=== PATIENT | female | born 1985 | race Caucasian/White ===

== ENCOUNTER 2017-04-01 02:54 | Emergency (ER) | payer MEDICARE, OTHER, MEDICAID ==
[~2017-04-01] VITALS: Ht 160 cm; Wt 53.3 kg
[2017-04-01 02:55] VITALS: TEMP 97.8; Ht 160 cm; Wt 53.3 kg
--- OUTSIDE RECORDS SUMMARY | 2017-04-01 02:58 | XMS REPORT ---
Author Author Sahra Bowden Organization Unknown Address [address], [place] [id number] Phone Care Team Providers Care Loom Changeover Operator Name Role Phone Alfred Obregon PP Unavailable Unavailable Reason for Referral No Reason for Referral was given. History of Present Illness No HPI available. 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; (Active) * Amenorrhea (626.0); (Active) * Pain During Urination (Dysuria) (788.1); (Active) * Visit For: Therapeutic Drug Monitoring (V58.83); (Active) * Chronic Sinusitis (473.9); (Active) * Vomiting (Symptom) (787.03); (Active) * Urinary Tract Infection (599.0); (Active) * Visit For: Preoperative Exam (V72.84); (Active) * Fatigue (780.79); (Active) * Cystic Fibrosis (277.00); (Active) Medication * NexIUM 40 MG Oral Capsule Delayed Release; TAKE ONE CAPSULE BY MOUTH DAILY; Start Date: 06/21/2008; End Date: (Active) * Pulmozyme 1 MG/ML Inhalation Solution; USE 1 UNIT VIA NEBULIZER TWO TIMES DAILY; Start Date: 07/09/2009; End Date: (Active) * Vitamin D3 TABS (Active) * ProAir HFA 108 (90 Base) MCG/ACT Inhalation Aerosol Solution; INHALE 2 PUFFS Every 4 hours PRN; Start Date: 04/14/2010; End Date: (Active) * Vitamin E 100 UNIT Oral Capsule (Active) * PARoxetine HCl 40 MG Oral Tablet; Take one tablet by mouth daily; Start Date: 11/30/2011; End Date: (Active) * /Folic Acid Oral Tablet; TAKE 1 TABLET DAILY.; Start Date: 12/15/2011 ; End Date: (Active) * Flovent HFA 220 MCG/ACT Inhalation Aerosol; INHALE ONE PUFF BY MOUTH TWO TIMES A DAY.; Start Date: 06/28/2011; End Date: (Active) * Nasonex 50 MCG/ACT Nasal Suspension; USE 2 SPRAYS IN EACH NOSTRIL ONCE DAILY; Start Date: 06/28/2011; End Date: (Active) * Saline 10%; Use 2ml via nebulizer twice daily; Start Date: 07/13/2011; End Date: (Active) * AquADEKs Oral Capsule; TAKE 1 CAPSULE DAILY.; Start Date: 02/02/2011; End Date : (Active) * Brovana 15 MCG/2ML Inhalation Nebulization Solution; INHALE THE CONTENTS OF 1 VIAL TWO TIMES DAILY IN THE MORNING AND EVENING VIA STANDARD JET NEBULIZER DIRECTED.; Start Date: 12/22/2011; End Date: (Active) * Creon 63443 UNIT Oral Capsule Delayed Release Particles; TAKE 6 CAP BY MOUTH WITH MEALS, AND 4 CAPS WITH SNACKS; Start Date: 12/22/2011; End Date: 1899 (Active) * Albuterol Sulfate (2.5 MG/3ML) 0.083% Inhalation Nebulization Solution; USE 1 UNIT DOSE IN NEBULIZER EVERY 4 TO 6 HOURS NEEDED.; Start Date: 05/16/2012; End Date: (Active) * ALPRAZolam 0.25 MG Oral Tablet; Take one tablet up to three times daily as needed; Start Date: 11/24/2011 (Active) * CefTRIAXone Sodium 2 GM Injection Solution Reconstituted; Start Date: 2011 (Active) * Epiduo 0.1-2.5 % External Gel; apply to acne areas daily; Start Date: 2011 (Active) * Vitamin A 42004 UNIT Oral Capsule; Start Date: 01/17/2013 (Active) * Levothyroxine Sodium 125 MCG Oral Tablet; TAKE 1 TABLET DAILY.; Start Date: ; End Date: (Active) * Yoni 300 MG/5ML Inhalation Nebulization Solution; USE ONE VIAL VIA NEBULIZER BY MOUTH TWICE A DAY/ one month on and one month off; Start Date: 05/28/2013; End Date: (Active) * Nada Carbonate 300 MG Oral Tablet; TAKE 3 TABLETS THREE TIMES DAILY.; Start Date: 09/19/2012 (Active) Allergies and Adverse Reactions * Latex Exam Gloves MISC (Active) * Cipro TABS (Active) * Augmentin TABS (Active) * Sudafed TABS (Active) * Penicillins (Active) * Aspirin Buffered TABS (Active) * Zithromax PACK (Active) * Clindamycin; Nausea; Vomiting (Active) * Levaquin TABS; Hives (Active) * Peanut-derived (Active) Past Medical History * History of 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/ Tunneling & Subcutan Port (Resolved) * History of Cystic Fibrosis (277.00); (Resolved) * History of Asthma (493.90); (Resolved) * 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); ( Resolved) * History of Chronic Sinusitis (473.9); (Resolved) Procedures Procedure Procedure Date Date Completed Status Ethmoidectomy - - Active Nasal Endoscopy With Maxillary Antrostomy - - Active Sphenoidectomy - - Active Turbinectomy - - Active Septoplasty - - Active Rhinoplasty - - Active Nasal Endoscopy With Total Ethmoidectomy 07/23/2009 - Active Nasal Endoscopy With Maxillary Antrostomy 07/23/2009 - Active Sphenoid Sinus Endoscopy With Removal Of Mucous Membrane 07/23/2009 - Active Nasal Endoscopy With Frontal Sinus Exploration 06/25/2010 - Active Nasal Endoscopy With Total Ethmoidectomy 06/25/2010 - Active Nasal Endoscopy With Maxillary Antrostomy 06/25/2010 - Active Sphenoid Sinus Endoscopy With Removal Of Mucous Membrane 06/25/2010 - Active 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/ Tunneling & Subcutan Port 08/02/2011 - Active Tunneled Central IV Removal With Port 03/15/2011 - Active Lysis Of Intranasal Synechia 07/19/2011 - Active Maxillary Sinus Endoscopy With Removal Of Mucous Membrane 07/19/2011 - Active Nasal Endoscopy Polypectomy 07/19/2011 - Active 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/ Tunneling & Subcutan Port 09/22/2012 - Active Tunneled Central IV Removal With Port 09/22/2012 - Active Immunization * Pneumo (Pneumovax) - Administered on: 07/19/2005 Family History * Family history of Diabetes Mellitus (V18.0); (Active) * Family history of Coronary Artery Disease (Active) * Family history of Epilepsy And Recurrent Seizures (V17.2); (Active) * Family history of Osteoporosis (V17.81); (Active) * Family history of Glaucoma (Active) * Family history of Hyperlipidemia (Active) * Family history of Thyroid Disorder (V18.19); (Active) * Family history of Lung Cancer (V16.1); (Active) * Family history of Breast Cancer (V16.3); (Active) Social History * Racial Background (___ %) (Active) * Never A Smoker (Active) * Being A Social Drinker (Active) * No History of Drug Use (Active) * Exercising Regularly (Active) * No History of Home Environment Domestic Violence (Active) * Marital History - Never (Active) * Seeing A Dentist Regularly (Active) * Uses Safety Equipment - Seatbelts (Active) Treatment Plan * AEROBIC CULTURE 5000 01/31/2008 Routine * GRAM STAIN - BILL 5056 01/31/2008 Routine * PAP SMEAR 9600 07/18/2008 Routine * X DIGITIZATION OF X-RAY FILM 08/13/2008 Routine * XC CT RECON FOR NON CTA EXAMS 08/19/2008 Routine * Urine Culture PRN 8000 03/26/2009 Routine * Urinalysis, Reflex to Microscopic or Culture PRN 8005 03/26/2009 Routine * Urine Culture PRN 8000 06/08/2010 Routine * PAP SMEAR 9600 09/29/2010 Routine * CRP, High Sensitivity 1270 01/04/2011 Routine * XRay CHEST-PA & LAT 01/18/2013 Routine * FREE T4 3604 05/28/2013 Routine * CBC w/ Auto Diff 7150 05/28/2013 Routine * THYROID STIM. HORMONE 3602 05/28/2013 Routine * GLUCOSE 1100 07/03/2013 Routine Advance Directives * No Advance Directives available. Encounters * Appointment 07/30/2013
--- OUTSIDE RECORDS SUMMARY | 2017-04-01 02:58 | XMS REPORT | Referral Summary ---
Author Author [facility] Organization [facility] Address Unknown Phone Unavailable Care Team Providers Care Map Drafter Name Role Phone Alem Simon Primary Care Physician [phone] Encounter [facility] [id number] Date(s): 02/26/16 - 02/26/16 [facility] [address] [place], [place] [address] Discharge Diagnosis: Chronic pansinusitis Discharge Diagnosis: Hypertrophy of nasal turbinates Discharge Diagnosis: Epistaxis Discharge Disposition: 01-Home or Self Care Attending Physician: Nate Grady MD Admitting Physician: Nate Grady MD Vital Signs Most recent to 1 oldest [Reference Range]: Temperature Temporal 36.7 degC Artery [36.3-37.8 (02/26/16 9:20 AM) degC] Peripheral Pulse 62 bpm Rate [60-100 bpm] (02/26/16 9:20 AM) Respiratory Rate 16 br/min [14-20 br/min] (02/26/16 9:20 AM) Blood Pressure 104/67 mmHg [90-140/60-90 mmHg] (02/26/16 9:20 AM) SpO2 100 % (02/26/16 9:20 AM) Problem List Condition Effective Dates Status Health Status Informant Acute Active pain(Confirmed) Anemia(Confirmed) Active patient At risk for Active infection(Confirmed) 1 Chronic Active depression(Confirmed ) Chronic Active diarrhea(Confirmed) Chronic sinusitis Active (disorder)(Confirmed ) Cystic fibrosis Active without meconium ileus (disorder)(Confirmed ) GERD Active patient (gastroesophageal reflux disease)(Confirmed) Generalized Active abdominal pain (finding)(Confirmed) Hypothyroidism Active (disorder)(Confirmed ) Ineffective airway Active clearance(Confirmed) 2 Asthma without Active status asthmaticus (disorder)(Confirmed ) Pancreatic Active insufficiency(Confir med) Varicella Active (disorder)(Confirmed ) Vitamin deficiency Active (disorder)(Confirmed ) 1Problem added automatically by system based on initiation of At Risk for Infection in Nutrition Plan of Care 2Problem added automatically by system based on initiation of Ineffective Airway Clearance Plan of Care Allergies, Adverse Reactions, Alerts Substance Reaction Severity Status amoxicillin Hives Active amoxicillin-clavulanate Hives Active aspirin Wheezing Active Anaphylaxis azithromycin hives Active ciprofloxacin Urticaria (hives) Active clindamycin Hives/Skin Rash Severe Active cyproheptadine Hives Active divalproex sodium Active erythromycin Active Latex Urticaria (hives) Active levofloxacin hives Active Peanuts Unknown Active penicillin Urticaria (hives) Active pseudoephedrine Anaphylaxis Active Medications Abilify 5 mg, BID, 0 Refill(s) Start Date: 01/28/16 Status: Ordered Ancef IV, q8hr, 0 Refill(s) Start Date: 02/20/16 Status: Ordered BuSpar 20 mg, Oral, TID, 0 Refill(s) Start Date: 01/28/16 Status: Ordered Cranberry Daily Start Date: 04/02/15 Status: Ordered Creon 24,000 units oral delayed release capsule See Instructions, Take 6 caps oral with meals and 4 caps oral with snacks., # 780 caps, 3 Refill(s), Pharmacy: [facility] Start Date: 11/05/15 Status: Ordered Effexor XR 150 mg oral capsule, extended release mg caps, Oral, Daily, 0 Refill(s) Start Date: 02/20/16 Status: Ordered famotidine 20 mg Start Date: 05/05/15 Status: Ordered Femara 2.5 mg oral tablet mg tabs, Oral, Daily, 0 Refill(s) Start Date: 11/26/15 Status: Ordered Flovent HFA 220 mcg/inh inhalation aerosol 2 puffs, Inhalation, BID, 0 Refill(s) Start Date: 02/24/15 Status: Ordered naltrexone 20 mg, Daily Start Date: 04/02/15 Status: Ordered Nasonex 50 mcg/inh nasal spray sprays, Nasal, Daily, 0 Refill(s) Start Date: 02/20/16 Status: Ordered NexIUM 20 mg oral delayed release capsule 1 caps, Oral, BID, # 60 caps, 0 Refill(s), Pharmacy: [facility] , 1 caps Oral BID Start Date: 06/07/14 Status: Ordered [place] 10 mg-325 mg oral tablet tabs, Oral, q6hr, 0 Refill(s) Start Date: 02/20/16 Status: Ordered Orkambi 200 mg-125 mg oral tablet 2 tabs, Oral, q12hr, # 336 tabs, 11 Refill(s), Pharmacy: [facility] Start Date: 02/18/16 Status: Ordered Ovidrel 250 mcg/0.5 mL subcutaneous solution 250 mcg, SubCutaneous, Once, # 1 Each, 0 Refill(s) Start Date: 11/26/15 Status: Ordered Percocet 5/325 oral tablet See Instructions, as needed for pain, 1-2 tabs Oral q6hr, # 50 tabs, 0 Refill(s) Start Date: 02/26/16 Status: Ordered ProAir HFA 90 mcg/inh inhalation aerosol 2 puffs, Inhalation, q4hr, as needed for wheezing, # 8.5 g, 0 Refill(s) Start Date: 05/08/14 Status: Ordered Pulmozyme 2.5 mg/2.5 mL inhalation solution See Instructions, INHALE ONE AMPULE BY INHALATION ROUTE EVERY DAY VIA NEBULIZER , # 75 mL, 11 Refill(s), eRx: [facility], INHALE ONE AMPULE BY INHALATION ROUTE EVERY DAY VIA NEBULIZER Start Date: 08/21/15 Status: Ordered SEROquel 300 mg oral tablet mg tabs, Oral, BID, 0 Refill(s) Start Date: 01/28/16 Status: Ordered Sleep med (Ciprohetadine) Sleep med (Ciprohetadine), 4 mg Start Date: 04/02/15 Status: Ordered Yoni NEB, Odd moths only Start Date: 05/05/15 Status: Ordered traZODone 100 mg, Oral, 0 Refill(s) Start Date: 01/28/16 Status: Ordered Tums 500 mg oral tablet, chewable 500 mg 1 tabs, Oral, PRN, 0 Refill(s) Start Date: 02/24/15 Status: Ordered vitamin A 0 Refill(s) Start Date: 02/20/16 Status: Ordered Vitamin D with Minerals oral tablet tabs, Oral, Daily, 0 Refill(s) Start Date: 02/20/16 Status: Ordered Vitamin D3 0 Refill(s) Start Date: 02/20/16 Status: Ordered vitamin E Oral, Daily, 0 Refill(s) Start Date: 02/20/16 Status: Ordered Vitamin K1 SubCutaneous, Once, 0 Refill(s) Start Date: 02/20/16 Status: Ordered Results Chemistry Most recent to 1 oldest [Reference Range]: U Beta hCG Ql Neg (02/26/16 9:30 AM) Microbiology Reports TEST: Wound Culture and Smear STATUS: Order in Progress BODY SITE: Sinus Ethmoid SOURCE: Sinus COLLECTED DATE/TIME: 02/26/16 12:07 PM Gram Smear Rare (0-1/OIF) white blood cells No microorganisms observed OIF=Oil Immersion Field LPF=Low Power Field TEST: Wound Culture and Smear STATUS: Order in Progress BODY SITE: Sinus Maxillary SOURCE: Sinus COLLECTED DATE/TIME: 02/26/16 11:48 AM Gram Smear Rare (0-1/OIF) white blood cells Few (1-5/OIF) gram positive cocci OIF=Oil Immersion Field LPF=Low Power Field Immunizations Vaccine Date Refusal Reason tetanus/diphth/pertuss (Tdap) adult/adol 11/26/15 tetanus/diphth/pertuss (Tdap) adult/adol 10/02/14 pneumococcal 23-polyvalent vaccine 11/26/15 Procedures Procedure Date Related Diagnosis Body Site Insertion Implantable Venous Access Port1 02/24/15 sinus surgery 2014 Port-A-Cath Removed 2013 Bronchoscopy2 01/05/08 Cholecystectomy Tonsillectomy 1auto-populated from documented surgical case 2For retained secretions and L UL atelectasis Social History Social History Type Response Smoking Status Never smoker Assessment and Plan Extracted from: Title: Ambulatory Patient Education Author: Gin Amin RN Date: 02/26/16 [facility] [employer] [phone] Nate Grady MD FACS; 1948 [place], [place] [address] Endoscopic Sinus Surgery Post-OP Instructions What to Expect After Endoscopic Sinus Surgery: Bleeding: It is normal to have some bloody discharge for the first 3-5 days after sinus surgery, especially after you irrigate your sinuses. If steady bleeding occurs after surgery, tilt your head back slightly and breathe through your nose gently. You may dab your nose with tissue but avoid any nose blowing. If this does not stop the bleeding you may use Afrin spray. Several sprays will usually stop any bleeding. If Afrin fails to stop steady nasal bleeding then you should call our office or the publicity consultant doctor (see contact below). Pain: You should expect some nasal and sinus pressure and pain for the first several days after surgery. This may feel like a sinus infection or a dull ache in your sinuses. Extra-strength Tylenol is often all that is needed for mild post-operative discomfort. You should avoid aspirin and NSAIDs such as Motrin, Advil, and Aleve (see below). If Tylenol is not sufficient to control the pain, you should use the post-operative pain medication prescribed by your doctor. Fatigue: You can expect to feel very tired for the first week after surgery. This is normal and most patients plan on taking at least 1 week off of work to recover. Every patient is different and some return to work sooner. Nasal congestion and discharge: You will have nasal congestion and discharge for the first few weeks after surgery. Your nasal passage and breathing should return to normal 2-3 weeks after surgery. Postoperative visits: You will have a certain number of postoperative visits depending on what surgery you have. During these visits we will clean your nose and sinuses of fluid and blood left behind after surgery. These visits are very important to aid the healing process so it is essential that you attend all those scheduled for you. There is some discomfort involved with the cleaning so it is best to take a pain medication (described above) 45 minutes before your visit. What to Avoid After Endoscopic Sinus Surgery: Nose Blowing and Straining: You should avoid straining, heavy lifting (> 20 lbs ) and nose blowing for at least 10 days after surgery. Straining or nose blowing soon after surgery may cause bleeding. You can resume 50% of your regular exercise regimen at 1 week after surgery and your normal routine 2 weeks after surgery. Aspirin or Non-steroidal Anti-inflammatory (NSAIDs) medications: Aspirin and NSAIDs such as Motrin, Advil, and Aleve should be stopped 2 weeks prior to surgery. Aspirin and NSAIDs such may cause bleeding and should be avoided for 2 weeks after surgery. Steroid Nasal Sprays: If you were taking nasal steroid sprays prior to surgery you should avoid using these for at least 2 weeks after sinus surgery to allow the lining of the nose and sinuses to heal. Your doctor will tell you when it is safe to restart this medicine. Postoperative Care Instructions: Nasal Saline [place]: Nasal saline mist spray can be used every 2-3 hours after surgery and can make your nose more comfortable after surgery. These sprays ( Hope, [place], Simple Saline) are [id number] medications and can be purchased in any pharmacy. Sinus Irrigations: You will start the sinus irrigations with the sinus rinse kits ([employer] Sinus Rinse Kit) the day after surgery. This must be performed at least twice daily. Your doctor or nurse will show you how to perform the irrigations. At first they will feel strange if you havent done them before. Soon, however, they will become quite soothing as they clean out the debris left behind in your sinuses after surgery. You can expect some bloody discharge with the irrigations for the first few days after surgery. These irrigations are critical for success after sinus surgery! When to Call After Surgery: Fever after the day of surgery higher than 102.5F Constant clear watery discharge after the first week of surgery Sudden visual changes or eye swelling Severe headache or neck stiffness Severe diarrhea Steady, brisk nose bleeding that doesnt get better after using Afrin Who to Call After Surgery: Dr. Grady's office at [phone]. If you have an emergency after hours call the physician exchange at [phone] or if unable to reach your physician , proceed to the nearest emergency room. Family Medicine Nosebleed Nosebleeds are common. A nosebleed can be caused by many things, including: Getting hit hard in the nose. Infections. Dryness in your nose. A dry climate. Medicines. Picking your nose. Your home heating and cooling systems. HOME CARE Try controlling your nosebleed by pinching your nostrils gently. Do this for at least 10 minutes. Avoid blowing or sniffing your nose for a number of hours after having a nosebleed. Do not put gauze inside of your nose yourself. If your nose was packed by your doctor, try to keep the pack inside of your nose until your doctor removes it. If a gauze pack was used and it starts to fall out, gently replace it or cut off the end of it. If a balloon catheter was used to pack your nose, do not cut or remove it unless told by your doctor. Avoid lying down while you are having a nosebleed. Sit up and lean forward. Use a nasal spray decongestant to help with a nosebleed as told by your doctor. Do not use petroleum jelly or mineral oil in your nose. These can drip into your lungs. Keep your house humid by using: Less air conditioning. A humidifier. Aspirin and blood thinners make bleeding more likely. If you are prescribed these medicines and you have nosebleeds, ask your doctor if you should stop taking the medicines or adjust the dose. Do not stop medicines unless told by your doctor. Resume your normal activities as you are able. Avoid straining, lifting, or bending at your waist for several days. If your nosebleed was caused by dryness in your nose, use over-the- counter saline nasal spray or gel. If you must use a lubricant: Choose one that is water-soluble. Use it only as needed. Do not use it within several hours of lying down. Keep all follow-up visits as told by your doctor. This is important. GET HELP IF: You have a fever. You get frequent nosebleeds. You are getting nosebleeds more often. GET HELP RIGHT AWAY IF: Your nosebleed lasts longer than 20 minutes. Your nosebleed occurs after an injury to your face, and your nose looks crooked or broken. You have unusual bleeding from other parts of your body. You have unusual bruising on other parts of your body. You feel light-headed or dizzy. You become sweaty. You throw up (vomit) blood. You have a nosebleed after a head injury. This information is not intended to replace advice given to you by your health care provider. Make sure you discuss any questions you have with your health care provider. Document Released: 08/16/2009 Document Revised: 08/26/2015 Document Reviewed: Exit[employer] Patient Information 2015 [facility], [facility]. No follow up information was provided.
--- OUTSIDE RECORDS SUMMARY | 2017-04-01 02:58 | XMS REPORT | Summary of Care ---
Author Author Sabas Simon M.D. Organization Unknown Address [address], [place] [id number] Phone Unavailable Care Team Providers Care Manager Sustainability Name Role Phone Alfred Tran, Alem Unavailable Unavailable Tyree Tran, CARTER,, Dae Unavailable Unavailable Alejandra Tran, Jose Unavailable Unavailable Zaid Tran, Alem Unavailable Unavailable Sabas Simon PP Unavailable Unavailable Unavailable Functional Status Functional Status Health Issues* Name Dates Details Functional status health issues are not documented Status: Cognitive Status Health Issues* Name Dates Details Cognitive status health issues are not documented Status: Problems Name Dates Details 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/ Tunneling & Subcutan Port Status: Active Anxiety (300.00, F41.9) Status: Active Acne (706.1, L70.9) Status: Active Female infertility (628.9, N97.9) Status: Active Fatigue (780.79, R53.83) Status: Active Vaginal Discharge (623.5, N89.8) Status: Active Acute gastritis (535.00, K29.00) Status: Active Duodenitis (535.60, K29.80) Status: Active Esophageal stenosis (530.3, K22.2) Status: Active Irritable bowel syndrome (564.1, K58.9) Status: Active Localized hives (708.9, L50.9) Status: Active Chronic sinusitis (473.9, J32.9) Status: Active Chest pain (786.50, R07.9) Status: Active Pleuritic chest pain (786.52, R07.81) Status: Active Chronic bronchitis (491.9, J42) Status: Active Chest pain (786.50, R07.9) Status: Active Pneumonia, bacterial (482.9, J15.9) Status: Active Back pain, acute (724.5, M54.9) Status: Active Cholecystitis, acute (575.0, K81.0) Status: Active Non-healing surgical wound (998.83, T81.89XA) Status: Active Shoulder pain (719.41, M25.519) Status: Active Shoulder injury (959.2, S49.90XA) Status: Active Rotator cuff tear (840.4, M75.100) Status: Active Staph skin infection (686.9, L08.9) Status: Active Post-operative infection (998.59, T81.4XXA) Status: Active 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, 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) Status: Active Staphylococcus aureus infection (041.11, A49.01) Status: Active Shortness of breath (786.05, R06.02) Status: Active Encounter for routine gynecological examination with Papanicolaou smear of cervix (V72.31, Z01.419) Status: Active Exposure to pertussis (V01.89, Z20.89) Status: Active Cystic fibrosis (277.00, E84.9) Status: Active Cystic fibrosis (277.00, E84.9) Status: Active High risk medication use (V58.69, Z79.899) Status: Active Acute sinusitis (461.9, J01.90) Status: Active Positive blood test (V72.42, Z32.01) Status: Active Cystic fibrosis (277.00, E84.9) Status: Active Amenorrhea (626.0, N91.2) Status: Active Chronic obstructive pulmonary disease (496, J44.9) Status: Active Medications Name Dates Details Pulmozyme 1 MG/ML Inhalation Solution USE 1 UNIT VIA NEBULIZER TWO TIMES DAILY Quantity: 2 Sabas Simon M.D.* Started 09-Jul-2009 Active2.5 ML Plas Cont (30 Plas Conts) NexIUM 40 MG Oral Capsule Delayed Release TAKE ONE CAPSULE BY MOUTH DAILY * Quantity: 30 Refills: 13 Sabas Simon M.D.* Started 21-Jun-2008 ActiveProAir HFA 108 (90 Base) MCG/ACT Inhalation Aerosol Solution INHALE 2 PUFFS Every 4 hours PRN * Quantity: 1 Refills: 12 Sabas Simon M.D.* Started 14-Apr-2010 Active8.5 GM Inhaler Vitamin D3 TABS * Refills: 0 ActiveVitamin E 100 UNIT Oral Capsule * Refills: 0 ActiveFlovent HFA 220 MCG/ACT Inhalation Aerosol INHALE ONE PUFF BY MOUTH TWO TIMES A DAY. * Quantity: 1 Refills: 11 Sabas Simon M.D.* Started 28-Jun-2011 [id number] GM Inhaler Creon 08940 UNIT Oral Capsule Delayed Release Particles TAKE 6 CAP BY MOUTH WITH MEALS, AND 4 CAPS WITH SNACKS * Quantity: 300 Refills: 99 Sabas Simon M.D.* Started 22-Dec-2011 ActiveAlbuterol Sulfate (2.5 MG/3ML) 0.083% Inhalation Nebulization Solution USE 1 UNIT DOSE IN NEBULIZER EVERY 4 TO 6 HOURS NEEDED. (Dx: 277.00) * Quantity: 360 Refills: 11 Sabas Simon M.D.* Started ActiveEpiduo 0.1-2.5 % External Gel apply to acne areas daily * Quantity: 45 Refills: 3 Joslyn Mar M.D.* Started 17-Jul-2012 ActiveVitamin A 20721 UNIT Oral Capsule * Refills: 0 * Started 17-Jan-2013 ActivePARoxetine HCl - 40 MG Oral Tablet TAKE 1 TABLET DAILY. * Quantity: 30 Refills: 5 * Started 10-Apr-2014 ActiveTrileptal 300 MG Oral Tablet take 1 tab daily * Refills: 0 * Started 10-Apr-2014 ActiveTobramycin 300 MG/5ML Inhalation Nebulization Solution USE ONE VIAL VIA NEBULIZER BY MOUTH TWICE A DAY/ one month on and one month off * Quantity: 280 Refills: 11 Sabas Simon M.D.* Started ActiveSEROquel 400 MG Oral Tablet TAKE 1 TABLET AT BEDTIME. * Refills: 0 * Started ActiveFamotidine 20 MG Oral Tablet TAKE 1 TABLET TWICE DAILY. * Refills: 0 * Started 15-Aug-2014 ActiveCranberry-Vitamin C 84-20 MG Oral Capsule * Refills: 0 Dae Clements M.D., FACS, * Started 15-Aug-2014 ActiveNaltrexone HCl - 50 MG Oral Tablet TAKE 300 MG Twice daily * Refills: 0 Sabas Simon M.D.* Started 06-Mar-2015 ActiveHydrocodone-Acetaminophen 10-325 MG Oral Tablet TAKE 1 TABLET EVERY 4 TO 6 HOURS NEEDED FOR PAIN. * Quantity: 60 Refills: 0 Sabas Simon M.D.* Started 24-Oct-2012 ActiveProgesterone Micronized 200 MG Oral Capsule Take two tablets at bedtime for 5 nitesif no period to induce period every 35- 40 days * Quantity: 10 Refills: 8 Cory Roberts M.D.* Started 01-Jul-2015 ActiveCrinone 8 % Vaginal Gel Insert one applicator vaginally every other day for 6 doses. * Quantity: 6 Refills: 0 Cory Roberts M.D.* Started 07-Jul-2015 ActiveFluticasone Propionate 50 MCG/ACT Nasal Suspension USE 2 SPRAYS IN EACH NOSTRIL ONCE DAILY * Quantity: 1 Refills: 11 Sabas Simon M.D.* Started 21-Aug-2015 [id number] GM Bottle Ovidrel 250 MCG/0.5ML Subcutaneous Injectable INJECT SUBCUTANEOUSLY DIRECTED. * Refills: 0 Sabas Simon M.D.* Started 02-Oct-2015 ActiveSulfamethoxazole-Trimethoprim 800-160 MG Oral Tablet Take one tablet by mouth twice a day * Quantity: 28 Refills: 0 Sabas Simon M.D.* Started 05-Nov-2015 Active Allergies and Adverse Reactions Name Dates Details Aspirin Buffered TABS Status: Active Augmentin TABS Status: Active Cipro TABS Status: Active Clindamycin Reaction: Nausea, Vomiting Status: Active Depakote ER TB24 Status: Active erythromycin Status: Active Latex Exam Gloves MISC Status: Active Levaquin TABS Reaction: Hives (Severe) Status: Active Peanut-derived Status: Active Penicillins Status: Active Sudafed TABS Status: Active Zithromax PACK Status: Active Past Medical History Name Dates Details History of Asthma (493.90, J45.909) Status: Resolved History of Chronic sinusitis (473.9, J32.9) Status: Resolved 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 Procedures Procedure Dates Details History of Ethmoidectomy History of Nasal Endoscopy With Maxillary Antrostomy History of Sphenoidectomy History of Turbinectomy History of Septoplasty History of Rhinoplasty History of 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/ Tunneling & Subcutan Port History of Nasal Endoscopy With Total Ethmoidectomy Completed:23-Jul-2009 History of Nasal Endoscopy With Maxillary Antrostomy Completed:23-Jul-2009 History of Sphenoid Sinus Endoscopy With Removal Of Mucous Membrane Completed:23-Jul-2009 History of Nasal Endoscopy With Frontal Sinus Exploration Completed:2009 History of Nasal Endoscopy With Total Ethmoidectomy Completed:25-Jun-2010 History of Nasal Endoscopy With Maxillary Antrostomy Completed:25-Jun-2010 History of Sphenoid Sinus Endoscopy With Removal Of Mucous Membrane Completed:25-Jun-2010 History of 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/ Tunneling & Subcutan Port Completed:02-Aug-2011 History of Tunneled Central IV Removal With Port Completed:15-Mar-2011 History of Lysis Of Intranasal Synechia Completed:19-Jul-2011 History of Maxillary Sinus Endoscopy With Removal Of Mucous Membrane Completed:19-Jul-2011 History of Nasal Endoscopy Polypectomy Completed:19-Jul-2011 History of 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/ Tunneling & Subcutan Port Completed:22-Sep-2012 History of Tunneled Central IV Removal With Port Completed:22-Sep-2012 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/ Tunneling & Subcutan Port Completed:Jul-2011 History of Tunneled Central IV Removal With Port Completed:21-Sep-2013 History of Duodenoscopy With Biopsy History of Colonoscopy (Fiberoptic) History of Percutaneous Portal Vein Catheter Placement History of Tonsillectomy History of Cholecystectomy Laparoscopic Procedures not documented Immunization Name Dates Details Pneumo (Pneumovax) Administered on:19-Jul-2005 Fluvirin Intramuscular Injectable Administered on:07-Sep-2015 Family History Unknown Family Member* Name Dates Details Family history of Diabetes Mellitus (V18.0) Comments: Family History Status: Active Family history of Coronary Artery Disease Comments: Family History Status: Active Family history of Epilepsy And Recurrent Seizures (V17.2) Comments: Family History Status: Active Family history of Osteoporosis (V17.81) Comments: Family History Status: Active Family history of Glaucoma Comments: Family History Status: Active Family history of Hyperlipidemia Comments: Family History Status: Active Family history of Thyroid Disorder (V18.19) Comments: Family History Status: Active Family history of Lung Cancer (V16.1) Comments: Family History Status: Active Family history of Breast Cancer (V16.3) Comments: Family History Status: Active Grandfather* Name Dates Details Family history of leukemia (V16.6, Z80.6) Status: Active Social History Name Dates Details Smoking Status* Never smoker Vital Signs Date Test Result Details 12-Nov-2015 15:14 BP Systolic 98 mm[Hg] Status: BP Diastolic 64 mm[Hg] Status: Heart Rate 87 /min Status: Height 63 in Status: Weight 131 lb Status: O2 SAT 97 % Status: Body Mass Index Calculated 23.21 kg/m2 Status: Body Surface Area Calculated 1.62 m2 Status: Results Date Description Value Details 21-Oct-2015 14:32 ULTRASOUND FOLLICULAR STUDY SONO Comments: Exam Date: 10/21/2015 13:11Dictation Date: 10/21/2015 14:32 XS FOLLICULAR STUDY SONO (Better) 05-Nov-2015 17:12 CBC w/ Auto Diff 7150 WBC 11.1 K/uL (Above high threshold) Range: 4.5-11.0 RBC 4.87 mil/uL (Better) Range: 3.60-5.00 HGB 14.2 g/dL (Better) Range: 12.0-16.0 HCT 42.1 % (Better) Range: 36.0-48.0 MCV 86.5 fL (Better) Range: 80.0-99.0 MCH 29.2 pg (Better) Range: 27.3-32.5 MCHC 33.8 % (Better) Range: 32.0-36.0 RDW 13.2 % (Better) Range: 11.6-14.8 PLATELETS 334 K/uL (Better) Range: 150-400 MPV 7.6 fL (Better) Range: 6.0-11.0 %NEUTRO 65.4 % (Better) Range: 37.0-80.0 %LYMPHS 23.7 % (Better) Range: 13.0-50.0 %MONO 4.3 % (Better) Range: 0.0-12.0 %EOS 4.0 % (Better) Range: 0.0-7.0 %BASO 0.5 % (Better) Range: 0.0-2.5 %DAREN 2.0 % (Better) Range: 0.0-5.0 NEUTRO 7.3 K/uL (Above high threshold) Range: 2.0-6.9 LYMPHS 2.6 K/uL (Better) Range: 0.6-3.4 MONOS 0.5 K/uL (Better) Range: 0.0-0.9 EOS 0.4 K/uL (Better) Range: 0.0-0.7 BASO 0.1 K/uL (Better) Range: 0.0-0.2 17:38 IgGAM 1116 IgA 246 mg/dL (Better) Range: 87-474 IgG 1284 mg/dL (Better) Range: 681-1648 IgM 177 mg/dL (Better) Range: 48-312 17:47 Total Immunoglobulin E IgE 3106 IMMUNOGLOBULIN E (IgE) 196 IU/mL (Above high threshold) Range: 0-158 17:47 BETA HCG 3500 BETA HCG <2 mIU/mL (Better) Range: 0-5 Comments: Gestational age: 0.02-1 Weeks=5-50 mIU/mL1-2 Weeks=50-500 mIU/mL2-3 Ihcix=131-8025 mIU/mL3-4 Qocjh=999-89,000 mIU/mL4-5 Weeks=1,000-50,000 mIU/mL5- 6 Weeks=10,000-100,000 mIU/mL6-8 Weeks=15,000-200,000 mIU/mL2-3 months=10,000- 100,000 mIU/mL----- 12-Nov-2015 15:04 CBC w/ Auto Diff 7150 WBC 7.5 K/uL (Better) Range: 4.5-11.0 RBC 4.56 mil/uL (Better) Range: 3.60-5.00 HGB 13.5 g/dL (Better) Range: 12.0-16.0 HCT 40.1 % (Better) Range: 36.0-48.0 MCV 87.8 fL (Better) Range: 80.0-99.0 MCH 29.5 pg (Better) Range: 27.3-32.5 MCHC 33.6 % (Better) Range: 32.0-36.0 RDW 13.2 % (Better) Range: 11.6-14.8 PLATELETS 298 K/uL (Better) Range: 150-400 MPV 7.9 fL (Better) Range: 6.0-11.0 %NEUTRO 57.1 % (Better) Range: 37.0-80.0 %LYMPHS 28.6 % (Better) Range: 13.0-50.0 %MONO 4.9 % (Better) Range: 0.0-12.0 %EOS 5.5 % (Better) Range: 0.0-7.0 %BASO 0.8 % (Better) Range: 0.0-2.5 %DAREN 3.1 % (Better) Range: 0.0-5.0 NEUTRO 4.3 K/uL (Better) Range: 2.0-6.9 LYMPHS 2.1 K/uL (Better) Range: 0.6-3.4 MONOS 0.4 K/uL (Better) Range: 0.0-0.9 EOS 0.4 K/uL (Better) Range: 0.0-0.7 BASO 0.1 K/uL (Better) Range: 0.0-0.2 15:14 XRay CHEST-PA & LAT Comments: Exam Date: 11/12/2015 15: 02Dictation Date: 11/12/2015 15:14 X CHEST PA & LAT (Better) Plan of Care Planned Observations* Name Dates Details Planned Goals not documented Goal Planned Encounters* Appointment; Provider: Cory Roberts On 01-Jul-2016 08:15 * Appointment; Provider: Sabas Simon On 08-Jan-2016 11:45 * Appointment; Provider: Schedule Radiology On 19-Nov-2015 13:00 * Appointment; Provider: Winsome Pollack On 01-Sep-2015 16:00 * Appointment; Provider: Pranav Sahu On 10-Dec-2014 11:00 * Appointment; Provider: Pranav Sahu On 20-Aug-2014 11:00 * Appointment; Provider: Lebron More On 21-Sep-2013 10:30 * Appointment; Provider: Dae Clements On 10:00 * Appointment; Provider: Chuck Amezcua On 16-Dec-2011 09:15 * Appointment; Provider: Chuck Amezcua On 06-Aug-2011 11:00 * Appointment; Provider: Chuck Amezcua On 19-Jul-2011 12:30 * Appointment; Provider: Dae Clements On 15-Mar-2011 13:00 * Appointment; Provider: Sabas Simon On 05-Nov-2010 14:30 * Appointment; Provider: Dae Clements On 26-Aug-2009 13:30 * Appointment; Provider: Dae Clements On 12-Aug-2009 07:00 * Appointment; Provider: Chuck Amezcua On 09-Jul-2009 09:15 * Appointment; Provider: Chuck Amezcua On 26-Aug-2008 14:15 Instructions * Instructions not documented Encounters Appointment; Sabas Simon Encounter Diagnosis: Problem not documented On 12-Nov-2015 15:45 Appointment; Sabas Simon Encounter Diagnosis: Problem not documented On 02-Oct-2015 13:45 Appointment; Cory Roberts Encounter Diagnosis: Problem not documented On 01-Jul-2015 08:15 Appointment; Courtney Giles Encounter Diagnosis: Problem not documented On 16:20 Appointment; Sabas Simon Encounter Diagnosis: Problem not documented On 06-Mar-2015 13:45 Appointment; Pranav Sahu Encounter Diagnosis: Problem not documented On 09-Dec-2014 10:00 Appointment; Flor Fischer Encounter Diagnosis: Problem not documented On 06-Dec-2014 11:05 Appointment; Sabas Simon Encounter Diagnosis: Problem not documented On 04-Nov-2014 16:00 Appointment; Liu Dennis Encounter Diagnosis: Problem not documented On 28-Oct-2014 10:00 Appointment; Sabas Simon Encounter Diagnosis: Problem not documented On 23-Sep-2014 13:00 Appointment; Pranav Sahu Encounter Diagnosis: Problem not documented On 23-Sep-2014 10:30 Appointment; Pranav Sahu Encounter Diagnosis: Problem not documented On 16-Sep-2014 10:15 Appointment; Pranav Sahu Encounter Diagnosis: Problem not documented On 04-Sep-2014 09:00 Appointment; Sabas Simon Encounter Diagnosis: Problem not documented On 19-Aug-2014 11:00 Appointment; Pranav Sahu Encounter Diagnosis: Problem not documented On 15-Aug-2014 14:15 Appointment; Liu Dennis Encounter Diagnosis: Problem not documented On 13-Aug-2014 09:45 Appointment; Winsome Pollack Encounter Diagnosis: Problem not documented On 07-Aug-2014 15:00 Appointment; Sabsa Simon Encounter Diagnosis: Problem not documented On 05-Aug-2014 16:00 Appointment; Deya Zaragoza Encounter Diagnosis: Problem not documented On 17-Jul-2014 15:00 Appointment; Joslyn Mar Encounter Diagnosis: Problem not documented On 21-Jun-2014 10:45 Appointment; Sabas Simon Encounter Diagnosis: Problem not documented On 12:30 Appointment; Joslyn Mar Encounter Diagnosis: Problem not documented On 12-Apr-2014 09:00 Appointment; Sabas Simon Encounter Diagnosis: Problem not documented On 10-Apr-2014 10:45 Appointment; Dell Alva Encounter Diagnosis: Problem not documented On 01-Feb-2014 11:00 Appointment; Yoko Solomon Encounter Diagnosis: Problem not documented On 01-Feb-2014 08:00 Appointment; Dell April Encounter Diagnosis: Problem not documented On 30-Jan-2014 10:30 Appointment; Yoko Solomon Encounter Diagnosis: Problem not documented On 30-Jan-2014 08:00 Appointment; Brian Cortez Encounter Diagnosis: Problem not documented On 07-Jan-2014 13:00
--- OUTSIDE RECORDS SUMMARY | 2017-04-01 02:58 | XMS REPORT | Continuity of care Document ---
Author Author GENERATED, SYSTEM Organization Unknown Address Unknown Phone Unavailable Purpose Hospital Course Allergies, Adverse Reactions, Alerts * Erythromycin Base causes Hives. * peanut derived (as Food allergen) causes stomach cramps. * Zithromax causes Hives. * Penicillins causes Hives. * Cipro causes Hives. * Augmentin causes Hives. * Sudafed causes stopped breathing. * Aspirin causes stop breathing. * Tegaderm causes redness. * Latex (as Environmental allergen) causes Hives. * Latex causes Hives. * Levaquin causes Hives. * clindamycin causes vomiting. * Latex Allergy has not been assessed. * IV Contrast Allergy has not been assessed. Problems * Cystic Fibrosis Status:Active. * Drug Overdose - Suicide Status:Active. Procedures No relevant procedures performed. Medication Medication reconciliation has not been performed. Results Urinalysis from 05/12/2014 9:45 PMURINE COLOR YELLOW (STRAW/YELL/DK YELL ) URINE APPEARANCE SL CLOUDY A (CLEAR ) URINE PH 6.0 (5.0-8.0 ) URINE SPECIFIC GRAVITY 1.025 (<=1.005->=1.030 ) URINE GLUCOSE NEGATIVE MG/DL (NEGATIVE MG/DL) URINE BILIRUBIN NEGATIVE (NEGATIVE ) URINE KETONES NEGATIVE MG/DL (NEGATIVE MG/DL) URINE BLOOD MODERATE A (NEGATIVE ) URINE PROTEIN 100 MG/DL A (NEGATIVE MG/DL) URINE UROBILINOGEN 0.2 EU/DL (0.2-1.0 EU/DL) URINE NITRITES POSITIVE A (NEGATIVE ) *URINE LEUKOCYTES MODERATE A (NEGATIVE ) UR NEGATIVE (NEGATIVE ) MICROSCOPIC EXAM PERFORMED PERFORMED WBC PACKED FIELD /HPF A (0-5 /HPF) RBC 1-5 /HPF A (0-1 /HPF) SQUAMOUS EP. CELLS FEW /LPF (NEG-FEW /LPF) BACTERIA MANY /HPF A (NEGATIVE /HPF) Microbiology from 05/12/2014 9:45 PM* CULTURE URINE Specimen Number: [id number] Specimen Source: Sample Collection Date/Time: 05/12/2014 9:45 PM CULTURE URINE: ISOLATE1: Escherichia coli >100,000 cfu/ml SENSITIVITY, ZEE: Escherichia coli Report Status: FINAL 1 Comment Result Value Escherichia coli Result Status Final Result Ampicillin <=2 Ampicillin/sulbactam <=2 Aztreonam <=1 Cefazolin <=4 Cefepime <=1 Ceftazidime <=1 Ceftriaxone <=1 Ertapenem <=0.5 ESBL Neg Gentamicin <=1 Levofloxacin 0.5 Meropenem <=0.25 Nitrofurantoin <=16 Piperacillin/tazobactam <=4 Tobramycin <=1 Trimethoprim/Sulfa >=320
--- OUTSIDE RECORDS SUMMARY | 2017-04-01 02:59 | XMS REPORT | Summary of Care ---
Author Author Nik SANDOVAL Deya Organization Unknown Address [address] [place], [place] [id number] Phone Unavailable Care Team Providers Care Step Down Nurse Name Role Phone Alfred Tran, Alem Unavailable Unavailable Tyree Tran, CARTER,Dae Unavailable Unavailable Flor Fischer D.O. Unavailable Unavailable Alem Mar M.D. Unavailable Unavailable Sabas Simon PP Unavailable Unavailable [...] Active Female infertility (628.9, N97.9) Status: Active Amenorrhea (626.0, N91.2) Status: Active Fatigue (780.79, R53.83) Status: Active Vaginal Discharge (623.5, N89.8) Status: Active Esophageal stenosis (530.3, K22.2) Status: Active Localized hives (708.9, L50.9) Status: Active Chronic sinusitis (473.9, J32.9) Status: Active Chest pain (786.50, R07.9) Status: Active Pleuritic chest pain (786.52, R07.81) Status: Active Chronic bronchitis (491.9, J42) Status: Active Pneumonia, bacterial (482.9, J15.9) Status: Active Back pain, acute (724.5, M54.9) Status: Active Cholecystitis, acute (575.0, K81.0) Status: Active Non-healing surgical wound (998.83, T81.89XA) Status: Active Chronic obstructive pulmonary disease (496, J44.9) Status: Active Cystic fibrosis (277.00, E84.9) Status: Active Shoulder injury (959.2, S49.90XA) Status: Active Shoulder pain (719.41, M25.519) Status: Active Rotator cuff tear (840.4, M75.100) Status: Active Staph skin infection (686.9, L08.9) Status: Active Post-operative infection (998.59, T81.4XXA) Status: Active 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 * Quantity: 12 Refills: 99 Sabas Simon M.D.* Started 28-Jun-2011 ActiveNasonex 50 MCG/ACT Nasal Suspension USE 2 SPRAYS IN EACH NOSTRIL ONCE DAILY * Quantity: 1 Refills: 12 Sabas Simon M.D.* Started 28-Jun-2011 Eosysj04 GM Inhaler Creon 24361 UNIT Oral Capsule Delayed Release Particles TAKE 6 CAP BY MOUTH WITH MEALS, AND 4 CAPS WITH SNACKS * Quantity: 300 Refills: 99 Sabas Simon M.D.* Started 22-Dec-2011 ActiveAlbuterol Sulfate (2.5 MG/3ML) 0.083% Inhalation Nebulization Solution USE 1 UNIT DOSE IN NEBULIZER EVERY 4 TO 6 HOURS NEEDED. (Dx: 277.00) * Quantity: 2 Refills: 5 Sabas Simon M.D.* Started Active3 ML Plas Cont (60 Plas Conts) Hydrocodone-Acetaminophen 7.5-325 MG Oral Tablet TAKE ONE TABLET BY MOUTH EVERY 4-6 HOURS NEEDED FOR PAIN * Quantity: 40 Refills: 0 Sabas Simon M.D.* Started 24-Oct-2012 ActivePARoxetine HCl - 40 MG Oral Tablet TAKE 1 TABLET DAILY. * Quantity: 30 Refills: 5 * Started 10-Apr-2014 ActiveEpiduo 0.1-2.5 % External Gel apply to acne areas daily * Quantity: 45 Refills: 3 Joslyn Mar M.D.* Started 17-Jul-2012 ActiveVitamin A 55347 UNIT Oral Capsule * Refills: 0 * Started 17-Jan-2013 ActiveNexIUM 40 MG Oral Capsule Delayed Release TAKE ONE CAPSULE BY MOUTH DAILY * Quantity: 30 Refills: 13 Sabas Simon M.D.* Started 21-Jun-2008 ActiveProAir HFA 108 (90 Base) MCG/ACT Inhalation Aerosol Solution INHALE 2 PUFFS Every 4 hours PRN * Quantity: 1 Refills: 12 Sabas Simon M.D.* Started 14-Apr-2010 Active8.5 GM Inhaler Pulmozyme 1 MG/ML Inhalation Solution USE 1 UNIT VIA NEBULIZER TWO TIMES DAILY * Quantity: 2 Refills: 12 Sabas Simon M.D.* Started 09-Jul-2009 Active2.5 ML Plas Cont (30 Plas Conts) Trileptal 300 MG Oral Tablet take 1 tab [...] Dae Clements M.D., FACS, * Started 15-Aug-2014 ActiveMinocycline HCl - 100 MG Oral Capsule TAKE 1 CAPSULE TWICE DAILY. 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 Procedures Procedure Dates Details History of 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/ Tunneling & Subcutan Port History of Tunneled Central IV Removal With [...] History of Tonsillectomy History of Cholecystectomy Laparoscopic History of Sphenoid Sinus Endoscopy With Removal Of Mucous Membrane Completed:25-Jun-2010 History of Nasal Endoscopy With Maxillary Antrostomy Completed:25-Jun-2010 History of Nasal Endoscopy With Total Ethmoidectomy Completed:25-Jun-2010 History of Nasal Endoscopy With Frontal Sinus Exploration Completed:2009 History of Sphenoid Sinus Endoscopy With Removal Of Mucous Membrane Completed:23-Jul-2009 History of Nasal Endoscopy With Maxillary Antrostomy Completed:23-Jul-2009 History of Nasal Endoscopy With Total Ethmoidectomy Completed:23-Jul-2009 History of Rhinoplasty History of Septoplasty History of Turbinectomy History of Sphenoidectomy History of Nasal Endoscopy With Maxillary Antrostomy History of Ethmoidectomy History of 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/ Tunneling & Subcutan Port Completed:02-Aug-2011 Procedures not documented Immunization Name Dates Details Pneumo (Pneumovax) Administered on:19-Jul-2005 Family History Unknown Family Member* Name Dates Details Family history of Glaucoma Comments: Family History Status: Active Family history of Hyperlipidemia Comments: Family History Status: Active Family history of Thyroid Disorder (V18.19) Comments: Family History Status: Active Family history of Lung Cancer (V16.1) Comments: Family History Status: Active Family history of Breast Cancer (V16.3) Comments: Family History Status: Active Family history of Osteoporosis (V17.81) Comments: Family History Status: Active Family history of Epilepsy And Recurrent Seizures (V17.2) Comments: Family History Status: Active Family history of Coronary Artery Disease Comments: Family History Status: Active Family history of Diabetes Mellitus (V18.0) Comments: Family History Status: Active Grandfather* Name Dates Details Family history of leukemia (V16.6, Z80.6) Status: Active Social History Name Dates Details Smoking Status* Never smoker Vital Signs Date Test Result Details 06-Dec-2014 11:11 Temperature 97.9 f Status: Weight 122 lb Status: Body Mass Index Calculated 21.61 kg/m2 Status: Body Surface Area Calculated 1.57 m2 Status: Results Date Description Value Details 09-Dec-2014 10:48 Urinalysis, Reflex to Microscopic or Culture PRN [id number] Comments: DOS 12-10-14/PASS pH 5.5 (Better) Range: 5.0-7.5 SP GRAVITY 1.010 (Better) Range: 1.010-1.030 APPEARANCE CLEAR (Better) Range: Clear COLOR YELLOW (Better) Range: Straw-Yellow PROTEIN NEGATIVE mg/dL (Better) Range: Negative-Trace GLUCOSE NEGATIVE mg/dL (Better) Range: Negative KETONE NEGATIVE mg/dL (Better) Range: Negative BILIRUB NEGATIVE (Better) Range: Negative BLOOD NEGATIVE (Better) Range: Negative UROBIL 0.2 EU/dL (Better) Range: 0.2-1.0 NITRITE NEGATIVE (Better) Range: Negative LEUK NEGATIVE (Better) Range: Negative 10:49 CBC w/ Auto Diff 7150 Comments: DOS 12-10-14/PASS WBC 8.7 K/uL (Better) Range: 4.5-11.0 RBC 4.99 mil/uL (Better) Range: 3.60-5.00 HGB 14.4 g/dL (Better) Range: 12.0-16.0 HCT 42.6 % (Better) Range: 36.0-48.0 MCV 85.4 fL (Better) Range: 80.0-99.0 MCH 28.8 pg (Better) Range: 27.3-32.5 MCHC 33.7 % (Better) Range: 32.0-36.0 RDW 13.3 % (Better) Range: 11.6-14.8 PLATELETS 310 K/uL (Better) Range: 150-400 MPV 7.1 fL (Better) Range: 6.0-11.0 %NEUTRO 55.6 % (Better) Range: 37.0-80.0 %LYMPHS 31.9 % (Better) Range: 13.0-50.0 %MONO 4.4 % (Better) Range: 0.0-12.0 %EOS 5.2 % (Better) Range: 0.0-7.0 %BASO 0.6 % (Better) Range: 0.0-2.5 %DAREN 2.4 % (Better) Range: 0.0-5.0 NEUTRO 4.8 K/uL (Better) Range: 2.0-6.9 LYMPHS 2.8 K/uL (Better) Range: 0.6-3.4 MONOS 0.4 K/uL (Better) Range: 0.0-0.9 EOS 0.5 K/uL (Better) Range: 0.0-0.7 BASO 0.1 K/uL (Better) Range: 0.0-0.2 11:08 SERUM TEST 8020 Comments: DOS 12-10-14/PASS SERUM TEST Negative (Better) Range: Negative Comments: Internal Control: Acceptable----- 11:44 Comprehensive Metabolic Panel 1212 Comments: DOS 12-10-14/PASS SODIUM 139 mmol/L (Better) Range: 133-144 POTASSIUM 4.0 mmol/L (Better) Range: 3.5-5.1 CHLORIDE 103 mmol/L (Better) Range: 98-110 CARBON DIOXIDE 25.6 mmol/L (Better) Range: 23.0-33.0 ANION GAP 10 mmol/L (Better) Range: 6-16 BUN 12 mg/dL (Better) Range: 7-18 CREATININE, SERUM 0.74 mg/dL (Better) Range: 0.43-1.13 BUN:CREATININE RATIO 16 (Better) EST GFR, >60 ml/min (Better) Range: >60 EST GFR, NON-AFR SAUDI ARABIAN >60 ml/min (Better) Range: >60 Comments: EST GFR is reported in ml/min per 1.73 m2 of body surface area. For -Iranian, please multiple result by 1.2.----- GLUCOSE 85 mg/dL (Better) Range: 70-100 ALK PHOSPHATASE 119 U/L (Above high threshold) Range: 46-116 Comments: Please Note: New Reference Range effective 2014.----- TOTAL BILIRUBIN 1.30 mg/dL (Above high threshold) Range: 0.20-1.00 AST 22 U/L (Better) Range: 8-35 ALT 35 U/L (Better) Range: 12-78 ALBUMIN 3.9 g/dL (Better) Range: 3.4-5.0 TOTAL PROTEIN 7.9 g/dL (Better) Range: 6.4-8.2 A/G RATIO 1.0 units (Better) Range: 1.0-1.8 CALCIUM 8.8 mg/dL (Better) Range: 8.5-10.1 11:50 ECG/ EKG Preop Electro CardioGram (Better) 12:11 XRay CHEST-PA & LAT Comments: Exam Date: 10:45Dictation Date: 12:11 X CHEST PA & LAT (Better) Plan of Care Planned Observations* Name Dates Details Planned Goals not documented Goal Planned Encounters* Appointment; Provider: Pranav Sahu On 10-Dec-2014 11:00 [...] Instructions * Instructions not documented Encounters Appointment; Pranav Sahu Encounter Diagnosis: Problem not documented On 09-Dec-2014 10:00 Appointment; Flor Fsicher Encounter Diagnosis: Problem not documented On 06-Dec-2014 [...] Problem not documented On 07-Aug-2014 15:00 Appointment; Sabas Simon Encounter Diagnosis: Problem not [...] Problem not documented On 10-Apr-2014 10:45 Appointment; Alva Sharpe Encounter Diagnosis: Problem not documented On 01-Feb-2014 11:00 Appointment; Yoko Solomon Encounter Diagnosis: Problem not documented On 01-Feb-2014 08:00 Appointment; Dell Alva Encounter Diagnosis: Problem not documented On 30-Jan-2014 10:30 Appointment; Neha Endoscopy Encounter Diagnosis: Problem not documented On 30-Jan-2014 08:00 Appointment; Brian Cortez Encounter Diagnosis: Problem not documented On 07-Jan-2014 13:00 Appointment; Sabas Simon Encounter Diagnosis: Problem not documented On 10-Oct-2013 11:15 Appointment; Lebron More Encounter Diagnosis: Problem not documented On 20-Sep-2013 10:30 Appointment; Sahra Bowden Encounter Diagnosis: Problem not documented On 30-Jul-2013 09:00 Appointment; Chuck Amezcua Encounter Diagnosis: Problem not documented On 16-Jul-2013 08:45 Appointment; Sabas Simon Encounter Diagnosis: Problem not documented On 16:00 Appointment; Chuck Amezcua Encounter Diagnosis: Problem not documented On 06-Feb-2013 09:30 Appointment; Chuck Amezcua Encounter Diagnosis: Problem not documented On 24-Jan-2013 09:00 Appointment; Sabas Simon Encounter Diagnosis: Problem not documented On 18-Jan-2013 13:30 Appointment; Chuck Amezcua Encounter Diagnosis: Problem not documented On 17-Jan-2013 10:30
--- OUTSIDE RECORDS SUMMARY | 2017-04-01 02:59 | XMS REPORT ---
Author Author GENERATED, SYSTEM Organization Unknown Address Unknown Phone Unavailable Care Team Providers Care Tanning Wheel Operator Name Role Phone MD INGA, MANI [phone] Reason For Visit Reason for Visit from 08/20/2014 11:34 PM:* Pt Stated Reason for Adm : Abd pain. Chief Complaint ABD PAIN Social History Social History from 08/22/2014 10:29 AM:* Tobacco Use? : Never Smoker Social History from 08/20/2014 11:34 PM:* Tobacco Use? : Never Smoker Functional Status Functional Status from 08/22/2014 7:55 AM:* LOC : Alert * Oriented To : Person,Place,Time,Event * Weight Bearing Status : Full * Assist Level : Independent * # Assists : Independent Functional Status from 08/21/2014 10:10 PM:* LOC : Alert * Oriented To : Person,Place,Time * Weight Bearing Status : Full * Assist Level : Independent * # Assists : Independent Functional Status from 08/21/2014 7:53 PM:* LOC : Lethargic * Oriented To : Person,Place * Weight Bearing Status : Full * Assist Level : Dependent * # Assists : 2 Functional Status from 08/20/2014 11:34 PM:* LOC : Alert * Oriented To : Person,Place,Time,Event * Weight Bearing Status : Full * Assist Level : Partial * # Assists : 1 Vital Signs Hospital Vital Signs from 08/22/2014 7:25 AM:* Height : 5/3 ft,in * Temperature : 98.2 F * Pulse : 59 * Respirations : 16 * BP : 81/52 Hospital Vital Signs from 08/21/2014 10:10 PM:* Height : 5/3 ft,in * Temperature : 98.2 F * Pulse : 63 * Respirations : 16 * BP : 93/58 Hospital Vital Signs from 08/21/2014 8:22 PM:* Height : 5/3 ft,in * Temperature : 98.0 F * Pulse : 80 * Respirations : 16 * BP : 88/54 Hospital Vital Signs from 08/21/2014 4:41 PM:* Height : 5/3 ft,in * Temperature : 97.3 F * Pulse : 56 * Respirations : 16 * BP : 88/51 Hospital Vital Signs from 08/21/2014 1:45 PM:* Height : 5/3 ft,in * Temperature : 97.8 F * Pulse : 67 * Respirations : 16 * BP : 95/60 Hospital Vital Signs from 08/21/2014 11:44 AM:* Height : 5/3 ft,in * Temperature : 97.8 F * Pulse : 62 * Respirations : 16 * BP : 90/59 Hospital Vital Signs from 08/21/2014 9:48 AM:* Height : 5/3 ft,in Hospital Vital Signs from 08/21/2014 9:43 AM:* Height : 5/3 ft,in * Temperature : 97.0 F * Pulse : 60 * Respirations : 16 * BP : 96/59 Hospital Vital Signs from 08/21/2014 5:43 AM:* Height : 5/3 ft,in * Temperature : 97.7 F * Pulse : 68 * Respirations : 16 * BP : 87/54 Hospital Vital Signs from 08/21/2014 3:45 AM:* Height : 5/3 ft,in * Temperature : 97.8 F * Pulse : 57 * Respirations : 16 * BP : 96/60 Hospital Vital Signs from 08/21/2014 1:49 AM:* Height : 5/3 ft,in * Temperature : 97.9 F * Pulse : 66 * Respirations : 16 * BP : 93/60 Hospital Vital Signs from 08/21/2014 1:28 AM:* Height : 5/3 ft,in * Pulse : 64 * Respirations : 16 * BP : 95/62 Hospital Vital Signs from 08/21/2014 1:15 AM:* Height : 5/3 ft,in * Pulse : 62 * Respirations : 16 * BP : 99/68 Hospital Vital Signs from 08/21/2014 12:55 AM:* Height : 5/3 ft,in * Temperature : 98.2 F * Pulse : 64 * Respirations : 16 * BP : 99/59 Hospital Vital Signs from 08/20/2014 11:34 PM:* Weight : 56.4/ kg * Height : 5/3 ft,in Hospital Vital Signs from 08/20/2014 11:25 PM:* Weight : 56.4/ kg * Height : 5/3 ft,in * Temperature : 97.3 F * Pulse : 74 * Respirations : 16 * BP : 111/68 Results Chemistry from 08/22/2014 4:49 AMSODIUM 138 MMOL/L (136-145 MMOL/L) POTASSIUM 3.8 MMOL/L (3.5-5.1 MMOL/L) CHLORIDE 102 MMOL/L (98-107 MMOL/L) TCO2 30.6 MMOL/L (21.0-32.0 MMOL/L) ANION GAP 5.4 MMOL/L L (8.0-16.0 MMOL/L) BUN 6 MG/DL L (7-18 MG/DL) CREATININE 0.68 MG/DL (0.43-0.83 MG/DL) BUN/CREATININE RATIO 8.8 L (9.1-17.0 ) GLUCOSE 96 MG/DL (65-99 MG/DL) GFR EST NON AFR MACEDONIAN >90 ML/MIN GFRA EST AFR AMER >90 ML/MIN CALCIUM 8.4 MG/DL L (8.5-10.1 MG/DL) BILIRUBIN TOTAL 0.79 MG/DL (0.20-1.00 MG/DL) TOTAL PROTEIN 6.3 GM/DL L (6.4-8.2 GM/DL) ALBUMIN 3.1 GM/DL L (3.4-5.0 GM/DL) GLOBULIN 3.2 GM/DL (2.3-3.5 GM/DL) A/G RATIO 1.0 MG/DL L (1.5-2.2 MG/DL) ALK PHOS 142 U/L H (46-116 U/L) ALT (SGPT) 69 U/L (12-78 U/L) AST (SGOT) 63 U/L H (15-37 U/L) MAGNESIUM 1.8 MG/DL (1.8-2.4 MG/DL) PHOSPHORUS 2.8 MG/DL (2.5-4.9 MG/DL) Hematology from 08/22/2014 4:50 AMWBC 8.9 X10e3/UL (3.6-11.2 X10e3/UL) RBC 3.73 X10e6/UL (3.63-4.92 X10e6/UL) HEMOGLOBIN 11.1 G/DL (11.0-14.3 G/DL) HEMATOCRIT 32.0 % (31.2-41.9 %) MCV 85.6 FL (79.0-98.0 FL) MCH 29.7 PG (27.0-33.0 PG) MCHC 34.7 G/DL (32.0-36.0 G/DL) RDW 14.5 % (12.3-17.0 %) RDWSD 43.3 (37.1-47.8 ) PLATELET 216 X10e3/UL (159-386 X10e3/UL) MPV 8.7 FL (7.4-10.4 FL) AUTOMATED DIFF PERFORMED SEGS 65.3 % LYMPHOCYTES 21.4 % MONOCYTES 8.2 % EOSINOPHILS 4.4 % BASOPHILS 0.7 % ABSOLUTE NEUTROPHILS 5.8 X10e3/UL (1.8-7.8 X10e3/UL) ABSOLUTE LYMPHOCYTES 1.9 X10e3/UL (1.0-3.0 X10e3/UL) ABSOLUTE MONOCYTES 0.7 X10e3/UL (0.3-1.0 X10e3/UL) ABSOLUTE EOSINOPHILS 0.4 X10e3/UL (0.0-0.5 X10e3/UL) ABSOLUTE BASOPHILS 0.1 X10e3/UL (0.0-0.2 X10e3/UL) Problems Encounter Diagnosis * Abdominal Pain Comment:Problem resolved by [facility] Workflow upon Discharge, Status:Resolved. * Laparoscopic Cholecystectomy Comment:Problem resolved by [facility] Work[facility] upon Discharge, Status:Resolved. Additional Problems * Cystic Fibrosis Status:Active. * Drug Overdose - Suicide Status:Active. Encounters Encounter Diagnosis * Abdominal Pain Comment:Problem resolved by [facility] Workflow upon Discharge, Status:Resolved. * Laparoscopic Cholecystectomy Comment:Problem resolved by [facility] Workflow upon Discharge, Status:Resolved. Plan of Care Follow-up Appointments from 08/22/2014 10:29 AM:* #1 Office appointment: : Dr. Oconnor * #1 Date/Time : 09/04/2014 9:00 AM * Address # 1 : [facility]: [facility] [place]- [phone] or Treatment Plan from 08/21/2014 8:51 AM:* Care Management Note : Patient is admitted as outpatient d/t post op pain. S/p lap alisha. POC is to consult PCP, start PHARMACY ANALYST for pain control, increase ambulation, and encourage intake, on a regular diet. Will continue to follow. Procedures * Completed Laparoscopic Cholecystectomy, by MD BREANNE OCONNOR, on 08/20/2014 10:45 AM * Completed , on 10/09/2012 12:00 AM * Completed , on 06/29/2012 12:00 AM * Completed , on 07/25/2011 12:00 AM * Completed , on 07/25/2011 12:00 AM * Completed , on 03/15/2011 12:00 AM * Completed , on 03/15/2011 12:00 AM * Completed , on 03/02/2010 12:00 AM Immunizations No immunizations administered or ordered. Hospital Course Hospital Discharge Instructions How to care for yourself at home from 08/22/2014 10:29 AM:* Discharge Activity : Activity as tolerated,May Shower * Discharge Diet : As before hospitalization,Diet as tolerated * Discharge Wound Care : Notify your physician if the following develops: redness, swelling, drainage or color of drainage changes, odor or increased pain. * Call your doctor if: : Fever over 101 F or severe chills,Chest pain or other unexplained symptoms,Tingling or numbness develops,A sudden increase or decrease in weight,You have persistent or worsening symptoms,If you have Heart Failure and you gain 3 pounds within 1 week or your symptoms worsen. (Weigh at home tomorrow morning) * Specific Discharge Teaching Instructions provided: : No * Discharge on Warfarin : No Allergies, Adverse Reactions, Alerts * Suprax causes stomach cramps. * Depakote causes throat swelling. * Erythromycin Base causes Hives. * peanut [...] causes Hives. * clindamycin causes vomiting. * No IV Contrast Allergy. Medication It is the responsibility of the patient or patient customer development representative to confirm the list of medications with either the patient's personal care provider or the patient's follow-up care provider to ensure the patient has an appropriate list of medications to take at home. Discharge medications Continued medications* adapalene-benzoyl peroxide (Epiduo) 0.1 %-2.5 % Gel, Ordered By: LEIGH SANFORD APRN Directions: 1 application topical daily Additional Instructions: acne areas * albuterol sulfate 2.5 mg/3 mL (0.083 %) Solution for Nebulization, Ordered By : LEIGH SANFORD APRN Directions: 1 mL by inhalation every four hours PRN shortness of breath * albuterol sulfate (ProAir HFA) 90 mcg HFA Aerosol Inhaler, Ordered By: LEIGH SANFORD APRN Directions: 2 puff by inhalation every four hours PRN shortness of breath * cranberry conc-ascorbic acid 84-20 mg Capsule, Ordered By: LEIGH SANFORD APRN Directions: 1 capsule oral daily * dornase dilip (Pulmozyme) 1 mg/mL Solution, Ordered By: LEIGH SANFORD APRN Directions: 1 mL by inhalation twice a day * esomeprazole magnesium (NexIUM) 40 mg capsule,delayed release(DR/EC), Ordered By: LEIGH SANFORD APRN Directions: 1 capsule oral twice a day * famotidine 20 mg Tablet, Ordered By: LEIGH SANFORD APRN Directions: 1 tablet oral twice a day * fluticasone (Flovent HFA) 220 mcg Aerosol, Ordered By: LEIGH SANFORD APRN Directions: 1 puff by inhalation twice a day * yxspiz-lvjsurrz-mvpxihj (Creon) 24,000 unit-76,000 unit-120,000 unit capsule, delayed release(DR/EC), Ordered By: LEIGH SANFORD APRN Directions: 6 capsules oral three times a day during meal * kxwoli-narlteuz-hvhwwww (Creon) 24,000 unit-76,000 unit-120,000 unit capsule, delayed release(DR/EC), Ordered By: LEIGH SANFORD APRN Directions: 4 capsules oral with snacks * mometasone (Nasonex) 50 mcg spray,non-aerosol, Ordered By: LEIGH SANFORD APRN Directions: 2 spray nasal daily * nitrofurantoin macrocrystal 100 mg Capsule, Ordered By: LEIGH SANFORD APRN Directions: 1 capsule oral twice a day * OXcarbazepine (Trileptal) 300 mg Tablet, Ordered By: LEIGH SANFORD APRN Directions: 1 tablet oral daily * PARoxetine HCl 40 mg Tablet, Ordered By: LEIGH SANFORD APRN Directions: 0.5 tablet oral twice a day * tobramycin 300 mg/4 mL Solution for Nebulization, Ordered By: LEIGH SANFORD APRN Directions: 5 mL by inhalation twice a day Additional Instructions: one month on, one month off * vitamin A 10,000 unit Capsule, Ordered By: LEIGH SANFORD APRN Directions: 1 capsule oral daily * Vitamin D3 tablet 1 tablet daily, last dsoe yesterday * Vitamin E 100 units oral capsule 1 tablet daily, last dose yesterday Stopped medications* QUEtiapine (SEROquel) 400 mg Tablet Directions: 1 tablet oral daily at bedtime
--- OUTSIDE RECORDS SUMMARY | 2017-04-01 02:59 | XMS REPORT ---
Author Author GENERATED, SYSTEM Organization Unknown Address Unknown Phone Unavailable Care Team Providers Care Needle Setter Name Role Phone MD INGA, MANI PP [phone] Reason For Visit Chief Complaint ABD PAIN, NAUSEA AND VOMITING Social History Functional Status Vital Signs Results Chemistry from 05/13/2016 5:10 AMSODIUM 134 MMOL/L L (136-145 MMOL/L) POTASSIUM 4.2 MMOL/L (3.5-5.1 MMOL/L) CHLORIDE 97 MMOL/L L (98-107 MMOL/L) TCO2 27.6 MMOL/L (21.0-32.0 MMOL/L) *ANION GAP 9.4 MMOL/L (8.0-16.0 MMOL/L) BUN 16 MG/DL (7-18 MG/DL) CREATININE 0.99 MG/DL (0.55-1.02 MG/DL) *BUN/CREATININE RATIO 16.2 (9.1-17.0 ) GLUCOSE 128 MG/DL H (65-99 MG/DL) *GFR EST NON AFR SLOVENIAN 75 ML/MIN *GFRA EST AFR AMER 87 ML/MIN CALCIUM 9.3 MG/DL (8.5-10.1 MG/DL) BILIRUBIN TOTAL 1.90 MG/DL H (0.20-1.00 MG/DL) TOTAL PROTEIN 7.7 GM/DL (6.4-8.2 GM/DL) ALBUMIN 3.8 GM/DL (3.4-5.0 GM/DL) *GLOBULIN 3.9 GM/DL H (2.3-3.5 GM/DL) *A/G RATIO 1.0 MG/DL L (1.5-2.2 MG/DL) ALK PHOS 173 U/L H (46-116 U/L) ALT (SGPT) 66 U/L H (16-63 U/L) AST (SGOT) 29 U/L (15-37 U/L) LIPASE 37 U/L L (73-393 U/L) LACTIC ACID 1.6 mmol/L (0.9-1.7 mmol/L) Hematology from 05/13/2016 5:10 AMWBC 17.8 X10e3/UL H (3.6-11.2 X10e3/UL) RBC 5.43 X10e6/UL H (3.63-4.92 X10e6/UL) HEMOGLOBIN 15.0 G/DL H (11.0-14.3 G/DL) HEMATOCRIT 45.2 % H (31.2-41.9 %) *MCV 83.3 FL (79.0-98.0 FL) *MCH 27.6 PG (27.0-33.0 PG) *MCHC 33.1 G/DL (32.0-36.0 G/DL) *RDW 14.2 % (12.3-17.0 %) *RDWSD 41.6 (37.1-47.8 ) PLATELET 279 X10e3/UL (159-386 X10e3/UL) *MPV 8.0 FL (7.4-10.4 FL) AUTOMATED DIFF PERFORMED SEGS 81.3 % *LYMPHOCYTES 12.2 % *MONOCYTES 4.9 % *EOSINOPHILS 1.2 % *BASOPHILS 0.4 % *ABSOLUTE NEUTROPHILS 14.50 X10e3/UL H (1.80-7.80 X10e3/UL) *ABSOLUTE LYMPHOCYTES 2.20 X10e3/UL (1.00-3.00 X10e3/UL) *ABSOLUTE MONOCYTES 0.90 X10e3/UL (0.30-1.00 X10e3/UL) *ABSOLUTE EOSINOPHILS 0.20 X10e3/UL (0.00-0.50 X10e3/UL) *ABSOLUTE BASOPHILS 0.10 X10e3/UL (0.00-0.20 X10e3/UL) Urinalysis from 05/13/2016 6:35 AM*URINE COLOR YELLOW (STRAW/YELL/DK YELL ) *URINE APPEARANCE SL CLOUDY A (CLEAR ) URINE PH 6.5 (5.0-8.0 ) URINE SPECIFIC GRAVITY 1.020 (<=1.005->=1.030 ) *URINE GLUCOSE NEGATIVE MG/DL (NEGATIVE MG/DL) *URINE BILIRUBIN NEGATIVE (NEGATIVE ) *URINE KETONES NEGATIVE MG/DL (NEGATIVE MG/DL) *URINE BLOOD LARGE A (NEGATIVE ) *URINE PROTEIN NEGATIVE MG/DL (NEGATIVE MG/DL) *URINE UROBILINOGEN 0.2 EU/DL (0.2-1.0 EU/DL) *URINE NITRITES NEGATIVE (NEGATIVE ) *URINE LEUKOCYTES TRACE A (NEGATIVE ) UR NEGATIVE (NEGATIVE ) *MICROSCOPIC EXAM PERFORMED PERFORMED *WBC URINE 1-5 /HPF (0-5 /HPF) *RBC URINE PACKED FIELD /HPF A (0-1 /HPF) *SQUAMOUS EP. CELLS MANY /LPF A (NEG-FEW /LPF) *TRANSITIONAL EP. CELLS FEW /LPF (NEG-FEW /LPF) *MUCOUS THREADS MODERATE /LPF A (NEGATIVE /LPF) *BACTERIA FEW /HPF A (NEGATIVE /HPF) *URIC ACID SARAH FEW /HPF A (NEGATIVE /HPF) CT Scan from 05/13/2016 6:57 AMCT ABD/PELVIS W/CONTRAST History: PUJA pain . Diffuse abdominal pain worsening over the last 2 days. Technique: Post contrast images were performed after the administration of 95 milliliters of Isovue intravenous contrast. Priors: 06/22/15 Findings: Abdomen Lung bases: Clear Liver: There is mild fatty infiltration liver. No definable mass. Spleen: Normal. Pancreas: The pancreas is centrally fatty replaced. Gallbladder and biliary tract: Surgically absent Adrenal glands: Normal. Kidneys: Normal enhancement. No masses. There is stable mild left hydronephrosis. There is mild hydroureter to the level of the distal ureter. This is similar to the prior study and likely related to stricture. Other etiologies are not excluded. Urinary Bladder: Normal. Aorta: Normal in caliber. No periaortic lymphadenopathy. Bowel and Mesentery: There is small hiatal hernia. There is circumferential wall thickening of the colon, most consistent with colitis. The distal small bowel is dilated and there is fecalization, suggesting stasis. . The very distal small bowel is more normal in caliber. However, there is circumferential wall thickening. No findings of appendicitis. Ascites: Small amount the pelvis. Pelvis Lymphadenopathy: None. Reproductive: Unremarkable. Osseous Structures: No suspicious findings. Impression: Fatty infiltration liver and the pancreas is predominately fatty replaced. Stable mild left hydronephrosis and mild hydroureter to the level of the distal ureter. This is similar to the prior study and likely related to stricture although other etiologies are not excluded. Small hiatal hernia. Findings suggesting mild generalized colitis. The very distal small bowel is normal in caliber remote demonstrates circumferential wall thickening. Just proximal to this, small bowel is dilated and there is fecalization, suggesting stasis. Partial obstruction secondary to an inflammatory process involving the very distal small bowel should be considered. Follow-up abdominal series would be helpful. Electronically signed by: Abdiel Pearl MD Dictated: 05/13/2016 07:49 Problems Encounter Diagnosis No relevant problems exist. Additional Problems * Abdominal Pain Comment:Problem resolved by [facility] Workflow upon Discharge, Status:Resolved. * Cystic Fibrosis Comment:Problem resolved by [facility] Work[facility] upon Discharge, Status:Resolved. * Drug Overdose - Suicide Comment:Problem resolved by [facility] Work[facility] upon Discharge, Status:Resolved. * Laparoscopic Cholecystectomy Comment:Problem resolved by [facility] Work[facility] upon Discharge, Status:Resolved. Encounters Encounter Diagnosis No relevant problems exist. Plan of Care Procedures * Completed wound exploration of the umbilical area, by MD BREANNE OCONNOR, on 2014 10:40 AM * Completed Procedure Code: 99708 Procedure Name: not valued, on 12/10/2014 12: 00 AM * Completed Procedure Code: 03072 Procedure Name: not valued, on 12/10/2014 12: 00 AM * Completed Laparoscopic Cholecystectomy, by MD BREANNE OCONNOR, on 08/20/2014 10:45 AM * Completed Procedure Code: 14615 Procedure Name: not valued, on 08/20/2014 12: 00 AM * Completed , on 10/09/2012 12:00 AM * Completed , on 06/29/2012 12:00 AM * Completed , on 07/25/2011 12:00 AM * Completed , on 07/25/2011 12:00 AM * Completed , on 03/15/2011 12:00 AM * Completed , on 03/15/2011 12:00 AM * Completed , on 03/02/2010 12:00 AM Immunizations No immunizations administered or ordered. Hospital Course Hospital Discharge Instructions Allergies, Adverse Reactions, Alerts * Suprax causes [...] IV Contrast Allergy has not been assessed. Medication Medication reconciliation has not been performed.
--- OUTSIDE RECORDS SUMMARY | 2017-04-01 02:59 | XMS REPORT | Summary of Care ---
Author Author Sabas Simon M.D. Organization Unknown Address [address], [place] [id number] Phone Unavailable Care Team Providers Care Family Day Care Provider Name Role Phone Alfred Tran, Alem Unavailable Unavailable Tyree Tran, CARTER,Dae Unavailable Unavailable Alem Mar M.D. 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: Active Staphylococcus aureus infection (041.11, A49.01) Status: Active High risk medication use (V58.69, Z79.899) Status: Active Chronic obstructive pulmonary disease (496, J44.9) Status: Active Cystic fibrosis (277.00, E84.9) Status: Active Shortness of breath (786.05, R06.02) Status: Active Cystic fibrosis (277.00, E84.9) Status: Active Medications Name Dates Details Pulmozyme [...] Refills: 12 Sabas Simon M.D.* Started 28-Jun-2011 Cipxez97 GM Inhaler Epiduo 0.1-2.5 % External Gel apply to acne areas daily * Quantity: 45 Refills: 3 Joslyn Mar M.D.* Started 17-Jul-2012 ActiveVitamin A 96032 UNIT Oral Capsule * Refills: 0 * Started 17-Jan-2013 ActiveCreon 30301 UNIT Oral Capsule Delayed Release Particles TAKE 6 CAP BY MOUTH WITH MEALS, AND 4 CAPS WITH SNACKS * Quantity: 300 Refills: 99 Sabas Simon M.D.* Started 22-Dec-2011 ActivePARoxetine HCl - 40 MG Oral Tablet [...] 280 Refills: 11 Sabas Simon M.D.* Started ActiveAlbuterol Sulfate (2.5 MG/3ML) 0.083% Inhalation Nebulization Solution USE 1 UNIT DOSE IN NEBULIZER EVERY 4 TO 6 HOURS NEEDED. (Dx: 277.00) * Quantity: 2 Refills: 5 Sabas Simon M.D.* Started Active3 ML Plas Cont (60 Plas Conts) SEROquel 400 MG Oral Tablet TAKE 1 TABLET AT BEDTIME. * Refills: 0 * Started ActiveFamotidine 20 MG Oral Tablet TAKE 1 TABLET TWICE DAILY. * Refills: 0 * Started 15-Aug-2014 ActiveCranberry-Vitamin C 84-20 MG Oral Capsule * Refills: 0 Dae Clements M.D., FACS, * Started 15-Aug-2014 ActiveBusPIRone HCl - 15 MG Oral Tablet Take one tablet three times daily * Refills: 0 Sabas Simon M.D.* Started 06-Mar-2015 ActiveNaltrexone HCl - 50 MG Oral Tablet TAKE 300 MG Twice daily * Refills: 0 Sabas Simon M.D.* Started 06-Mar-2015 ActiveHydrocodone-Acetaminophen 10-325 MG Oral Tablet TAKE 1 TABLET EVERY 4 TO 6 HOURS NEEDED FOR PAIN. * Quantity: 60 Refills: 0 Sabas Simon M.D.* Started 24-Oct-2012 Active Allergies and Adverse Reactions Name Dates [...] smoker Vital Signs Date Test Result Details 16:22 BP Systolic 99 mm[Hg] Status: BP Diastolic 58 mm[Hg] Status: Temperature 98.6 f Status: Heart Rate 72 /min Status: Weight 131.8 lb Status: O2 SAT 97 % Status: Body Mass Index Calculated 23.35 kg/m2 Status: Body Surface Area Calculated 1.62 m2 Status: Results Date Description Value Details Results not documented Plan of Care Planned Observations* Name Dates Details Planned Goals not documented Goal Planned Encounters* Appointment; Provider: Cory Roberts On 01-Jul-2015 08:15 * Appointment; Provider: Pranav Sahu On 10-Dec-2014 [...] Instructions * Instructions not documented Encounters Appointment; Courtney Giles Encounter Diagnosis: Problem not [...] not documented On 10-Apr-2014 10:45 Appointment; Dell April Encounter Diagnosis: Problem not documented On 01-Feb-2014 [...]
--- OUTSIDE RECORDS SUMMARY | 2017-04-01 02:59 | XMS REPORT | Continuity of Care Document ---
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 Unspecified sinusitis (chronic) - *Chronic Unspecified sinusitis (chronic) - *Chronic Unspecified osteomyelitis, site unspecified - *Chronic 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 Asthma - Acute Exacerbation Abdominal pain, generalized - *Chronic Other specified diseases of pancreas - *Chronic Unspecified vitamin deficiency - *Chronic Hypothyroidism - *Chronic Other postsurgical status - *Chronic Varicella without mention of complication - *Chronic Depression - *Chronic Other postsurgical status - Chronic Varicella without mention of complication - Chronic 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 Unspecified sinusitis (chronic) - *Chronic 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 - Chronic Unspecified sinusitis (chronic) - Chronic Unspecified osteomyelitis, site unspecified - *Chronic Unspecified sinusitis (chronic) - *Chronic 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 Other postsurgical status - Chronic 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 - Chronic Unspecified sinusitis (chronic) - Chronic Depression - Chronic Asthma - Chronic Varicella without mention of complication - Chronic Unspecified sinusitis (chronic) - *Poor control Osteitis - *Chronic Headache - *Chronic CF (cystic fibrosis) - *Chronic CHRONIC SINUSITIS NOS - ALLERGIC RHINITIS NOS - ASTHMA NOS - 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 Headache - Acute Exacerbation Unspecified sinusitis (chronic) - Healing Family History Family Member Diagnosis Age At Onset Status Unknown Social History Social History Element Description Quantity Unknown Allergies, Adverse Reactions, Alerts Substance Reaction Severity Status POTASSIUM CLAVULANATE Unknown ERYTHROMYCIN BASE Unknown SALMETEROL XINAFOATE Unknown AMOXICILLIN TRIHYDRATE Unknown ASPIRIN Unknown FLUTICASONE PROPIONATE Unknown CIPROFLOXACIN Unknown PENICILLINS Unknown AZITHROMYCIN Unknown PSEUDOEPHEDRINE HCL Unknown LEVOFLOXACIN Unknown CYPROHEPTADINE Hives Unknown DIVALPROEX SODIUM Unknown CLINDAMYCIN Hives/Skin Rash moderate to severe Medications Medication Instructions Dosage Effective Dates (start - stop) Status albuterol sulfate 2.5 mg/3 mL (0.083 %) solution for nebulization inhale 1 vial by NEB four times daily - Active 1 capsule by mouth twice daily - Active Nasonex 50 mcg/actuation [place] spray 2 spray by intranasal route every day in each nostril 0 - Active Nexium 40 mg capsule,delayed release take 1 capsule (40MG) by oral route every day 40 MG - Active Yoni 300 mg/5 mL solution for nebulization inhale 5 milliliter (300MG) by inhalation route every 12 hours via nebulizer on odd months. - Active Tums 300 mg (750 mg) chewable tablet take 750 mg twice daily - Active Tylenol Extra Strength 500 mg tablet take 2 tablet (1000MG) by ORAL route every 6 hours as needed 1000 MG - Active take 4000 units daily - Active Creon 24,000-76,000-120,000 unit capsule,delayed release take 6 capsules with meals and 4 capsules with snacks - Active VIIBRYD (unknown strength) - Active FOLIC ACID (unknown strength) - Active OVIDREL (unknown strength) inject 0.5 milliliter by subcutaneous route every day for 1 day - Active FEMARA (unknown strength) take 1 tablet by oral route every day 2013 - Active TIROSINT (unknown strength) take 1 capsule by oral route every day - Active Flovent HFA 110 mcg/actuation aerosol inhaler inhale 2 puff (220MCG) by inhalation route 2 times every day 220 MCG - Active Pulmozyme 1 mg/mL solution for inhalation inhale (2.5MG) by inhalation route every day via nebulizer 2.5 MG - Active ProAir HFA 90 mcg/actuation aerosol inhaler inhale 1 - 2 puff by inhalation route every 4 hours as needed 0 - Active Maxidex 0.1 % eye drops,suspension apply 5 Drop by Nasal route 2 times every day apply to each nostril 0 - Active Kelso 5 mg-325 mg tablet take 1 - 2 Tablet by oral route every 6 hours as needed for pain 0 - Active Immunizations Vaccine Date Status Comments Unknown Results Test Name Date and Time Measure Units Reference Range Abnormal Flag Comments Unknown Vital Signs Date / Time: Height Weight Pulse Rate Blood Pressure Temperature /12:26:00 64.69 in 125.20 lbs 98.4 F Procedures Procedure Date Unknown Encounters Encounter Location Date Patient Visit [facility] Patient Visit [facility] Pulmonology Patient Visit [facility] Patient Visit [facility] Patient Visit [facility] Patient [facility] Patient [facility] Patient Visit [facility] Patient Visit [facility] Patient Visit [facility] Patient Visit [facility] Advance Directives Directive Effective Date Unknown
--- OUTSIDE RECORDS SUMMARY | 2017-04-01 03:00 | XMS REPORT | Summary of Care ---
Author Author Sabas Simon M.D. Organization Unknown Address [address], [place] [id number] Phone Unavailable Care Team Providers Care Spot Man Name Role Phone Alfred Tran, Alem Unavailable [...] Active Localized hives (708.9, L50.9) Status: Active Pleuritic chest pain (786.52, R07.81) [...] Exposure to pertussis (V01.89, Z20.89) Status: Active High risk medication use (V58.69, Z79.899) Status: Active Positive blood test (V72.42, Z32.01) Status: Active Amenorrhea (626.0, N91.2) Status: Active Dysuria (788.1, R30.0) Status: Active Chest pain (786.50, R07.9) Status: Active UTI symptoms (788.99, R39.9) Status: Active Port-a-cath in place (V45.89, Z95.828) Status: Active Cystic fibrosis (277.00, E84.9) Status: Active Chronic obstructive pulmonary disease (496, J44.9) Status: Active Chronic sinusitis (473.9, J32.9) Status: Active Cystic fibrosis (277.00, E84.9) Status: Active Acute sinusitis (461.9, J01.90) Status: Active Chronic sinusitis (473.9, J32.9) Status: Active Cystic fibrosis (277.00, E84.9) Status: [...] Refills: 11 Sabas Simon M.D.* Started 28-Jun-2011 [id number] GM Inhaler Epiduo 0.1-2.5 % External Gel apply to acne areas daily * Quantity: 45 Refills: 3 Joslyn Mar M.D.* Started 17-Jul-2012 ActiveVitamin A 51483 UNIT Oral Capsule * Refills: 0 * Started 17-Jan-2013 ActiveCreon 85272 UNIT Oral Capsule Delayed Release Particles TAKE 6 CAP BY MOUTH WITH MEALS, AND 4 CAPS WITH SNACKS * Quantity: 300 Refills: 99 Sabas Simon M.D.* Started 22-Dec-2011 ActiveTobramycin 300 MG/5ML Inhalation Nebulization Solution USE [...] Dae Clements M.D., FACS, * Started 15-Aug-2014 ActiveCrinone 8 % Vaginal Gel Insert one applicator vaginally every other day for 6 doses. * Quantity: 6 Refills: 0 Cory Roberts M.D.* Started 07-Jul-2015 ActiveOvidrel 250 MCG/0.5ML Subcutaneous Injectable INJECT SUBCUTANEOUSLY DIRECTED. * Refills: 0 Sabas Simon M.D.* Started 02-Oct-2015 ActiveAlbuterol Sulfate (2.5 MG/3ML) 0.083% Inhalation Nebulization Solution USE 1 UNIT DOSE IN NEBULIZER EVERY 4 TO 6 HOURS NEEDED. (Dx: 277.00) * Quantity: 360 Refills: 11 Sabas Simon M.D.* Started ActiveNasonex 50 MCG/ACT Nasal Suspension * Refills: 0 Sabas Simon M.D.* Started 08-Jan-2016 ActiveEffexor XR 150 MG Oral Capsule Extended Release 24 Hour * Refills: 0 Sabas Simon M.D.* Started 08-Jan-2016 ActiveBusPIRone HCl - 30 MG Oral Tablet TAKE 1 TABLET TWICE DAILY. * Refills: 0 Sabas Simon M.D.* Started 08-Jan-2016 ActiveCyproheptadine HCl - 4 MG Oral Tablet * Refills: 0 Sabas Simon M.D.* Started 08-Jan-2016 ActiveTraZODone HCl - 150 MG Oral Tablet TAKE ONE TABLET BY MOUTH AT BEDTIME * Quantity: 30 Refills: 3 Sabas Simon M.D.* Started 08-Jan-2016 ActiveProgesterone Micronized 200 MG Oral Capsule Take two tablets at bedtime for 5 nitesif no period to induce period every 35- 40 days * Quantity: 10 Refills: 8 Sabas Simon M.D.* Started 01-Jul-2015 ActiveHydrocodone-Acetaminophen 10-325 MG Oral Tablet TAKE 1 TABLET EVERY 4 TO 6 HOURS NEEDED FOR PAIN. * Quantity: 60 Refills: 0 Sabas Simon M.D.* Started 24-Oct-2012 ActiveVitamin K TABS * Refills: 0 ActiveVitamin D CAPS * Refills: 0 Active Allergies and Adverse Reactions Name Dates [...] Active Past Medical History Name Dates Details Cystic fibrosis (277.00, E84.9) Status: Active History of Asthma (493.90, J45.909) Status: Resolved History of Diabetes Mellitus Secondary [...] smoker Vital Signs Date Test Result Details 17-Feb-2016 16:32 BP Systolic 102 mm[Hg] Status: BP Diastolic 66 mm[Hg] Status: Heart Rate 70 /min Status: Weight 126 lb Status: O2 SAT 99 % Status: Body Mass Index Calculated 22.32 kg/m2 Status: Body Surface Area Calculated 1.59 m2 Status: Results Date Description Value Details 27-Jan-2016 08:35 BETA HCG 3500 BETA HCG <2 mIU/mL (Better) Range: 0-5 Comments: Gestational age: 0.02-1 Weeks=5-50 mIU/mL1-2 Weeks=50-500 mIU/mL2-3 Fgvif=742-2527 mIU/mL3-4 Ssgtj=372-28,000 mIU/mL4-5 Weeks=1,000-50,000 mIU/mL5- 6 Weeks=10,000-100,000 mIU/mL6-8 Weeks=15,000-200,000 mIU/mL2-3 months=10,000- 100,000 mIU/mL----- 05-Feb-2016 12:15 ULTRASOUND FOLLICULAR STUDY SONO Comments: Exam Date: 02/05/2016 09:55Dictation Date: 02/05/2016 12:15 XS FOLLICULAR STUDY SONO (Better) 16-Feb-2016 15:00 SERUM TEST 8020 SERUM TEST Negative (Better) Range: Negative Comments: Internal Control: Acceptable----- 17-Feb-2016 16:06 CT SINUSES Comments: Exam Date: 02/17/2016 15: 50Dictation Date: 02/17/2016 16:06 XC SINUSES (Better) Plan of Care Planned Observations* Name Dates Details Planned Goals not documented Goal Planned Encounters* Appointment; Provider: Cory Roberts On 01-Jul-2016 08:15 * Appointment; Provider: Schedule Radiology On 17-Feb-2016 16:00 * Appointment; Provider: Schedule Radiology On 05-Feb-2016 10:00 * Appointment; Provider: Rima Radiology On 19-Nov-2015 13:00 * Appointment; Provider: [...] Simon Encounter Diagnosis: Problem not documented On 17-Feb-2016 17:15 Appointment; Sabas Simon Encounter Diagnosis: Problem not documented On 08-Jan-2016 11:45 Appointment; Sabas Simon Encounter Diagnosis: Problem not documented On 11-Dec-2015 13:45 Appointment; Sabas Simon Encounter Diagnosis: Problem not documented On 02-Dec-2015 13:45 Appointment; Sabas Simon Encounter Diagnosis: Problem not [...]
--- OUTSIDE RECORDS SUMMARY | 2017-04-01 03:00 | XMS REPORT ---
Author Author GENERATED, SYSTEM Organization Unknown Address Unknown Phone Unavailable Care Team Providers Care Manager Strategy Name Role Phone MD INGA, [facility] [phone] Reason For Visit Reason for Visit from 05/22/2014 1:48 PM:* Pt Stated Reason for Adm : Invanz infusion for UTI Chief Complaint UTI Social History Functional Status Functional Status from 05/26/2014 10:06 AM:* LOC : Alert * Oriented To : Person,Place,Time,Event Functional Status from 05/25/2014 1:25 PM:* LOC : Alert * Oriented To : Person,Place,Time,Event Functional Status from 05/24/2014 12:36 PM:* LOC : Alert * Oriented To : Person,Place,Time,Event Functional Status from 05/23/2014 3:08 PM:* LOC : Alert * Oriented To : Person,Place,Time Functional Status from 05/22/2014 1:48 PM:* LOC : Alert * Oriented To : Person,Place,Time,Event Vital Signs Hospital Vital Signs from 05/26/2014 9:30 AM:* Height : 5/3 ft,in * Temperature : 97.9 F * Pulse : 69 * Respirations : 16 * BP : 108/61 Hospital Vital Signs from 05/25/2014 1:20 PM:* Height : 5/3 ft,in * Temperature : 98.2 F * Pulse : 59 * Respirations : 16 * BP : 103/58 Hospital Vital Signs from 05/24/2014 12:37 PM:* Height : 5/3 ft,in * Temperature : 97.5 F * Pulse : 63 * Respirations : 16 * BP : 103/65 Hospital Vital Signs from 05/22/2014 2:13 PM:* Height : 5/3 ft,in * Temperature : 98.6 F * Pulse : 63 * Respirations : 16 * BP : 95/70 Results Problems Encounter Diagnosis No relevant problems exist. Additional Problems * Cystic Fibrosis Status:Active. * Drug Overdose - Suicide Status:Active. Encounters Encounter Diagnosis No relevant problems exist. Plan of Care Procedures No relevant procedures performed. Immunizations No immunizations administered or ordered. Hospital Course Hospital Discharge Instructions Allergies, Adverse Reactions, Alerts * Erythromycin Base [...] vomiting. * No IV Contrast Allergy. Medication Medication reconciliation has not been performed.
--- OUTSIDE RECORDS SUMMARY | 2017-04-01 03:00 | XMS REPORT | Summary of Care ---
Author Author Sabas Simon M.D. 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) Status: Active Staphylococcus aureus infection (041.11, A49.01) Status: Active Cystic fibrosis (277.00, E84.9) Status: Active High risk medication use (V58.69, Z79.899) Status: Active Medications Name Dates Details Pulmozyme 1 MG/ML Inhalation Solution USE 1 UNIT VIA NEBULIZER TWO TIMES DAILY Quantity: 2 Sabas Simno M.D.* Started 09-Jul-2009 Active2.5 ML Plas Cont [...] Refills: 12 Sabas Simon M.D.* Started 28-Jun-2011 Xangys24 GM Inhaler Epiduo 0.1-2.5 % External Gel apply to acne areas daily * Quantity: 45 Refills: 3 Joslyn Mar M.D.* Started 17-Jul-2012 ActiveVitamin A 70755 UNIT Oral Capsule * Refills: 0 * Started 17-Jan-2013 ActiveCreon 19741 UNIT Oral Capsule Delayed Release Particles TAKE [...] Refills: 1 Flor Fischer D.O.* Started 06-Dec-2014 ActiveHydrocodone-Acetaminophen 10-325 MG Oral Tablet TAKE 1 [...] History of Tonsillectomy History of Cholecystectomy Laparoscopic VANCOMYCIN 3016 Ordered:03-Mar-2015 RENAL PROFILE 1240 Ordered:03-Mar-2015 Immunization Name Dates Details Pneumo (Pneumovax) Administered [...] smoker Vital Signs Date Test Result Details No Known Vitals to report Results Date Description Value Details Results not documented Plan of Care Planned Observations* Name Dates Details Planned Goals not documented Goal Planned Encounters* Appointment; Provider: Sabas Simon On 06-Mar-2015 13:45 * Appointment; Provider: Pranav Sahu On 10-Dec-2014 11:00 * Appointment; Provider: Pranva Sahu On 20-Aug-2014 11:00 * Appointment; Provider: [...] not documented On 10-Apr-2014 10:45 Appointment; Dell Alav Encounter Diagnosis: Problem not documented On 01-Feb-2014 [...]
--- OUTSIDE RECORDS SUMMARY | 2017-04-01 03:00 | XMS REPORT | Referral Summary ---
Author Author [facility] Organization [facility] Address Unknown Phone Unavailable Care Team Providers Care Sandwich Wrapper Name Role Phone Alem Simon Primary Care Physician [phone] Encounter KRISTINE [id number] Date(s): 08/01/15 - 08/01/[address] [facility] [address] [place] [phone] [place] Discharge Diagnosis: Nausea and vomiting Discharge Diagnosis: Body aches Discharge Diagnosis: Malaise Final: OTHER MALAISE AND FATIGUE Final: NAUSEA WITH VOMITING Final: Generalized pain Discharge Disposition: 01-Home or Self Care Attending Physician: Nick Vasquez MD Admitting Physician: Nick Vasquez MD Vital Signs Most recent to 1 oldest [Reference Range]: Temperature Oral 36.5 degC [35.8-37.3 degC] (08/01/15 6:14 PM) Peripheral Pulse 72 bpm Rate [60-100 bpm] (08/01/15 6:14 PM) Heart Rate Monitored 61 bpm [60-100 bpm] (08/01/15 9:20 PM) Respiratory Rate 16 br/min [14-20 br/min] (08/01/15 9:20 PM) Blood Pressure 114/86 mmHg [90-140/60-90 mmHg] (08/01/15 9:20 PM) SpO2 100 % (08/01/15 9:20 PM) Problem List Condition Effective Dates Status Health Status Informant Acute Active pain(Confirmed) At risk for Active infection(Confirmed) 1 Chronic Active depression(Confirmed ) Chronic Active diarrhea(Confirmed) Chronic sinusitis Active (disorder)(Confirmed ) Cystic fibrosis Active without meconium ileus (disorder)(Confirmed ) Generalized Active abdominal pain (finding)(Confirmed) Hypothyroidism Active [...] Latex Urticaria (hives) Active levofloxacin hives Active penicillin Urticaria (hives) Active pseudoephedrine Anaphylaxis Active Medications Abilify Daily, 0 Refill(s) Start Date: 01/28/16 Status: Ordered BuSpar 20 mg, Oral, TID, 0 Refill(s) Start Date: 01/28/16 Status: Ordered Cranberry Daily Start Date: 04/02/15 Status: Ordered Creon 24,000 units oral delayed release capsule See Instructions, Take 6 caps oral with meals and 4 caps oral with snacks., # 780 caps, 3 Refill(s), Pharmacy: [facility] Start Date: 11/05/15 Status: Ordered famotidine 20 mg Start Date: 05/05/15 Status: Ordered Femara 2.5 mg oral tablet mg tabs, Oral, Daily, 0 Refill(s) Start Date: 11/26/15 Status: Ordered Flovent HFA 220 mcg/inh inhalation aerosol 2 puffs, Inhalation, BID, 0 Refill(s) Start Date: 02/24/15 Status: Ordered Lortab 10/325 oral tablet tabs, Oral, q6hr, 0 Refill(s) Start Date: 08/01/15 Status: Ordered naltrexone 20 mg, Daily Start Date: 04/02/15 Status: Ordered NexIUM 20 mg oral delayed release capsule 1 caps, Oral, BID, # 60 caps, 0 Refill(s), Pharmacy: [facility] , 1 caps Oral BID Start Date: 06/07/14 Status: Ordered Ovidrel 250 mcg/0.5 mL subcutaneous solution 250 mcg, SubCutaneous, Once, # 1 Each, 0 Refill(s) Start Date: 11/26/15 Status: Ordered ProAir HFA 90 mcg/inh inhalation aerosol 2 puffs, Inhalation, q4hr, as needed for wheezing, # 8.5 g, 0 Refill(s) Start Date: 05/08/14 Status: Ordered Pulmozyme 2.5 mg/2.5 mL inhalation solution See Instructions, INHALE ONE AMPULE BY INHALATION ROUTE EVERY DAY VIA NEBULIZER , # 75 mL, 11 Refill(s), eRx: [facility], INHALE ONE AMPULE BY INHALATION ROUTE EVERY DAY VIA NEBULIZER Start Date: 08/21/15 Status: Ordered SEROquel 300 mg oral tablet mg tabs, Oral, BID, 0 Refill(s) Start Date: 01/28/16 Status: Ordered Sleep med (Ciprohetadine) Sleep med (Ciprohetadine) Start Date: 04/02/15 Status: Ordered Yoni NEB, Odd moths only Start Date: 05/05/15 Status: Ordered traZODone 150 mg, Oral, 0 Refill(s) Start Date: 01/28/16 Status: Ordered Tums 500 mg oral tablet, chewable 500 mg 1 tabs, Oral, PRN, 0 Refill(s) Start Date: 02/24/15 Status: Ordered Results Hematology Most recent to 1 oldest [Reference Range]: WBC [4.8-10.8 8.3 10*3/uL 10*3/uL] (08/01/15 7:51 PM) RBC [4.00-5.20] 4.69 (08/01/15 7:51 PM) Hgb [12.0-16.0 13.5 gm/dL gm/dL] (08/01/15 7:51 PM) Hct [37.0-47.0 %] 40.2 % (08/01/15 7:51 PM) MCV [82.0-99.0 fL] 85.7 fL (08/01/15 7:51 PM) MCH [27.0-32.0 pg] 28.8 pg (08/01/15 7:51 PM) MCHC [32.0-36.0 33.6 gm/dL gm/dL] (08/01/15 7:51 PM) RDW [11.5-14.5 %] 13.6 % (08/01/15 7:51 PM) Platelet [150-400 345 10*3/uL 10*3/uL] (08/01/15 7:51 PM) MPV [9.4-12.4 fL] 10.2 fL (08/01/15 7:51 PM) Immature 0.1 % Granulocytes (08/01/15 7:51 PM) [0.0-1.0 %] Neutrophils [51-75 53 % %] (08/01/15 7:51 PM) Lymphocytes [20-46 34 % %] (08/01/15 7:51 PM) Monocytes [4-11 %] 8 % (08/01/15 7:51 PM) Eosinophils [0-4 %] 5 % *HI* (08/01/15 7:51 PM) Basophils [0-2 %] 1 % (08/01/15 7:51 PM) Neutro Absolute 4.35 10*3 [1.90-7.00 10*3] (08/01/15 7:51 PM) Lymph Absolute 2.80 10*3 [0.80-3.30 10*3] (08/01/15 7:51 PM) Ida Absolute 0.63 10*3 [0.30-1.00 10*3] (08/01/15 7:51 PM) Eos Absolute 0.45 10*3 [0.00-0.50 10*3] (08/01/15 7:51 PM) Baso Absolute 0.04 10*3 [0.00-0.20 10*3] (08/01/15 7:51 PM) Nucleated RBC 0.0 /100 WBC Automated [0 /100 (08/01/15 7:51 PM) WBC] Chemistry Most recent to 1 oldest [Reference Range]: Sodium Lvl [136-144 139 mEq/L mEq/L] (08/01/15 7:51 PM) Potassium Lvl 4.0 mEq/L [3.6-5.1 mEq/L] (08/01/15 7:51 PM) Chloride [99-109 101 mEq/L mEq/L] (08/01/15 7:51 PM) CO2 [22-32 mEq/L] 31 mEq/L (08/01/15 7:51 PM) AGAP [3-20] 7 (08/01/15 7:51 PM) BUN [4-20 mg/dL] 7 mg/dL (08/01/15 7:51 PM) Glucose Lvl [70-100 83 mg/dL mg/dL] (08/01/15 7:51 PM) Creatinine Lvl 0.90 mg/dL [0.44-1.03 mg/dL] (08/01/15 7:51 PM) eGFR [>60] >60 1 (08/01/15 7:51 PM) Calcium Lvl 9.1 mg/dL [8.6-10.0 mg/dL] (08/01/15 7:51 PM) Albumin Lvl [3.5-4.8 4.1 gm/dL gm/dL] (08/01/15 7:51 PM) Total Protein 7.0 gm/dL [6.1-7.9 gm/dL] (08/01/15 7:51 PM) Globulin [1.9-4.3 2.9 gm/dL gm/dL] (08/01/15 7:51 PM) ALT [14-54 U/L] 41 U/L (08/01/15 7:51 PM) AST [15-41 U/L] 57 U/L *HI* (08/01/15 7:51 PM) Alk Phos [26-104 111 U/L U/L] *HI* (08/01/15 7:51 PM) Bili Total [0.2-1.2 1.0 mg/dL 2 mg/dL] (08/01/15 7:51 PM) Lipase Lvl [8-48 <10 U/L U/L] (08/01/15 7:51 PM) Screen, Negative Urine NPT (08/01/15 7:22 PM) 1Result Comment: Multiply eGFR results by 1.21 for race. 2Result Comment: Naproxen, specifically the metabolite O-desmethylnaproxen, may cause spurious elevation in Total Bilirubin levels. Urinalysis Most recent to 1 oldest [Reference Range]: UA Color Lt Yellow (08/01/15 6:56 PM) UA Appear Clear (08/01/15 6:56 PM) UA pH [5.0-8.0] 7.0 (08/01/15 6:56 PM) UA Leuk Est Negative [Negative] (08/01/15 6:56 PM) UA Nitrite Negative [Negative] (08/01/15 6:56 PM) UA Protein Negative [Negative] (08/01/15 6:56 PM) UA Glucose Negative [Negative] (08/01/15 6:56 PM) UA Ketones Negative [Negative] (08/01/15 6:56 PM) UA Urobilinogen Negative [<1.0] (08/01/15 6:56 PM) UA Bili [Negative] Negative (08/01/15 6:56 PM) UA Blood [Negative] Pos 2+ *ABN* (08/01/15 6:56 PM) UA Spec Grav 1.010 [1.003-1.030] (08/01/15 6:56 PM) Type Venous (08/01/15 7:45 PM) UA WBC [0-4] 0-2 (08/01/15 6:56 PM) UA RBC [0-2] 0-2 (08/01/15 6:56 PM) Epithelial Cells 10-20 (08/01/15 6:56 PM) UA Bacteria Occasional *ABN* (08/01/15 6:56 PM) UA Mucous Present (08/01/15 6:56 PM) Immunizations Vaccine Date Refusal Reason tetanus/diphth/pertuss (Tdap) adult/adol 11/26/15 tetanus/diphth/pertuss (Tdap) adult/adol 10/02/14 pneumococcal 23-polyvalent vaccine 11/26/15 Procedures Procedure Date Related Diagnosis Body Site Insertion Implantable Venous Access Port1 02/24/15 sinus surgery 2013 Port-A-Cath Removed 2012 Bronchoscopy2 01/05/08 Cholecystectomy Tonsillectomy 1auto-populated from documented surgical case 2For retained secretions and L UL atelectasis Social History Social History Type Response Smoking Status Never smoker Assessment and Plan No data available for this section
--- OUTSIDE RECORDS SUMMARY | 2017-04-01 03:00 | XMS REPORT ---
Author Author GENERATED, SYSTEM Organization Unknown Address Unknown Phone Unavailable Care Team Providers Care Senior Oracle Database Administrator Name Role Phone MD INGA, MANI [phone] Reason For Visit Reason for Visit from 02/19/2016 3:55 PM:* Pt Stated Reason for Adm : Antibiotics Chief Complaint CF Social History Functional Status Functional Status from 02/19/2016 3:55 PM:* LOC : Alert * Oriented To : Person,Place,Time,Event Vital Signs Hospital Vital Signs from 02/19/2016 3:58 PM:* Height : 5/3 ft,in * Temperature : 97.7 F * Pulse : 63 * Respirations : 18 * BP : 103/63 Hospital Vital Signs from 02/19/2016 3:55 PM:* Weight : 125/ lbs,oz * Height : 5/3 ft,in Results Chemistry from 02/19/2016 4:05 PMSODIUM 137 MMOL/L (136-145 MMOL/L) POTASSIUM 3.5 MMOL/L (3.5-5.1 MMOL/L) CHLORIDE 103 MMOL/L (98-107 MMOL/L) TCO2 25.5 MMOL/L (21.0-32.0 MMOL/L) *ANION GAP 8.5 MMOL/L (8.0-16.0 MMOL/L) BUN 12 MG/DL (7-18 MG/DL) CREATININE 0.90 MG/DL (0.55-1.02 MG/DL) *BUN/CREATININE RATIO 13.3 (9.1-17.0 ) GLUCOSE 158 MG/DL H (65-99 MG/DL) *GFR EST NON AFR SOMALI 84 ML/MIN *GFRA EST AFR AMER >90 ML/MIN CALCIUM 8.6 MG/DL (8.5-10.1 MG/DL) BILIRUBIN TOTAL 1.10 MG/DL H (0.20-1.00 MG/DL) TOTAL PROTEIN 7.3 GM/DL (6.4-8.2 GM/DL) ALBUMIN 3.6 GM/DL (3.4-5.0 GM/DL) *GLOBULIN 3.7 GM/DL H (2.3-3.5 GM/DL) *A/G RATIO 1.0 MG/DL L (1.5-2.2 MG/DL) ALK PHOS 122 U/L H (46-116 U/L) ALT (SGPT) 44 U/L (16-63 U/L) AST (SGOT) 29 U/L (15-37 U/L) C-REACTIVE PROTEIN <0.05 MG/DL (0.00-0.30 MG/DL) Hematology from 02/19/2016 4:05 PMWBC 11.2 X10e3/UL (3.6-11.2 X10e3/UL) RBC 4.39 X10e6/UL (3.63-4.92 X10e6/UL) HEMOGLOBIN 12.4 G/DL (11.0-14.3 G/DL) HEMATOCRIT 37.4 % (31.2-41.9 %) *MCV 85.1 FL (79.0-98.0 FL) *MCH 28.3 PG (27.0-33.0 PG) *MCHC 33.3 G/DL (32.0-36.0 G/DL) *RDW 13.5 % (12.3-17.0 %) *RDWSD 40.3 (37.1-47.8 ) PLATELET 224 X10e3/UL (159-386 X10e3/UL) *MPV 8.7 FL (7.4-10.4 FL) *MANUAL DIFF PERFORMED SEGS 69.0 % *BANDS 0.0 % *LYMPHOCYTES 27.0 % *MONOCYTES 2.0 % *EOSINOPHILS 2.0 % *BASOPHILS 0.0 % *ABSOLUTE NEUTROPHILS 7.73 X10e3/UL (1.80-7.80 X10e3/UL) *ABSOLUTE LYMPHOCYTES 3.02 X10e3/UL H (1.00-3.00 X10e3/UL) *ABSOLUTE MONOCYTES 0.22 X10e3/UL L (0.30-1.00 X10e3/UL) *ABSOLUTE EOSINOPHILS 0.22 X10e3/UL (0.00-0.50 X10e3/UL) *ABSOLUTE BASOPHILS 0.00 X10e3/UL (0.00-0.20 X10e3/UL) SED RATE 14 MM/HR (0-20 MM/HR) Problems Encounter Diagnosis No relevant problems exist. [...] 2014 10:40 AM * Completed Procedure Code: 85074 Procedure Name: not valued, on 12/10/2014 12: 00 AM * Completed Procedure Code: 13411 Procedure Name: not valued, on 12/10/2014 12: 00 AM * Completed Laparoscopic Cholecystectomy, by MD BREANNE OCONNOR, on 08/20/2014 10:45 AM * Completed Procedure Code: 47654 Procedure Name: not valued, on 08/20/2014 12: [...]
--- OUTSIDE RECORDS SUMMARY | 2017-04-01 03:00 | XMS REPORT | Summary of Care ---
Author Author Sabas Simon M.D. Organization Unknown Address [address], [place] [id number] Phone Unavailable Care Team Providers Care Chiropractor Assistant Name Role Phone Alfred Tran, Alem Unavailable [...] Active Cystic fibrosis (277.00, E84.9) Status: Active Encounter for routine gynecological examination with Papanicolaou smear of cervix (V72.31, Z01.419) Status: Active Exposure to pertussis (V01.89, Z20.89) Status: Active Cystic fibrosis (277.00, E84.9) Status: Active Chronic obstructive pulmonary disease (496, J44.9) Status: Active Cystic fibrosis (277.00, E84.9) Status: Active Amenorrhea (626.0, N91.2) Status: Active High risk medication use (V58.69, [...] Refills: 99 Sabas Simon M.D.* Started 28-Jun-2011 ActiveCreon 46208 UNIT Oral Capsule Delayed Release Particles TAKE 6 CAP BY MOUTH WITH MEALS, AND 4 CAPS WITH SNACKS * Quantity: 300 Refills: 99 Sabas Simon M.D.* Started 22-Dec-2011 ActiveAlbuterol Sulfate (2.5 MG/3ML) 0.083% Inhalation Nebulization Solution USE 1 UNIT DOSE IN NEBULIZER EVERY 4 TO 6 HOURS NEEDED. (Dx: 277.00) * Quantity: 360 Refills: 0 Sabas Simon M.D.* Started ActiveEpiduo 0.1-2.5 % External Gel apply to acne areas daily * Quantity: 45 Refills: 3 Joslyn Mar M.D.* Started 17-Jul-2012 ActiveHydrocodone-Acetaminophen 10-325 MG Oral Tablet TAKE 1 TABLET EVERY 4 TO 6 HOURS NEEDED FOR PAIN. * Quantity: 60 Refills: 0 Sabas Simon M.D.* Started 24-Oct-2012 ActiveVitamin A 73483 UNIT Oral Capsule * Refills: 0 * Started 17-Jan-2013 ActiveTobramycin 300 MG/5ML Inhalation Nebulization Solution USE ONE VIAL VIA NEBULIZER BY MOUTH TWICE A DAY/ one month on and one month off * Quantity: 280 Refills: 11 Sabas Simon M.D.* Started ActivePARoxetine HCl - 40 MG Oral Tablet TAKE 1 TABLET DAILY. * Quantity: 30 Refills: 5 * Started 10-Apr-2014 ActiveTrileptal 300 MG Oral Tablet take 1 tab daily * Refills: 0 * Started 10-Apr-2014 ActiveSEROquel 400 MG Oral Tablet TAKE 1 [...] Refills: 0 Sabas Simon M.D.* Started 06-Mar-2015 ActiveProgesterone Micronized 200 MG Oral Capsule Take [...] Refills: 11 Sabas Simon M.D.* Started 21-Aug-2015 Hqzxts39 GM Bottle Ovidrel 250 MCG/0.5ML Subcutaneous Injectable INJECT SUBCUTANEOUSLY DIRECTED. * Refills: 0 Sabas Simon M.D.* Started 02-Oct-2015 ActiveSMZ-TMP DS 800-160 MG Oral Tablet TAKE 1 TABLET TWICE DAILY. * Quantity: 30 Refills: 1 Sabas Simon M.D.* Started 02-Oct-2015 Active Allergies and Adverse Reactions Name Dates [...] History of Tonsillectomy History of Cholecystectomy Laparoscopic BETA HCG 3500 Ordered:03-Oct-2015 Immunization Name Dates Details Pneumo (Pneumovax) Administered [...] smoker Vital Signs Date Test Result Details 02-Oct-2015 13:28 BP Systolic 100 mm[Hg] Status: BP Diastolic 72 mm[Hg] Status: Heart Rate 79 /min Status: Height 63 in Status: Weight 131 lb Status: O2 SAT 98 % Status: Body Mass Index Calculated 23.21 kg/m2 Status: Body Surface Area Calculated 1.62 m2 Status: Results Date Description Value Details 15-Sep-2015 14:15 BETA HCG 3500 Comments: ORDER FILED UNDER AUGUST ORDERS IN THE BOOK BETA HCG <2 mIU/mL (Better) Range: 0-5 Comments: Gestational age: 0.02-1 Weeks=5-50 mIU/mL1-2 Weeks=50-500 mIU/mL2-3 Jarsx=362-3014 mIU/mL3-4 Hxier=788-41,000 mIU/mL4-5 Weeks=1,000-50,000 mIU/mL5- 6 Weeks=10,000-100,000 mIU/mL6-8 Weeks=15,000-200,000 mIU/mL2-3 months=10,000- 100,000 mIU/mL----- 23-Sep-2015 12:29 ULTRASOUND FOLLICULAR STUDY SONO Comments: Exam Date: 09/23/2015 11:03Dictation Date: 09/23/2015 12:29 XS FOLLICULAR STUDY SONO (Better) Plan of Care Planned Observations* Name Dates Details Planned Goals not documented Goal Planned Encounters* Appointment; Provider: Cory Roberts On 01-Jul-2016 08:15 * Appointment; Provider: Sabas Simon On 12-Nov-2015 15:45 * Appointment; Provider: Winsome Pollack On 01-Sep-2015 [...] not documented On 01-Jul-2015 08:15 Appointment; Courtney iGles Encounter Diagnosis: Problem not documented On 16:20 [...]
--- OUTSIDE RECORDS SUMMARY | 2017-04-01 03:01 | XMS REPORT ---
Author Author GENERATED, SYSTEM Organization Unknown Address Unknown Phone Unavailable Care Team Providers Care Automatic Punch Press Operator Name Role Phone MD INGA, MANI PP [phone] Reason For Visit Chief Complaint COUGH,LUNG PAIN RT SIDE HX MRSA PNEUMONIA,LEFT AFTER TRIAGE,COUGH Social History Functional Status Vital Signs Results Problems Encounter Diagnosis No relevant problems [...] 2014 10:40 AM * Completed Procedure Code: 34813 Procedure Name: not valued, on 12/10/2014 12: 00 AM * Completed Procedure Code: 54311 Procedure Name: not valued, on 12/10/2014 12: 00 AM * Completed Laparoscopic Cholecystectomy, by MD BREANNE OCONNOR, on 08/20/2014 10:45 AM * Completed Procedure Code: 70448 Procedure Name: not valued, on 08/20/2014 12: [...]
--- OUTSIDE RECORDS SUMMARY | 2017-04-01 03:01 | XMS REPORT ---
Author Author GENERATED, SYSTEM Organization Unknown Address Unknown Phone Unavailable Care Team Providers Care Surgical Manager Name Role Phone MD INGA, MANI [phone] Reason For Visit Reason for Visit from 02/20/2016 7:49 AM:* Pt Stated Reason for Adm : Antibiotics Chief Complaint CF Social History Functional Status Functional Status from 03/17/2016 7:50 AM:* LOC : Alert * Oriented To : Person,Place,Time Functional Status from 03/16/2016 10:40 AM:* LOC : Alert * Oriented To : Person,Place,Time Functional Status from 03/15/2016 8:20 AM:* LOC : Alert * Oriented To : Person,Place,Time Functional Status from 03/14/2016 8:31 AM:* LOC : Alert * Oriented To : Person,Place,Time,Event Functional Status from 03/13/2016 8:35 AM:* LOC : Alert * Oriented To : Person,Place,Time,Event Functional Status from 03/12/2016 7:30 AM:* LOC : Alert * Oriented To : Person,Place,Time Functional Status from 03/11/2016 8:16 AM:* LOC : Alert * Oriented To : Person,Place,Time Functional Status from 03/10/2016 11:14 AM:* LOC : Alert * Oriented To : Person,Place,Time,Event Functional Status from 03/09/2016 11:25 AM:* LOC : Alert * Oriented To : Person,Place,Time,Event Functional Status from 03/08/2016 10:41 AM:* LOC : Alert * Oriented To : Person,Place,Time,Event Functional Status from 03/07/2016 9:03 AM:* LOC : Alert * Oriented To : Person,Place,Time Functional Status from 03/06/2016 10:45 AM:* LOC : Alert * Oriented To : Person,Place,Time Functional Status from 03/05/2016 10:05 AM:* LOC : Alert * Oriented To : Person,Place,Time Functional Status from 03/04/2016 9:09 AM:* LOC : Alert * Oriented To : Person,Place,Time,Event Functional Status from 03/03/2016 10:47 AM:* LOC : Alert * Oriented To : Person,Place,Time Functional Status from 03/02/2016 10:10 AM:* LOC : Alert * Oriented To : Person,Place,Time Functional Status from 03/01/2016 8:00 AM:* LOC : Alert * Oriented To : Person,Place,Time Functional Status from 02/29/2016 7:53 AM:* LOC : Alert * Oriented To : Person,Place,Time Functional Status from 02/28/2016 9:29 AM:* LOC : Alert * Oriented To : Person,Place,Time Functional Status from 02/27/2016 8:30 AM:* LOC : Alert * Oriented To : Person,Place,Time Functional Status from 02/26/2016 7:04 AM:* LOC : Alert * Oriented To : Person,Place,Time,Event Functional Status from 02/25/2016 9:30 AM:* LOC : Alert * Oriented To : Person,Place,Time Functional Status from 02/24/2016 10:19 AM:* LOC : Alert * Oriented To : Person,Place,Time Functional Status from 02/23/2016 10:00 AM:* LOC : Alert * Oriented To : Person Functional Status from 02/22/2016 8:13 AM:* LOC : Alert * Oriented To : Person,Place,Time,Event Functional Status from 02/21/2016 10:22 AM:* LOC : Alert * Oriented To : Person,Place,Time,Event Functional Status from 02/20/2016 7:49 AM:* LOC : Alert * Oriented To : Person,Place,Time,Event Vital Signs Hospital Vital Signs from 03/16/2016 10:43 AM:* Height : 5/3 ft,in * Temperature : 97.9 F * Pulse : 66 * Respirations : 18 * BP : 99/54 Hospital Vital Signs from 03/15/2016 8:20 AM:* Height : 5/3 ft,in * Temperature : 98.5 F * Pulse : 77 * Respirations : 18 * BP : 106/68 Hospital Vital Signs from 03/14/2016 8:00 AM:* Height : 5/3 ft,in * Temperature : 97.9 F * Pulse : 66 * Respirations : 18 * BP : 108/59 Hospital Vital Signs from 03/13/2016 8:35 AM:* Height : 5/3 ft,in * Temperature : 97.6 F * Pulse : 65 * Respirations : 18 * BP : 102/67 Hospital Vital Signs from 03/12/2016 7:30 AM:* Height : 5/3 ft,in * Temperature : 97.8 F * Pulse : 70 * Respirations : 18 * BP : 107/75 Hospital Vital Signs from 03/11/2016 8:16 AM:* Height : 5/3 ft,in * Temperature : 98.2 F * Pulse : 95 * Respirations : 18 * BP : 103/76 Hospital Vital Signs from 03/10/2016 11:17 AM:* Height : 5/3 ft,in * Temperature : 98.4 F * Pulse : 65 * Respirations : 16 * BP : 96/65 Hospital Vital Signs from 03/09/2016 11:28 AM:* Height : 5/3 ft,in * Temperature : 97.6 F * Pulse : 83 * Respirations : 16 * BP : 95/67 Hospital Vital Signs from 03/08/2016 10:45 AM:* Height : 5/3 ft,in * Temperature : 97.6 F * Pulse : 65 * Respirations : 18 * BP : 90/55 Hospital Vital Signs from 03/07/2016 9:03 AM:* Height : 5/3 ft,in * Temperature : 98.3 F * Pulse : 70 * Respirations : 18 * BP : 126/66 Hospital Vital Signs from 03/06/2016 10:45 AM:* Height : 5/3 ft,in * Temperature : 97.4 F * Pulse : 79 * Respirations : 18 * BP : 113/66 Hospital Vital Signs from 03/05/2016 10:10 AM:* Height : 5/3 ft,in * Temperature : 98.3 F * Pulse : 66 * Respirations : 18 * BP : 96/59 Hospital Vital Signs from 03/04/2016 9:12 AM:* Height : 5/3 ft,in * Temperature : 97.6 F * Pulse : 74 * Respirations : 18 * BP : 100/59 Hospital Vital Signs from 03/03/2016 10:50 AM:* Height : 5/3 ft,in * Temperature : 98.2 F * Pulse : 75 * Respirations : 18 * BP : 93/65 Hospital Vital Signs from 03/02/2016 10:12 AM:* Height : 5/3 ft,in * Temperature : 96.7 F * Pulse : 65 * Respirations : 18 * BP : 103/71 Hospital Vital Signs from 03/01/2016 8:00 AM:* Height : 5/3 ft,in * Temperature : 97.6 F * Pulse : 69 * Respirations : 18 * BP : 90/59 Hospital Vital Signs from 02/29/2016 7:53 AM:* Height : 5/3 ft,in * Temperature : 97.5 F * Pulse : 61 * Respirations : 18 * BP : 100/61 Hospital Vital Signs from 02/28/2016 9:29 AM:* Height : 5/3 ft,in * Temperature : 97.2 F * Pulse : 60 * Respirations : 18 * BP : 99/62 Hospital Vital Signs from 02/27/2016 8:30 AM:* Height : 5/3 ft,in * Temperature : 98.0 F * Pulse : 68 * Respirations : 18 * BP : 91/56 Hospital Vital Signs from 02/26/2016 7:08 AM:* Height : 5/3 ft,in * Temperature : 97.7 F * Pulse : 63 * Respirations : 18 * BP : 104/61 Hospital Vital Signs from 02/25/2016 9:40 AM:* Height : 5/3 ft,in * Temperature : 97.9 F * Pulse : 62 * Respirations : 18 * BP : 102/62 Hospital Vital Signs from 02/24/2016 10:19 AM:* Height : 5/3 ft,in * Temperature : 98.3 F * Pulse : 63 * Respirations : 18 * BP : 103/62 Hospital Vital Signs from 02/23/2016 10:00 AM:* Height : 5/3 ft,in * Temperature : 97.9 F * Pulse : 67 * Respirations : 18 * BP : 112/63 Hospital Vital Signs from 02/22/2016 8:15 AM:* Height : 5/3 ft,in * Temperature : 97.5 F * Pulse : 52 * Respirations : 16 * BP : 98/61 Hospital Vital Signs from 02/21/2016 10:25 AM:* Height : 5/3 ft,in * Temperature : 97.7 F * Pulse : 62 * Respirations : 16 * BP : 84/55 Hospital Vital Signs from 02/20/2016 7:57 AM:* Height : 5/3 ft,in * Temperature : 98.2 F * Pulse : 63 * Respirations : 18 * BP : 98/62 Hospital Vital Signs from 02/20/2016 7:49 AM:* Weight : 56.6/ kg * Height : 5/3 ft,in Results Chemistry from 03/15/2016 8:33 AMSODIUM 139 MMOL/L (136-145 MMOL/L) POTASSIUM 3.7 MMOL/L (3.5-5.1 MMOL/L) CHLORIDE 104 MMOL/L (98-107 MMOL/L) TCO2 27.8 MMOL/L (21.0-32.0 MMOL/L) *ANION GAP 7.2 MMOL/L L (8.0-16.0 MMOL/L) BUN 8 MG/DL (7-18 MG/DL) CREATININE 0.87 MG/DL (0.55-1.02 MG/DL) *BUN/CREATININE RATIO 9.2 (9.1-17.0 ) GLUCOSE 66 MG/DL (65-99 MG/DL) *GFR EST NON AFR [place] 88 ML/MIN *GFRA EST AFR AMER >90 ML/MIN CALCIUM 8.7 MG/DL (8.5-10.1 MG/DL) BILIRUBIN TOTAL 0.70 MG/DL (0.20-1.00 MG/DL) TOTAL PROTEIN 7.1 GM/DL (6.4-8.2 GM/DL) ALBUMIN 3.8 GM/DL (3.4-5.0 GM/DL) *GLOBULIN 3.3 GM/DL (2.3-3.5 GM/DL) *A/G RATIO 1.2 MG/DL L (1.5-2.2 MG/DL) ALK PHOS 114 U/L (46-116 U/L) ALT (SGPT) 16 U/L (16-63 U/L) AST (SGOT) 23 U/L (15-37 U/L) C-REACTIVE PROTEIN 0.06 MG/DL (0.00-0.30 MG/DL) Chemistry from 03/08/2016 10:50 AMSODIUM 139 MMOL/L (136-145 MMOL/L) POTASSIUM 4.0 MMOL/L (3.5-5.1 MMOL/L) CHLORIDE 105 MMOL/L (98-107 MMOL/L) TCO2 28.7 MMOL/L (21.0-32.0 MMOL/L) *ANION GAP 5.3 MMOL/L L (8.0-16.0 MMOL/L) BUN 7 MG/DL (7-18 MG/DL) CREATININE 1.00 MG/DL (0.55-1.02 MG/DL) *BUN/CREATININE RATIO 7.0 L (9.1-17.0 ) GLUCOSE 111 MG/DL H (65-99 MG/DL) *GFR EST NON AFR [place] 74 ML/MIN *GFRA EST AFR AMER 86 ML/MIN CALCIUM 8.4 MG/DL L (8.5-10.1 MG/DL) BILIRUBIN TOTAL 0.60 MG/DL (0.20-1.00 MG/DL) TOTAL PROTEIN 6.7 GM/DL (6.4-8.2 GM/DL) ALBUMIN 3.4 GM/DL (3.4-5.0 GM/DL) *GLOBULIN 3.3 GM/DL (2.3-3.5 GM/DL) *A/G RATIO 1.0 MG/DL L (1.5-2.2 MG/DL) ALK PHOS 108 U/L (46-116 U/L) ALT (SGPT) 14 U/L L (16-63 U/L) AST (SGOT) 17 U/L (15-37 U/L) C-REACTIVE PROTEIN <0.05 MG/DL (0.00-0.30 MG/DL) Chemistry from 03/01/2016 11:26 AMHCG QUANT <1 MIU/ML (0-6 MIU/ML) Chemistry from 03/01/2016 8:08 AMSODIUM 140 MMOL/L (136-145 MMOL/L) POTASSIUM 4.2 MMOL/L (3.5-5.1 MMOL/L) CHLORIDE 105 MMOL/L (98-107 MMOL/L) TCO2 28.0 MMOL/L (21.0-32.0 MMOL/L) *ANION GAP 7.0 MMOL/L L (8.0-16.0 MMOL/L) BUN 10 MG/DL (7-18 MG/DL) CREATININE 0.91 MG/DL (0.55-1.02 MG/DL) *BUN/CREATININE RATIO 11.0 (9.1-17.0 ) GLUCOSE 120 MG/DL H (65-99 MG/DL) *GFR EST NON AFR [place] 83 ML/MIN *GFRA EST AFR AMER >90 ML/MIN CALCIUM 8.5 MG/DL (8.5-10.1 MG/DL) BILIRUBIN TOTAL 0.70 MG/DL (0.20-1.00 MG/DL) TOTAL PROTEIN 7.0 GM/DL (6.4-8.2 GM/DL) ALBUMIN 3.4 GM/DL (3.4-5.0 GM/DL) *GLOBULIN 3.6 GM/DL H (2.3-3.5 GM/DL) *A/G RATIO 0.9 MG/DL L (1.5-2.2 MG/DL) ALK PHOS 114 U/L (46-116 U/L) ALT (SGPT) 18 U/L (16-63 U/L) AST (SGOT) 28 U/L (15-37 U/L) C-REACTIVE PROTEIN 0.06 MG/DL (0.00-0.30 MG/DL) Chemistry from 02/23/2016 10:21 AMSODIUM 141 MMOL/L (136-145 MMOL/L) POTASSIUM 3.7 MMOL/L (3.5-5.1 MMOL/L) CHLORIDE 107 MMOL/L (98-107 MMOL/L) TCO2 24.4 MMOL/L (21.0-32.0 MMOL/L) *ANION GAP 9.6 MMOL/L (8.0-16.0 MMOL/L) BUN 9 MG/DL (7-18 MG/DL) CREATININE 0.81 MG/DL (0.55-1.02 MG/DL) *BUN/CREATININE RATIO 11.1 (9.1-17.0 ) GLUCOSE 97 MG/DL (65-99 MG/DL) *GFR EST NON AFR [place] >90 ML/MIN *GFRA EST AFR AMER >90 ML/MIN CALCIUM 8.4 MG/DL L (8.5-10.1 MG/DL) BILIRUBIN TOTAL 0.70 MG/DL (0.20-1.00 MG/DL) TOTAL PROTEIN 7.2 GM/DL (6.4-8.2 GM/DL) ALBUMIN 3.6 GM/DL (3.4-5.0 GM/DL) *GLOBULIN 3.6 GM/DL H (2.3-3.5 GM/DL) *A/G RATIO 1.0 MG/DL L (1.5-2.2 MG/DL) ALK PHOS 118 U/L H (46-116 U/L) ALT (SGPT) 28 U/L (16-63 U/L) AST (SGOT) 32 U/L (15-37 U/L) C-REACTIVE PROTEIN <0.05 MG/DL (0.00-0.30 MG/DL) Hematology from 03/15/2016 8:33 AMWBC 9.1 X10e3/UL (3.6-11.2 X10e3/UL) RBC 4.35 X10e6/UL (3.63-4.92 X10e6/UL) HEMOGLOBIN 12.2 G/DL (11.0-14.3 G/DL) HEMATOCRIT 36.9 % (31.2-41.9 %) *MCV 84.9 FL (79.0-98.0 FL) *MCH 28.0 PG (27.0-33.0 PG) *MCHC 33.0 G/DL (32.0-36.0 G/DL) *RDW 13.4 % (12.3-17.0 %) *RDWSD 39.8 (37.1-47.8 ) PLATELET 231 X10e3/UL (159-386 X10e3/UL) *MPV 8.6 FL (7.4-10.4 FL) *MANUAL DIFF PERFORMED SEGS 49.0 % *BANDS 0.0 % *LYMPHOCYTES 32.0 % *MONOCYTES 11.0 % *EOSINOPHILS 4.0 % *BASOPHILS 0.0 % *REACTIVE LYMPHOCYTES 4.0 % *ABSOLUTE NEUTROPHILS 4.46 X10e3/UL (1.80-7.80 X10e3/UL) *ABSOLUTE LYMPHOCYTES 3.28 X10e3/UL H (1.00-3.00 X10e3/UL) *ABSOLUTE MONOCYTES 1.00 X10e3/UL (0.30-1.00 X10e3/UL) *ABSOLUTE EOSINOPHILS 0.36 X10e3/UL (0.00-0.50 X10e3/UL) *ABSOLUTE BASOPHILS 0.00 X10e3/UL (0.00-0.20 X10e3/UL) SED RATE 8 MM/HR (0-20 MM/HR) Hematology from 03/08/2016 10:50 AMWBC 6.5 X10e3/UL (3.6-11.2 X10e3/UL) RBC 4.21 X10e6/UL (3.63-4.92 X10e6/UL) HEMOGLOBIN 11.8 G/DL (11.0-14.3 G/DL) HEMATOCRIT 35.7 % (31.2-41.9 %) *MCV 84.9 FL (79.0-98.0 FL) *MCH 28.1 PG (27.0-33.0 PG) *MCHC 33.0 G/DL (32.0-36.0 G/DL) *RDW 13.7 % (12.3-17.0 %) *RDWSD 41.1 (37.1-47.8 ) PLATELET 258 X10e3/UL (159-386 X10e3/UL) *MPV 8.5 FL (7.4-10.4 FL) *MANUAL DIFF PERFORMED SEGS 50.0 % *BANDS 0.0 % *LYMPHOCYTES 34.0 % *MONOCYTES 7.0 % *EOSINOPHILS 9.0 % *BASOPHILS 0.0 % *ABSOLUTE NEUTROPHILS 3.25 X10e3/UL (1.80-7.80 X10e3/UL) *ABSOLUTE LYMPHOCYTES 2.21 X10e3/UL (1.00-3.00 X10e3/UL) *ABSOLUTE MONOCYTES 0.46 X10e3/UL (0.30-1.00 X10e3/UL) *ABSOLUTE EOSINOPHILS 0.59 X10e3/UL H (0.00-0.50 X10e3/UL) *ABSOLUTE BASOPHILS 0.00 X10e3/UL (0.00-0.20 X10e3/UL) SED RATE 13 MM/HR (0-20 MM/HR) Hematology from 03/01/2016 8:08 AMWBC 6.7 X10e3/UL (3.6-11.2 X10e3/UL) RBC 4.32 X10e6/UL (3.63-4.92 X10e6/UL) HEMOGLOBIN 12.1 G/DL (11.0-14.3 G/DL) HEMATOCRIT 36.6 % (31.2-41.9 %) *MCV 84.7 FL (79.0-98.0 FL) *MCH 28.1 PG (27.0-33.0 PG) *MCHC 33.2 G/DL (32.0-36.0 G/DL) *RDW 13.5 % (12.3-17.0 %) *RDWSD 40.3 (37.1-47.8 ) PLATELET 226 X10e3/UL (159-386 X10e3/UL) *MPV 8.7 FL (7.4-10.4 FL) *MANUAL DIFF PERFORMED SEGS 54.0 % *BANDS 0.0 % *LYMPHOCYTES 41.0 % *MONOCYTES 1.0 % *EOSINOPHILS 4.0 % *BASOPHILS 0.0 % *ABSOLUTE NEUTROPHILS 3.62 X10e3/UL (1.80-7.80 X10e3/UL) *ABSOLUTE LYMPHOCYTES 2.75 X10e3/UL (1.00-3.00 X10e3/UL) *ABSOLUTE MONOCYTES 0.07 X10e3/UL L (0.30-1.00 X10e3/UL) *ABSOLUTE EOSINOPHILS 0.27 X10e3/UL (0.00-0.50 X10e3/UL) *ABSOLUTE BASOPHILS 0.00 X10e3/UL (0.00-0.20 X10e3/UL) SED RATE 18 MM/HR (0-20 MM/HR) Hematology from 02/23/2016 10:21 AMWBC 9.0 X10e3/UL (3.6-11.2 X10e3/UL) RBC 4.29 X10e6/UL (3.63-4.92 X10e6/UL) HEMOGLOBIN 12.2 G/DL (11.0-14.3 G/DL) HEMATOCRIT 36.4 % (31.2-41.9 %) *MCV 84.9 FL (79.0-98.0 FL) *MCH 28.4 PG (27.0-33.0 PG) *MCHC 33.4 G/DL (32.0-36.0 G/DL) *RDW 13.7 % (12.3-17.0 %) *RDWSD 40.3 (37.1-47.8 ) PLATELET 242 X10e3/UL (159-386 X10e3/UL) *MPV 8.7 FL (7.4-10.4 FL) *MANUAL DIFF PERFORMED SEGS 66.0 % *BANDS 3.0 % *LYMPHOCYTES 26.0 % *MONOCYTES 3.0 % *EOSINOPHILS 2.0 % *BASOPHILS 0.0 % *ABSOLUTE NEUTROPHILS 6.21 X10e3/UL (1.80-7.80 X10e3/UL) *ABSOLUTE LYMPHOCYTES 2.34 X10e3/UL (1.00-3.00 X10e3/UL) *ABSOLUTE MONOCYTES 0.27 X10e3/UL L (0.30-1.00 X10e3/UL) *ABSOLUTE EOSINOPHILS 0.18 X10e3/UL (0.00-0.50 X10e3/UL) *ABSOLUTE BASOPHILS 0.00 X10e3/UL (0.00-0.20 X10e3/UL) SED RATE 15 MM/HR (0-20 MM/HR) Problems Encounter Diagnosis No [...] 2014 10:40 AM * Completed Procedure Code: 88097 Procedure Name: not valued, on 12/10/2014 12: 00 AM * Completed Procedure Code: 83968 Procedure Name: not valued, on 12/10/2014 12: 00 AM * Completed Laparoscopic Cholecystectomy, by MD BREANNE OCONNOR, on 08/20/2014 10:45 AM * Completed Procedure Code: 99513 Procedure Name: not valued, on 08/20/2014 12: [...]
--- OUTSIDE RECORDS SUMMARY | 2017-04-01 03:01 | XMS REPORT | Referral Summary ---
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 Discharge Diagnosis: Vitamin deficiency (disorder) Discharge Disposition: Home or Self Care Attending Physician: Matilde Thurston MD Admitting Physician: Matilde Thurston MD Vital Signs Most recent to 1 oldest [Reference Range]: Temperature Oral 36.3 degC [35.8-37.3 degC] (03/05/15 3:14 PM) Peripheral Pulse 80 bpm Rate [60-100 bpm] (03/05/15 3:14 PM) Respiratory Rate 18 br/min [14-20 br/min] (03/05/15 3:14 PM) Blood Pressure 112/56 mmHg [90-140/60-90 mmHg] (03/05/15 3:14 PM) Most recent to 1 oldest [Reference Range]: SpO2 100 % (03/05/15 3:14 PM) Problem List Condition Effective Dates Status Health Status Informant Acute Active pain(Confirmed) Asthma without Active status asthmaticus (disorder)(Confirmed ) At risk for Active infection(Confirmed) 1 Chronic Active depression(Confirmed ) Chronic Active diarrhea(Confirmed) Chronic sinusitis Active (disorder)(Confirmed ) Cystic fibrosis Active without meconium ileus (disorder)(Confirmed ) Generalized Active abdominal pain (finding)(Confirmed) Hypothyroidism Active (disorder)(Confirmed ) Ineffective airway Active clearance(Confirmed) 2 Pancreatic Active insufficiency(Confir med) Varicella Active (disorder)(Confirmed [...] Urticaria (hives) Active pseudoephedrine Anaphylaxis Active Medications acetaminophen 325 mg oral tablet 2 tabs, Oral, q4hr, Other (See Comment), 0 Refill(s) Start Date: 02/24/15 Status: Ordered BuSpar 15 mg, Oral, TID, 0 Refill(s) Start Date: 02/24/15 Status: Ordered Creon 24,000 units oral delayed release capsule 6 caps, Oral, TID, with meals, # 90 caps, 0 Refill(s) Special Instructions: with meals Start Date: 02/21/15 Status: Ordered Creon 24,000 units oral delayed release capsule 4 caps, Oral, QID, with snacks, 0 Refill(s) Special Instructions: with snacks Start Date: 05/08/14 Status: Ordered Flovent HFA 220 mcg/inh inhalation aerosol 2 puffs, Inhalation, BID, 0 Refill(s) Start Date: 02/24/15 Status: Ordered Nasonex 50 mcg/inh nasal spray 2 sprays, Nasal, Daily, # 17 g, 0 Refill(s) Start Date: 05/08/14 Status: Ordered NexIUM 20 mg oral delayed release capsule 1 caps, Oral, BID, # 60 caps, 0 Refill(s), Pharmacy: [facility] , 1 caps Oral BID Start Date: 06/07/14 Status: Ordered OXcarbazepine 300 mg oral tablet 1 tabs, Oral, Daily, 0 Refill(s) Start Date: 02/24/15 Status: Ordered Paxil 20 mg oral tablet 1 tabs, Oral, BID, 0 Refill(s) Start Date: 02/24/15 Status: Ordered ProAir HFA 90 mcg/inh inhalation aerosol 2 puffs, Inhalation, q4hr, as needed for wheezing, # 8.5 g, 0 Refill(s) Start Date: 05/08/14 Status: Ordered Pulmozyme 2.5 mg/2.5 mL inhalation solution 2.5 mL, NEB, Daily, 0 Refill(s) Start Date: 02/24/15 Status: Ordered SEROquel 200 mg oral tablet 3 tabs, Oral, Bedtime (once a day), 0 Refill(s) Start Date: 02/24/15 Status: Ordered Tums 500 mg oral tablet, chewable 1 tabs, Oral, q4hr, GERD/Heartburn, 0 Refill(s) Start Date: 02/24/15 Status: Ordered vancomycin 750 mg intravenous injection 750 mg, IV, q8hr, # 1 vials, 0 Refill(s), other reason (Rx) Start Date: 02/24/15 Stop Date: 03/09/15 Status: Ordered ZyPREXA 2.5 mg oral tablet 1 tabs, Oral, Daily, Anxiety, 0 Refill(s) Start Date: 02/24/15 Status: Ordered Results No data available for this section Immunizations Vaccine Date Refusal Reason tetanus/diphth/pertuss (Tdap) adult/adol 10/02/14 Procedures Procedure Date Related Diagnosis Body Site Insertion Implantable Venous Access Port1 02/24/15 sinus surgery 2013 Port-A-Cath Removed 2012 Bronchoscopy2 01/05/08 Cholecystectomy Tonsillectomy 1auto-populated from documented surgical case 2For retained secretions and L UL atelectasis Social History Social History Type Response Smoking Status Never smoker Assessment and Plan No data available for this section
--- OUTSIDE RECORDS SUMMARY | 2017-04-01 03:01 | XMS REPORT ---
Author Author GENERATED, SYSTEM Organization Unknown Address Unknown Phone Unavailable Care Team Providers Care Net Developer Software Engineer C Name Role Phone MD INGA, MANI [phone] Reason For Visit Reason for Visit from 12/10/2014 10:21 AM:* Pt Stated Reason for Adm : wound exploration Chief Complaint CHRONIC INCISIONAL INFECTION,UMBILICAL WOUND EXPL Social History Social History from 12/10/2014 11:42 AM:* Tobacco Use? : Never Smoker Social History from 12/10/2014 10:21 AM:* Tobacco Use? : Never Smoker Functional Status Functional Status from 12/10/2014 12:16 PM:* LOC : Alert Functional Status from 12/10/2014 12:02 PM:* LOC : Alert Functional Status from 12/10/2014 11:16 AM:* LOC : Unresponsive Functional Status from 12/10/2014 10:21 AM:* LOC : Alert * Oriented To : Person,Place,Time,Event * Weight Bearing Status : Full * Assist Level : Independent * # Assists : Independent Vital Signs Hospital Vital Signs from 12/10/2014 1:15 PM:* Height : 5/3.5 ft,in * Pulse : 59 * Respirations : 16 * BP : 95/56 Hospital Vital Signs from 12/10/2014 1:00 PM:* Height : 5/3.5 ft,in * Temperature : 98.2 F * Pulse : 66 * Respirations : 16 * BP : 89/59 Hospital Vital Signs from 12/10/2014 12:45 PM:* Height : 5/3.5 ft,in * Pulse : 64 * Respirations : 16 * BP : 98/63 Hospital Vital Signs from 12/10/2014 12:30 PM:* Height : 5/3.5 ft,in * Pulse : 65 * Respirations : 16 * BP : 94/59 Hospital Vital Signs from 12/10/2014 12:16 PM:* Height : 5/3.5 ft,in * Temperature : 99.3 F * Pulse : 68 * Respirations : 16 * BP : 104/58 Hospital Vital Signs from 12/10/2014 12:00 PM:* Temp : 99.4 * Heart Rate : 86 * Resp Rate : 23 * Systolic BP (mmHg) : 115 * Diastolic BP (mmHg) : 77 * Mean BP (mmHg) : 88 * O2 Saturation (%) : 96 Hospital Vital Signs from 12/10/2014 11:55 AM:* Heart Rate : 86 * Resp Rate : 15 * Systolic BP (mmHg) : 112 * Diastolic BP (mmHg) : 77 * Mean BP (mmHg) : 89 * O2 Saturation (%) : 97 Hospital Vital Signs from 12/10/2014 11:50 AM:* Heart Rate : 84 * Resp Rate : 15 * Systolic BP (mmHg) : 112 * Diastolic BP (mmHg) : 70 * Mean BP (mmHg) : 83 * O2 Saturation (%) : 98 Hospital Vital Signs from 12/10/2014 11:45 AM:* Heart Rate : 86 * Resp Rate : 15 * Systolic BP (mmHg) : 107 * Diastolic BP (mmHg) : 69 * Mean BP (mmHg) : 81 * O2 Saturation (%) : 100 Hospital Vital Signs from 12/10/2014 11:40 AM:* Temp : 98.8 * Heart Rate : 96 * Resp Rate : 20 * Systolic BP (mmHg) : 110 * Diastolic BP (mmHg) : 72 * Mean BP (mmHg) : 85 * O2 Saturation (%) : 100 Hospital Vital Signs from 12/10/2014 11:35 AM:* Heart Rate : 100 * Resp Rate : 16 * Systolic BP (mmHg) : 109 * Diastolic BP (mmHg) : 81 * Mean BP (mmHg) : 88 * O2 Saturation (%) : 100 [facility] Vital Signs from 12/10/2014 11:30 AM:* Heart Rate : 82 * Resp Rate : 9 * Systolic BP (mmHg) : 110 * Diastolic BP (mmHg) : 69 * Mean BP (mmHg) : 83 * O2 Saturation (%) : 100 [facility] Vital Signs from 12/10/2014 11:25 AM:* Heart Rate : 71 * Resp Rate : 12 * Systolic BP (mmHg) : 94 * Diastolic BP (mmHg) : 61 * Mean BP (mmHg) : 72 * O2 Saturation (%) : 100 [facility] Vital Signs from 12/10/2014 11:20 AM:* Heart Rate : 74 * Resp Rate : 14 * Systolic BP (mmHg) : 99 * Diastolic BP (mmHg) : 63 * Mean BP (mmHg) : 74 * O2 Saturation (%) : 100 [facility] Vital Signs from 12/10/2014 11:15 AM:* Heart Rate : 75 * Resp Rate : 45 * Systolic BP (mmHg) : 99 * Diastolic BP (mmHg) : 57 * Mean BP (mmHg) : 67 * O2 Saturation (%) : 97 [facility] Vital Signs from 12/10/2014 11:10 AM:* Temp : 98 * Systolic BP (mmHg) : 102 * Diastolic BP (mmHg) : 68 * Mean BP (mmHg) : 77 [facility] Vital Signs from 12/10/2014 10:21 AM:* Weight : 54.1/ kg * Height : 5/3.5 ft,in Hospital Vital Signs from 12/10/2014 9:35 AM:* Weight : 54.1/ kg * Height : 5/3.5 ft,in * Temperature : 98.6 F * Pulse : 74 * Respirations : 16 * BP : 114/82 Results Problems Encounter Diagnosis No relevant problems [...] OCONNOR, on 2014 10:40 AM * Completed Laparoscopic Cholecystectomy, by MD BREANNE OCONNOR, on 08/20/2014 10:45 AM * Completed Procedure Code: [id number] Procedure Name: not valued, on 08/20/2014 12: 00 AM * Completed Procedure Code: 93782 Procedure Name: not valued, on 08/20/2014 12: [...] to care for yourself at home from 12/10/2014 11:42 AM:* Discharge Activity : Activity as tolerated,May Shower * Do not drive or operate machinery for: : 24 hours * Discharge Diet : As before hospitalization * Discharge Wound Care : Keep dressings dry,Change dressings as necessary, Notify your physician if the following develops: redness, swelling, drainage or color of drainage changes, odor or increased pain. * Call your doctor if: : Fever over 101 F or severe chills,You have persistent or worsening symptoms * Specific Discharge Teaching Instructions provided: : [...]
--- OUTSIDE RECORDS SUMMARY | 2017-04-01 03:01 | XMS REPORT | Summary of Care ---
Author Author Sabas Simon M.D. Organization Unknown Address [address] [place], [place] [id number] Phone Unavailable Care Team Providers Care Warehouse Clerk Name Role Phone Alfred Tran, Alem Unavailable [...] abdominal wound infection (958.3, T79.8XXA) Status: Active Medications Name Dates Details Pulmozyme 1 MG/ML Inhalation Solution USE 1 UNIT VIA NEBULIZER TWO TIMES DAILY Quantity: 2 Sabas Simon M.D.* Started 09-Jul-2009 Active2.5 ML Plas Cont (30 Plas Conts) NexIUM 40 MG Oral Capsule Delayed Release TAKE ONE CAPSULE BY MOUTH DAILY * Quantity: 30 Refills: 13 Sabas Simon M.D.* Started 21-Jun-2008 ActiveVitamin D3 TABS * Refills: 0 ActiveVitamin E 100 UNIT Oral Capsule * Refills: 0 ActiveProAir HFA 108 (90 Base) MCG/ACT Inhalation Aerosol Solution INHALE 2 PUFFS Every 4 hours PRN * Quantity: 1 Refills: 12 Sabas Simon M.D.* Started 14-Apr-2010 Active8.5 GM Inhaler Epiduo 0.1-2.5 % External Gel apply to acne areas daily * Quantity: 45 Refills: 3 Joslyn Mar M.D.* Started 17-Jul-2012 ActiveVitamin A 82098 UNIT Oral Capsule * Refills: 0 * Started 17-Jan-2013 ActiveCreon 09036 UNIT Oral Capsule Delayed Release Particles TAKE 6 CAP BY MOUTH WITH MEALS, AND 4 CAPS WITH SNACKS * Quantity: 300 Refills: 99 Sabas Simon M.D.* Started 22-Dec-2011 ActiveNasonex 50 MCG/ACT Nasal Suspension USE 2 SPRAYS IN EACH NOSTRIL ONCE DAILY * Quantity: 1 Refills: 12 Sabas Simon M.D.* Started 28-Jun-2011 Avmvkb02 GM Inhaler Flovent HFA 220 MCG/ACT Inhalation Aerosol INHALE ONE PUFF BY MOUTH TWO TIMES A DAY. * Quantity: 12 Refills: 99 Sabas Simon M.D.* Started 28-Jun-2011 ActivePARoxetine HCl - 40 MG Oral Tablet [...] AT BEDTIME. * Refills: 0 * Started ActiveHydrocodone-Acetaminophen 7.5-325 MG Oral Tablet TAKE ONE TABLET BY MOUTH EVERY 4-6 HOURS NEEDED FOR PAIN * Quantity: 40 Refills: 0 Sabas Simon M.D.* Started 24-Oct-2012 ActiveFamotidine 20 MG Oral Tablet TAKE 1 [...] History of Tonsillectomy History of Cholecystectomy Laparoscopic SPUTUM CULTURE 5026 Ordered:14-Jan-2015 Immunization Name Dates Details Pneumo (Pneumovax) Administered [...] Problem not documented On 01-Feb-2014 08:00 Appointment; Alva Sharpe Encounter Diagnosis: Problem not documented On 30-Jan-2014 [...]
--- OUTSIDE RECORDS SUMMARY | 2017-04-01 03:01 | XMS REPORT | Summary of Care ---
Author Author Sabas Simon M.D. Organization Unknown Address [address], [place] [id number] Phone Unavailable Care Team Providers Care Former Hand Name Role Phone Alfred Tran, Alem Unavailable [...] Positive blood test (V72.42, Z32.01) Status: Active Chronic obstructive pulmonary disease (496, J44.9) Status: Active Cystic fibrosis (277.00, E84.9) Status: Active Amenorrhea (626.0, N91.2) Status: Active Medications Name Dates Details Pulmozyme [...] 99 Sabas Simon M.D.* Started 28-Jun-2011 ActiveCreon 03796 UNIT Oral Capsule Delayed Release Particles TAKE [...] Joslyn Mar M.D.* Started 17-Jul-2012 ActiveVitamin A 44344 UNIT Oral Capsule * Refills: 0 * [...] Refills: 11 Sabas Simon M.D.* Started 21-Aug-2015 Ceuioz39 GM Bottle Ovidrel 250 MCG/0.5ML Subcutaneous Injectable INJECT SUBCUTANEOUSLY DIRECTED. * Refills: 0 Sabas Simon M.D.* Started 02-Oct-2015 ActiveSMZ-TMP DS 800-160 MG Oral Tablet TAKE 1 TABLET TWICE DAILY. * Quantity: 30 Refills: 1 Sabas Simon M.D.* Started 02-Oct-2015 ActiveSulfamethoxazole-Trimethoprim 800-160 [...] History of Tonsillectomy History of Cholecystectomy Laparoscopic CBC w/ Auto Diff 7150 Ordered:05-Nov-2015 IgGAM 1116 Ordered:05-Nov-2015 Total Immunoglobulin E IgE 3106 Ordered:05-Nov-2015 BETA HCG 3500 Ordered:05-Nov-2015 XRay CHEST-PA & LAT Ordered:05-Nov-2015 Immunization Name Dates Details Pneumo (Pneumovax) Administered [...] to report Results Date Description Value Details 13-Oct-2015 15:26 ULTRASOUND FOLLICULAR STUDY SONO Comments: Exam Date: 10/13/2015 14:37Dictation Date: 10/13/2015 15:26 XS FOLLICULAR STUDY SONO (Better) 21-Oct-2015 14:32 ULTRASOUND FOLLICULAR STUDY SONO Comments: Exam Date: 10/21/2015 13:11Dictation Date: 10/21/2015 14:32 XS FOLLICULAR STUDY SONO (Better) Plan of [...] Problem not documented On 01-Jul-2015 08:15 Appointment; KatelynAlejandrinaKevinCourtney rogers Encounter Diagnosis: Problem not documented On 16:20 [...]
--- OUTSIDE RECORDS SUMMARY | 2017-04-01 03:01 | XMS REPORT | Referral Summary ---
Author Author [facility] Organization [facility] Address Unknown Phone Unavailable Care Team Providers Care Hop Trainer Name Role Phone Alem Simon Primary Care Physician [phone] Encounter [facility] [id number] Date(s): 04/02/15 - 04/02/15 [facility] [address] [place], [place] [address] Discharge Diagnosis: Chronic sinusitis Discharge Diagnosis: Cystic fibrosis Discharge Diagnosis: Headache Discharge Disposition: 01-Home or Self Care Attending Physician: Nate Grady MD Admitting Physician: Nate Grady MD Vital Signs No data available for this section Problem List Condition Effective Dates Status Health [...] Urticaria (hives) Active pseudoephedrine Anaphylaxis Active Medications albuterol Start Date: 05/05/15 Status: Ordered Bactrim DS 800 mg-160 mg oral tablet 1 tabs, Oral, Daily, # 30 tabs, 6 Refill(s), Pharmacy: [facility] Start Date: 05/05/15 Status: Ordered BuSpar 15 mg, Oral, TID, 0 Refill(s) Start Date: 02/24/15 Status: Ordered Cranberry Daily Start Date: 04/02/15 Status: Ordered Creon 24,000 units oral delayed release capsule 6 caps, Oral, TID, with meals, # 90 caps, 0 Refill(s) Start Date: 02/21/15 Status: Ordered Creon 24,000 units oral delayed release capsule 4 caps, Oral, QID, with snacks, 0 Refill(s) Start Date: 05/08/14 Status: Ordered famotidine 20 mg Start Date: 05/05/15 Status: Ordered Flovent HFA 220 mcg/inh inhalation [...] BID, # 60 caps, 0 Refill(s), Pharmacy: [facility] , 1 caps Oral BID Start [...] , # 75 mL, 11 Refill(s), eRx: [facility], INHALE ONE AMPULE BY INHALATION ROUTE EVERY DAY VIA NEBULIZER Start Date: 08/21/15 Status: Ordered SEROquel 200 mg oral tablet 3 tabs, Oral, Bedtime (once a day), 0 Refill(s) Start Date: 02/24/15 Status: Ordered Sleep med (Ciprohetadine) Sleep med (Ciprohetadine) Start Date: 04/02/15 Status: Ordered Yoni NEB, Odd moths only Start Date: 05/05/15 Status: Ordered Tums 500 mg oral tablet, chewable 500 mg 1 tabs, Oral, PRN, 0 Refill(s) Start Date: 02/24/15 Status: Ordered Zofran ODT 4 mg oral tablet, disintegrating 4 mg 1 tabs, Oral, TID, # 10 tabs, 0 Refill(s) Start Date: 08/01/15 Status: Ordered Results No data available for this section Immunizations Vaccine Date Refusal Reason tetanus/diphth/pertuss (Tdap) adult/adol 10/02/14 Procedures Procedure Date Related Diagnosis Body Site Nasal/sinus endoscopy, surgical; with biopsy, 04/02/15 polypectomy or debridement (separate procedure) Nasal/sinus endoscopy, surgical; with biopsy, 04/02/15 polypectomy or debridement (separate procedure) Nasal/sinus endoscopy, surgical; with biopsy, 04/02/15 polypectomy or debridement (separate procedure) Insertion Implantable Venous Access Port1 02/24/15 sinus surgery 2013 Port-A-Cath Removed 2012 Bronchoscopy2 01/05/08 Cholecystectomy Tonsillectomy 1auto-populated from documented surgical case 2For retained secretions and L UL atelectasis Social History Social History Type Response Smoking Status Never smoker Assessment and Plan Extracted from: Title: Office Visit Note Author: Nate Grady MD Date: 04/02/15 Assessment/Plan 1.Headache 2.Cystic fibrosis Chronic sinusitis I place the patient on a course of Medrol and a 30 day course of Bactrim. A CT scan of her sinuses will be obtained she is to follow- up for repeat assessment in one month. I advised her she may require revision endoscopic surgery depending on the findings of her CT scan. Certainly at this point further IV antibiotics dont seem to be helping her. She is in agreement with this plan.
--- OUTSIDE RECORDS SUMMARY | 2017-04-01 03:02 | XMS REPORT ---
Author Author GENERATED, SYSTEM Organization Unknown Address Unknown Phone Unavailable Care Team Providers Care Pmp Project Manager Name Role Phone MD INGA, MANI PP [phone] Reason For Visit Chief Complaint SIDE PAIN,CHEST PAIN Social History Functional Status Vital Signs Results Chemistry from 08/14/2014 9:33 PMSODIUM 138 MMOL/L (136-145 MMOL/L) POTASSIUM 3.7 MMOL/L (3.5-5.1 MMOL/L) CHLORIDE 102 MMOL/L (98-107 MMOL/L) TCO2 29.1 MMOL/L (21.0-32.0 MMOL/L) ANION GAP 6.9 MMOL/L L (8.0-16.0 MMOL/L) BUN 12 MG/DL (7-18 MG/DL) CREATININE 0.83 MG/DL (0.43-0.83 MG/DL) BUN/CREATININE RATIO 14.5 (9.1-17.0 ) GLUCOSE 93 MG/DL (65-99 MG/DL) GFR EST NON AFR ANGUILLAN >90 ML/MIN GFRA EST AFR AMER >90 ML/MIN CALCIUM 9.2 MG/DL (8.5-10.1 MG/DL) BILIRUBIN TOTAL 1.11 MG/DL H (0.20-1.00 MG/DL) TOTAL PROTEIN 7.1 GM/DL (6.4-8.2 GM/DL) ALBUMIN 3.7 GM/DL (3.4-5.0 GM/DL) GLOBULIN 3.4 GM/DL (2.3-3.5 GM/DL) A/G RATIO 1.1 MG/DL L (1.5-2.2 MG/DL) ALK PHOS 131 U/L H (46-116 U/L) ALT (SGPT) 36 U/L (12-78 U/L) AST (SGOT) 29 U/L (15-37 U/L) LIPASE 30 U/L L (73-393 U/L) Hematology from 08/14/2014 9:33 PMWBC 10.6 X10e3/UL (3.6-11.2 X10e3/UL) RBC 4.49 X10e6/UL (3.63-4.92 X10e6/UL) HEMOGLOBIN 13.2 G/DL (11.0-14.3 G/DL) HEMATOCRIT 37.9 % (31.2-41.9 %) MCV 84.4 FL (79.0-98.0 FL) MCH 29.3 PG (27.0-33.0 PG) MCHC 34.8 G/DL (32.0-36.0 G/DL) RDW 14.3 % (12.3-17.0 %) RDWSD 41.6 (37.1-47.8 ) PLATELET 291 X10e3/UL (159-386 X10e3/UL) MPV 8.4 FL (7.4-10.4 FL) AUTOMATED DIFF PERFORMED SEGS 59.2 % LYMPHOCYTES 28.3 % MONOCYTES 6.9 % EOSINOPHILS 4.6 % BASOPHILS 1.0 % ABSOLUTE NEUTROPHILS 6.3 X10e3/UL (1.8-7.8 X10e3/UL) ABSOLUTE LYMPHOCYTES 3.0 X10e3/UL (1.0-3.0 X10e3/UL) ABSOLUTE MONOCYTES 0.7 X10e3/UL (0.3-1.0 X10e3/UL) ABSOLUTE EOSINOPHILS 0.5 X10e3/UL (0.0-0.5 X10e3/UL) ABSOLUTE BASOPHILS 0.1 X10e3/UL (0.0-0.2 X10e3/UL) Urinalysis from 08/14/2014 8:50 PMURINE COLOR YELLOW (STRAW/YELL/DK YELL ) URINE APPEARANCE CLEAR (CLEAR ) URINE PH 6.0 (5.0-8.0 ) URINE SPECIFIC GRAVITY >1.030 (<=1.005->=1.030 ) URINE GLUCOSE NEGATIVE MG/DL (NEGATIVE MG/DL) URINE BILIRUBIN NEGATIVE (NEGATIVE ) URINE KETONES NEGATIVE MG/DL (NEGATIVE MG/DL) URINE BLOOD NEGATIVE (NEGATIVE ) URINE PROTEIN NEGATIVE MG/DL (NEGATIVE MG/DL) URINE UROBILINOGEN 0.2 EU/DL (0.2-1.0 EU/DL) URINE NITRITES NEGATIVE (NEGATIVE ) *URINE LEUKOCYTES SMALL A (NEGATIVE ) UR NEGATIVE (NEGATIVE ) MICROSCOPIC EXAM PERFORMED PERFORMED WBC 25-50 /HPF A (0-5 /HPF) RBC 1-5 /HPF A (0-1 /HPF) SQUAMOUS EP. CELLS MANY /LPF A (NEG-FEW /LPF) BACTERIA FEW /HPF A (NEGATIVE /HPF) Coagulation from 08/14/2014 9:33 PMPROTHROMBIN TIME 11.4 SECONDS (9.4-11.5 SECONDS) INR 1.1 PARTIAL THROMBOPLASTIN TIME 25.8 SECONDS (22.0-28.0 SECONDS) Microbiology from 08/14/2014 8:50 PM* CULTURE URINE (Preliminary Result) Specimen Number: [id number] Sample Collection Date/Time: 08/14/2014 8:50 PM Specimen Source: Urine Random Void Problems Encounter Diagnosis No relevant problems exist. Additional Problems * Cystic Fibrosis Status:Active. * Drug Overdose - Suicide Status:Active. Encounters Encounter Diagnosis No relevant problems exist. Plan of Care Procedures * Completed , on 10/09/2012 12:00 AM [...]
--- OUTSIDE RECORDS SUMMARY | 2017-04-01 03:02 | XMS REPORT ---
Author Author GENERATED, SYSTEM Organization Unknown Address Unknown Phone Unavailable Care Team Providers Care Partnership Development Manager Name Role Phone MD INGA, MANI [phone] Reason For Visit Reason for Visit from 07/27/2016 3:52 PM:* Pt Stated Reason for Adm : UTI Chief Complaint UTI PYELONEPH Social History Social History from 07/29/2016 12:37 PM:* Tobacco Use? : Never Smoker Social History from 07/27/2016 3:52 PM:* Tobacco Use? : Never Smoker Functional Status Functional Status from 07/29/2016 9:20 AM:* LOC : Alert * Oriented To : Person,Place,Time,Event * Weight Bearing Status : Full * Assist Level : Partial * # Assists : 1 Functional Status from 07/28/2016 7:56 PM:* LOC : Alert * Oriented To : Person,Place,Time,Event * Weight Bearing Status : Full * Assist Level : Independent * # Assists : Independent Functional Status from 07/28/2016 9:05 AM:* LOC : Drowsy * Oriented To : Person,Place,Time,Event * Weight Bearing Status : Full * Assist Level : Independent * # Assists : Independent Functional Status from 07/27/2016 8:00 PM:* LOC : Alert * Oriented To : Person,Place,Time,Event * Weight Bearing Status : Full * Assist Level : Partial * # Assists : 1 Functional Status from 07/27/2016 3:52 PM:* LOC : Alert * Oriented To : Person,Place,Time,Event * Weight Bearing Status : Full * Assist Level : Partial * # Assists : 1 Vital Signs Hospital Vital Signs from 07/29/2016 7:44 AM:* Height : 5/3 ft,in * Temperature : 96.8 F * Pulse : 70 * Respirations : 18 * BP : 96/59 Hospital Vital Signs from 07/29/2016 2:35 AM:* Height : 5/3 ft,in * BP : 106/59 Hospital Vital Signs from 07/29/2016 2:25 AM:* Height : 5/3 ft,in * Temperature : 98.1 F * Pulse : 71 * Respirations : 16 * BP : 76/43 Hospital Vital Signs from 07/28/2016 10:09 PM:* Height : 5/3 ft,in * Temperature : 98.8 F * Pulse : 79 * Respirations : 16 * BP : 93/52 Hospital Vital Signs from 07/28/2016 2:57 PM:* Height : 5/3 ft,in * Temperature : 97.6 F * Pulse : 73 * Respirations : 20 * BP : 115/63 Hospital Vital Signs from 07/28/2016 2:04 PM:* Height : 5/3 ft,in Hospital Vital Signs from 07/28/2016 11:02 AM:* Height : 5/3 ft,in * Temperature : 98.1 F * BP : 107/60 Hospital Vital Signs from 07/28/2016 7:57 AM:* Height : 5/3 ft,in * Temperature : 98.5 F * Pulse : 65 * Respirations : 16 * BP : 104/58 Hospital Vital Signs from 07/28/2016 5:18 AM:* Height : 5/3 ft,in * Temperature : 97.8 F Hospital Vital Signs from 07/28/2016 3:06 AM:* Height : 5/3 ft,in * Temperature : 99.8 F * Pulse : 82 * Respirations : 20 * BP : 90/53 Hospital Vital Signs from 07/28/2016 12:08 AM:* Height : 5/3 ft,in * Temperature : 99.1 F Hospital Vital Signs from 07/27/2016 9:25 PM:* Height : 5/3 ft,in * Temperature : 101.0 F * Pulse : 96 * Respirations : 18 * BP : 88/54 Hospital Vital Signs from 07/27/2016 8:40 PM:* Height : 5/3 ft,in * Temperature : 102.6 F Hospital Vital Signs from 07/27/2016 8:05 PM:* Height : 5/3 ft,in * Temperature : 103.3 F * Pulse : 107 * Respirations : 16 * BP : 93/53 Hospital Vital Signs from 07/27/2016 3:52 PM:* Weight : 49.6/ kg * Height : 5/3 ft,in Results Chemistry from 07/29/2016 5:55 AMSODIUM 141 MMOL/L (136-145 MMOL/L) POTASSIUM 3.7 MMOL/L (3.5-5.1 MMOL/L) CHLORIDE 109 MMOL/L H (98-107 MMOL/L) TCO2 27.9 MMOL/L (21.0-32.0 MMOL/L) *ANION GAP 4.1 MMOL/L L (8.0-16.0 MMOL/L) BUN 10 MG/DL (7-18 MG/DL) CREATININE 0.97 MG/DL (0.55-1.02 MG/DL) *BUN/CREATININE RATIO 10.3 (9.1-17.0 ) GLUCOSE 99 MG/DL (65-99 MG/DL) *GFR EST NON AFR AZERBAIJANI 77 ML/MIN *GFR EST AFR AMER 89 ML/MIN CALCIUM 8.0 MG/DL L (8.5-10.1 MG/DL) BILIRUBIN TOTAL 0.50 MG/DL (0.20-1.00 MG/DL) TOTAL PROTEIN 5.5 GM/DL L (6.4-8.2 GM/DL) ALBUMIN 2.3 GM/DL L (3.4-5.0 GM/DL) *GLOBULIN 3.2 GM/DL (2.3-3.5 GM/DL) *A/G RATIO 0.7 MG/DL L (1.5-2.2 MG/DL) ALK PHOS 87 U/L (46-116 U/L) ALT (SGPT) 18 U/L (16-63 U/L) AST (SGOT) 13 U/L L (15-37 U/L) Hematology from 07/29/2016 5:55 AMWBC 8.7 X10e3/UL (3.6-11.2 X10e3/UL) RBC 3.55 X10e6/UL L (3.63-4.92 X10e6/UL) HEMOGLOBIN 10.0 G/DL L (11.0-14.3 G/DL) HEMATOCRIT 30.3 % L (31.2-41.9 %) *MCV 85.3 FL (79.0-98.0 FL) *MCH 28.2 PG (27.0-33.0 PG) *MCHC 33.1 G/DL (32.0-36.0 G/DL) *RDW 16.3 % (12.3-17.0 %) *RDWSD 48.6 H (37.1-47.8 ) PLATELET 187 X10e3/UL (159-386 X10e3/UL) *MPV 8.4 FL (7.4-10.4 FL) AUTOMATED DIFF PERFORMED SEGS 66.4 % *LYMPHOCYTES 23.2 % *MONOCYTES 8.1 % *EOSINOPHILS 1.9 % *BASOPHILS 0.4 % *ABSOLUTE NEUTROPHILS 5.80 X10e3/UL (1.80-7.80 X10e3/UL) *ABSOLUTE LYMPHOCYTES 2.00 X10e3/UL (1.00-3.00 X10e3/UL) *ABSOLUTE MONOCYTES 0.70 X10e3/UL (0.30-1.00 X10e3/UL) *ABSOLUTE EOSINOPHILS 0.20 X10e3/UL (0.00-0.50 X10e3/UL) *ABSOLUTE BASOPHILS 0.00 X10e3/UL (0.00-0.20 X10e3/UL) DX Radiology from 07/29/2016 4:45 AMCHEST 1 VIEW History: Cystic fibrosis Priors: Chest x-ray dated 07/28/2016 Findings: The heart size and pulmonary vasculature are within normal limits. There is mild perihilar and upper lobe interstitial prominence, likely reflecting patient's known cystic fibrosis. There has been development subtle right upper lobe and left lower lobe opacities. No significant pleural effusion or pneumothorax is seen. A right-sided central venous catheter remains in place. Impression: Chronic upper lobe scarring with development of subtle right upper lobe and left lower lobe opacities, suspicious for pneumonia. Continued follow-up is suggested. Electronically signed by: Stephanie Reid MD Dictated: 07/29/2016 07:59 Problems Encounter Diagnosis * Acute Pain Status:Active. * Acute Pyelonephritis Status:Active. * Acute Urinary Tract infection Status:Active. * Chronic Ethmoidal Sinusitis Status:Active. * Cystic Fibrosis of the Lung Status:Active. * Infection Risk Status:Active. * Nutritional Deficiency Status:Active. Additional Problems * Abdominal Pain Comment:Problem resolved by [facility] Workflow upon Discharge, Status:Resolved. * Cystic Fibrosis Comment:Problem resolved by [facility] Workflow upon Discharge, Status:Resolved. * Drug Overdose - Suicide Comment:Problem resolved by [facility] Workflow upon Discharge, Status:Resolved. * Laparoscopic Cholecystectomy Comment:Problem resolved by [facility] Workflow upon Discharge, Status:Resolved. Encounters Encounter Diagnosis * Acute Pain Status:Active. * Acute Pyelonephritis Status:Active. * Acute Urinary Tract infection Status:Active. * Chronic Ethmoidal Sinusitis Status:Active. * Cystic Fibrosis of the Lung Status:Active. * Infection Risk Status:Active. * Nutritional Deficiency Status:Active. Plan of Care Follow-up Appointments from 07/29/2016 12:37 PM:* #1 Office appointment: : Deya Zaragoza APRN * #1 Date/Time : 08/10/2016 2:30 PM * Address # 1 : [facility]: [address], [place]- [phone] or Treatment Plan from 07/28/2016 11:20 AM:* Care Management Note : SW spoke with patient regarding possible needs at discharge. Patient at this time plans to return home where she lives with her 11 year old daughter. Patient stated that when at home and feeling well she is independent and does not need assistance. Contact information left in patient's room, SW will continue to assist as needed. Treatment Plan from 07/28/2016 7:46 AM:* Care Management Note : Patient is outpatient observation. Changed to inpatient at this time. She is being treated for UTI and pyelonephritis verified per renal ultrasound. She has had a max temp of 103.3 with tachycardia and hypotension treated with fluid bolus. UA positive for infection. She is receiving IV antibiotics with blood cultures pending. She has a history of cystic fibrosis. We will check CXR and labs daily and resume her pulmonary regimen. Appropriate for inpatient. Procedures * Completed wound exploration of the umbilical area, by MD BREANNE OCONNOR, on 2014 10:40 AM * Completed Procedure Code: 82859 Procedure Name: not valued, on 12/10/2014 12: 00 AM * Completed Procedure Code: 97284 Procedure Name: not valued, on 12/10/2014 12: 00 AM * Completed Laparoscopic Cholecystectomy, by MD BREANNE OCONNOR, on 08/20/2014 10:45 AM * Completed Procedure Code: 54717 Procedure Name: not valued, on 08/20/2014 12: [...] to care for yourself at home from 07/29/2016 12:37 PM:* Discharge Activity : Activity as tolerated * Discharge Diet : As before hospitalization * Call your doctor if: : Fever [...] the responsibility of the patient or patient personnel representative to confirm the list of medications with either the patient's personal care provider or the patient's follow-up care provider to ensure the patient has an appropriate list of medications to take at home. Discharge medications New medications* sulfamethoxazole-trimethoprim 800 mg-160 mg Tablet, Ordered By : GUILLERMO HURTADO APRN Directions: 1 tablet oral twice a day Continued medications* adapalene-benzoyl peroxide (Epiduo) 0.1 %-2.5 % Gel, Ordered By: GUILLERMO HURTADO APRN Directions: 1 application topical daily * albuterol sulfate (ProAir HFA) 90 mcg HFA Aerosol Inhaler, Ordered By: GUILLERMO HURTADO APRN Directions: 2 puff by inhalation every four hours PRN shortness of breath * albuterol sulfate 2.5 mg/3 mL (0.083 %) Solution for Nebulization, Ordered By : GUILLERMO HURTADO APRN Directions: 1 mL by inhalation every four hours PRN shortness of breath * ALPRAZolam 0.5 mg Tablet, Ordered By: GUILLERMO HURTADO APRN Directions: 1 tablet oral every six hours PRN anxiety * busPIRone 30 mg Tablet, Ordered By: GUILLERMO HURTADO APRN Directions: 1 tablet oral twice a day * cranberry conc-ascorbic acid 84-20 mg Capsule, Ordered By: GUILLERMO HURTADO APRN Directions: 1 capsule oral daily * dornase dilip (Pulmozyme) 1 mg/mL Solution, Ordered By: GUILLERMO HURTADO APRN Directions: 1 unit by inhalation twice a day * doxycycline hyclate 100 mg Capsule, Ordered By: GUILLERMO HURTADO APRN Directions: 1 capsule oral twice a day * esomeprazole magnesium (NexIUM) 20 mg capsule,delayed release(DR/EC), Ordered By: GUILLERMO HURTADO APRN Directions: 1 capsule oral daily before breakfast * famotidine 20 mg Tablet, Ordered By: GUILLERMO HURTADO APRN Directions: 1 tablet oral twice a day * fluticasone (Flovent HFA) 220 mcg HFA Aerosol Inhaler, Ordered By: GUILLERMO HURTADO APRN Directions: 1 puff by inhalation twice a day * HYDROcodone-acetaminophen 10 mg-325 mg Tablet, Ordered By: GUILLERMO HURTADO APRN Directions: 1 tablet oral every four hours PRN pain * lejagn-wtzngbfi-uobowpq (Creon) 24,000 unit-76,000 unit-120,000 unit capsule, delayed release(DR/EC), Ordered By: GUILLERMO HURTADO APRN Directions: 6 cap oral with meals Additional Instructions: 4 capsules with snacks * mometasone (Nasonex) 50 mcg spray,non-aerosol, Ordered By: GUILLERMO HURTADO APRN Directions: 2 spray nasal daily * orkambi 200/125mg tablet * tobramycin in 0.225 % NaCl 300 mg/5 mL Solution for Nebulization, Ordered By: GUILLERMO HURTADO APRN Directions: 5 mL by inhalation twice a day Additional Instructions: One month on and one month off * traZODone 150 mg Tablet, Ordered By: GUILLERMO HURTADO APRN Directions: 1 tablet oral daily at bedtime * venlafaxine (Effexor XR) 150 mg capsule,extended release 24hr, Ordered By: GUILLERMO HURTADO APRN Directions: 1 capsule oral daily * vitamin A 10,000 unit Capsule, Ordered By: GUILLERMO HURTADO APRN Directions: 1 capsule oral daily Changed medications* cyproheptadine 4 mg Tablet, Ordered By: GUILLERMO HURTADO APRN Directions: as directed as directed as directed * choriogonadotropin dilip,humrec (Ovidrel) 250 mcg/0.5 mL Syringe, Ordered By: GUILLERMO HURTADO APRN Directions: as directed as directed as directed * QUEtiapine (SEROquel) 400 mg Tablet, Ordered By: GUILLERMO HURTADO APRN Directions: 1 tablet oral HS Stopped medications* progesterone micronized 200 mg Capsule Directions: 2 capsule oral x 5 nights at bedtime Additional Instructions: if no period to induce period every 35-40 days
--- OUTSIDE RECORDS SUMMARY | 2017-04-01 03:02 | XMS REPORT ---
Author Author GENERATED, SYSTEM Organization Unknown Address Unknown Phone Unavailable Care Team Providers Care Director Of Assessing Name Role Phone MD INGA, MANI [phone] Reason For Visit Reason for Visit from 11/14/2016 9:52 AM:* Pt Stated Reason for Adm : fever, have been sick at home Chief Complaint ACUTE SEPSIS, LLL PNEUMONIA, INFLUENZA Social History Social History from 11/16/2016 10:37 AM:* Tobacco Use? : Never Smoker Social History from 11/14/2016 9:52 AM:* Tobacco Use? : Never Smoker Functional Status Functional Status from 11/16/2016 7:05 AM:* LOC : Alert * Oriented To : Person,Place,Time,Event * Weight Bearing Status : Full * Assist Level : Independent * # Assists : Independent Functional Status from 11/15/2016 7:57 PM:* LOC : Alert * Oriented To : Person,Place,Time,Event * Weight Bearing Status : Full * Assist Level : Independent * # Assists : Independent Functional Status from 11/15/2016 8:17 AM:* LOC : Alert * Oriented To : Person,Place,Time * Weight Bearing Status : Full * Assist Level : Independent * # Assists : Independent Functional Status from 11/14/2016 10:03 PM:* LOC : Alert * Oriented To : Person,Place,Time,Event * Weight Bearing Status : Full * Assist Level : Independent * # Assists : Independent Functional Status from 11/14/2016 9:52 AM:* LOC : Alert * Oriented To : Person,Place,Time,Event * Weight Bearing Status : Full * Assist Level : Partial * # Assists : 1 Vital Signs Hospital Vital Signs from 11/16/2016 10:52 AM:* Height : 5/3 ft,in * Temperature : 97.9 F * Pulse : 62 * Respirations : 18 * BP : 98/61 Hospital Vital Signs from 11/16/2016 7:54 AM:* Height : 5/3 ft,in * Height : 5/3 ft,in * Temperature : 97.8 F * Pulse : 67 * Respirations : 16 * BP : 100/59 Hospital Vital Signs from 11/16/2016 1:42 AM:* Height : 5/3 ft,in * Temperature : 97.6 F * Pulse : 59 * Respirations : 16 * BP : 82/53 Hospital Vital Signs from 11/15/2016 10:02 PM:* Height : 5/3 ft,in * Temperature : 97.6 F * Pulse : 62 * Respirations : 16 * BP : 97/60 Hospital Vital Signs from 11/15/2016 7:09 PM:* Height : 5/3 ft,in * Temperature : 97.7 F * Pulse : 74 * Respirations : 16 * BP : 98/58 Hospital Vital Signs from 11/15/2016 3:55 PM:* Height : 5/3 ft,in * Temperature : 96.4 F * Pulse : 88 * Respirations : 16 * BP : 90/55 Hospital Vital Signs from 11/15/2016 10:13 AM:* Height : 5/3 ft,in * Temperature : 96.5 F * Pulse : 87 * Respirations : 16 * BP : 97/58 Hospital Vital Signs from 11/15/2016 8:04 AM:* Height : 5/3 ft,in * Temperature : 96.9 F * Pulse : 67 * Respirations : 16 * BP : 84/53 Hospital Vital Signs from 11/15/2016 3:21 AM:* Height : 5/3 ft,in * Temperature : 98.5 F * Pulse : 96 * Respirations : 18 * BP : 99/57 Hospital Vital Signs from 11/14/2016 11:00 PM:* Height : 5/3 ft,in * Temperature : 97.9 F * Pulse : 92 * Respirations : 18 * BP : 90/51 Hospital Vital Signs from 11/14/2016 6:27 PM:* Height : 5/3 ft,in * Temperature : 97.5 F * Pulse : 62 * Respirations : 19 * BP : 93/56 Hospital Vital Signs from 11/14/2016 12:35 PM:* Height : 5/3 ft,in * Temperature : 98.6 F * Pulse : 83 * Respirations : 18 * BP : 80/49 Hospital Vital Signs from 11/14/2016 9:52 AM:* Weight : 55.5/ kg * Height : 5/3 ft,in Hospital Vital Signs from 11/14/2016 9:50 AM:* Weight : 55.5/ kg * Height : 5/3 ft,in * Temperature : 99.2 F * Pulse : 98 * Respirations : 20 * BP : 94/59 Results Chemistry from 11/16/2016 5:50 AMSODIUM 139 MMOL/L (136-145 MMOL/L) POTASSIUM 3.4 MMOL/L L (3.5-5.1 MMOL/L) CHLORIDE 105 MMOL/L (98-107 MMOL/L) TCO2 27.1 MMOL/L (21.0-32.0 MMOL/L) *ANION GAP 6.9 MMOL/L L (8.0-16.0 MMOL/L) BUN 8 MG/DL (7-18 MG/DL) CREATININE 0.95 MG/DL (0.55-1.02 MG/DL) *BUN/CREATININE RATIO 8.4 L (9.1-17.0 ) GLUCOSE 138 MG/DL H (65-99 MG/DL) *GFR EST NON AFR PAKISTANI 78 ML/MIN *GFR EST AFR AMER >90 ML/MIN CALCIUM 8.2 MG/DL L (8.5-10.1 MG/DL) BILIRUBIN TOTAL 0.20 MG/DL (0.20-1.00 MG/DL) TOTAL PROTEIN 6.4 GM/DL (6.4-8.2 GM/DL) ALBUMIN 2.8 GM/DL L (3.4-5.0 GM/DL) *GLOBULIN 3.6 GM/DL H (2.3-3.5 GM/DL) *A/G RATIO 0.8 MG/DL L (1.5-2.2 MG/DL) ALK PHOS 132 U/L H (46-116 U/L) ALT (SGPT) 30 U/L (16-63 U/L) AST (SGOT) 23 U/L (15-37 U/L) Chemistry from 11/15/2016 6:49 AMSODIUM 141 MMOL/L (136-145 MMOL/L) POTASSIUM 3.6 MMOL/L (3.5-5.1 MMOL/L) CHLORIDE 108 MMOL/L H (98-107 MMOL/L) TCO2 25.3 MMOL/L (21.0-32.0 MMOL/L) *ANION GAP 7.7 MMOL/L L (8.0-16.0 MMOL/L) BUN 8 MG/DL (7-18 MG/DL) CREATININE 0.91 MG/DL (0.55-1.02 MG/DL) *BUN/CREATININE RATIO 8.8 L (9.1-17.0 ) GLUCOSE 106 MG/DL H (65-99 MG/DL) *GFR EST NON AFR PAKISTANI 83 ML/MIN *GFR EST AFR AMER >90 ML/MIN CALCIUM 7.7 MG/DL L (8.5-10.1 MG/DL) BILIRUBIN TOTAL 0.20 MG/DL (0.20-1.00 MG/DL) TOTAL PROTEIN 6.1 GM/DL L (6.4-8.2 GM/DL) ALBUMIN 2.7 GM/DL L (3.4-5.0 GM/DL) *GLOBULIN 3.4 GM/DL (2.3-3.5 GM/DL) *A/G RATIO 0.8 MG/DL L (1.5-2.2 MG/DL) ALK PHOS 122 U/L H (46-116 U/L) ALT (SGPT) 27 U/L (16-63 U/L) AST (SGOT) 25 U/L (15-37 U/L) Chemistry from 11/14/2016 12:15 PMB-TYPE NATRIURETIC PROTEIN 14 PG/ML (1-100 PG/ ML) C-REACTIVE PROTEIN 0.34 MG/DL H (0.00-0.30 MG/DL) PROCALCITONIN 0.07 NG/ML (0.05-0.50 NG/ML) Hematology from 11/16/2016 5:50 AMWBC 4.9 X10e3/UL (3.6-11.2 X10e3/UL) RBC 3.82 X10e6/UL (3.63-4.92 X10e6/UL) HEMOGLOBIN 10.7 G/DL L (11.0-14.3 G/DL) HEMATOCRIT 32.0 % (31.2-41.9 %) *MCV 83.7 FL (79.0-98.0 FL) *MCH 28.1 PG (27.0-33.0 PG) *MCHC 33.6 G/DL (32.0-36.0 G/DL) *RDW 13.7 % (12.3-17.0 %) *RDWSD 40.3 (37.1-47.8 ) PLATELET 180 X10e3/UL (159-386 X10e3/UL) *MPV 8.5 FL (7.4-10.4 FL) AUTOMATED DIFF PERFORMED SEGS 47.9 % *LYMPHOCYTES 38.4 % *MONOCYTES 8.4 % *EOSINOPHILS 4.7 % *BASOPHILS 0.6 % *ABSOLUTE NEUTROPHILS 2.40 X10e3/UL (1.80-7.80 X10e3/UL) *ABSOLUTE LYMPHOCYTES 1.90 X10e3/UL (1.00-3.00 X10e3/UL) *ABSOLUTE MONOCYTES 0.40 X10e3/UL (0.30-1.00 X10e3/UL) *ABSOLUTE EOSINOPHILS 0.20 X10e3/UL (0.00-0.50 X10e3/UL) *ABSOLUTE BASOPHILS 0.00 X10e3/UL (0.00-0.20 X10e3/UL) Hematology from 11/15/2016 6:49 AMWBC 3.8 X10e3/UL (3.6-11.2 X10e3/UL) RBC 3.91 X10e6/UL (3.63-4.92 X10e6/UL) HEMOGLOBIN 11.0 G/DL (11.0-14.3 G/DL) HEMATOCRIT 33.4 % (31.2-41.9 %) *MCV 85.3 FL (79.0-98.0 FL) *MCH 28.1 PG (27.0-33.0 PG) *MCHC 32.9 G/DL (32.0-36.0 G/DL) *RDW 13.8 % (12.3-17.0 %) *RDWSD 41.6 (37.1-47.8 ) PLATELET 169 X10e3/UL (159-386 X10e3/UL) *MPV 9.0 FL (7.4-10.4 FL) *MANUAL DIFF PERFORMED SEGS 32.0 % *BANDS 17.0 % *LYMPHOCYTES 40.0 % *MONOCYTES 6.0 % *EOSINOPHILS 4.0 % *BASOPHILS 1.0 % *ABSOLUTE NEUTROPHILS 1.86 X10e3/UL (1.80-7.80 X10e3/UL) *ABSOLUTE LYMPHOCYTES 1.52 X10e3/UL (1.00-3.00 X10e3/UL) *ABSOLUTE MONOCYTES 0.23 X10e3/UL L (0.30-1.00 X10e3/UL) *ABSOLUTE EOSINOPHILS 0.15 X10e3/UL (0.00-0.50 X10e3/UL) *ABSOLUTE BASOPHILS 0.04 X10e3/UL (0.00-0.20 X10e3/UL) Serology from 11/15/2016 8:00 AM*ADENOVIRUS NOT DETECTED (Not Detected ) *CORONAVIRUS 229E NOT DETECTED (Not Detected ) *CORONAVIRUS HKU1 NOT DETECTED (Not Detected ) *CORONAVIRUS NL63 NOT DETECTED (Not Detected ) *CORONAVIRUS OC43 NOT DETECTED (Not Detected ) *HUMAN METAPNEUMOVIRUS NOT DETECTED (Not Detected ) *RHINOVIRU/ENTEROVIRUS NOT DETECTED (Not Detected ) *INFLUENZA A H1-2009 DETECTED A (Not Detected ) *INFLUENZA B NOT DETECTED (Not Detected ) *PARAINFLUENZA 1 (PIV1) NOT DETECTED (Not Detected ) *PARAINFLUENZA 2 (PIV2) NOT DETECTED (Not Detected ) *PARAINFLUENZA 3 (PIV3) NOT DETECTED (Not Detected ) *PARAINFLUENZA 4 (PIV4) NOT DETECTED (Not Detected ) *RESPIRATORY SYNCYTIAL VIRUS NOT DETECTED (Not Detected ) *BORDETELLA PERTUSSIS NOT DETECTED (Not Detected ) *CHLAMYDOPHILA PNEUMONIAE NOT DETECTED (Not Detected ) *MYCOPLASMA PNEUMONIAE NOT DETECTED (Not Detected ) [facility]: Pneumonia Priors: 11/15/16 Findings: A right-sided Port-A-Cath is in place. The cardiac silhouette and pulmonary vasculature within normal limits. Findings most suggestive scarring again noted in the upper lung zones. The previously suggested subtle infiltrate the right lower lobe is nearly resolved. Impression: Near resolution right lower lobe pneumonia. Probable scarring in both upper lung zones. Electronically signed by: Abdiel Pearl MD Dictated: 11/16/2016 08:08 DX Radiology from 11/15/2016 4:26 [facility] History: Pneumonia Priors: 11/14/16 Findings: A right-sided Port-A-Cath is in place. The cardiac silhouette and pulmonary vasculature within normal limits. Subtle increased markings in both upper lung zones is similar to multiple prior studies and likely represents scarring. There has been development of a very subtle opacity right lower lobe which is suspicious for pneumonia. Impression: Probable scarring in both upper lung zones. Development of subtle right lower lobe opacity, suspicious for pneumonia. Electronically signed by: Abdiel Pearl MD Dictated: 11/15/2016 08:20 Problems Encounter Diagnosis * Activity Intolerance Status:Active. * Acute Pain Status:Active. * Cystic Fibrosis Status:Active. * Fall Risk Status:Active. * Mobility Impairment Status:Active. Additional Problems * Abdominal Pain Comment:Problem resolved by [facility] upon Discharge, Status:Resolved. * Acute Pyelonephritis Comment:Problem resolved by [facility] upon Discharge, Status:Resolved. * Acute Urinary Tract infection Comment:Problem resolved by [facility] upon Discharge, Status:Resolved. * Chronic Ethmoidal Sinusitis Comment:Problem resolved by [facility] upon Discharge, Status:Resolved. * Cystic Fibrosis of the Lung Comment:Problem resolved by [facility] upon Discharge, Status:Resolved. * Drug Overdose - Suicide Comment:Problem resolved by [facility] upon Discharge, Status:Resolved. * Infection Risk Comment:Problem resolved by [facility] upon Discharge, Status:Resolved. * Laparoscopic Cholecystectomy Comment:Problem resolved by [facility] upon Discharge, Status:Resolved. * Nutritional Deficiency Comment:Problem resolved by [facility] upon Discharge, Status:Resolved. Encounters Encounter Diagnosis * Activity Intolerance Status:Active. * Acute Pain Status:Active. * Cystic Fibrosis Status:Active. * Fall Risk Status:Active. * Mobility Impairment Status:Active. Plan of Care Follow-up Appointments from 11/16/2016 10:37 AM:* #1 Office appointment: : Deya Zaragoza APRN * #1 Date/Time : 11/29/2016 3:45 PM * Address # 1 : [facility]: [address], [place]- or Treatment Plan from 11/15/2016 9:36 AM:* Care Management Note : Patient is inpatient status. This patient presented to the ED on the with complaints of having high fevers the last several days. She was found to have pneumonia on her chest x- ray. She also has a history of cystic fibrosis. She was also positive for the flu. She was started on IV antibiotics, RT treatments, and they are following her chest x-ray. She will have treatments with the theravest as well. She did have a low grade temp on arrival. She has an anticipated length of stay greater than 2 midnights and she is inpatient appropriate. Procedures * Completed wound exploration of the umbilical area, by MD BREANNE OCONNOR, on 2014 10:40 AM * Completed Procedure Code: 94551 Procedure Name: not valued, on 12/10/2014 12: 00 AM * Completed Procedure Code: 78787 Procedure Name: not valued, on 12/10/2014 12: 00 AM * Completed Laparoscopic Cholecystectomy, by MD BREANNE OCONNOR, on 08/20/2014 10:45 AM * Completed Procedure Code: 10633 Procedure Name: not valued, on 08/20/2014 12: [...] to care for yourself at home from 11/16/2016 10:37 AM:* Discharge Activity : Activity as tolerated * Discharge Diet : As before hospitalization,Diet as tolerated * Call your doctor if: : Fever [...] the responsibility of the patient or patient transportation services representative to confirm the list of medications with either the patient's personal care provider or the patient's follow-up care provider to ensure the patient has an appropriate list of medications to take at home. Discharge medications New medications* oseltamivir (Tamiflu) 75 mg Capsule, Ordered By: GUILLERMO HURTADO APRN Directions: 1 capsule oral twice a day Continued medications* adapalene-benzoyl [...] oral every six hours PRN anxiety * choriogonadotropin dilip,humrec (Ovidrel) 250 mcg/0.5 mL Syringe, Ordered By: GUILLERMO HURTADO APRN Directions: as directed as directed as directed * cranberry conc-ascorbic acid 84-20 mg Capsule, Ordered By: GUILLERMO UHRTADO APRN Directions: 1 capsule oral daily * cyproheptadine 4 mg Tablet, Ordered By: GUILLERMO HURTADO APRN Directions: as directed as directed as directed * dornase dilip (Pulmozyme) 1 mg/mL Solution, Ordered By: GUILLERMO HURTADO APRN Directions: 1 unit by inhalation twice a day * esomeprazole magnesium (NexIUM) 20 mg capsule,delayed release(DR/EC), Ordered By: GUILLERMO HURTADO APRN Directions: 1 capsule oral daily before breakfast * famotidine 20 mg Tablet, Ordered By: GUILLERMO HURTADO APRN Directions: 1 tablet oral twice a day * HYDROcodone-acetaminophen 10 mg-325 mg Tablet, Ordered By: GUILLERMO HURTADO APRN Directions: 1 tablet oral every four hours PRN pain * lsalxe-hdkwwnzv-eezqfud (Creon) 24,000 unit-76,000 unit-120,000 unit capsule, delayed release(/EC), Ordered By: GUILLERMO HURTADO APRN Directions: 4 cap oral with meals Additional Instructions: 1 capsule with snacks * vitamin A 10,000 unit Capsule, Ordered By: GUILLERMO HURTADO APRN Directions: 1 capsule oral daily * ziprasidone HCl 40 mg Capsule, Ordered By: GUILLERMO HURTADO APRN Directions: 1 capsule oral daily every morning * mometasone (Nasonex) 50 mcg spray,non-aerosol, Ordered By: GUILLERMO HURTADO APRN Directions: 2 spray nasal daily * fluticasone (Flovent HFA) 220 mcg HFA Aerosol Inhaler, Ordered By: GUILLERMO HURTADO APRN Directions: 1 puff by inhalation twice a day Changed medications* prochlorperazine maleate 10 mg Tablet, Ordered By: GUILLERMO HURTADO APRN Directions: 1 tablet oral as directed PRN nausea or vomiting * prochlorperazine maleate 10 mg Tablet, Ordered By: GUILLERMO HURTADO APRN Directions: 1 tablet oral as directed PRN nausea or vomiting Stopped medications* None
--- OUTSIDE RECORDS SUMMARY | 2017-04-01 03:02 | XMS REPORT | Summary of Care ---
Author Author Avery Hernandez M.D. Unknown Address Unknown Phone Unavailable Care Team Providers Care Trimming Machine Set Up Operator Name Role Phone Alfred Tran, Alem Unavailable Unavailable Alem Hernandez M.D. Unavailable Unavailable Tyree Tran, CARTER, ,, Dae Unavailable Unavailable Sabas Simon Unavailable Unavailable Unavailable Unavailable Functional Status Name Dates Details Functional status health issues are not documented Status: Name Dates Details Cognitive status health issues are not documented Status: Problems Name Dates Details 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/ Tunneling & Subcutan Port Status: Active Acne (706.1, L70.9) Status: Active Fatigue (780.79, R53.83) Status: Active Vaginal discharge (623.5, N89.8) Status: Active Acute gastritis (535.00, K29.00) Status: Active Duodenitis (535.60, K29.80) Status: Active Localized hives (708.9, L50.9) Status: Active Pleuritic chest pain (786.52, R07.81) Status: Active Chest pain (786.50, R07.9) Status: Active Back pain, acute (724.5, M54.9) Status: Active Non-healing surgical wound (998.83, T81.89XA) Status: Active Shoulder injury (959.2, S49.90XA) Status: Active Shoulder pain (719.41, M25.519) Status: Active Post-operative infection (998.59, T81.4XXA) Status: Active Shortness of breath (786.05, R06.02) Status: Active Encounter for routine gynecological examination with Papanicolaou smear of cervix (V72.31, Z01.419) Status: Active Exposure to pertussis (V01.89, Z20.818) Status: Active High risk medication use (V58.69, Z79.899) Status: Active Positive blood test (V72.42, Z32.01) Status: Active Amenorrhea (626.0, N91.2) Status: Active Dysuria (788.1, R30.0) Status: Active Chest pain (786.50, R07.9) Status: Active UTI symptoms (788.99, R39.9) Status: Active Cystic fibrosis (277.00, E84.9) Status: Active Chronic sinusitis (473.9, J32.9) Status: Active Cystic fibrosis (277.00, E84.9) Status: Active Acute sinusitis (461.9, J01.90) Status: Active Burning with urination (788.1, R30.0) Status: Active Dizziness (780.4, R42) Status: Active Chronic sinusitis (473.9, J32.9) Status: Active Cystic fibrosis (277.00, E84.9) Status: Active Anxiety (300.00, F41.9) Status: Active Female infertility (628.9, N97.9) Status: Active Esophageal stenosis (530.3, K22.2) Status: Active Irritable bowel syndrome (564.1, K58.9) Status: Active Chronic bronchitis (491.9, J42) Status: Active Pneumonia, bacterial (482.9, J15.9) Status: Active Cholecystitis, acute (575.0, K81.0) Status: Active Chronic obstructive pulmonary disease (496, J44.9) Status: Active Rotator cuff tear (840.4, M75.100) Status: Active Staph skin infection (686.9, L08.9) Status: Active 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 Start 09-Jul-2009 Active 2.5 ML Plas Cont (30 Plas Conts) NexIUM 40 MG Oral Capsule Delayed Release TAKE ONE CAPSULE BY MOUTH DAILY * Quantity: 30 Refills: 13 Sabas Simon M.D. * Start 21-Jun-2008 Active ProAir HFA 108 (90 Base) MCG/ACT Inhalation Aerosol Solution INHALE 1 - 2 PUFF BY INHALATION ROUTE EVERY 4 HOURS NEEDED * Quantity: 3 Refills: 3 Sabas Simon M.D. * Start 14-Apr-2010 Active 8.5 GM Inhaler Vitamin D3 TABS * Refills: 0 Active Vitamin E 100 UNIT Oral Capsule * Refills: 0 Active Flovent HFA 220 MCG/ACT Inhalation Aerosol INHALE ONE PUFF BY MOUTH TWO TIMES A DAY. * Quantity: 3 Refills: 3 Sabas Simon M.D. * Start 28-Jun-2011 Active 12 GM Inhaler Creon 21010 UNIT Oral Capsule Delayed Release Particles TAKE 6 CAP BY MOUTH WITH MEALS, AND 4 CAPS WITH SNACKS * Quantity: 300 Refills: 99 Sabas Simon M.D. * Start 22-Dec-2011 Active Albuterol Sulfate (2.5 MG/3ML) 0.083% Inhalation Nebulization Solution USE 1 UNIT DOSE IN NEBULIZER EVERY 4 TO 6 HOURS NEEDED. (Dx: J44.9, E84.9) * Quantity: 1080 Refills: 3 Sabas Simon M.D. * Start Active Epiduo 0.1-2.5 % External Gel apply to acne areas daily * Quantity: 45 Refills: 0 Sabas Simon M.D. * Start 17-Jul-2012 Active Vitamin A 41178 UNIT Oral Capsule * Refills: 0 * Start 17-Jan-2013 Active SEROquel 400 MG Oral Tablet TAKE 1 TABLET AT BEDTIME. * Refills: 0 * Start Active Famotidine 20 MG Oral Tablet TAKE 1 TABLET TWICE DAILY. * Refills: 0 * Start 15-Aug-2014 Active Cranberry-Vitamin C 84-20 MG Oral Capsule * Refills: 0 Tyree Tran, CARTER, , , Dae * Start 15-Aug-2014 Active Ovidrel 250 MCG/0.5ML Subcutaneous Injectable INJECT SUBCUTANEOUSLY DIRECTED. * Refills: 0 Sabas Simon M.D. * Start 02-Oct-2015 Active Effexor XR 150 MG Oral Capsule Extended Release 24 Hour * Refills: 0 Sabas Simon M.D. * Start 08-Jan-2016 Active BusPIRone HCl - 30 MG Oral Tablet TAKE 1 TABLET TWICE DAILY. * Refills: 0 Sabas Simon M.D. Start 08-Jan-2016 Active Cyproheptadine HCl - 4 MG Oral Tablet * Refills: 0 Sbaas Simon M.D. Start 08-Jan-2016 Active TraZODone HCl - 150 MG Oral Tablet TAKE ONE TABLET BY MOUTH AT BEDTIME * Quantity: 30 Refills: 3 Sabas Simon M.D. Start 08-Jan-2016 Active Progesterone Micronized 200 MG Oral Capsule Take two tablets at bedtime for 5 nitesif no period to induce period every 35- 40 days * Quantity: 10 Refills: 8 Sabas Simon M.D. Start 01-Jul-2015 Active Vitamin K TABS * Refills: 0 Active Vitamin D CAPS * Refills: 0 Active Mometasone Furoate 50 MCG/ACT Nasal Suspension USE 2 SPARYS IN EACH NOSTRIL DAILY AT BEDTIME * Quantity: 17 Refills: 11 Sabas Simon M.D. Start 10-Mar-2016 Active Orkambi 200-125 MG Oral Tablet * Refills: 0 Active Tobramycin 300 MG/5ML Inhalation Nebulization Solution USE ONE VIAL VIA NEBULIZER BY MOUTH TWICE A DAY/ ONE MONTH ON AND ONEMONTH OFF * Quantity: 280 Refills: 6 Sabas Simon M.D. Start Active Hydrocodone-Acetaminophen 10-325 MG Oral Tablet TAKE 1 TABLET EVERY 4 TO 6 HOURS NEEDED FOR PAIN. * Quantity: 60 Refills: 0 Sabas Simon M.D. Start 24-Oct-2012 Active ALPRAZolam 0.5 MG Oral Tablet TAKE ONE TABLET BY MOUTH EVERY 4 TO 6 HOURS NEEDED * Quantity: 40 Refills: 0 Sabas Simon M.D. Start Active Doxycycline Hyclate 100 MG Oral Tablet TAKE 1 TABLET EVERY 12 HOURS DAILY. * Quantity: 20 Refills: 0 Sabas Simon M.D. Start 21-Jul-2016 End 31-Jul-2016 Active Allergies and Adverse Reactions Name Dates Details Aspirin Buffered TABS (Allergy) Status: Active Augmentin TABS (Allergy) Status: Active Cipro TABS (Allergy) Status: Active Clindamycin (Allergy) Reaction: Nausea, Vomiting Status: Active Depakote ER TB24 (Allergy) Status: Active erythromycin (Allergy) Status: Active Latex Exam Gloves MISC (Allergy) Status: Active Levaquin TABS (Allergy) Reaction: Hives (Severe) Status: Active Peanut-derived (Allergy) Status: Active Penicillins (Allergy) Status: Active Sudafed TABS (Allergy) Status: Active Zithromax PACK (Allergy) Status: Active Past Medical History Name Dates Details Anxiety (300.00, F41.9) Status: Active Cholecystitis, acute (575.0, K81.0) Status: Active 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, 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) Status: Active Chronic bronchitis (491.9, J42) Status: Active Chronic obstructive pulmonary disease (496, J44.9) Status: Active Chronic sinusitis (473.9, J32.9) Status: Active Cystic fibrosis (277.00, E84.9) Status: Active Cystic fibrosis (277.00, E84.9) Status: Active Esophageal stenosis (530.3, K22.2) Status: Active Female infertility (628.9, N97.9) Status: Active Irritable bowel syndrome (564.1, K58.9) Status: Active Pneumonia, bacterial (482.9, J15.9) Status: Active Port-a-cath in place (V45.89, Z95.828) Status: Active PTSD (post-traumatic stress disorder) (309.81, F43.10) Status: Active Rotator cuff tear (840.4, M75.100) Status: Active Staph skin infection (686.9, L08.9) Status: Active Staphylococcus aureus infection (041.11, A49.01) Status: Active History of Asthma (493.90, J45.909) [...] History of Nasal Endoscopy With Total Ethmoidectomy Completed: 23-Jul-2009 History of Nasal Endoscopy With Maxillary Antrostomy Completed: 23-Jul-2009 History of Sphenoid Sinus Endoscopy With Removal Of Mucous Membrane Completed: 23-Jul-2009 History of Nasal Endoscopy With Frontal Sinus Exploration Completed: 2009 History of Nasal Endoscopy With Total Ethmoidectomy Completed: 25-Jun-2010 History of Nasal Endoscopy With Maxillary Antrostomy Completed: 25-Jun-2010 History of Sphenoid Sinus Endoscopy With Removal Of Mucous Membrane Completed: 25-Jun-2010 History of 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/ Tunneling & Subcutan Port Completed: 02-Aug-2011 History of Tunneled Central IV Removal With Port Completed: 15-Mar-2011 History of Lysis Of Intranasal Synechia Completed: 19-Jul-2011 History of Maxillary Sinus Endoscopy With Removal Of Mucous Membrane Completed: 19-Jul-2011 History of Nasal Endoscopy Polypectomy Completed: 19-Jul-2011 History of 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/ Tunneling & Subcutan Port Completed: 22-Sep-2012 History of Tunneled Central IV Removal With Port Completed: 22-Sep-2012 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/ Tunneling & Subcutan Port Completed: Jul-2011 History of Tunneled Central IV Removal With Port Completed: 21-Sep-2013 History of Duodenoscopy With Biopsy History of Colonoscopy (Fiberoptic) History of Percutaneous Portal Vein Catheter Placement History of Tonsillectomy History of Cholecystectomy Laparoscopic AMYLASE 1250 Ordered: 27-Jul-2016 Lipase 1275 Ordered: 27-Jul-2016 Comprehensive Metabolic Panel 1212 Ordered: 27-Jul-2016 Immunization Name Dates Details Pneumo (Pneumovax) on: 19-Jul-2005 Fluvirin INJ on: 07-Sep-2015 Family History Name Dates Details Family history of Diabetes [...] Cancer (V16.3) Comments: Family History Status: Active Name Dates Details Family history of leukemia (V16.6, Z80.6) Status: Active Social History Name Dates Details - Status: Name Dates Details Never smoker Vital Signs Date Test Result Details 27-Jul-2016 08:19 BP Systolic 90 mm[Hg] Status: Comments: Location: ; Position: BP Diastolic 60 mm[Hg] Status: Comments: Location: ; Position: Temperature 101.3 f Status: Comments: Method: Heart Rate 124 /min Status: Comments: Location: ; Physical Findings 97 Status: Comments: O2 Saturation Results Date Description Value Details 02-Jul-2016 12:07 ULTRASOUND FOLLICULAR STUDY SONO Comments: Exam Date: 10/2016 11:23Dictation Date: 07/02/2016 12:07 XS FOLLICULAR STUDY SONO 05-Jul-2016 15:07 ULTRASOUND FOLLICULAR STUDY SONO Comments: Exam Date: 13:29Dictation Date: 07/05/2016 15:07 XS FOLLICULAR STUDY SONO 06-Jul-2016 07:50 Estradiol [id number] Comments: ORDER FILED UNDER JUNE IN THE BOOKTesting performed at: [DA] [facility], [address] [place] [address], [place], [address], , Plant Taxonomist: FAM Gray MD Estradiol 417.2 pg/mL Comments: Adult Female: Follicular phase 12.5 - 166.0 Ovulation phase 85.8 - 498.0 Luteal phase 43.8 - 211.0 Postmenopausal <6.0 - 54.7 1st trimester 215.0 - > 4300.0 Girls (1-10 years) 6.0 - 27.0Roche ECLIA methodology----- 21-Jul-2016 15:15 BETA HCG 3500 BETA HCG <2 mIU/mL Range: 0-5 Comments: Gestational age: 0.02-1 Weeks=5-50 mIU/mL1-2 Weeks=50-500 mIU/mL2-3 Yvmxn=325-3579 mIU/mL3-4 Cdnwd=850-42,000 mIU/mL4-5 Weeks=1,000-50,000 mIU/mL5- 6 Weeks=10,000-100,000 mIU/mL6-8 Weeks=15,000-200,000 mIU/mL2-3 months=10,000- 100,000 mIU/mL----- 27-Jul-2016 08:51 Urinalysis, Reflex to Microscopic or Culture PRN 8005 pH 6.0 Range: 5.0-7.5 SP GRAVITY 1.015 Range: 1.010-1.030 APPEARANCE CLOUDY (Abnormal) Range: Clear COLOR YELLOW Range: Straw-Yellow PROTEIN TRACE mg/dL Range: Negative-Trace GLUCOSE NEGATIVE mg/dL Range: Negative KETONE 15 mg/dL (Abnormal) Range: Negative BILIRUB NEGATIVE Range: Negative BLOOD SMALL (Abnormal) Range: Negative UROBIL 1.0 EU/dL Range: 0.2-1.0 NITRITE POSITIVE (Abnormal) Range: Negative Comments: Specimen referred to Reference Lab for Culture----- LEUK LARGE (Abnormal) Range: Negative 08:51 Urine Microscopic UMIC WBC 21-50 /HPF (Abnormal) Range: 0-5 Comments: Specimen referred to Reference Lab for Culture----- RBC 0-2 /HPF Range: 0-2 MUCUS 1+ /LPF Range: Negative-2+ BACTERIA 4+ /HPF (Abnormal) Range: Negative-Trace Comments: Specimen referred to Reference Lab for Culture----- EPITH 6-10 /HPF Range: 0-10 09:30 XRay CHEST-PA & LAT Comments: Exam Date: 07/27/2016 08:37Dictation Date: 07/27/2016 09:30 X CHEST PA & LAT 09:13 CBC w/ Auto Diff 7150 Comments: Manual differential indicated. WBC 14.4 K/uL (Above high threshold) Range: 4.5-11.0 RBC 4.94 mil/uL Range: 3.60-5.00 HGB 14.3 g/dL Range: 12.0-16.0 HCT 43.9 % Range: 36.0-48.0 MCV 88.8 fL Range: 80.0-99.0 MCH 28.9 pg Range: 27.3-32.5 MCHC 32.6 % Range: 32.0-36.0 RDW 15.5 % (Above high threshold) Range: 11.6-14.8 PLATELETS 301 K/uL Range: 150-400 MPV 7.4 fL Range: 6.0-11.0 Plan of Care Name Dates Details Planned Observations Planned Goals not documented Interventions Provided Labs/Procedures/Imaging* AMYLASE 1250; To be Done: 27 Jul 2016 * Comprehensive Metabolic Panel 1212; To be Done: 27 Jul 2016 * Lipase 1275; To be Done: 27 Jul 2016 * CBC w/ Auto Diff 7150; Done: Jul 27 2016 9:03AM * Urinalysis, Reflex to Microscopic or Culture PRN 8005; Done: Jul 27 2016 8: 20AM * XRay CHEST-PA & LAT; Done: Jul 27 2016 9:30AM Instructions Name Dates Details Instructions not documented Encounters Appointment; Cory Roberts M.D. Encounter Diagnosis: Problem not documented On 01-Jul-2016 09:45 Appointment; Sabas Simon M.D. Encounter Diagnosis: Problem not documented On 17-Mar-2016 16:15 Appointment; Sabas Simon M.D. Encounter Diagnosis: Problem not documented On 17-Feb-2016 17:15 Appointment; Sabas Simon M.D. Encounter Diagnosis: Problem not documented On 08-Jan-2016 11:45 Appointment; Sabas Simon M.D. Encounter Diagnosis: Problem not documented On 11-Dec-2015 13:45 Appointment; Sabas Simon M.D. Encounter Diagnosis: Problem not documented On 02-Dec-2015 13:45 Appointment; Sabas Simon M.D. Encounter Diagnosis: Problem not documented On 12-Nov-2015 15:45 Appointment; Sabas Simon M.D. Encounter Diagnosis: Problem not documented On 02-Oct-2015 13:45 Appointment; Cory Roberts M.D. Encounter Diagnosis: Problem not documented On 01-Jul-2015 08:15 Appointment; Courtney Giles A.P.R.N. Encounter Diagnosis: Problem not documented On 16:20 Appointment; Sabas Simon M.D. Encounter Diagnosis: Problem not documented On 06-Mar-2015 13:45 Appointment; Pranav Sahu M.D.|Dwight|Chelsea,CARTER|Chelsea,CARTER, Encounter Diagnosis: Problem not documented On 09-Dec-2014 10:00 Appointment; Flor Fischer D.O. Encounter Diagnosis: Problem not documented On 06-Dec-2014 11:05 Appointment; Sabas Simon M.D. Encounter Diagnosis: Problem not documented On 04-Nov-2014 16:00 Appointment; Liu Dennis D.O. Encounter Diagnosis: Problem not documented On 28-Oct-2014 10:00 Appointment; Sabas Simon M.D. Encounter Diagnosis: Problem not documented On 23-Sep-2014 13:00 Appointment; Pranav Sahu M.D.|F.A.C.S.|M.D.,FACS|M.D.,FACS, Encounter Diagnosis: Problem not documented On 23-Sep-2014 10:30 Appointment; Pranav Sahu M.D.|F.A.C.S.|M.D.,FACS|MAlexDAlex,FACS, Encounter Diagnosis: Problem not documented On 16-Sep-2014 10:15 Appointment; Pranav Sahu M.D.|F.A.C.S.|M.D.,FACS|MAlexDAlex,FACS, Encounter Diagnosis: Problem not documented On 04-Sep-2014 09:00 Appointment; Sabas Simon M.D. Encounter Diagnosis: Problem not documented On 19-Aug-2014 11:00 Appointment; Pranav Sahu M.D.|F.A.C.S.|M.DAlex,FACS|M.D.,FACS, Encounter Diagnosis: Problem not documented On 15-Aug-2014 14:15 Appointment; Liu Dennis D.O. Encounter Diagnosis: Problem not documented On 13-Aug-2014 09:45 Appointment; Winsome Pollack A.P.R.N. Encounter Diagnosis: Problem not documented On 07-Aug-2014 15:00 Appointment; Sabas Simon M.D. Encounter Diagnosis: Problem not documented On 05-Aug-2014 16:00"
--- OUTSIDE RECORDS SUMMARY | 2017-04-01 03:02 | XMS REPORT ---
Author Author Sahra Bowden Organization Unknown Address [address], [place] [id number] Phone Care Team Providers Care Minister Of Religion Name Role Phone Alfred Obregon PP Unavailable [...] * Cystic Fibrosis (277.00); (Active) Medication * Pulmozyme 1 MG/ML Inhalation Solution; USE 1 UNIT VIA NEBULIZER TWO TIMES DAILY; Start Date: 07/09/2009; End Date: (Active) * NexIUM 40 MG Oral Capsule Delayed Release; TAKE ONE CAPSULE BY MOUTH DAILY; Start Date: 06/21/2008; End Date: (Active) * ProAir HFA 108 (90 Base) MCG/ACT Inhalation Aerosol Solution; INHALE 2 PUFFS Every 4 hours PRN; Start Date: 04/14/2010; End Date: (Active) * Vitamin D3 TABS (Active) * Vitamin E 100 UNIT Oral Capsule (Active) * AquADEKs Oral Capsule; TAKE 1 CAPSULE DAILY.; Start Date: 02/02/2011; End Date : (Active) * Flovent HFA 220 MCG/ACT Inhalation Aerosol; INHALE ONE PUFF BY MOUTH TWO TIMES A DAY.; Start Date: 06/28/2011; End Date: (Active) * Nasonex 50 MCG/ACT Nasal Suspension; USE 2 SPRAYS IN EACH NOSTRIL ONCE DAILY; Start Date: 06/28/2011; End Date: (Active) * Saline 10%; Use 2ml via nebulizer twice daily; Start Date: 07/13/2011; End Date: (Active) * PARoxetine HCl 40 MG Oral Tablet; Take one tablet by mouth daily; Start Date: 11/30/2011; End Date: (Active) * /Folic Acid Oral Tablet; TAKE 1 TABLET DAILY.; Start Date: 12/15/2011 ; End Date: (Active) * Brovana 15 MCG/2ML Inhalation Nebulization Solution; INHALE THE CONTENTS OF 1 VIAL TWO TIMES DAILY IN THE MORNING AND EVENING VIA STANDARD JET NEBULIZER DIRECTED.; Start Date: 12/22/2011; End Date: (Active) * Creon 75666 UNIT Oral Capsule Delayed Release Particles; TAKE [...] Start Date: 2011 (Active) * Vitamin A 46793 UNIT Oral Capsule; Start Date: 01/17/2013 (Active) * Levothyroxine Sodium 125 MCG Oral Tablet; TAKE 1 TABLET DAILY.; Start Date: ; End Date: (Active) * Yoni 300 MG/5ML Inhalation Nebulization Solution; USE ONE VIAL VIA NEBULIZER BY MOUTH TWICE A DAY/ one month on and one month off; Start Date: 05/28/2013; End Date: (Active) * [place] Carbonate 300 MG Oral Tablet; TAKE 3 [...]
--- OUTSIDE RECORDS SUMMARY | 2017-04-01 03:02 | XMS REPORT ---
Author Author GENERATED, SYSTEM Organization Unknown Address Unknown Phone Unavailable Care Team Providers Care Component Prep Operator Name Role Phone MD INGA, MANI [phone] Reason For Visit Chief Complaint CHEST PAIN Social History Functional Status Vital Signs Results Chemistry from 12/02/2015 10:39 PMSODIUM 135 MMOL/L L (136-145 MMOL/L) POTASSIUM 3.6 MMOL/L (3.5-5.1 MMOL/L) CHLORIDE 105 MMOL/L (98-107 MMOL/L) TCO2 24.3 MMOL/L (21.0-32.0 MMOL/L) *ANION GAP 5.7 MMOL/L L (8.0-16.0 MMOL/L) BUN 11 MG/DL (7-18 MG/DL) CREATININE 0.99 MG/DL (0.55-1.02 MG/DL) *BUN/CREATININE RATIO 11.1 (9.1-17.0 ) GLUCOSE 109 MG/DL H (65-99 MG/DL) *GFR EST NON AFR AUSTRALIAN 75 ML/MIN *GFRA EST AFR AMER 87 ML/MIN CALCIUM 9.0 MG/DL (8.5-10.1 MG/DL) BILIRUBIN TOTAL 0.70 MG/DL (0.20-1.00 MG/DL) TOTAL PROTEIN 7.5 GM/DL (6.4-8.2 GM/DL) ALBUMIN 3.8 GM/DL (3.4-5.0 GM/DL) *GLOBULIN 3.7 GM/DL H (2.3-3.5 GM/DL) *A/G RATIO 1.0 MG/DL L (1.5-2.2 MG/DL) ALK PHOS 127 U/L H (46-116 U/L) ALT (SGPT) 63 U/L (16-63 U/L) AST (SGOT) 39 U/L H (15-37 U/L) TROPONIN-I 0.06 NG/ML (SEE BELOW NG/ML) B-TYPE NATRIURETIC PROTEIN 21 PG/ML (1-100 PG/ML) LACTIC ACID 1.00 MMOL/L (0.40-2.00 MMOL/L) Hematology from 12/02/2015 10:39 PMWBC 11.7 X10e3/UL H (3.6-11.2 X10e3/UL) RBC 4.54 X10e6/UL (3.63-4.92 X10e6/UL) HEMOGLOBIN 13.0 G/DL (11.0-14.3 G/DL) HEMATOCRIT 38.8 % (31.2-41.9 %) *MCV 85.6 FL (79.0-98.0 FL) *MCH 28.7 PG (27.0-33.0 PG) *MCHC 33.5 G/DL (32.0-36.0 G/DL) *RDW 14.1 % (12.3-17.0 %) *RDWSD 42.0 (37.1-47.8 ) PLATELET 245 X10e3/UL (159-386 X10e3/UL) *MPV 8.4 FL (7.4-10.4 FL) AUTOMATED DIFF PERFORMED SEGS 60.9 % *LYMPHOCYTES 27.0 % *MONOCYTES 7.0 % *EOSINOPHILS 4.5 % *BASOPHILS 0.6 % *ABSOLUTE NEUTROPHILS 7.10 X10e3/UL (1.80-7.80 X10e3/UL) *ABSOLUTE LYMPHOCYTES 3.20 X10e3/UL H (1.00-3.00 X10e3/UL) *ABSOLUTE MONOCYTES 0.80 X10e3/UL (0.30-1.00 X10e3/UL) *ABSOLUTE EOSINOPHILS 0.50 X10e3/UL (0.00-0.50 X10e3/UL) *ABSOLUTE BASOPHILS 0.10 X10e3/UL (0.00-0.20 X10e3/UL) DX Radiology from 12/02/2015 9:56 PMCHEST 2 VIEWS History: chest pain/likely pneumonia. Technique: 2 VIEW CHEST Priors: 08/20/14 Findings: The cardiac silhouette and pulmonary vasculature are within normal limits. There are no acute infiltrates or effusions. A left-sided Port-A-Cath is in place. Impression: No acute cardiopulmonary disease. Electronically signed by: Abdiel Pearl MD Dictated: 12/03/2015 09:41 Problems Encounter Diagnosis No relevant problems exist. [...] 2014 10:40 AM * Completed Procedure Code: [id number] Procedure Name: not valued, on 12/10/2014 12: 00 AM * Completed Procedure Code: 20732 Procedure Name: not valued, on 12/10/2014 12: 00 AM * Completed Laparoscopic Cholecystectomy, by MD BREANNE OCONNOR, on 08/20/2014 10:45 AM * Completed Procedure Code: 80705 Procedure Name: not valued, on 08/20/2014 12: [...]
--- OUTSIDE RECORDS SUMMARY | 2017-04-01 03:03 | XMS REPORT | Summary of Care ---
Author Author Sabas Simon M.D. Organization Unknown Address [address], [place] [id number] Phone Unavailable Care Team Providers Care Garbage Person Name Role Phone Alfred Tran, Alem Unavailable [...] Active Chronic sinusitis (473.9, J32.9) Status: Active Pleuritic chest pain (786.52, R07.81) [...] obstructive pulmonary disease (496, J44.9) Status: Active Dysuria (788.1, R30.0) Status: Active Chest pain (786.50, R07.9) Status: Active Cystic fibrosis (277.00, E84.9) Status: Active UTI symptoms (788.99, R39.9) Status: Active Port-a-cath in place (V45.89, Z95.828) Status: Active Acute sinusitis (461.9, J01.90) Status: Active Cystic fibrosis (277.00, E84.9) Status: [...] Refills: 11 Sabas Simon M.D.* Started 28-Jun-2011 [id number] GM Inhaler Creon 22318 UNIT Oral Capsule Delayed Release Particles TAKE [...] Sabas Simon M.D.* Started 24-Oct-2012 ActiveVitamin A 99277 UNIT Oral Capsule * Refills: 0 * [...] Refills: 11 Sabas Simon M.D.* Started 21-Aug-2015 [id number] GM Bottle Ovidrel 250 MCG/0.5ML Subcutaneous Injectable INJECT SUBCUTANEOUSLY DIRECTED. * Refills: 0 Sabas Simon M.D.* Started 02-Oct-2015 ActiveSMZ-TMP DS 800-160 MG Oral Tablet TAKE 1 TABLET TWICE DAILY WITH FOOD. * Quantity: 20 Refills: 0 Sabas Simon M.D.* Started 11-Dec-2015 ActiveDoxycycline Hyclate 100 MG Oral Tablet TAKE 1 TABLET EVERY 12 HOURS DAILY. * Quantity: 20 Refills: 0 Sabas Simon M.D.* Started 11-Dec-2015 Ended 21-Dec-2015 Active Allergies and Adverse Reactions Name Dates [...] smoker Vital Signs Date Test Result Details 11-Dec-2015 11:44 BP Systolic 108 mm[Hg] Status: BP Diastolic 72 mm[Hg] Status: Temperature 98 f Status: Heart Rate 105 /min Status: Respiration Rate 20 /min Status: Height 63 in Status: Weight 130 lb Status: O2 SAT 99 % Status: Body Mass Index Calculated 23.03 kg/m2 Status: Body Surface Area Calculated 1.61 m2 Status: 02-Dec-2015 14:06 BP Systolic 94 mm[Hg] Status: BP Diastolic 68 mm[Hg] Status: Heart Rate 80 /min Status: Height 63 in Status: Weight 130 lb Status: O2 SAT 90 % Status: Body Mass Index Calculated 23.03 kg/m2 Status: Body Surface Area Calculated 1.61 m2 Status: 12-Nov-2015 15:14 BP Systolic 98 mm[Hg] Status: BP Diastolic 64 mm[Hg] Status: Heart Rate 87 /min Status: Height 63 in Status: Weight 131 lb Status: O2 SAT 97 % Status: Body Mass Index Calculated 23.21 kg/m2 Status: Body Surface Area Calculated 1.62 m2 Status: Results Date Description Value Details 12-Nov-2015 15:04 CBC w/ Auto Diff 7150 [...] 15:14 X CHEST PA & LAT (Better) 19-Nov-2015 13:35 ULTRASOUND FOLLICULAR STUDY SONO Comments: Exam Date: 11/19/2015 12:57Dictation Date: 11/19/2015 13:35 XS FOLLICULAR STUDY SONO (Better) 01-Dec-2015 12:59 Vitamin D, 25 - Hydroxy 3111 Comments: ORDER IN BOOK UNDER NOVEMBER VITAMIN D, 25-HYDROXY 13 ng/mL (Below low threshold) Range: 30-100 13:01 Urinalysis, Reflex to Microscopic or Culture PRN 8005 pH 6.5 (Better) Range: 5.0-7.5 SP GRAVITY 1.010 (Better) Range: 1.010-1.030 APPEARANCE CLOUDY (Abnormal) Range: Clear COLOR YELLOW (Better) Range: Straw-Yellow PROTEIN NEGATIVE mg/dL (Better) Range: Negative-Trace GLUCOSE NEGATIVE mg/dL (Better) Range: Negative KETONE NEGATIVE mg/dL (Better) Range: Negative BILIRUB NEGATIVE (Better) Range: Negative BLOOD NEGATIVE (Better) Range: Negative UROBIL 0.2 EU/dL (Better) Range: 0.2-1.0 NITRITE NEGATIVE (Better) Range: Negative LEUK MODERATE (Abnormal) Range: Negative 13:01 Urine Microscopic UMIC WBC 11-20 /HPF (Abnormal) Range: 0-5 Comments: Specimen referred to Microbiology for Culture----- RBC 0-2 /HPF (Better) Range: 0-2 BACTERIA 2+ /HPF (Abnormal) Range: Negative-Trace EPITH 21-50 /HPF (Abnormal) Range: 0-10 02-Dec-2015 11:10 URINE CULTURE [id number] Comments: [employer] performed at: [facility], [address] [place] [address], [id number], Handmade Tile Artist: Augustus Bergeron D.O., MPHQuest Collection Date/Time: [id number] Results Received Date/Time: [id number] Reported Date/Time: [id number] performed at: [facility], [address] [place] [address], [id number], Handmade Tile Artist: Augustus Bergeron D.O., MPHQuest Collection Date/Time: [id number] Results Received Date/Time: [id number] Reported Date/Time: [id number] CULTURE, URINE, ROUTINE SEE NOTE (Better) Comments: CULTURE, URINE, ROUTINE MICRO NUMBER: [id number] TEST STATUS: FINAL SPECIMEN SOURCE : URINE SPECIMEN QUALITY: ADEQUATE RESULT: Three or more organisms present, each greater than 10,000 cu/mL. May represent normal cal contamination from external genitalia. No further testing is required.[KS]----- 11:07 Glucose Tolerance 2 HR 1701 Comments: FILED IN BOOK UNDER NOVEMBER ORDERS FASTING GLUCOSE 102 mg/dl (Better) ONE HOUR GLUCOSE 145 mg/dl (Better) TWO HOUR GLUCOSE 84 mg/dl (Better) 03-Dec-2015 17:20 Vitamin A and E 134197 Comments: ORDER IN BOOK UNDER NOVEMBERTesting performed at: [] [facility], [address], , Handmade Tile Artist: Augustus Pelletier MD VITAMIN A, SERUM 26 ug/dL (Better) Range: 18-77 VITAMIN E(ALPHA TOCOPHEROL) 1.2 mg/L (Below low threshold) Range: 4.6- 17.8 09-Dec-2015 09:10 BETA HCG 3500 BETA HCG <2 mIU/mL (Better) Range: 0-5 Comments: Gestational age: 0.02-1 Weeks=5-50 mIU/mL1-2 Weeks=50-500 mIU/mL2-3 Wohpa=976-9869 mIU/mL3-4 Uevgx=288-09,000 mIU/mL4-5 Weeks=1,000-50,000 mIU/mL5- 6 Weeks=10,000-100,000 mIU/mL6-8 Weeks=15,000-200,000 mIU/mL2-3 months=10,000- 100,000 mIU/mL----- 10-Dec-2015 13:54 TAYLOR INJECTION Comments: Exam Date: 12/10/2015 13: 10Dictation Date: 12/10/2015 13:54 XF TAYLOR INJECTION (Better) 11-Dec-2015 11:22 CBC w/ Auto Diff 7150 Comments: Manual differential indicated. WBC 15.6 K/uL (Above high threshold) Range: 4.5-11.0 RBC 4.82 mil/uL (Better) Range: 3.60-5.00 HGB 13.9 g/dL (Better) Range: 12.0-16.0 HCT 43.0 % (Better) Range: 36.0-48.0 MCV 89.3 fL (Better) Range: 80.0-99.0 MCH 28.9 pg (Better) Range: 27.3-32.5 MCHC 32.4 % (Better) Range: 32.0-36.0 RDW 13.3 % (Better) Range: 11.6-14.8 PLATELETS 333 K/uL (Better) Range: 150-400 MPV 8.0 fL (Better) Range: 6.0-11.0 11:35 C REACTIVE PROTEIN, CRP 2030 C REACTIVE PROTEIN 0.2 mg/dL (Better) Range: 0.0-0.9 11:45 Manual Differential 7400 SEGS 81 % (Above high threshold) Range: 37-80 BANDS 1 % (Better) Range: 0-7 LYMPH 12 % (Below low threshold) Range: 13-50 MONO 2 % (Better) Range: 0-12 EOSIN 3 % (Better) Range: 0-7 BASO 1 % (Better) Range: 0-3 JADE LYMPH 0 % (Better) Range: 0-0 META 0 % (Better) Range: 0-0 MYELO 0 % (Better) Range: 0-0 PRO 0 % (Better) Range: 0-0 BLAST 0 % (Better) Range: 0-0 NUC RBC 0 /100 WBC (Better) Range: 0-0 SMUDGE 0 /100 WBC (Better) PLATELET Adequate (Better) Range: Adequate 11:50 ERYTHROCYTE SED RATE 7800 ERYTHROCYTE SED RATE 10 mm/60 min. (Better) Range: 0-20 12:03 XRay CHEST-PA & LAT Comments: Exam Date: 12/11/2015 11: 19Dictation Date: 12/11/2015 12:03 X CHEST PA & LAT (Better) Plan [...] Amezcua On 16-Dec-2011 09:15 * Appointment; Provider: Chcuk Amezcua On 06-Aug-2011 11:00 * Appointment; Provider: [...]
--- OUTSIDE RECORDS SUMMARY | 2017-04-01 03:03 | XMS REPORT | Summary of Care ---
Author Author Sabas Simon M.D. Organization Unknown Address Unknown Phone Unavailable Care Team Providers Care Dental Ceramist Helper Name Role Phone Alfred Tran, Alem Unavailable Unavailable Tyree Tran, CARTER, ,, Dae Unavailable Unavailable Sabas Simon Unavailable Unavailable Unavailable Functional Status Name Dates [...] Active Chronic sinusitis (473.9, J32.9) Status: Active Chronic obstructive pulmonary disease (496, J44.9) Status: Active Cystic fibrosis (277.00, E84.9) Status: Active PTSD (post-traumatic stress disorder) (309.81, F43.10) Status: Active Medications Name Dates Details Pulmozyme 1 MG/ML Inhalation Solution USE 1 UNIT VIA NEBULIZER TWO TIMES DAILY Quantity: 2 Sabas Simon M.D. Start 09-Jul-2009 Active 2.5 ML Plas Cont (30 Plas Conts) NexIUM 40 MG Oral Capsule Delayed Release TAKE ONE CAPSULE BY MOUTH DAILY * Quantity: 30 Refills: 13 Sabas Simon M.D. Start 21-Jun-2008 Active ProAir HFA 108 (90 Base) MCG/ACT Inhalation Aerosol Solution INHALE 1 - 2 PUFF BY INHALATION ROUTE EVERY 4 HOURS NEEDED * Quantity: 3 Refills: 3 Sabas Simon M.D. * Start 14-Apr-2010 Active 8.5 GM Inhaler Vitamin D3 TABS * Refills: 0 Active Vitamin E 100 UNIT Oral Capsule * Refills: 0 Active Vitamin A 81238 UNIT Oral Capsule * Refills: 0 * Start 17-Jan-2013 Active Creon 77657 UNIT Oral Capsule Delayed Release Particles TAKE 6 CAP BY MOUTH WITH MEALS, AND 4 CAPS WITH SNACKS * Quantity: 300 Refills: 99 Sabas Simon M.D. * Start 22-Dec-2011 Active SEROquel 400 MG Oral Tablet TAKE [...] Hour * Refills: 0 Sabas Simon M.D. Start 08-Jan-2016 Active BusPIRone HCl - 30 MG Oral Tablet TAKE 1 TABLET TWICE DAILY. * Refills: 0 Sabas Simon M.D. * Start 08-Jan-2016 Active Cyproheptadine HCl - 4 MG Oral Tablet * Refills: 0 Sabas Simon M.D. Start 08-Jan-2016 Active TraZODone HCl [...] Quantity: 17 Refills: 11 Sabas Simon M.D. * Start 10-Mar-2016 Active Orkambi 200-125 MG Oral Tablet * Refills: 0 Active Dexamethasone 4 MG Oral Tablet take 2 tabs for 5 days and 1 tab for 5 days then stop * Quantity: 15 Refills: 0 Sabas Simon M.D. * Start Active Flovent HFA 220 MCG/ACT Inhalation Aerosol INHALE ONE PUFF BY MOUTH TWO TIMES A DAY. * Quantity: 3 Refills: 3 Sabas Simon M.D. * Start 28-Jun-2011 Active 12 GM Inhaler Albuterol Sulfate (2.5 MG/3ML) 0.083% Inhalation Nebulization Solution USE 1 UNIT DOSE IN NEBULIZER EVERY 4 TO 6 HOURS NEEDED. (Dx: J44.9, E84.9) * Quantity: 1080 Refills: 3 Sabas Simon M.D. * Start Active Tobramycin 300 MG/5ML Inhalation Nebulization Solution USE ONE VIAL VIA NEBULIZER BY MOUTH TWICE A DAY/ ONE MONTH ON AND ONEMONTH OFF * Quantity: 280 Refills: 6 Sabas Simon M.D. Start Active Epiduo 0.1-2.5 % External Gel apply to acne areas daily * Quantity: 45 Refills: 0 Sabas Simon M.D. Start 17-Jul-2012 Active ALPRAZolam 0.5 MG Oral Tablet TAKE ONE TABLET BY MOUTH EVERY 4 TO 6 HOURS NEEDED * Quantity: 40 Refills: 0 Sabas Simon M.D. Start Active Hydrocodone-Acetaminophen 10-325 MG Oral Tablet TAKE 1 TABLET EVERY 4 TO 6 HOURS NEEDED FOR PAIN. * Quantity: 60 Refills: 0 Sabas Simon M.D. Start 24-Oct-2012 Active Allergies and Adverse Reactions Name [...] documented Immunization Name Dates Details Pneumo (Pneumovax) on: [...] Details Results not documented Plan of Care Name Dates Details Planned Observations Planned Goals not documented Planned Encounters Appointment; Provider: Cory Roberts M.D. On 01-Jul-2016 08:15 Interventions Provided Medication Changes* Hydrocodone-Acetaminophen 10-325 MG Oral Tablet - Renew Instructions Name Dates Details Instructions not documented Encounters Appointment; Sabas Simon M.D. Encounter Diagnosis: Problem [...] documented On 06-Mar-2015 13:45 Appointment; Pranav Sahu M.D.|F.A.C.S.|M.DAlex,CARTER|Chelsea,CARTER, Encounter Diagnosis: Problem not documented On 09-Dec-2014 10:00 Appointment; Flor Fischer D.O. Encounter Diagnosis: Problem not documented On 06-Dec-2014 11:05 Appointment; Sabas Simon M.D. Encounter Diagnosis: Problem not documented On 04-Nov-2014 16:00 Appointment; Liu Dennis D.O. Encounter Diagnosis: Problem not documented On 28-Oct-2014 10:00 Appointment; Sabas Simon M.D. Encounter Diagnosis: Problem not documented On 23-Sep-2014 13:00 Appointment; Pranav Sahu M.D.|F.A.C.S.|M.DAlex,CARTER|Chelsea,CARTER, Encounter Diagnosis: Problem not documented On 23-Sep-2014 10:30 Appointment; Pranav Sahu M.D.|F.A.C.S.|M.D.,CARTER|MPrieto,FACS, Encounter Diagnosis: Problem not documented On 16-Sep-2014 10:15 Appointment; Pranav Sahu M.D.|F.A.C.S.|M.D.,CARTER|MAlexDAlex,FACS, Encounter Diagnosis: Problem not documented On 04-Sep-2014 09:00 Appointment; Sabas Simon M.D. Encounter Diagnosis: Problem not documented On 19-Aug-2014 11:00 Appointment; Pranav Sahu M.D.|F.A.C.S.|M.DAlex,CARTER|MAlexDAlex,FACS, Encounter Diagnosis: Problem not documented On 15-Aug-2014 14:15 Appointment; Liu Dennis D.O. Encounter Diagnosis: Problem not documented On 13-Aug-2014 09:45 Appointment; Winsome Pollack A.P.RArmando Encounter Diagnosis: Problem not documented On 07-Aug-2014 15:00 Appointment; Sabas Simon M.D. Encounter Diagnosis: Problem not documented On 05-Aug-2014 16:00 Appointment; Deya Zaragoza A.P.R.N. Encounter Diagnosis: Problem not documented On 17-Jul-2014 15:00 Appointment; Joslyn Mar M.D. Encounter Diagnosis: Problem not documented On 21-Jun-2014 10:45"
--- OUTSIDE RECORDS SUMMARY | 2017-04-01 03:03 | XMS REPORT | Referral Summary ---
Author Author [facility], Cystic Fibrosis Adults Organization [facility], Cystic Fibrosis Adults Address Unknown Phone Unavailable Care Team Providers Care Clock Repairer Name Role Phone Alem Simon Primary Care Physician [phone] Encounter [facility] [id number] Date(s): 05/19/16 - 05/19/16 [facility], Cystic Fibrosis Adults [address], [place] [address] Discharge Diagnosis: Asthma without status asthmaticus (disorder) Discharge Diagnosis: Chronic pansinusitis Discharge Diagnosis: Pancreatic insufficiency Discharge Diagnosis: GERD (gastroesophageal reflux disease) Discharge Diagnosis: Vitamin deficiency (disorder) Discharge Disposition: 01-Home or Self Care Attending Physician: Jose Thacker MD Vital Signs Most recent to 1 oldest [Reference Range]: Temperature Oral 36.5 degC [35.8-37.3 degC] (05/19/16 1:39 PM) Peripheral Pulse 64 bpm Rate [60-100 bpm] (05/19/16 1:39 PM) Respiratory Rate 22 br/min [14-20 br/min] *HI* (05/19/16 1:39 PM) Blood Pressure 112/60 mmHg [90-140/60-90 mmHg] (05/19/16 1:39 PM) SpO2 100 % (05/19/16 1:39 PM) Problem List Condition Effective Dates Status Health Status Informant Acute Active pain(Confirmed) Anemia(Confirmed) Active patient At risk for Active infection(Confirmed) 1 Chronic Active depression(Confirmed ) Chronic Active diarrhea(Confirmed) Chronic sinusitis Active (disorder)(Confirmed ) Cystic fibrosis Active without meconium ileus (disorder)(Confirmed ) GERD Active (gastroesophageal reflux disease)(Confirmed) Generalized Active abdominal pain [...] (hives) Active clindamycin Hives/Skin Rash Severe Active divalproex sodium Active erythromycin Active Latex [...] units oral delayed release capsule See Instructions, 6 caps Oral TID with meals, and 2 caps oral with each snack x 3 snacks., # 14 bottles, 0 Refill(s) Start Date: 05/19/16 Status: Ordered Creon 24,000 units oral delayed release capsule See Instructions, Take 6 caps oral with meals and 4 caps oral with snacks., # 780 caps, 3 Refill(s), Pharmacy: [facility] Start Date: 11/05/15 Status: Ordered Creon 24,000 units oral delayed release capsule See Instructions, 6 caps Oral TID with each meal and 2 caps oral with each snack x 3 snacks., # 2,160 caps, 3 Refill(s), Pharmacy: [facility] Start Date: 05/19/16 Status: Ordered Effexor XR 150 mg oral capsule, extended release mg caps, Oral, Daily, 0 Refill(s) Start Date: 02/20/16 Status: Ordered famotidine 20 mg Start Date: 05/05/15 Status: Ordered Femara 2.5 mg oral tablet mg tabs, Oral, Daily, 0 Refill(s) Start Date: 11/26/15 Status: Ordered Flovent HFA 220 mcg/inh inhalation aerosol 2 puffs, Inhalation, BID, 0 Refill(s) Start Date: 02/24/15 Status: Ordered Geodon 20 mg oral capsule 20 mg 1 caps, Oral, Daily, # 60 caps, 0 Refill(s) Start Date: 05/19/16 Status: Ordered Miscellaneous DME DME Item Vita LC plus, See Instructions, # 1 Each, 11 Refill(s), Supply Start Date: 05/19/16 Status: Ordered naltrexone 20 mg, Daily Start Date: 04/02/15 Status: Ordered Nasonex 50 mcg/inh nasal spray sprays, Nasal, Daily, 0 Refill(s) Start Date: 02/20/16 Status: Ordered NexIUM 20 mg oral delayed release capsule 1 caps, Oral, BID, # 60 caps, 0 Refill(s), Pharmacy: [facility] , 1 caps Oral BID Start Date: 06/07/14 Status: Ordered NexIUM 20 mg oral delayed release capsule 20 mg 1 caps, Oral, BID, # 180 caps, 4 Refill(s), other reason (Rx) Start Date: 05/12/16 Status: Ordered [place] 10 mg-325 mg oral tablet tabs, Oral, q6hr, 0 Refill(s) Start Date: 02/20/16 Status: Ordered Paxil 20 mg oral tablet 20 mg 1 tabs, Oral, Daily, # 30 tabs, 0 Refill(s) Start Date: 05/19/16 Status: Ordered ProAir HFA 90 mcg/inh inhalation aerosol 2 puffs, Inhalation, q4hr, as needed for wheezing, # 8.5 g, 0 Refill(s) Start Date: 05/08/14 Status: Ordered Pulmozyme 2.5 mg/2.5 mL inhalation solution See Instructions, INHALE ONE AMPULE BY INHALATION ROUTE EVERY DAY VIA NEBULIZER , # 75 mL, 11 Refill(s), eRx: [facility], INHALE ONE AMPULE BY INHALATION ROUTE [...] Refill(s) Start Date: 02/20/16 Status: Ordered Results No data available for this section Immunizations Vaccine Date Refusal Reason tetanus/diphth/pertuss (Tdap) adult/adol 11/26/15 tetanus/diphth/pertuss (Tdap) adult/adol 10/02/14 pneumococcal 23-polyvalent vaccine 11/26/15 Procedures Procedure Date Related Diagnosis Body Site Nasal/sinus endoscopy, surgical with frontal 02/26/16 sinus exploration, with or without removal of tissue from frontal sinus Nasal/sinus endoscopy, surgical, with 02/26/16 maxillary antrostomy; with removal of tissue from maxillary sinus.. Nasal/sinus endoscopy, surgical; with control 02/26/16 of nasal hemorrhage Nasal/sinus endoscopy, surgical; with 02/26/16 ethmoidectomy, total (anterior and posterior) Submucous resection inferior turbinate, 02/26/16 partial or complete, any method.. Insertion Implantable Venous Access Port1 02/24/15 sinus surgery 2013 Port-A-Cath Removed 2012 Bronchoscopy2 01/05/08 Cholecystectomy Tonsillectomy 1auto-populated from documented surgical case 2For retained secretions and L UL atelectasis Social History Social History Type Response Smoking Status Never smoker Assessment and Plan Extracted from: Title: CF Clinic - Routine Author: Jose Thacker MD Date: 05/19/16 Assessment/Plan 1.Cystic fibrosis Continue current therapies. OK to try Orkambi again. Ordered: BD Bone Density DEXA Axial Skeleton Office Visit Level 4 Est 74194 2.Asthma without status asthmaticus (disorder) Ordered: Office Visit Level 4 Est 80834 3.Chronic pansinusitis Ordered: Office Visit Level 4 Est 84192 4.GERD (gastroesophageal reflux disease) Ordered: Office Visit Level 4 Est 28450 5.Pancreatic insufficiency Orkambi may help her digestion if she wants to give it another try. Samples of enzymes given today. She is also going to start Miralax once daily. Ordered: Office Visit Level 4 Est 57642 6.Vitamin deficiency (disorder) DEXA ordered. Orders: Durable Medical Equipment Rx, DME Item Vita LC plus, See Instructions , # 1 Each, 11 Refill(s), Supply pancrelipase, See Instructions, 6 caps Oral TID with meals, and 2 caps oral with each snack x 3 snacks., # 14 bottles, 0 Refill(s) pancrelipase, See Instructions, 6 caps Oral TID with each meal and 2 caps oral with each snack x 3 snacks., # 2,160 caps, 3 Refill(s), Pharmacy: [facility] Cystic Fibrosis Respiratory Culture Extracted from: Title: CF Nutrition Note Author: Constanza Pepper MS ,RD, LD Date: 05/19/16 A: Pt with recent admission for GI obstruction r/t running out of PERT. Pt previously taking Creon 24,000 (6 with meals, 4 with snacks). Pt taking 2 capsules of OTC MVI daily, 11/26/2015: Vit D Level 11, Ashley A 27.4, Vit E 1.7. wt 54.2kg 8% wt loss since 11/26/15 visit. D: Unintended wt loss r/t insufficient intake of PERT as evidenced by pt report of running out of Creon and 8% wt loss ~6mth I: Discussed with MD adjusting enzyme dose so as not to exceed max dose of 10, 000 units/kg/day. Recommended Creon 24 ( 6 with meals and 1-2 with snacks, max 22-23 capsules/day). CF Vitamin BID, provided [employer] MVI assistance program. Goals: BMI=22 M/E: Follow wt trends.
--- OUTSIDE RECORDS SUMMARY | 2017-04-01 03:03 | XMS REPORT | Summary of Care ---
Author Author Sabas Simon M.D. Organization Unknown Address [address], [place] [id number] Phone Unavailable Care Team Providers Care Youth Development Professional Name Role Phone Alfred Tran, Alem Unavailable [...] Refills: 99 Sabas Simon M.D.* Started 28-Jun-2011 ActiveEpiduo 0.1-2.5 % External Gel apply to acne areas daily * Quantity: 45 Refills: 3 Joslyn Mar M.D.* Started 17-Jul-2012 ActiveVitamin A 45222 UNIT Oral Capsule * Refills: 0 * Started 17-Jan-2013 ActiveCreon 17747 UNIT Oral Capsule Delayed Release Particles TAKE [...] Refills: 11 Sabas Simon M.D.* Started 21-Aug-2015 [id number] GM Bottle Ovidrel 250 MCG/0.5ML Subcutaneous Injectable INJECT SUBCUTANEOUSLY DIRECTED. * Refills: 0 Sabas Simon M.D.* Started 02-Oct-2015 ActiveSMZ-TMP DS 800-160 MG Oral Tablet TAKE 1 TABLET TWICE DAILY. * Quantity: 30 Refills: 1 Sabas Simon M.D.* Started 02-Oct-2015 ActiveAlbuterol Sulfate (2.5 MG/3ML) 0.083% Inhalation Nebulization Solution USE 1 UNIT DOSE IN NEBULIZER EVERY 4 TO 6 HOURS NEEDED. (Dx: 277.00) * Quantity: 360 Refills: 11 Sabas Simon M.D.* Started ActiveSulfamethoxazole-Trimethoprim 800-160 MG Oral Tablet Take one [...] Cholecystectomy Laparoscopic CBC w/ Auto Diff 7150 Ordered:12-Nov-2015 XRay CHEST-PA & LAT Ordered:05-Nov-2015 Immunization Name [...] Gestational age: 0.02-1 Weeks=5-50 mIU/mL1-2 Weeks=50-500 mIU/mL2-3 Zvrcd=929-0638 mIU/mL3-4 Segjc=004-86,000 mIU/mL4-5 Weeks=1,000-50,000 mIU/mL5- 6 Weeks=10,000-100,000 mIU/mL6-8 Weeks=15,000-200,000 mIU/mL2-3 months=10,000- 100,000 mIU/mL----- Plan of Care Planned Observations* Name Dates Details Planned Goals not documented Goal Planned Encounters* Appointment; Provider: Cory Roberts On 01-Jul-2016 08:15 * Appointment; Provider: Schedule Radiology On 19-Nov-2015 13:00 * Appointment; Provider: Sabas Simon On 12-Nov-2015 [...]
--- OUTSIDE RECORDS SUMMARY | 2017-04-01 03:04 | XMS REPORT | Summary of Care ---
Author Author Sabas Simon M.D. Unknown Address Unknown Phone Unavailable Care Team Providers Care Environmental Research Scientist Name Role Phone Alfred Tran, Alem Unavailable [...] (post-traumatic stress disorder) (309.81, F43.10) Status: Active UTI (urinary tract infection) (599.0, N39.0) Status: Active Chronic pain (338.29, G89.29) Status: Active Nausea (787.02, R11.0) Status: Active Medications Name Dates Details Pulmozyme 1 MG/ML Inhalation Solution USE 1 UNIT VIA NEBULIZER TWO TIMES DAILY Quantity: 2 Sabas Simon M.D. 09-Jul-2009 Active 2.5 ML Plas Cont (30 [...] Start 28-Jun-2011 Active 12 GM Inhaler Creon 37744 UNIT Oral Capsule Delayed Release Particles TAKE [...] 0 Sabas Simon M.D. Start 17-Jul-2012 Active Hydrocodone-Acetaminophen 10-325 MG Oral Tablet TAKE 1 TABLET EVERY 4 TO 6 HOURS NEEDED FOR PAIN. * Quantity: 60 Refills: 0 Sabas Simon M.D. Start 24-Oct-2012 Active Vitamin A 24270 UNIT Oral Capsule * Refills: 0 * Start 17-Jan-2013 Active Tobramycin 300 MG/5ML Inhalation Nebulization Solution USE ONE VIAL VIA NEBULIZER BY MOUTH TWICE A DAY/ ONE MONTH ON AND ONEMONTH OFF * Quantity: 280 Refills: 6 Sabas Simon M.D. Start Active Famotidine 20 MG Oral Tablet TAKE 1 TABLET TWICE DAILY. * Refills: 0 * Start 15-Aug-2014 Active Cranberry-Vitamin C 84-20 MG Oral Capsule * Refills: 0 Tyree Tran, CARTER, , , Dae * Start 15-Aug-2014 Active Ovidrel 250 MCG/0.5ML Subcutaneous Injectable INJECT SUBCUTANEOUSLY DIRECTED. * Refills: 0 Sabas Simon M.D. Start 02-Oct-2015 Active Effexor XR 150 MG [...] Vitamin D CAPS * Refills: 0 Active Orkambi 200-125 MG Oral Tablet * Refills: 0 Active QUEtiapine Fumarate 400 MG Oral Tablet TAKE 1 TABLET AT BEDTIME. * Quantity: 30 Refills: 11 Sabas Simon M.D. Start Active Gabapentin 300 MG Oral Capsule Take 1 twice daily * Quantity: 60 Refills: 0 Sabas Simon M.D. Start 17-Aug-2016 Active Ondansetron 4 MG Oral Tablet Dispersible DISSOLVE ONE TABLET(S) ON TONGUE EVERY 4 HOURS NEEDED * Quantity: 20 Refills: 0 Sabas Simon M.D. Start 13-Oct-2016 Active Metoclopramide HCl - 10 MG Oral Tablet Take one tablet QID * Quantity: 40 Refills: 0 Sabas Simon M.D. Start 13-Oct-2016 Active Prochlorperazine Maleate 10 MG Oral Tablet TAKE 1 TABLET Every 6 hours * Quantity: 30 Refills: 0 Alfred TranSabas Start 19-Oct-2016 Active ALPRAZolam 0.5 MG Oral Tablet TAKE ONE TABLET BY MOUTH EVERY 4 TO 6 HOURS NEEDED * Quantity: 40 Refills: 0 Alfred Tran, Sabas Ferrara * Start 24-Nov-2016 Active Sulfamethoxazole-Trimethoprim 800-160 MG Oral Tablet TAKE 1 TABLET BY MOUTH TWICE DAILY UNTIL FINISHED. * Quantity: 20 Refills: 0 Alfred Tran, Sabas Ferrara * Start 29-Dec-2016 Active Sulfamethoxazole-Trimethoprim 800-160 MG Oral Tablet TAKE 1 TABLET BY MOUTH TWICE DAILY UNTIL FINISHED. * Quantity: 20 Refills: 0 Alfred Tran, Sabas Ferrara * Start 07-Feb-2017 Active Allergies and Adverse Reactions Name Dates [...] Observations Planned Goals not documented Interventions Provided Medication Changes* Hydrocodone-Acetaminophen 10-325 MG Oral Tablet - Renew Instructions Name Dates Details Instructions not documented Encounters Appointment; Deya Zaragoza A.PAlexRArmando Encounter Diagnosis: Problem not documented On 07-Sep-2016 13:00 Appointment; Deya Zaragoza A.P.R.N. Encounter Diagnosis: Problem not documented On 12-Aug-2016 13:30 Appointment; Avery Hernandez M.D. Encounter Diagnosis: Problem not documented On 27-Jul-2016 07:54 Appointment; Cory Roberts M.D. Encounter Diagnosis: Problem [...]
--- OUTSIDE RECORDS SUMMARY | 2017-04-01 03:04 | XMS REPORT | Summary of Care ---
Author Author Sabas Simon M.D. Organization Unknown Address [address] [place], [place] [address] Phone Unavailable Care Team Providers Care Drop Wire Operator Name Role Phone Alfred Tran, Alem [...] Refills: 12 Sabas Simon M.D.* Started 28-Jun-2011 [id number] GM Inhaler Epiduo 0.1-2.5 % External Gel apply to acne areas daily * Quantity: 45 Refills: 3 Joslyn Mar M.D.* Started 17-Jul-2012 ActiveVitamin A 50809 UNIT Oral Capsule * Refills: 0 * Started 17-Jan-2013 ActiveCreon 96827 UNIT Oral Capsule Delayed Release Particles TAKE [...]
--- OUTSIDE RECORDS SUMMARY | 2017-04-01 03:04 | XMS REPORT | Continuity of Care Document ---
Author Author Karla Lieberman LPN Ambulatory Address Unknown Phone Unavailable Care Team Providers Care Supervisor Nut Processing Name Role Phone Sabas Simon PP Unavailable Sabas Simon RP Unavailable Payers Payer name Insurance type Covered republican ID Authorization(s) Unknown Problems Condition Effective Dates (start - stop) Clinical Status Unspecified sinusitis (chronic) - *Poor control Osteitis - *Chronic Headache - *Chronic CF (cystic fibrosis) - *Chronic Unspecified sinusitis (chronic) - *Chronic [...] Varicella without mention of complication - Chronic CHRONIC SINUSITIS NOS - ALLERGIC RHINITIS NOS - ASTHMA NOS - Family History Family Member Diagnosis Age At Onset Status Unknown Social History Social History Element Description Quantity Unknown Allergies, Adverse Reactions, Alerts Substance Reaction Severity Status DIVALPROEX SODIUM Unknown POTASSIUM CLAVULANATE Unknown ERYTHROMYCIN BASE Unknown SALMETEROL XINAFOATE Unknown AMOXICILLIN TRIHYDRATE Unknown ASPIRIN Unknown FLUTICASONE PROPIONATE Unknown CIPROFLOXACIN Unknown PENICILLINS Unknown AZITHROMYCIN Unknown PSEUDOEPHEDRINE HCL Unknown LEVOFLOXACIN Unknown CLINDAMYCIN Hives/Skin Rash moderate to severe CYPROHEPTADINE Hives Unknown Medications Medication Instructions Dosage Effective Dates (start - stop) Status albuterol sulfate 2.5 mg/3 mL (0.083 %) solution for nebulization inhale 1 vial by NEB four times daily - Active 1 capsule by mouth twice daily - Active Nasonex 50 mcg/actuation Foster spray 2 spray by intranasal route every [...] Active take 4000 units daily - Active gentamicin 40 mg/mL injection solution Mix 40mg in approx. 45ml nasal saline spray. Use 4 puffs each nostril bid. - Active Creon 24,000-76,000-120,000 unit capsule,delayed release [...] by oral route every day - Active doxycycline hyclate 100 mg capsule take 1 capsule (100MG) by oral route 2 times every day 100 MG - Active Medrol (Kirill) 4 mg tablets in a dose pack take by Oral route as directed in pack. 0 - Active Flovent HFA 110 mcg/actuation aerosol [...] 4 hours as needed 0 - Active Immunizations Vaccine Date Status Comments Unknown Results Test Name Date and Time Measure Units Reference Range Abnormal Flag Comments Panel Description: Wound Culture/Sensitivity-[facility] Aerobic Wound Culture 15:20:00 Source: Wound Collected: 11/30/13 00:01 Site: NOSE Received : 11/30/13 19:33 Order#: [id number] is the Site? : NOSEAerobic Wound Culture PRELIM 12/01/13 13:00 Staphylococcus aureus Large amountKEY FOR RESULTS: * - NEW RESULT - RESULT WAS MODIFIED AFTER FINAL STATUS SETPerform at [facility] [address] [facility] [address] Conventions Assistant Stephen Chris MD Panel Description: Wound Culture/Sensitivity-AMS Aerobic Wound Culture 15:20:00 Source: Wound Collected: 11/30/13 00:01 Site: NOSE Received : 11/30/13 19:33 Order#: [id number] is the Site? : NOSEAerobic Wound Culture PRELIM 12/02/13 10:04 Staphylococcus aureus Large amount S. aureus Antibiotic ZEE INT Clindamycin <=0.25 S Erythromycin <=0.25 S Oxacillin 0.5 S Tetracycline <=1 S Trimethoprim/Sulfa <=10 S Vancomycin 1 S S=SUSCEPTIBLE I=INTERMEDIATE R= RESISTANT S-DD=SUSCEPTIBLE, DOSE DEPENDENT KEY FOR RESULTS: * - NEW RESULT - RESULT WAS MODIFIED AFTER FINAL STATUS SETPerform at [facility] [address] [facility] [address] Conventions Assistant Stephen Chris MD Panel Description: Wound Culture/Sensitivity-AMS Aerobic Wound Culture 15:20:00 Source: Wound Collected: 11/30/13 00:01 Site: NOSE Received : 11/30/13 19:33 Order#: [id number] is the Site? : NOSEAerobic Wound Culture FINAL 12/03/13 11:45 Staphylococcus aureus Large amount S. aureus Antibiotic ZEE INT Clindamycin <= 0.25 S Erythromycin <=0.25 S Oxacillin 0.5 S Tetracycline <=1 S Trimethoprim/Sulfa <=10 S Vancomycin 1 S S=SUSCEPTIBLE I=INTERMEDIATE R=RESISTANT S-DD= SUSCEPTIBLE, DOSE DEPENDENT KEY FOR RESULTS: * - NEW RESULT - RESULT WAS MODIFIED AFTER FINAL STATUS SETPerform at [facility] Reference Lab [address] [facility] [address] Conventions Assistant Stephen Chris MD Vital Signs Date / Time: Height Weight Pulse Rate Blood Pressure Temperature /13:42:00 63.00 in 125.40 lbs 98/58 mm[Hg] 98.1 F Procedures Procedure Date Unknown Encounters Encounter Location Date Patient Visit [facility] Patient Visit [facility] Pulmonology Patient Visit [facility] ENT Patient Visit [facility] Patient Visit [facility] Patient Visit [facility] ASC Patient Visit [facility] Patient Visit [facility] Advance Directives Directive Effective Date Unknown
--- OUTSIDE RECORDS SUMMARY | 2017-04-01 03:04 | XMS REPORT | Summary of Care ---
Author Author Sabas Simon M.D. Organization Unknown Address [address], [place] [id number] Phone Unavailable Care Team Providers Care Event Marketing Coordinator Name Role Phone Alfred Tran, Alem Unavailable [...] Chronic sinusitis (473.9, J32.9) Status: Active Chronic sinusitis (473.9, J32.9) Status: Active Cystic fibrosis (277.00, E84.9) Status: Active Acute sinusitis (461.9, J01.90) Status: Active Chronic obstructive pulmonary disease (496, J44.9) Status: Active Cystic fibrosis (277.00, E84.9) Status: Active PTSD (post-traumatic stress disorder) (309.81, F43.10) Status: Active Medications Name Dates Details Pulmozyme 1 MG/ML Inhalation Solution USE 1 UNIT VIA NEBULIZER TWO TIMES DAILY Quantity: 2 Sabsa Simon M.D.* Started 09-Jul-2009 Active2.5 ML Plas Cont (30 Plas Conts) NexIUM 40 MG Oral Capsule Delayed Release TAKE ONE CAPSULE BY MOUTH DAILY * Quantity: 30 Refills: 13 Sabas Simon M.D.* Started 21-Jun-2008 ActiveProAir HFA 108 (90 Base) MCG/ACT Inhalation Aerosol Solution INHALE 1 - 2 PUFF BY INHALATION ROUTE EVERY 4 HOURS NEEDED * Quantity: 8.5 Refills: 12 Sabas Simon M.D.* Started 14-Apr-2010 ActiveVitamin D3 TABS * Refills: 0 ActiveVitamin E 100 UNIT Oral Capsule * Refills: 0 ActiveFlovent HFA 220 MCG/ACT Inhalation Aerosol INHALE ONE PUFF BY MOUTH TWO TIMES A DAY. * Quantity: 1 Refills: 11 Sabas Simon M.D.* Started 28-Jun-2011 Mkdbax64 GM Inhaler Creon 80605 UNIT Oral Capsule Delayed Release Particles TAKE [...] Sabas Simon M.D.* Started 24-Oct-2012 ActiveVitamin A 21153 UNIT Oral Capsule * Refills: 0 * Started 17-Jan-2013 ActiveTobramycin 300 MG/5ML Inhalation Nebulization Solution USE ONE VIAL VIA NEBULIZER BY MOUTH TWICE A DAY/ ONE MONTH ON AND ONEMONTH OFF * Quantity: 280 Refills: 0 Sabas Simon M.D.* Started ActiveSEROquel 400 MG Oral Tablet TAKE 1 TABLET AT BEDTIME. * Refills: 0 * Started ActiveFamotidine 20 MG Oral Tablet TAKE 1 TABLET TWICE DAILY. * Refills: 0 * Started 15-Aug-2014 ActiveCranberry-Vitamin C 84-20 MG Oral Capsule * Refills: 0 Dae Clements M.D., FACS, * Started 15-Aug-2014 ActiveOvidrel 250 MCG/0.5ML Subcutaneous Injectable INJECT SUBCUTANEOUSLY DIRECTED. * Refills: 0 Sabas Simon M.D.* Started 02-Oct-2015 ActiveEffexor XR 150 MG Oral Capsule Extended [...] Refills: 8 Sabas Simon M.D.* Started 01-Jul-2015 ActiveVitamin K TABS * Refills: 0 ActiveVitamin D CAPS * Refills: 0 ActiveMometasone Furoate 50 MCG/ACT Nasal Suspension USE 2 SPARYS IN EACH NOSTRIL DAILY AT BEDTIME * Quantity: 17 Refills: 11 Sabas Simon M.D.* Started 10-Mar-2016 ActiveOrkambi 200-125 MG Oral Tablet * Refills: 0 Active Allergies and Adverse [...] smoker Vital Signs Date Test Result Details 17-Mar-2016 16:15 BP Systolic 110 mm[Hg] Status: BP Diastolic 68 mm[Hg] Status: Heart Rate 73 /min Status: Height 63 in Status: Weight 125 lb Status: O2 SAT 100 % Status: Body Mass Index Calculated 22.14 kg/m2 Status: Body Surface Area Calculated 1.58 m2 Status: 17-Feb-2016 16:32 BP Systolic 102 mm[Hg] Status: BP Diastolic 66 mm[Hg] Status: Heart Rate 70 /min Status: Weight 126 lb Status: O2 SAT 99 % Status: Body Mass Index Calculated 22.32 kg/m2 Status: Body Surface Area Calculated 1.59 m2 Status: Results Date Description Value Details 17-Feb-2016 16:06 CT SINUSES Comments: Exam Date: 02/17/2016 15: 50Dictation Date: 02/17/2016 16:06 XC SINUSES (Better) Plan of Care Planned Observations* Name Dates Details Planned Goals not documented Goal Planned Encounters* Appointment; Provider: Cory Roberts On 01-Jul-2016 08:15 * Appointment; Provider: Sabas Simon On 20-Apr-2016 14:30 * Appointment; Provider: Schedule Radiology On 17-Feb-2016 16:00 * Appointment; Provider: Schedule Radiology On 05-Feb-2016 10:00 * Appointment; Provider: Schedule Radiology On 19-Nov-2015 [...] Simon Encounter Diagnosis: Problem not documented On 17-Mar-2016 16:15 Appointment; Sabas Simon Encounter Diagnosis: Problem not [...]
--- OUTSIDE RECORDS SUMMARY | 2017-04-01 03:04 | XMS REPORT | Referral Summary ---
Author Author [facility] Organization [facility] Address Unknown Phone Unavailable Care Team Providers Care Salesperson Furniture Name Role Phone Alem Simon Primary Care Physician [phone] Encounter Date(s): 02/20/16 - 02/20/16 [facility] [address] [place], [place] [address] Discharge Disposition: 01-Home or Self Care Attending [...] snacks., # 780 caps, 3 Refill(s), Pharmacy: [facility] Start Date: 11/05/15 Status: Ordered Effexor [...] BID, # 60 caps, 0 Refill(s), Pharmacy: [facility] , 1 caps Oral BID Start Date: 06/07/14 Status: Ordered [place] 10 mg-325 mg oral tablet tabs, Oral, q6hr, 0 Refill(s) Start Date: 02/20/16 Status: Ordered Orkambi 200 mg-125 mg oral tablet 2 tabs, Oral, q12hr, # 336 tabs, 11 Refill(s), Pharmacy: [facility] Start Date: 02/18/16 Status: Ordered Ovidrel [...] , # 75 mL, 11 Refill(s), eRx: [facility], INHALE ONE AMPULE BY INHALATION [...]
--- OUTSIDE RECORDS SUMMARY | 2017-04-01 03:05 | XMS REPORT | Summary of Care ---
Author Author Sabas Simon M.D. Organization Unknown Address [address], [place] [address] Phone Unavailable Care Team Providers Care Handicrafts Teacher Name Role Phone Alfred Tran, Alem Unavailable [...] Refills: 11 Sabas Simon M.D.* Started 28-Jun-2011 Agfdcj18 GM Inhaler Creon 10681 UNIT Oral Capsule Delayed Release Particles TAKE [...] Joslyn Mar M.D.* Started 17-Jul-2012 ActiveVitamin A 28288 UNIT Oral Capsule * Refills: 0 * [...] Dae Clements M.D., FACS, * Started 15-Aug-2014 ActiveHydrocodone-Acetaminophen 10-325 MG Oral Tablet TAKE 1 TABLET EVERY 4 TO 6 HOURS NEEDED FOR PAIN. * Quantity: 60 Refills: 0 Sabas Simon M.D.* Started 24-Oct-2012 ActiveCrinone 8 % Vaginal Gel Insert one applicator vaginally every other day for 6 doses. * Quantity: 6 Refills: 0 Cory Roberts M.D.* Started 07-Jul-2015 ActiveOvidrel 250 MCG/0.5ML Subcutaneous Injectable INJECT SUBCUTANEOUSLY DIRECTED. * Refills: 0 Sabas Simon M.D.* Started 02-Oct-2015 ActiveNasonex 50 MCG/ACT Nasal Suspension * Refills: 0 Sabas Simon M.D.* Started 08-Jan-2016 ActiveEffexor XR 150 MG Oral Capsule Extended Release 24 Hour * Refills: 0 Sabas Simon M.D.* Started 08-Jan-2016 ActiveWellbutrin 75 MG Oral Tablet TAKE 1 TABLET TWICE [...] Refills: 3 Sabas Simon M.D.* Started 08-Jan-2016 Active Allergies and Adverse Reactions Name Dates [...] History of Cholecystectomy Laparoscopic BETA HCG 3500 Ordered:08-Jan-2016 Immunization Name Dates Details Pneumo (Pneumovax) Administered [...] smoker Vital Signs Date Test Result Details 08-Jan-2016 11:59 BP Systolic 102 mm[Hg] Status: BP Diastolic 54 mm[Hg] Status: Heart Rate 91 /min Status: Weight 127 lb Status: O2 SAT 98 % Status: Body Mass Index Calculated 22.5 kg/m2 Status: Body Surface Area Calculated 1.59 m2 Status: 11-Dec-2015 11:44 BP Systolic 108 mm[Hg] Status: BP Diastolic 72 mm[Hg] Status: Temperature 98 f Status: Heart Rate 105 /min Status: Respiration Rate 20 /min Status: Height 63 in Status: Weight 130 lb Status: O2 SAT 99 % Status: Body Mass Index Calculated 23.03 kg/m2 Status: Body Surface Area Calculated 1.61 m2 Status: Results Date Description Value Details 10-Dec-2015 13:54 TAYLOR INJECTION Comments: Exam Date: [...] 08:15 * Appointment; Provider: Sabas Simon On 12-Feb-2016 13:30 * Appointment; Provider: Schedule Radiology On 19-Nov-2015 [...]
--- OUTSIDE RECORDS SUMMARY | 2017-04-01 03:05 | XMS REPORT | Summary of Care ---
Author Author Sabas Simon M.D. Organization Unknown Address [address] [place], [place] [id number] Phone Unavailable Care Team Providers Care Print Line Tailer Name Role Phone Alfred Tran, Alem Unavailable [...] Staphylococcus aureus infection (041.11, A49.01) Status: Active Medications Name Dates Details Pulmozyme [...] Refills: 12 Sabas Simon M.D.* Started 28-Jun-2011 Khwwcp16 GM Inhaler Creon 42139 UNIT Oral Capsule Delayed Release Particles TAKE [...] Active3 ML Plas Cont (60 Plas Conts) Epiduo 0.1-2.5 % External Gel apply to acne areas daily * Quantity: 45 Refills: 3 Joslyn Mar M.D.* Started 17-Jul-2012 ActiveVitamin A 57408 UNIT Oral Capsule * Refills: 0 * [...] Refills: 1 Flor Fischer D.O.* Started 06-Dec-2014 ActiveZyvox 600 MG Oral Tablet TAKE ONE TABLET BY MOUTH EVERY 12 HOURS FOR 10 DAYS * Quantity: 20 Refills: 0 Sabas Simon M.D.* Started 16-Jan-2015 Ended 26-Jan-2015 ActiveSulfamethoxazole-TMP DS 800-160 MG Oral Tablet TAKE 1 TABLET TWICE DAILY UNTIL FINISHED. * Quantity: 28 Refills: 0 Sabas Simon M.D.* Started 17-Jan-2015 Ended 31-Jan-2015 ActiveHydrocodone-Acetaminophen 10-325 MG Oral Tablet TAKE 1 [...] to report Results Date Description Value Details 17-Jan-2015 09:41 SPUTUM CULTURE [address] [facility] Microbiology results (Better) Comments: GRAM STAIN DIRECTMany (4 +) WBC's, Many (4+) Gram Positive cocci, Moderate (3+) Gram Positive bacilli, Moderate (3+) Yeast.SPECIMEN QUALITY>25 WBC/lpf, >10 EPI/lpf.CULTURE RESULT: Heavy (4+) growth, Staphylococcus aureus and yeast sp.RESULT:Staphylococcus aureus (Isolate 1)Antibiotic Sensitivity Isolate 1------ ---------Augmentin <=4/2 SCiprofloxacin <=1 SClindamycin <=0.5 SDaptomycin <=0.5 SErythromycin <=0.5 SLevofloxacin <=1 SOxacillin 0.5 SPenicillin >8 BLACRifampin <=1 STetracycline <=4 STrimeth/Sulfa <=0.5/9.5 SVancomycin 1 SS=Sensitive, I=Intermediate, R=Resistant, ESBL=Extended spectrum beta -lactamase enzymes produced, Turner=Beta-lactamase positive, IB=Inducible Beta- lactamase enzymes known to be present.----- Plan of Care Planned Observations* Name Dates [...]
--- OUTSIDE RECORDS SUMMARY | 2017-04-01 03:05 | XMS REPORT | Summary of Care ---
Author Author Sabas Simon M.D. Organization Unknown Address [address] [place], [place] [address] Phone Unavailable Care Team Providers Care Tribal Council Member Name Role Phone Alfred Tran, Alem Unavailable [...] Port-a-cath in place (V45.89, Z95.828) Status: Active Medications Name Dates Details Pulmozyme [...] Refills: 11 Sabas Simon M.D.* Started 28-Jun-2011 Rowhpc86 GM Inhaler Epiduo 0.1-2.5 % External Gel apply to acne areas daily * Quantity: 45 Refills: 3 Joslyn Mar M.D.* Started 17-Jul-2012 ActiveVitamin A 78673 UNIT Oral Capsule * Refills: 0 * Started 17-Jan-2013 ActiveCreon 16191 UNIT Oral Capsule Delayed Release Particles TAKE [...] DAILY * Quantity: 1 Refills: 11 Sabas Simno M.D.* Started 21-Aug-2015 Yamscb73 GM Bottle Ovidrel 250 MCG/0.5ML Subcutaneous Injectable INJECT SUBCUTANEOUSLY DIRECTED. * Refills: 0 Sabas Simon M.D.* Started 02-Oct-2015 ActiveAlbuterol Sulfate (2.5 MG/3ML) 0.083% Inhalation Nebulization Solution USE 1 UNIT DOSE IN NEBULIZER EVERY 4 TO 6 HOURS NEEDED. (Dx: 277.00) * Quantity: 360 Refills: 11 Sabas Simon M.D.* Started ActiveSMZ-TMP DS 800-160 MG Oral Tablet TAKE ONE TABLET BY MOUTH TWICE A DAY UNTIL ALL ARE TAKEN * Quantity: 30 Refills: 0 Sabas Simon M.D.* Started 02-Dec-2015 Active Allergies and Adverse Reactions Name Dates [...] History of Tonsillectomy History of Cholecystectomy Laparoscopic ERYTHROCYTE SED RATE 7800 Ordered:09-Dec-2015 C REACTIVE PROTEIN, CRP 2030 Ordered:09-Dec-2015 CBC w/ Auto Diff 7150 Ordered:09-Dec-2015 XRay CHEST-PA & LAT Ordered:09-Dec-2015 Immunization Name Dates Details Pneumo (Pneumovax) Administered [...] smoker Vital Signs Date Test Result Details 02-Dec-2015 14:06 BP Systolic 94 mm[Hg] Status: [...] (Abnormal) Range: 0-10 02-Dec-2015 11:10 URINE CULTURE [id number] Comments: [facility] performed at[email or web address], [address] [place] [address], [phone], Knitter Hand: Augustus Bergeron D.O., MPHQuest Collection Date/Time: [id number] Results Received Date/Time: [id number] Reported Date/Time: [id number] performed at: [email or web address], [address] [place] [address], [phone], Knitter Hand: Augustus Bergeron D.O., MPHQuest Collection Date/Time: [id number] Results Received Date/Time: [id number] Reported Date/Time: [id number] CULTURE, URINE, ROUTINE SEE NOTE (Better) Comments: CULTURE, URINE, ROUTINE MICRO NUMBER: [id number] TEST STATUS: FINAL SPECIMEN SOURCE : URINE [...] (Better) 03-Dec-2015 17:20 Vitamin A and E [id number] Comments: ORDER IN BOOK UNDER NOVEMBERTesting performed at: [] Lab[address], [address], , Knitter Hand: Augustus Pelletier MD VITAMIN A, SERUM 26 ug/dL (Better) Range: 18-77 VITAMIN E(ALPHA TOCOPHEROL) 1.2 mg/L (Below low threshold) Range: 4.6- 17.8 09-Dec-2015 09:10 BETA HCG 3500 BETA HCG <2 mIU/mL (Better) Range: 0-5 Comments: Gestational age: 0.02-1 Weeks=5-50 mIU/mL1-2 Weeks=50-500 mIU/mL2-3 Zfzxb=754-4173 mIU/mL3-4 Iowjb=326-54,000 mIU/mL4-5 Weeks=1,000-50,000 mIU/mL5- 6 Weeks=10,000-100,000 mIU/mL6-8 Weeks=15,000-200,000 mIU/mL2-3 months=10,000- 100,000 mIU/mL----- 10-Dec-2015 13:54 TAYLOR INJECTION Comments: Exam Date: 12/10/2015 13: 10Dictation Date: 12/10/2015 13:54 XF TAYLOR INJECTION (Better) Plan of Care Planned Observations* Name Dates Details Planned Goals not documented Goal Planned Encounters* Appointment; Provider: Cory Roberts On 01-Jul-2016 08:15 * Appointment; Provider: Sabas Simon On 08-Jan-2016 11:45 * Appointment; Provider: Sabas Simon On 11-Dec-2015 13:45 * Appointment; Provider: Rima Bruno On 19-Nov-2015 13:00 * Appointment; Provider: Winsome [...]
--- OUTSIDE RECORDS SUMMARY | 2017-04-01 03:05 | XMS REPORT | Referral Summary ---
Author Author [facility] Organization [facility] Address Unknown Phone Unavailable Care Team Providers Care Computer Systems Technology Instructor Name Role Phone Alem Simon Primary Care Physician [phone] Encounter [facility] [id number] Date(s): 01/28/16 - 01/28/16 [facility] [address] [place], [place] [address] Discharge Disposition: 01-Home or Self Care Attending Physician: Nate Grady MD Admitting Physician: Nate Grady MD Referring Physician: Sabas Simon MD Vital Signs No data available for [...] snacks., # 780 caps, 3 Refill(s), Pharmacy: [facility] Start Date: 11/05/15 Status: Ordered [...] BID, # 60 caps, 0 Refill(s), Pharmacy: [facility] , 1 caps Oral BID [...] , # 75 mL, 11 Refill(s), eRx: [facility], INHALE ONE AMPULE BY INHALATION [...]
--- OUTSIDE RECORDS SUMMARY | 2017-04-01 03:06 | XMS REPORT | Summary of Care ---
Author Author Sabas Simon M.D. Organization Unknown Address [address] [place], [place] [id number] Phone Unavailable Care Team Providers Care Retirement Village Manager Name Role Phone Alfred Tran, Alem Unavailable [...] DAY. * Quantity: 12 Refills: 99 Sabas Siomn M.D.* Started 28-Jun-2011 ActiveNasonex 50 MCG/ACT Nasal Suspension USE 2 SPRAYS IN EACH NOSTRIL ONCE DAILY * Quantity: 1 Refills: 12 Sabas Simon M.D.* Started 28-Jun-2011 Uljzfr86 GM Inhaler Epiduo 0.1-2.5 % External Gel apply to acne areas daily * Quantity: 45 Refills: 3 Joslyn Mar M.D.* Started 17-Jul-2012 ActiveVitamin A 45068 UNIT Oral Capsule * Refills: 0 * Started 17-Jan-2013 ActiveCreon 24964 UNIT Oral Capsule Delayed Release Particles TAKE [...] 277.00) * Quantity: 2 Refills: 5 Sabas Smion M.D.* Started Active3 ML Plas Cont (60 [...] Refills: 0 Sabas Simon M.D.* Started 24-Oct-2012 ActiveBusPIRone HCl - 15 MG Oral Tablet Take one tablet three times daily * Refills: 0 Sabas Simon M.D.* Started 06-Mar-2015 ActiveNaltrexone HCl - 50 MG Oral Tablet TAKE 300 MG Twice daily * Refills: 0 Sabas Simon M.D.* Started 06-Mar-2015 Active Allergies and Adverse Reactions Name Dates [...] smoker Vital Signs Date Test Result Details 06-Mar-2015 14:12 BP Systolic 108 mm[Hg] Status: BP Diastolic 66 mm[Hg] Status: Heart Rate 79 /min Status: Weight 134 lb Status: Height 63 in Status: O2 SAT 100 % Status: Body Mass Index Calculated 23.74 kg/m2 Status: Body Surface Area Calculated 1.63 m2 Status: Results Date Description Value Details 03-Mar-2015 15:24 RENAL PROFILE 1240 SODIUM 138 mmol/L (Better) Range: 133-144 POTASSIUM 4.1 mmol/L (Better) Range: 3.5-5.1 CHLORIDE 100 mmol/L (Better) Range: 98-110 CARBON DIOXIDE 27.9 mmol/L (Better) Range: 23.0-33.0 ANION GAP 10 mmol/L (Better) Range: 6-16 BUN 7 mg/dL (Better) Range: 7-18 CREATININE, SERUM 0.76 mg/dL (Better) Range: 0.43-1.13 EST GFR, >60 ml/min (Better) Range: >60 EST GFR, NON-AFR TAJIK >60 ml/min (Better) Range: >60 Comments: EST GFR is reported in ml/min per 1.73 m2 of body surface area. For -Mauritanian, please multiple result by 1.2.----- BUN:CREATININE RATIO 9 (Better) GLUCOSE 95 mg/dL (Better) Range: 70-100 ALBUMIN 3.7 g/dL (Better) Range: 3.4-5.0 PHOSPHORUS 3.1 mg/dL (Better) Range: 2.5-4.9 CALCIUM 8.7 mg/dL (Better) Range: 8.5-10.1 16:34 VANCOMYCIN 3016 Comments: Specimen checked and verified a third time. ED VANCOMYCIN 0.0 ng/mL (Better) Range: 0.0-50.0 Comments: Result called to Kenna by Lorna Ordaz on 03/03/2015 at 4:08 PMVerified by Repeat AnalysisTROUGH RANGE: 5-10 ng/mLA wider trough reference range of 5-20 may be appropriate in some clinical situations.----- Plan of Care Planned Observations* Name Dates Details Planned Goals not documented Goal Planned Encounters* Appointment; Provider: Sabas Simon On 10:45 * Appointment; Provider: Pranav Sahu On 10-Dec-2014 [...]
--- OUTSIDE RECORDS SUMMARY | 2017-04-01 03:06 | XMS REPORT | Referral Summary ---
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) Discharge Diagnosis: Pancreatic insufficiency Discharge Diagnosis: Chronic sinusitis (disorder) Discharge Disposition: 01-Home or Self Care Attending Physician: Matilde Thurston MD Vital Signs Most recent to 1 oldest [Reference Range]: Temperature Oral 36.5 degC [35.8-37.3 degC] (02/18/16 1:43 PM) Peripheral Pulse 76 bpm Rate [60-100 bpm] (02/18/16 1:43 PM) Respiratory Rate 20 br/min [14-20 br/min] (02/18/16 1:43 PM) Blood Pressure 102/58 mmHg [90-140/60-90 mmHg] (02/18/16 1:43 PM) SpO2 96 % (02/18/16 1:43 PM) Problem List Condition Effective Dates Status [...] snacks., # 780 caps, 3 Refill(s), Pharmacy: [facility] Start Date: 11/05/15 Status: Ordered famotidine [...] BID, # 60 caps, 0 Refill(s), Pharmacy: [facility] , 1 caps Oral BID Start Date: 06/07/14 Status: Ordered Orkambi 200 mg-125 mg oral tablet 2 tabs, Oral, q12hr, # 336 tabs, 11 Refill(s), Pharmacy: [facility] Start Date: 02/18/16 Status: Ordered Ovidrel [...] , # 75 mL, 11 Refill(s), eRx: [facility], INHALE ONE AMPULE BY INHALATION ROUTE [...]
--- OUTSIDE RECORDS SUMMARY | 2017-04-01 03:06 | XMS REPORT ---
Author Author GENERATED, SYSTEM Organization Unknown Address Unknown Phone Unavailable Care Team Providers Care Feed Mill Tender Name Role Phone MD INGA, MANI PP [phone] Reason For Visit Reason for Visit from 05/12/2016 6:10 PM:* Pt Stated Reason for Adm : Invanz Chief Complaint E84.9 J32.4,INVANZ GM DLY CHEST XRAY PA/LAT,CBC MANAUAL DIFF CMP Social History Functional Status Functional Status from 05/12/2016 6:10 PM:* LOC : Alert * Oriented To : Person,Place,Time,Event Vital Signs Hospital Vital Signs from 05/12/2016 6:10 PM:* Weight : 118/ lbs,oz * Height : 5/3.75 ft,in Hospital Vital Signs from 05/12/2016 2:30 PM:* Height : 5/3.75 ft,in * Temperature : 99.6 F * Pulse : 63 * Respirations : 20 * BP : 111/80 Results Chemistry from 05/13/2016 5:10 AMSODIUM 134 MMOL/L L (136-145 MMOL/L) POTASSIUM 4.2 MMOL/L (3.5-5.1 MMOL/L) CHLORIDE 97 MMOL/L L (98-107 MMOL/L) TCO2 27.6 MMOL/L (21.0-32.0 MMOL/L) *ANION GAP 9.4 MMOL/L (8.0-16.0 MMOL/L) BUN 16 MG/DL (7-18 MG/DL) CREATININE 0.99 MG/DL (0.55-1.02 MG/DL) *BUN/CREATININE RATIO 16.2 (9.1-17.0 ) GLUCOSE 128 MG/DL H (65-99 MG/DL) *GFR EST NON AFR NAMIBIAN 75 ML/MIN *GFRA EST AFR AMER 87 [...] U/L) LACTIC ACID 1.6 mmol/L (0.9-1.7 mmol/L) Chemistry from 05/12/2016 2:55 PMSODIUM 135 MMOL/L L (136-145 MMOL/L) POTASSIUM 3.8 MMOL/L (3.5-5.1 MMOL/L) CHLORIDE 98 MMOL/L (98-107 MMOL/L) TCO2 28.3 MMOL/L (21.0-32.0 MMOL/L) *ANION GAP 8.7 MMOL/L (8.0-16.0 MMOL/L) BUN 13 MG/DL (7-18 MG/DL) CREATININE 1.11 MG/DL H (0.55-1.02 MG/DL) *BUN/CREATININE RATIO 11.7 (9.1-17.0 ) GLUCOSE 141 MG/DL H (65-99 MG/DL) *GFR EST NON AFR NAMIBIAN 65 ML/MIN *GFRA EST AFR AMER 76 ML/MIN CALCIUM 9.1 MG/DL (8.5-10.1 MG/DL) BILIRUBIN TOTAL 1.50 MG/DL H (0.20-1.00 MG/DL) TOTAL PROTEIN 7.3 GM/DL (6.4-8.2 GM/DL) ALBUMIN 3.6 GM/DL (3.4-5.0 GM/DL) *GLOBULIN 3.7 GM/DL H (2.3-3.5 GM/DL) *A/G RATIO 1.0 MG/DL L (1.5-2.2 MG/DL) ALK PHOS 137 U/L H (46-116 U/L) ALT (SGPT) 62 U/L (16-63 U/L) AST (SGOT) 18 U/L (15-37 U/L) Hematology from 05/13/2016 5:10 AMWBC 17.8 X10e3/UL [...] X10e3/UL) *ABSOLUTE BASOPHILS 0.10 X10e3/UL (0.00-0.20 X10e3/UL) Hematology from 05/12/2016 2:55 PMWBC 19.3 X10e3/UL H (3.6-11.2 X10e3/UL) RBC 5.28 X10e6/UL H (3.63-4.92 X10e6/UL) HEMOGLOBIN 14.4 G/DL H (11.0-14.3 G/DL) HEMATOCRIT 45.3 % H (31.2-41.9 %) *MCV 85.9 FL (79.0-98.0 FL) *MCH 27.2 PG (27.0-33.0 PG) *MCHC 31.7 G/DL L (32.0-36.0 G/DL) *RDW 13.2 % (12.3-17.0 %) PLATELET 256 X10e3/UL (159-386 X10e3/UL) *MPV 8.2 FL (7.4-10.4 FL) *MANUAL DIFF PERFORMED SEGS 80.0 % *BANDS 0.0 % *LYMPHOCYTES 13.0 % *MONOCYTES 6.0 % *EOSINOPHILS 1.0 % *BASOPHILS 0.0 % *ABSOLUTE NEUTROPHILS 15.44 X10e3/UL H (1.80-7.80 X10e3/UL) *ABSOLUTE LYMPHOCYTES 2.51 X10e3/UL (1.00-3.00 X10e3/UL) *ABSOLUTE MONOCYTES 1.16 X10e3/UL H (0.30-1.00 X10e3/UL) *ABSOLUTE EOSINOPHILS 0.19 X10e3/UL (0.00-0.50 X10e3/UL) *ABSOLUTE BASOPHILS 0.00 X10e3/UL (0.00-0.20 X10e3/UL) Urinalysis from 05/13/2016 6:35 [...] ACID SARAH FEW /HPF A (NEGATIVE /HPF) Microbiology from 05/13/2016 6:35 AM* CULTURE URINE Specimen Number: [id number] Sample Collection Date/Time: 05/13/2016 6:35 AM Specimen Source: Urine Clean Catch CULTURE URINE: No growth at 48 hrs DX Radiology from 05/12/2016 3:54 PMCHEST 2 VIEWS History: CF EXACERBATION, SINUSITIS. Technique: 2 VIEW CHEST Priors: Chest x-ray 12/02/2015 Findings: The heart size and pulmonary vasculature are within normal limits. There has been development of subtle infiltrates within the right upper lobe and lingula, suspicious for pneumonia. No significant pleural effusion or pneumothorax is seen. A right internal jugular Port-A-Cath is in place. The left subclavian Port-A-Cath has been removed. There is subtle interstitial prominence, consistent with the patient's known cystic fibrosis Impression: Subtle interstitial prominence, consistent with patient's known cystic fibrosis with interval development of mild right upper lobe and lingular infiltrates, suspicious for pneumonia. Electronically signed by: Stephanie Reid MD Dictated: 05/12/2016 16:00 CT Scan from 05/13/2016 6:57 AMCT ABD/PELVIS [...] 2014 10:40 AM * Completed Procedure Code: 53488 Procedure Name: not valued, on 12/10/2014 12: 00 AM * Completed Procedure Code: 14774 Procedure Name: not valued, on 12/10/2014 12: 00 AM * Completed Laparoscopic Cholecystectomy, by MD BREANNE OCONNOR, on 08/20/2014 10:45 AM * Completed Procedure Code: 71665 Procedure Name: not valued, on 08/20/2014 12: [...]
--- OUTSIDE RECORDS SUMMARY | 2017-04-01 03:06 | XMS REPORT ---
Author Author GENERATED, SYSTEM Organization Unknown Address Unknown Phone Unavailable Care Team Providers Care Picture Framer Name Role Phone MD INGA, [facility] [phone] Reason For Visit Chief Complaint ABDOMINAL PAIN Social History Functional Status Vital Signs Results Chemistry from 10/17/2016 3:40 AMSODIUM 139 MMOL/L (136-145 MMOL/L) POTASSIUM 3.7 MMOL/L (3.5-5.1 MMOL/L) CHLORIDE 103 MMOL/L (98-107 MMOL/L) TCO2 27.0 MMOL/L (21.0-32.0 MMOL/L) *ANION GAP 9.0 MMOL/L (8.0-16.0 MMOL/L) BUN 5 MG/DL L (7-18 MG/DL) CREATININE 1.14 MG/DL H (0.55-1.02 MG/DL) *BUN/CREATININE RATIO 4.4 L (9.1-17.0 ) GLUCOSE 121 MG/DL H (65-99 MG/DL) *GFR EST NON AFR TAIWANESE 63 ML/MIN *GFR EST AFR AMER 73 ML/MIN CALCIUM 8.6 MG/DL (8.5-10.1 MG/DL) BILIRUBIN TOTAL 0.60 MG/DL (0.20-1.00 MG/DL) TOTAL PROTEIN 7.3 GM/DL (6.4-8.2 GM/DL) ALBUMIN 3.5 GM/DL (3.4-5.0 GM/DL) *GLOBULIN 3.8 GM/DL H (2.3-3.5 GM/DL) *A/G RATIO 0.9 MG/DL L (1.5-2.2 MG/DL) ALK PHOS 136 U/L H (46-116 U/L) ALT (SGPT) 27 U/L (16-63 U/L) AST (SGOT) 20 U/L (15-37 U/L) AMYLASE 23 U/L L (25-115 U/L) LIPASE 32 U/L L (73-393 U/L) TEST NEGATIVE (NEGATIVE ) Hematology from 10/17/2016 3:40 AMWBC 12.8 X10e3/UL H (3.6-11.2 X10e3/UL) RBC 4.50 X10e6/UL (3.63-4.92 X10e6/UL) HEMOGLOBIN 12.6 G/DL (11.0-14.3 G/DL) HEMATOCRIT 37.7 % (31.2-41.9 %) *MCV 83.8 FL (79.0-98.0 FL) *MCH 27.9 PG (27.0-33.0 PG) *MCHC 33.3 G/DL (32.0-36.0 G/DL) *RDW 13.5 % (12.3-17.0 %) *RDWSD 40.3 (37.1-47.8 ) PLATELET 254 X10e3/UL (159-386 X10e3/UL) *MPV 8.0 FL (7.4-10.4 FL) AUTOMATED DIFF PERFORMED SEGS 62.8 % *LYMPHOCYTES 25.3 % *MONOCYTES 6.5 % *EOSINOPHILS 4.3 % *BASOPHILS 1.1 % *ABSOLUTE NEUTROPHILS 8.00 X10e3/UL H (1.80-7.80 X10e3/UL) *ABSOLUTE LYMPHOCYTES 3.20 X10e3/UL H (1.00-3.00 X10e3/UL) *ABSOLUTE MONOCYTES 0.80 X10e3/UL (0.30-1.00 X10e3/UL) *ABSOLUTE EOSINOPHILS 0.60 X10e3/UL H (0.00-0.50 X10e3/UL) *ABSOLUTE BASOPHILS 0.10 X10e3/UL (0.00-0.20 X10e3/UL) Urinalysis from 10/17/2016 4:25 AM*URINE COLOR YELLOW (STRAW/YELL/DK YELL ) *URINE APPEARANCE CLEAR (CLEAR ) URINE PH 7.0 (5.0-8.0 ) URINE SPECIFIC GRAVITY 1.010 (<=1.005->=1.030 ) *URINE GLUCOSE NEGATIVE MG/DL (NEGATIVE MG/DL) *URINE BILIRUBIN NEGATIVE (NEGATIVE ) *URINE KETONES NEGATIVE MG/DL (NEGATIVE MG/DL) *URINE BLOOD NEGATIVE (NEGATIVE ) *URINE PROTEIN NEGATIVE MG/DL (NEGATIVE MG/DL) *URINE UROBILINOGEN 0.2 EU/DL (0.2-1.0 EU/DL) *URINE NITRITES POSITIVE A (NEGATIVE ) *URINE LEUKOCYTES SMALL A (NEGATIVE ) *MICROSCOPIC EXAM PERFORMED PERFORMED *WBC URINE 5-10 /HPF A (0-5 /HPF) *RBC URINE 1-5 /HPF A (0-1 /HPF) *SQUAMOUS EP. CELLS MODERATE /LPF A (NEG-FEW /LPF) *BACTERIA MANY /HPF A (NEGATIVE /HPF) Coagulation from 10/17/2016 3:40 AM*PROTHROMBIN TIME 11.7 SECONDS H (9.4-11.5 SECONDS) *INR 1.1 (0.9-1.1 ) PARTIAL THROMBOPLASTIN TIME 26.2 SECONDS (23.0-31.0 SECONDS) CT Scan from 10/17/2016 4:43 AMCT ABD/PELVIS W/CONTRAST History: abd pain . 31 y/o female c/o intermittent abd pain starting a week ago that is worse tonight. Pain radiates to lower back. Pt states nausea and baseline BMs, but denies fever. Pt has irregular menstral periods with the last one being this month. Pt has a Hx of similar symptoms. She was Dx with a UTI last week, which she says is resolved. Technique: Post contrast images were performed after the administration of 95 milliliters of Isovue intravenous contrast. Priors: CT of abdomen pelvis dated 05/13/2016 Findings: Abdomen Lung bases: Clear. A small hiatal hernia is noted. Liver: Normal density. No definable mass. Spleen: Normal. Pancreas: The pancreas is largely fatty replaced without significant residual pancreatic tissue noted, similar to the prior study. Gallbladder and biliary tract: The gallbladder is surgically absent. Adrenal glands: Normal. Kidneys: Normal enhancement. No masses. There has been resolution of previously noted left hydronephrosis. Urinary Bladder: Normal. Aorta: Normal in caliber. No periaortic lymphadenopathy. Bowel and Mesentery: There is moderate retained fecal material noted throughout the colon with moderate retained fecal material within the rectum. There is also fecalization noted within multiple small bowel loops. No significant bowel wall thickening is seen. No findings of appendicitis. Ascites: None. Pelvis Lymphadenopathy: None. Reproductive: There has been development of a 4.1 centimeter cystic lesion within the right adnexa. Osseous Structures: No suspicious findings. Impression: 4.1 centimeter right adnexal cyst, likely physiologic. If further evaluation is indicated, follow-up pelvic ultrasound could be obtained pre Constipation and moderate fecalization of small bowel loops, suggestive of generalized bowel stasis. There is no significant bowel wall thickening or evidence of obstruction. Small hiatal hernia. Marked fatty atrophy of the pancreas, consistent with cystic fibrosis. Electronically signed by: Stephanie Reid MD Dictated: 10/17/2016 08:48 Problems Encounter Diagnosis No relevant problems exist. Additional Problems * Abdominal Pain Comment:Problem resolved by Soarian Workflow upon Discharge, Status:Resolved. * Acute Pain Comment:Problem resolved by Soarian Workflow upon Discharge, Status :Resolved. * Acute Pyelonephritis Comment:Problem resolved by Soarian [...] 2014 10:40 AM * Completed Procedure Code: 63417 Procedure Name: not valued, on 12/10/2014 12: 00 AM * Completed Procedure Code: 19781 Procedure Name: not valued, on 12/10/2014 12: 00 AM * Completed Laparoscopic Cholecystectomy, by MD BREANNE OCONNOR, on 08/20/2014 10:45 AM * Completed Procedure Code: 79956 Procedure Name: not valued, on 08/20/2014 12: [...]
--- OUTSIDE RECORDS SUMMARY | 2017-04-01 03:06 | XMS REPORT | Summary of Care ---
Author Author Sabas Simon M.D. Organization Unknown Address [address], [place] [id number] Phone Unavailable Care Team Providers Care Horticulture Supervisor Name Role Phone Alfred Tran, Alem Unavailable [...] Active Acute sinusitis (461.9, J01.90) Status: Active Medications Name Dates Details Pulmozyme [...] Refills: 11 Sabas Simon M.D.* Started 28-Jun-2011 Olviay66 GM Inhaler Creon 51525 UNIT Oral Capsule Delayed Release Particles TAKE [...] Sabas Simon M.D.* Started 24-Oct-2012 ActiveVitamin A 88101 UNIT Oral Capsule * Refills: 0 * [...] Refills: 8 Sabas Simon M.D.* Started 01-Jul-2015 Active Allergies and Adverse Reactions Name Dates [...] m2 Status: Results Date Description Value Details 08-Jan-2016 13:34 BETA HCG 3500 BETA HCG <2 mIU/mL (Better) Range: 0-5 Comments: Gestational age: 0.02-1 Weeks=5-50 mIU/mL1-2 Weeks=50-500 mIU/mL2-3 Pldae=984-9788 mIU/mL3-4 Ydquf=634-71,000 mIU/mL4-5 Weeks=1,000-50,000 mIU/mL5- 6 Weeks=10,000-100,000 mIU/mL6-8 Weeks=15,000-200,000 mIU/mL2-3 months=10,000- 100,000 mIU/mL----- 12-Jan-2016 14:45 SERUM TEST 8020 SERUM TEST Negative (Better) Range: Negative Comments: Internal Control: Acceptable----- 27-Jan-2016 08:35 BETA HCG 3500 BETA HCG <2 mIU/mL (Better) Range: 0-5 Comments: Gestational age: 0.02-1 Weeks=5-50 mIU/mL1-2 Weeks=50-500 mIU/mL2-3 Ghluk=888-8970 mIU/mL3-4 Ubywa=711-36,000 mIU/mL4-5 Weeks=1,000-50,000 mIU/mL5- 6 Weeks=10,000-100,000 mIU/mL6-8 Weeks=15,000-200,000 mIU/mL2-3 months=10,000- 100,000 mIU/mL----- Plan of Care Planned Observations* Name Dates Details Planned Goals not documented Goal Planned Encounters* Appointment; Provider: Cory Roberts On 01-Jul-2016 08:15 * Appointment; Provider: Sabas Simon On 12-Feb-2016 13:30 * Appointment; Provider: Schedule Radiology On 05-Feb-2016 [...]
--- OUTSIDE RECORDS SUMMARY | 2017-04-01 03:06 | XMS REPORT ---
Author Author GENERATED, SYSTEM Organization Unknown Address Unknown Phone Unavailable Care Team Providers Care Back Roller Name Role Phone MD INGA, MANI PP [phone] Reason For Visit Chief Complaint RIGHT HEMORHAGGIC CYST Social History Functional Status Vital Signs Results Chemistry from 10/21/2016 1:15 PMSODIUM 139 MMOL/L (136-145 MMOL/L) POTASSIUM 3.8 MMOL/L (3.5-5.1 MMOL/L) CHLORIDE 105 MMOL/L (98-107 MMOL/L) TCO2 25.2 MMOL/L (21.0-32.0 MMOL/L) *ANION GAP 8.8 MMOL/L (8.0-16.0 MMOL/L) BUN 6 MG/DL L (7-18 MG/DL) CREATININE 0.91 MG/DL (0.55-1.02 MG/DL) *BUN/CREATININE RATIO 6.6 L (9.1-17.0 ) GLUCOSE 87 MG/DL (65-99 MG/DL) *GFR EST NON AFR TURKMEN 83 ML/MIN *GFR EST AFR AMER >90 ML/MIN CALCIUM 8.9 MG/DL (8.5-10.1 MG/DL) BILIRUBIN TOTAL 0.70 MG/DL (0.20-1.00 MG/DL) TOTAL PROTEIN 7.5 GM/DL (6.4-8.2 GM/DL) ALBUMIN 3.7 GM/DL (3.4-5.0 GM/DL) *GLOBULIN 3.8 GM/DL H (2.3-3.5 GM/DL) *A/G RATIO 1.0 MG/DL L (1.5-2.2 MG/DL) ALK PHOS 139 U/L H (46-116 U/L) ALT (SGPT) 28 U/L (16-63 U/L) AST (SGOT) 19 U/L (15-37 U/L) MAGNESIUM 1.8 MG/DL (1.8-2.4 MG/DL) LIPASE 33 U/L L (73-393 U/L) Chemistry from 10/21/2016 1:00 PM*COCAINE NEGATIVE (NEG <150 ) *PCP NEGATIVE (NEG <25 ) *CANNABINOIDS NEGATIVE (NEG <50 ) *BENZODIAZEINE NEGATIVE (NEG <200 ) *AMPHETAMINE NEGATIVE (NEG <500 ) *BARBITURATES NEGATIVE (NEG <200 ) *OPIATES NEGATIVE (NEG <300 ) Hematology from 10/21/2016 1:15 PMWBC 13.7 X10e3/UL H (3.6-11.2 X10e3/UL) RBC 4.72 X10e6/UL (3.63-4.92 X10e6/UL) HEMOGLOBIN 13.2 G/DL (11.0-14.3 G/DL) HEMATOCRIT 39.9 % (31.2-41.9 %) *MCV 84.4 FL (79.0-98.0 FL) *MCH 27.9 PG (27.0-33.0 PG) *MCHC 33.1 G/DL (32.0-36.0 G/DL) *RDW 13.7 % (12.3-17.0 %) *RDWSD 40.7 (37.1-47.8 ) PLATELET 271 X10e3/UL (159-386 X10e3/UL) *MPV 7.7 FL (7.4-10.4 FL) AUTOMATED DIFF PERFORMED SEGS 67.1 % *LYMPHOCYTES 23.6 % *MONOCYTES 4.3 % *EOSINOPHILS 4.1 % *BASOPHILS 0.9 % *ABSOLUTE NEUTROPHILS 9.20 X10e3/UL H (1.80-7.80 X10e3/UL) *ABSOLUTE LYMPHOCYTES 3.20 X10e3/UL H (1.00-3.00 X10e3/UL) *ABSOLUTE MONOCYTES 0.60 X10e3/UL (0.30-1.00 X10e3/UL) *ABSOLUTE EOSINOPHILS 0.60 X10e3/UL H (0.00-0.50 X10e3/UL) *ABSOLUTE BASOPHILS 0.10 X10e3/UL (0.00-0.20 X10e3/UL) Urinalysis from 10/21/2016 1:00 PM*URINE COLOR YELLOW (STRAW/YELL/DK YELL ) *URINE APPEARANCE CLOUDY A (CLEAR ) URINE PH 5.5 (5.0-8.0 ) URINE SPECIFIC GRAVITY <1.005 (<=1.005->=1.030 ) *URINE GLUCOSE NEGATIVE MG/DL (NEGATIVE MG/DL) *URINE BILIRUBIN NEGATIVE (NEGATIVE ) *URINE KETONES NEGATIVE MG/DL (NEGATIVE MG/DL) *URINE BLOOD TRACE-LYSED A (NEGATIVE ) *URINE PROTEIN NEGATIVE MG/DL (NEGATIVE MG/DL) *URINE UROBILINOGEN 0.2 EU/DL (0.2-1.0 EU/DL) *URINE NITRITES NEGATIVE (NEGATIVE ) *URINE LEUKOCYTES MODERATE A (NEGATIVE ) UR NEGATIVE (NEGATIVE ) *MICROSCOPIC EXAM PERFORMED PERFORMED *WBC URINE 10-25 /HPF A (0-5 /HPF) *RBC URINE 1-5 /HPF A (0-1 /HPF) *SQUAMOUS EP. CELLS MANY /LPF A (NEG-FEW /LPF) *BACTERIA MODERATE /HPF A (NEGATIVE /HPF) Microbiology from 10/21/2016 2:25 PM* *RIKKI- FUNGAL SMEAR Specimen Number: [id number] Sample Collection Date/Time: 10/21/2016 2:25 PM Specimen Source: Genital Vaginal Cervix *WET PREP: No Trichomonas seen *RIKKI- FUNGAL SMEAR: No yeast or fungal elements seen * *WET PREP Specimen Number: [id number] Sample Collection Date/Time: 10/21/2016 2:25 PM Specimen Source: Genital Vaginal Cervix *WET PREP: No Trichomonas seen *RIKKI- FUNGAL SMEAR: No yeast or fungal elements seen DX Radiology from 10/21/2016 2:09 PMCHEST 1 VIEW History: abd painseen in the er on tuesday. dx with uti. not feeling well. noticed blood in stools last night. abdominal pain as well. nausated and vomiting. patient has cystic fibrosis. Priors: Chest x-ray dated 07/29/2016 Findings: A right subclavian Port-A-Cath remains in place. The heart size and pulmonary vasculature are within normal limits. There is unchanged bilateral perihilar and upper lobe interstitial prominence, consistent with patient's known cystic fibrosis. No new infiltrates are identified. No significant pleural effusion or pneumothorax is seen. Impression: Unchanged interstitial prominence, consistent patient's known cystic fibrosis without evidence to suggest acute superimposed pneumonia. Electronically signed by: Stephanie Reid MD Dictated: 10/21/2016 14:34 CT Scan from 10/21/2016 2:03 PMCT ABD/PELVIS W/O_W/CONTRAST ADDENDUM REPORT Addendum: There is mild mural thickening of the descending colon which may reflect mild colitis versus pseudo mural thickening from incomplete distension. Electronically signed by: Stephanie Reid MD Dictated: 10/21/2016 14:35 Addendum . FINAL REPORT History: abdominal pain . seen in the er on tuesday. dx with uti. not feeling well. noticed blood in stools last night. abdominal pain as well. nausated and vomiting. patient has cystic fibrosis Technique: Pre and post contrast images were performed after the administration of 95 milliliters of Isovue intravenous contrast. Priors: CT of abdomen pelvis dated 10/17/2016 Findings: Abdomen Lung bases: Clear. A small hiatal hernia is noted. Liver: Normal density. No definable mass. Spleen: Normal. Pancreas: The pancreas is largely fatty replaced without significant residual pancreatic tissue noted. Gallbladder and biliary tract: The gallbladder is surgically absent. Adrenal glands: Normal. Kidneys: Normal enhancement. No masses. Since the prior study there has been development of mild left hydronephrosis and hydroureter without evidence of obstructing ureteral calculus. Urinary Bladder: Normal. Aorta: Normal in caliber. No periaortic lymphadenopathy. Bowel and Mesentery: There is moderate to marked retained fecal material within the colon. No findings of appendicitis. Ascites: None. Pelvis Lymphadenopathy: None. Reproductive: There is a 5.4 centimeter cyst within the right ovary which is increased in size compared with 3.9 centimeters on the previous study. Osseous Structures: Unremarkable. Impression: Development of mild left hydronephrosis and hydroureter without evidence of obstructing ureteral calculus. These findings may be owing to vesicoureteral reflux. Interval enlargement in a large right adnexal cyst which may be physiologic. If further evaluation is indicated, follow-up pelvic ultrasound could be obtained. Constipation. Electronically signed by: Stephanie Reid MD Dictated: 10/21/2016 14:29 . Problems Encounter Diagnosis No relevant problems exist. [...] 2014 10:40 AM * Completed Procedure Code: 58669 Procedure Name: not valued, on 12/10/2014 12: 00 AM * Completed Procedure Code: 18697 Procedure Name: not valued, on 12/10/2014 12: 00 AM * Completed Laparoscopic Cholecystectomy, by MD BREANNE OCONNOR, on 08/20/2014 10:45 AM * Completed Procedure Code: 10976 Procedure Name: not valued, on 08/20/2014 12: [...]
--- OUTSIDE RECORDS SUMMARY | 2017-04-01 03:07 | XMS REPORT | Summary of Care ---
Author Author Flor Fischer D.O. Organization Unknown Address [address], [place] [id number] Phone Unavailable Care Team Providers Care Guest Advisor Name Role Phone Alfred Tran, Alem Unavailable [...] Active Post-operative infection (998.59, T81.4XXA) Status: Active Medications Name Dates Details Pulmozyme [...] 100 UNIT Oral Capsule * Refills: 0 ActiveEpiduo 0.1-2.5 % External Gel apply to acne areas daily * Quantity: 45 Refills: 3 Joslyn Mar M.D.* Started 17-Jul-2012 ActiveVitamin A 72092 UNIT Oral Capsule * Refills: 0 * Started 17-Jan-2013 ActiveCreon 56792 UNIT Oral Capsule Delayed Release Particles TAKE 6 CAP BY MOUTH WITH MEALS, AND 4 CAPS WITH SNACKS * Quantity: 300 Refills: 99 Sabas Simon M.D.* Started 22-Dec-2011 ActiveNasonex 50 MCG/ACT Nasal Suspension USE 2 SPRAYS IN EACH NOSTRIL ONCE DAILY * Quantity: 1 Refills: 12 Sabas Simon M.D.* Started 28-Jun-2011 [id number] GM Inhaler Flovent HFA 220 MCG/ACT Inhalation [...] 100 MG Oral Capsule TAKE 1 CAPSULE DAILY WITH FOOD. * Quantity: 30 Refills: 0 Sabas Simon M.D.* Started 12-Nov-2014 Ended 12-Dec-2014 ActiveMinocycline HCl - 100 MG Oral Capsule [...] Planned Encounters* Appointment; Provider: Pranav Sahu On 09-Dec-2014 10:00 * Appointment; Provider: Pranav Sahu On 20-Aug-2014 [...] Instructions * Instructions not documented Encounters Appointment; Flor Fischer Encounter Diagnosis: Problem not [...]
--- OUTSIDE RECORDS SUMMARY | 2017-04-01 03:07 | XMS REPORT | Continuity of Care Document ---
Author Author [facility] Organization [facility] Address Unknown Phone Unavailable Allergies Medications Problems Date Dx Coded Attending Type Code Diagnosis Diagnosed By 06/17/2015 UNASSIGNED DOCTORDOCTOR Bishop 7862 COUGH 06/30/2015 MALLORY VALADEZ 5589 NONINF GASTROENTERIT NEC 06/30/2015 MALLORY VALADEZ 7291 FIBROMYALGIA 06/30/2015 MALLORY VALADEZ 62651 NAUSEA WITH VOMITING 12/11/2015 TERE CARRANZA E849 Cystic fibrosis, unspecified 12/11/2015 TERE CARRANZA R05 Cough 12/11/2015 TERE CARRANZA R0781 Pleurodynia 12/11/2015 TERE CARRANZA R079 Chest pain, unspecified 05/17/2016 AMBER RAMOS E849 Cystic fibrosis, unspecified 05/17/2016 AMBER RAMOS K529 Noninfective gastroenteritis and colitis, unspecified 05/17/2016 AMBER RAMOS K5660 Unspecified intestinal obstruction 05/17/2016 AMBER RAMOS R1011 Right upper quadrant pain 05/17/2016 AMBER RAMOS Z792 retirement (current) use of antibiotics 05/30/2016 DEANDRE HORNER E849 Cystic fibrosis, unspecified 05/30/2016 DEANDRE HORNER J324 Chronic pansinusitis 11/23/2016 MANI XIONG E119 Type 2 diabetes mellitus without complications 11/23/2016 MANI XIONG E849 Cystic fibrosis, unspecified 11/23/2016 MANI XIONG F329 Major depressive disorder, single episode, unspecified 11/23/2016 MANI XIONG F419 Anxiety disorder, unspecified 11/23/2016 MANI XIONG F4310 Post-traumatic stress disorder, unspecified 11/23/2016 MANI XIONG F603 Borderline personality disorder 11/23/2016 MANI XIONG J101 Flu due to oth ident influenza virus w oth resp manifest 11/23/2016 MANI XIONG R21824 Unspecified asthma, uncomplicated 11/23/2016 MANI XIONG Z801 Family history of malig neoplasm of trachea, bronc and lung 11/23/2016 MANI XIONG Z803 Family history of malignant neoplasm of breast 11/23/2016 MANI XIONG Z8614 Personal history of methicillin resis staph infection 11/23/2016 MANI XIONG Z8701 Personal history of pneumonia (recurrent) 11/23/2016 MANI XIONG Z880 Allergy status to penicillin 11/23/2016 MANI XIONG Z881 Allergy status to other antibiotic agents status 11/23/2016 MANI XIONG Z886 Allergy status to analgesic agent status 11/23/2016 MANI XIONG Z80648 Allergy to peanuts 11/23/2016 MANI XIONG X52626 Latex allergy status 11/24/2016 MANI XIONG E119 Type 2 diabetes mellitus without complications 11/24/2016 MANI XIONG E849 Cystic fibrosis, unspecified 11/24/2016 MANI XIONG F329 Major depressive disorder, single episode, unspecified 11/24/2016 MANI XIONG F419 Anxiety disorder, unspecified 11/24/2016 MANI XIONG F4310 Post-traumatic stress disorder, unspecified 11/24/2016 MANI XIONG F603 Borderline personality disorder 11/24/2016 MANI XIONG J101 Flu due to oth ident influenza virus w oth resp manifest 11/24/2016 MANI XIONG O33022 Unspecified asthma, uncomplicated 11/24/2016 MANI XIONG Z801 Family history of malig neoplasm of trachea, bronc and lung 11/24/2016 MANI XIONG Z803 Family history of malignant neoplasm of breast 11/24/2016 MANI XIONG Z8614 Personal history of methicillin resis staph infection 11/24/2016 MANI XIONG Z8701 Personal history of pneumonia (recurrent) 11/24/2016 MANI XIONG Z880 Allergy status to penicillin 11/24/2016 MANI XIONG Z881 Allergy status to other antibiotic agents status 11/24/2016 MANI XIONG Z886 Allergy status to analgesic agent status 11/24/2016 MANI XIONG J92350 Allergy to peanuts 11/24/2016 MANI XIONG V54716 Latex allergy status Procedures Code Description [place] [address] 06/22/2015 71997 06/22/2015 00398 06/22/2015 35831 06/22/2015 74286 06/22/2015 44056 06/22/2015 49095 06/22/2015 21498 06/22/2015 22315 06/22/2015 54474 06/22/2015 33099 06/22/2015 96395 06/22/2015 17313 06/22/2015 A9270 06/22/2015 89484 12/02/2015 09640 12/02/2015 89404 12/02/2015 84323 12/02/2015 32892 12/02/2015 51101 12/02/2015 12858 12/02/2015 48828 12/02/2015 44796 12/02/2015 16061 12/02/2015 A9270 12/02/2015 65199 05/12/2016 00381 05/12/2016 27138 05/12/2016 77748 05/12/2016 90051 05/12/2016 47625 05/12/2016 J1335 05/12/2016 27842 05/13/2016 86398 05/13/2016 11895 05/13/2016 26016 05/13/2016 72206 05/13/2016 25966 05/13/2016 60302 05/13/2016 09368 05/13/2016 J2270 05/13/2016 J2405 05/13/2016 Q9967 05/13/2016 Results Test Result Range CBC WITH PLATELET AND DIFFERENTIAL - 10/17/16 03:40 SEGS 62.8 % NRG *BASOPHILS 1.1 % NRG *EOSINOPHILS 4.3 % NRG AUTOMATED DIFF PERFORMED NRG *LYMPHOCYTES 25.3 % NRG *MONOCYTES 6.5 % NRG *ABSOLUTE BASOPHILS 0.10 10*3/uL 0.00- 0.20 *ABSOLUTE EOSINOPHILS 0.60 10*3/uL 0.00- 0.50 *ABSOLUTE LYMPHOCYTES 3.20 10*3/uL 1.00- 3.00 *ABSOLUTE MONOCYTES 0.80 10*3/uL 0.30- 1.00 *ABSOLUTE NEUTROPHILS 8.00 10*3/uL 1.80- 7.80 MPV 8.0 fL 7.4-10.4 PLATELETS 254 10*3/uL 159-386 WBC 12.8 10*3/uL 3.6-11.2 RBC 4.50 3.63-4.92 HEMOGLOBIN 12.6 11.0-14.3 HEMATOCRIT 37.7 % 31.2-41.9 MCV 83.8 fL 79.0-98.0 MCH 27.9 pg 27.0-33.0 MCHC 33.3 32.0-36.0 RDW 13.5 % 12.3-17.0 RDWSD 40.3 37.1-47.8 TEST - 10/17/16 03:40 TEST NEGATIVE NEGATIVE PARTIAL THROMBOPLASTIN TIME - 10/17/16 03:40 PARTIAL THROMBOPLASTIN TIME 26.2 s 23.0- 31.0 PROTHROMBIN TIME - 10/17/16 03:40 *INR 1.1 0.9-1.1 *PROTHROMBIN TIME 11.7 s 9.4-11.5 COMPREHENSIVE METABOLIC PANEL - 10/17/16 03:40 BILIFUBIN TOTAL 0.60 0.20-1.00 TOTAL PROTEIN 7.3 6.4-8.2 ALBUMIN 3.5 3.4-5.0 *GLOBULIN 3.8 2.3-3.5 *A/G RATIO 0.9 1.5-2.2 ALK PHOS 136 U/L 46-116 ALT (SGPT) 27 U/L 16-63 AST (SGOT) 20 U/L 15-37 AMYLASE - 10/17/16 03:40 AMYLASE 23 U/L 25-115 LIPASE - 10/17/16 03:40 LIPASE 32 U/L 73-393 GFR ESTIMATION - 10/17/16 03:40 *GFR EST NON AFR TOGOLESE 63 mL/min NRG *GRFA EST AFR AMER 73 mL/min NRG URINALYSIS (CULTURE PRN) - 10/17/16 04:25 *URINE APPEARANCE CLEAR CLEAR *URINE BILIRUBIN NEGATIVE NEGATIVE *URINE BLOOD NEGATIVE NEGATIVE *URINE GLUCOSE NEGATIVE NEGATIVE *URINE KETONES NEGATIVE NEGATIVE *URINE LEUKOCYTES SMALL NEGATIVE *URINE NITRITES POSITIVE NEGATIVE URINE PH 7.0 5.0-8.0 *URINE PROTEIN NEGATIVE NEGATIVE URINE SPECIFIC GRAVITY 1.010 <=1.005->= 1.030 *URINE UROBILINOGEN 0.2 0.2-1.0 *URINE COLOR YELLOW STRAW/YELL/DK YELL URINE MICROSCOPIC - 10/17/16 04:25 WBC 5-10 /[HPF] 0-5 RBC 1-5 /[HPF] 0-1 MICROSCOPIC EXAM PERFORMED PERFORMED NRG SQUAMOUS EP. CELLS MODERATE /[LPF] NEG- FEW BACTERIA MANY /[HPF] NEGATIVE CULTURE URINE - 10/17/16 04:25 CULTURE URINE >100,000 cfu/ml NRG ISOLATE1 - 10/17/16 04:25 ORGANISM Escherichia coli NRG Ampicillin >=32 NRG Ampicillin/sulbactam >=32 NRG Cefazolin >=64 NRG Cefepime <=1 NRG Ceftazidime <=1 NRG Ceftriaxone <=1 NRG Ertapenem <=0.5 NRG ESBL Neg NRG Gentamicin <=1 NRG Levofloxacin <=0.12 NRG Meropenem <=0.25 NRG Nitrofurantoin <=16 NRG Piperacillin/tazobactam =8 NRG Tobramycin <=1 NRG Trimethoprim/Sulfa <=20 NRG Aztreonam =2 NRG UR - 10/21/16 13:00 UR NEGATIVE NEGATIVE URINALYSIS (CULTURE PRN) - 10/21/16 13:00 *URINE APPEARANCE CLOUDY CLEAR *URINE BILIRUBIN NEGATIVE NEGATIVE *URINE BLOOD TRACE-LYSED NEGATIVE *URINE GLUCOSE NEGATIVE NEGATIVE *URINE KETONES NEGATIVE NEGATIVE *URINE LEUKOCYTES MODERATE NEGATIVE *URINE NITRITES NEGATIVE NEGATIVE URINE PH 5.5 5.0-8.0 *URINE PROTEIN NEGATIVE NEGATIVE URINE SPECIFIC GRAVITY <1.005 <=1.005->= 1.030 *URINE UROBILINOGEN 0.2 0.2-1.0 *URINE COLOR YELLOW STRAW/YELL/DK YELL URINE MICROSCOPIC - 10/21/16 13:00 WBC 10-25 /[HPF] 0-5 RBC 1-5 /[HPF] 0-1 MICROSCOPIC EXAM PERFORMED PERFORMED NRG SQUAMOUS EP. CELLS MANY /[LPF] NEG-FEW BACTERIA MODERATE /[HPF] NEGATIVE UR DRUGS OF ABUSE SCREEN - 10/21/16 13:00 *COCAINE NEGATIVE NEG <150 *BARBITURATES NEGATIVE NEG <200 *BENZODIAZEINE NEGATIVE NEG <200 *AMPHETAMINE NEGATIVE NEG <500 *CANNABINOIDS NEGATIVE NEG <50 *OPIATES NEGATIVE NEG <300 *PCP NEGATIVE NEG <25 CULTURE URINE - 10/21/16 13:00 CULTURE URINE 10,000 cfu/ml NRG CBC WITH PLATELET AND DIFFERENTIAL - 10/21/16 13:15 SEGS 67.1 % NRG *BASOPHILS 0.9 % NRG *EOSINOPHILS 4.1 % NRG AUTOMATED DIFF PERFORMED NRG *LYMPHOCYTES 23.6 % NRG *MONOCYTES 4.3 % NRG *ABSOLUTE BASOPHILS 0.10 10*3/uL 0.00- 0.20 *ABSOLUTE EOSINOPHILS 0.60 10*3/uL 0.00- 0.50 *ABSOLUTE LYMPHOCYTES 3.20 10*3/uL 1.00- 3.00 *ABSOLUTE MONOCYTES 0.60 10*3/uL 0.30- 1.00 *ABSOLUTE NEUTROPHILS 9.20 10*3/uL 1.80- 7.80 MPV 7.7 fL 7.4-10.4 PLATELETS 271 10*3/uL 159-386 WBC 13.7 10*3/uL 3.6-11.2 RBC 4.72 3.63-4.92 HEMOGLOBIN 13.2 11.0-14.3 HEMATOCRIT 39.9 % 31.2-41.9 MCV 84.4 fL 79.0-98.0 MCH 27.9 pg 27.0-33.0 MCHC 33.1 32.0-36.0 RDW 13.7 % 12.3-17.0 RDWSD 40.7 37.1-47.8 COMPREHENSIVE METABOLIC PANEL - 10/21/16 13:15 BILIFUBIN TOTAL 0.70 0.20-1.00 TOTAL PROTEIN 7.5 6.4-8.2 ALBUMIN 3.7 3.4-5.0 *GLOBULIN 3.8 2.3-3.5 *A/G RATIO 1.0 1.5-2.2 ALK PHOS 139 U/L 46-116 ALT (SGPT) 28 U/L 16-63 AST (SGOT) 19 U/L 15-37 GFR ESTIMATION - 10/21/16 13:15 *GFR EST NON AFR TOGOLESE 83 mL/min NRG *GRFA EST AFR AMER >90 mL/min NRG LIPASE - 10/21/16 13:15 LIPASE 33 U/L 73-393 MAGNESIUM - 10/21/16 13:15 MAGNESIUM 1.8 1.8-2.4 CULTURE-GC PROFILE - 10/21/16 14:25 CULTURE GC PROFILE No Neisseria gonorrhoeae isolated NRG CHLAMYDIA DNA PROBE - 10/21/16 14:25 CHLAMYDIA DNA PROBE Negative Negative CULTURE BLOOD - 11/14/16 07:13 CULTURE BLOOD No growth after 5 days of incubation. NRG CULTURE BLOOD - 11/14/16 07:13 CULTURE BLOOD No growth after 5 days of incubation. NRG INFLUENZAE A AND B AG - 11/14/16 07:31 *INFLUENZA A ANTIGEN POSITIVE NRG *INFLUENZA B ANTIGEN NEGATIVE~ ~Please note:~ False-positive influenza test results are more likely to occur when disease~ prevalence is low, which is generally at the beginning and end of the~influenza season.~The interpretation of positive results should take into account the clinical~characteristics of the patient and the prevalence of influenza in the~ patient population being tested (e.g. level of influenza activity in the~ community).~False negative test results are more likely during peak activity when~prevalence of disease is high. NRG CBC WITH PLATELET AND DIFFERENTIAL - 11/14/16 07:39 SEGS 68.1 % NRG *BASOPHILS 0.7 % NRG *EOSINOPHILS 1.3 % NRG AUTOMATED DIFF PERFORMED NRG *LYMPHOCYTES 16.8 % NRG *MONOCYTES 13.1 % NRG *ABSOLUTE BASOPHILS 0.10 10*3/uL 0.00- 0.20 *ABSOLUTE EOSINOPHILS 0.10 10*3/uL 0.00- 0.50 *ABSOLUTE LYMPHOCYTES 1.30 10*3/uL 1.00- 3.00 *ABSOLUTE MONOCYTES 1.00 10*3/uL 0.30- 1.00 *ABSOLUTE NEUTROPHILS 5.40 10*3/uL 1.80- 7.80 MPV 8.4 fL 7.4-10.4 PLATELETS 205 10*3/uL 159-386 WBC 7.9 10*3/uL 3.6-11.2 RBC 4.67 3.63-4.92 HEMOGLOBIN 13.1 11.0-14.3 HEMATOCRIT 39.1 % 31.2-41.9 MCV 83.6 fL 79.0-98.0 MCH 28.1 pg 27.0-33.0 MCHC 33.6 32.0-36.0 RDW 13.5 % 12.3-17.0 RDWSD 39.4 37.1-47.8 LACTIC ACID - 11/14/16 07:39 LACTIC ACID 0.8 0.9-1.7 COMPREHENSIVE METABOLIC PANEL - 11/14/16 07:39 BILIFUBIN TOTAL 0.60 0.20-1.00 TOTAL PROTEIN 7.6 6.4-8.2 ALBUMIN 3.5 3.4-5.0 *GLOBULIN 4.1 2.3-3.5 *A/G RATIO 0.9 1.5-2.2 ALK PHOS 171 U/L 46-116 ALT (SGPT) 36 U/L 16-63 AST (SGOT) 30 U/L 15-37 GFR ESTIMATION - 11/14/16 07:39 *GFR EST NON AFR TOGOLESE 80 mL/min NRG *GRFA EST AFR AMER >90 mL/min NRG URINALYSIS (CULTURE PRN) - 11/14/16 07:45 *URINE APPEARANCE CLEAR CLEAR *URINE BILIRUBIN NEGATIVE NEGATIVE *URINE BLOOD NEGATIVE NEGATIVE *URINE GLUCOSE NEGATIVE NEGATIVE *URINE KETONES 40 NEGATIVE *URINE LEUKOCYTES NEGATIVE NEGATIVE *URINE NITRITES NEGATIVE NEGATIVE URINE PH 5.5 5.0-8.0 *URINE PROTEIN NEGATIVE NEGATIVE URINE SPECIFIC GRAVITY >1.030 <=1.005->= 1.030 *URINE UROBILINOGEN 0.2 0.2-1.0 *URINE COLOR YELLOW STRAW/YELL/DK YELL UR - 11/14/16 07:45 UR NEGATIVE NEGATIVE PROCALCITONIN - 11/14/16 12:15 PROCALCITONIN 0.07 ng/mL 0.05-0.50 C-REACTIVE PROTEIN - 11/14/16 12:15 C-REACTIVE PROTEIN 0.34 0.00-0.30 BNP - 11/14/16 12:15 B-TYPE NATRIURETIC PROTEIN 14 pg/mL 1- 100 CBC WITH PLATELET AND DIFFERENTIAL - 11/15/16 06:49 SEGS 32.0 % NRG *BASOPHILS 1.0 % NRG *EOSINOPHILS 4.0 % NRG *LYMPHOCYTES 40.0 % NRG *MONOCYTES 6.0 % NRG *ABSOLUTE BASOPHILS 0.04 10*3/uL 0.00- 0.20 *ABSOLUTE EOSINOPHILS 0.15 10*3/uL 0.00- 0.50 *ABSOLUTE LYMPHOCYTES 1.52 10*3/uL 1.00- 3.00 *ABSOLUTE MONOCYTES 0.23 10*3/uL 0.30- 1.00 *ABSOLUTE NEUTROPHILS 1.86 10*3/uL 1.80- 7.80 COMPREHENSIVE METABOLIC PANEL - 11/15/16 06:49 SODIUM 141 mmol/L 136-145 POTASSIUM 3.6 mmol/L 3.5-5.1 CHLORIDE 108 mmol/L 98-107 TCO2 25.3 mmol/L 21.0-32.0 *ANION GAP 7.7 mmol/L 8.0-16.0 BUN 8 7-18 CREATININE 0.91 0.55-1.02 *BUN/CREATININE RATIO 8.8 9.1-17.0 GLUCOSE 106 65-99 CALCIUM 7.7 8.5-10.1 BILIFUBIN TOTAL 0.20 0.20-1.00 TOTAL PROTEIN 6.1 6.4-8.2 ALBUMIN 2.7 3.4-5.0 *GLOBULIN 3.4 2.3-3.5 *A/G RATIO 0.8 1.5-2.2 ALK PHOS 122 U/L 46-116 ALT (SGPT) 27 U/L 16-63 AST (SGOT) 25 U/L 15-37 GFR ESTIMATION - 11/15/16 06:49 *GFR EST NON AFR TOGOLESE 83 mL/min NRG *GRFA EST AFR AMER >90 mL/min NRG MANUAL DIFFERENTIAL - 11/15/16 06:49 *BANDS 17.0 % NRG *MANUAL DIFF PERFORMED NRG CBC WITH PLATELET AND DIFFERENTIAL - 11/16/16 05:50 SEGS 47.9 % NRG *BASOPHILS 0.6 % NRG *EOSINOPHILS 4.7 % NRG AUTOMATED DIFF PERFORMED NRG *LYMPHOCYTES 38.4 % NRG *MONOCYTES 8.4 % NRG *ABSOLUTE BASOPHILS 0.00 10*3/uL 0.00- 0.20 *ABSOLUTE EOSINOPHILS 0.20 10*3/uL 0.00- 0.50 *ABSOLUTE LYMPHOCYTES 1.90 10*3/uL 1.00- 3.00 *ABSOLUTE MONOCYTES 0.40 10*3/uL 0.30- 1.00 *ABSOLUTE NEUTROPHILS 2.40 10*3/uL 1.80- 7.80 MPV 8.5 fL 7.4-10.4 PLATELETS 180 10*3/uL 159-386 WBC 4.9 10*3/uL 3.6-11.2 RBC 3.82 3.63-4.92 HEMOGLOBIN 10.7 11.0-14.3 HEMATOCRIT 32.0 % 31.2-41.9 MCV 83.7 fL 79.0-98.0 MCH 28.1 pg 27.0-33.0 MCHC 33.6 32.0-36.0 RDW 13.7 % 12.3-17.0 RDWSD 40.3 37.1-47.8 COMPREHENSIVE METABOLIC PANEL - 11/16/16 05:50 SODIUM 139 mmol/L 136-145 POTASSIUM 3.4 mmol/L 3.5-5.1 CHLORIDE 105 mmol/L 98-107 TCO2 27.1 mmol/L 21.0-32.0 *ANION GAP 6.9 mmol/L 8.0-16.0 BUN 8 7-18 CREATININE 0.95 0.55-1.02 *BUN/CREATININE RATIO 8.4 9.1-17.0 GLUCOSE 138 65-99 CALCIUM 8.2 8.5-10.1 BILIFUBIN TOTAL 0.20 0.20-1.00 TOTAL PROTEIN 6.4 6.4-8.2 ALBUMIN 2.8 3.4-5.0 *GLOBULIN 3.6 2.3-3.5 *A/G RATIO 0.8 1.5-2.2 ALK PHOS 132 U/L 46-116 ALT (SGPT) 30 U/L 16-63 AST (SGOT) 23 U/L 15-37 GFR ESTIMATION - 11/16/16 05:50 *GFR EST NON AFR TOGOLESE 78 mL/min NRG *GRFA EST AFR AMER >90 mL/min NRG Encounters ACCT No. Visit Date/Time Discharge Status Pt. Type Provider Facility Loc./Unit Complaint [id number] 01/23/2014 12:25:00 01/23/2014 23 :59:59 [facility] Outpatient [id number] 01/16/2014 13:02:00 01/16/2014 23 :59:59 [facility] [id number] 12/21/2013 16:17:00 12/21/2013 23 :59:59 [facility] Outpatient [id number] 12/13/2013 09:26:00 12/13/2013 23 :59:59 [facility] Outpatient [id number] 11/30/2013 13:42:00 11/30/2013 23 :59:59 [facility] Outpatient
--- OUTSIDE RECORDS SUMMARY | 2017-04-01 03:07 | XMS REPORT | Summary of Care ---
Author Author Sabas Simon M.D. Organization Unknown Address [address], [place] [id number] Phone Unavailable Care Team Providers Care Microbiology Instructor Name Role Phone Alfred Tran, Alem Unavailable Unavailable Tyree Tran, CARTER,, Dae Unavailable Unavailable Alejandra Tran, Jose Unavailable Unavailable Alem Mar M.D. Unavailable Unavailable [...] Refills: 11 Sabas Simon M.D.* Started 28-Jun-2011 [id number] GM Inhaler Epiduo 0.1-2.5 % External Gel apply to acne areas daily * Quantity: 45 Refills: 3 Joslyn Mar M.D.* Started 17-Jul-2012 ActiveVitamin A 49026 UNIT Oral Capsule * Refills: 0 * Started 17-Jan-2013 ActiveCreon 90990 UNIT Oral Capsule Delayed Release Particles TAKE [...] History of Tonsillectomy History of Cholecystectomy Laparoscopic SERUM TEST 8020 Ordered:12-Jan-2016 Immunization Name Dates Details Pneumo (Pneumovax) Administered [...] Gestational age: 0.02-1 Weeks=5-50 mIU/mL1-2 Weeks=50-500 mIU/mL2-3 Bxttt=387-3806 mIU/mL3-4 Tksee=711-18,000 mIU/mL4-5 Weeks=1,000-50,000 mIU/mL5- 6 Weeks=10,000-100,000 mIU/mL6-8 Weeks=15,000-200,000 mIU/mL2-3 months=10,000- 100,000 mIU/mL----- Plan of Care Planned Observations* Name Dates Details Planned Goals not documented Goal Planned Encounters* Appointment; Provider: Cory Roberts On 01-Jul-2016 08:15 * Appointment; Provider: Saabs Simon On 12-Feb-2016 13:30 * Appointment; Provider: [...] Problem not documented On 04-Sep-2014 09:00 Appointment; aSbas Simon Encounter Diagnosis: Problem not documented On [...]
--- OUTSIDE RECORDS SUMMARY | 2017-04-01 03:07 | XMS REPORT | Summary of Care ---
Author Author Sabas Simon M.D. Organization Unknown Address [address], [place] [id number] Phone Unavailable Care Team Providers Care Wigs Salesperson Name Role Phone Alfred Tran, Alem Unavailable [...] Active UTI symptoms (788.99, R39.9) Status: Active Medications Name Dates Details Pulmozyme [...] Refills: 11 Sabas Simon M.D.* Started 28-Jun-2011 [id number] GM Inhaler Creon 76736 UNIT Oral Capsule Delayed Release Particles TAKE [...] Joslyn Mar M.D.* Started 17-Jul-2012 ActiveVitamin A 84377 UNIT Oral Capsule * Refills: 0 * [...] FOR PAIN. * Quantity: 60 Refills: 0 aSbas Simon M.D.* Started 24-Oct-2012 ActiveProgesterone Micronized 200 [...] Refills: 11 Sabas Simon M.D.* Started 21-Aug-2015 [id number] GM Bottle Ovidrel 250 MCG/0.5ML Subcutaneous Injectable [...] (Abnormal) Range: 0-10 02-Dec-2015 11:10 URINE CULTURE [id number] Comments: [facility] performed at: [place], [facility], [address] [place], [address], Brokerage Branch Manager: Augustus Bergeron D.O., MPHQuest Collection Date/Time: [id number] Results Received Date/Time: [id number] Reported Date/Time: [id number] performed at: [facility] [address] [place], [address], Brokerage Branch Manager: Augustus Bergeron D.O., MPHQuest Collection Date/Time: [id number] Results Received Date/Time: [id number] Reported Date/Time: [id number] CULTURE, URINE, ROUTINE SEE NOTE (Better) Comments: CULTURE, URINE, ROUTINE MICRO NUMBER: [id number] TEST STATUS: FINAL SPECIMEN SOURCE : URINE [...] (Better) 03-Dec-2015 17:20 Vitamin A and E 050037 Comments: ORDER IN BOOK UNDER NOVEMBERTesting performed at: [] [address], [address], , Brokerage Branch Manager: Augustus Pelletier MD VITAMIN A, SERUM 26 ug/dL (Better) Range: 18-77 VITAMIN E(ALPHA TOCOPHEROL) 1.2 mg/L (Below low threshold) Range: 4.6- 17.8 Plan of Care Planned Observations* Name Dates [...]
--- OUTSIDE RECORDS SUMMARY | 2017-04-01 03:08 | XMS REPORT | Referral Summary ---
Author Author [facility], Cystic Fibrosis Adults Organization Via [facility], Cystic Fibrosis Adults Address Unknown Phone Unavailable Care Team Providers Care Blog Writer Name Role Phone Alem Simon Primary Care Physician [phone] Encounter [facility] [id number] Date(s): 11/26/15 - 11/26/15 [facility], Cystic Fibrosis Adults [address], [place] [address] Discharge Diagnosis: Vitamin deficiency (disorder) Discharge Diagnosis: Chronic sinusitis (disorder) Discharge Diagnosis: Asthma without status asthmaticus (disorder) Discharge Diagnosis: Pancreatic insufficiency Discharge Disposition: 01-Home or Self Care Attending Physician: Matilde Thusrton MD Admitting Physician: Matilde Thurston MD Vital Signs Most recent to 1 oldest [Reference Range]: Temperature Oral 36.1 degC [35.8-37.3 degC] (11/26/15 1:23 PM) Peripheral Pulse 79 bpm Rate [60-100 bpm] (11/26/15 1:23 PM) Respiratory Rate 20 br/min [14-20 br/min] (11/26/15 1:23 PM) Blood Pressure 104/60 mmHg [90-140/60-90 mmHg] (11/26/15 1:23 PM) SpO2 100 % (11/26/15 1:23 PM) Problem List Condition Effective Dates Status [...] Urticaria (hives) Active pseudoephedrine Anaphylaxis Active Medications BuSpar 15 mg, Oral, TID, 0 Refill(s) Start Date: 02/24/15 Status: Ordered Cranberry Daily Start Date: 04/02/15 Status: Ordered Creon 24,000 units oral delayed release capsule See Instructions, Take 6 caps oral with meals and 4 caps oral with snacks., # 780 caps, 3 Refill(s), Pharmacy: [facility] Start Date: 11/05/15 Status: Ordered famotidine [...] BID, # 60 caps, 0 Refill(s), Pharmacy: [facility] , 1 caps Oral BID Start Date: 06/07/14 Status: Ordered Ovidrel 250 mcg/0.5 mL subcutaneous solution 250 mcg, SubCutaneous, Once, # 1 Each, 0 Refill(s) Start Date: 11/26/15 Status: Ordered OXcarbazepine 300 mg oral tablet [...] , # 75 mL, 11 Refill(s), eRx: [facility], INHALE ONE AMPULE BY INHALATION ROUTE [...] to 1 oldest [Reference Range]: WBC [4.8-10.8 9.7 10*3/uL 10*3/uL] (11/26/15 2:58 PM) RBC [4.00-5.20] 4.62 (11/26/15 2:58 PM) Hgb [12.0-16.0 13.5 gm/dL gm/dL] (11/26/15 2:58 PM) Hct [37.0-47.0 %] 38.8 % (11/26/15 2:58 PM) MCV [82.0-99.0 fL] 84.0 fL (11/26/15 2:58 PM) MCH [27.0-32.0 pg] 29.2 pg (11/26/15 2:58 PM) MCHC [32.0-36.0 34.8 gm/dL gm/dL] (11/26/15 2:58 PM) RDW [11.5-14.5 %] 13.4 % (11/26/15 2:58 PM) Platelet [150-400 302 10*3/uL 10*3/uL] (11/26/15 2:58 PM) MPV [8.8-14.8 fL] 10.9 fL (11/26/15 2:58 PM) Immature 0.2 % Granulocytes (11/26/15 2:58 PM) [0.0-1.0 %] Neutrophils [51-75 58 % %] (11/26/15 2:58 PM) Lymphocytes [20-46 30 % %] (11/26/15 2:58 PM) Monocytes [4-11 %] 8 % (11/26/15 2:58 PM) Eosinophils [0-4 %] 4 % (11/26/15 2:58 PM) Basophils [0-2 %] 1 % (11/26/15 2:58 PM) Neutro Absolute 5.61 10*3 [1.90-7.00 10*3] (11/26/15 2:58 PM) Lymph Absolute 2.89 10*3 [0.80-3.30 10*3] (11/26/15 2:58 PM) [place] Absolute 0.73 10*3 [0.30-1.00 10*3] (11/26/15 2:58 PM) Eos Absolute 0.43 10*3 [0.00-0.50 10*3] (11/26/15 2:58 PM) Baso Absolute 0.05 10*3 [0.00-0.20 10*3] (11/26/15 2:58 PM) Coagulation Most recent to 1 oldest [Reference Range]: INR [0.9-1.2] 1.0 (11/26/15 2:58 PM) Chemistry Most recent to 1 oldest [Reference Range]: Sodium Lvl [135-144 142 mEq/L mEq/L] (11/26/15 2:58 PM) Potassium Lvl 4.6 mEq/L [3.5-5.2 mEq/L] (11/26/15 2:58 PM) Chloride [99-111 104 mEq/L mEq/L] (11/26/15 2:58 PM) CO2 [22-31 mEq/L] 29 mEq/L (11/26/15 2:58 PM) AGAP [3-20] 9 (11/26/15 2:58 PM) BUN [7-19 mg/dL] 9 mg/dL (11/26/15 2:58 PM) Glucose Lvl [70-99 95 mg/dL mg/dL] (11/26/15 2:58 PM) Creatinine Lvl 0.94 mg/dL [0.57-1.11 mg/dL] (11/26/15 2:58 PM) eGFR [>60 mL/min] >60 mL/min 1 (11/26/15 2:58 PM) Calcium Lvl 9.6 mg/dL [8.9-10.5 mg/dL] (11/26/15 2:58 PM) Albumin Lvl [3.5-5.0 4.2 gm/dL gm/dL] (11/26/15 2:58 PM) Total Protein 7.0 gm/dL [6.4-8.3 gm/dL] (11/26/15 2:58 PM) Globulin [1.8-4.0 2.8 gm/dL gm/dL] (11/26/15 2:58 PM) ALT [0-55 U/L] 50 U/L (11/26/15 2:58 PM) AST [5-34 U/L] 37 U/L *HI* (11/26/15 2:58 PM) Alk Phos [40-150 126 U/L U/L] (11/26/15 2:58 PM) Bili Total [0.2-1.2 1.1 mg/dL mg/dL] (11/26/15 2:58 PM) IgE (Immunoglobulin 147 Intl Units/mL E) [0-100 Intl *HI* Units/mL] (11/26/15 2:58 PM) Hgb A1c [4.1-5.6 %] 5.9 % *HI* (11/26/15 2:58 PM) eAvg Glucose 122.6 mg/dL (11/26/15 2:58 PM) 1Result Comment: Multiply eGFR results by 1.21 for race. Immunizations Vaccine Date Refusal Reason tetanus/diphth/pertuss (Tdap) [...] Assessment and Plan Extracted from: Title: CF Nutrition Note Author: Jenna Abbasi RD/LD Date: 11/26/15 A: previous hx belly pain. Reports had had gallbladder removed since last CF visit with significant improvement. Takes nexium, famotodine, & tums for reflux D: increased calorie need r/t chronic disease as evidenced by need for added calories to maintain desired BMI of 22 for CF women I: continue current enzyme dose with maximum of 24-25 q 24 hours M/E: follow BMI trends & GI symptoms Extracted from: Title: CF Clinic Author: Jose Thacker MD Date: 11/26/15 Assessment/Plan 1.Pulmonary cystic fibrosis Stable. Will get yearly bloodwork today. Update pneumonia and Tdap. Continue current therapies. Continue exercise most of all. FEV1 105%. Ordered: CBC w/ Differential Comprehensive Metabolic Panel Cystic Fibrosis Acid-Fast Culture Cystic Fibrosis Fungal Culture and Smear Cystic Fibrosis Respiratory Culture Hemoglobin A1c IgE (Immunoglobulin E) Office Visit Level 4 Est 52237 PT Vitamin A Level-[place] Vitamin D 25 Hydroxy Level Vitamin E Level-[place] 2.Asthma without status asthmaticus (disorder) Stable. Continue with [place] pin puller. Ordered: Office Visit Level 4 Est 71536 3.Chronic sinusitis (disorder) Stable. Continue following with ENT and current rinses and Nasonex. Ordered: Office Visit Level 4 Est 03610 4.Pancreatic insufficiency Continue enzymes. Ordered: Office Visit Level 4 Est 62252 5.Vitamin deficiency (disorder) Continue supplementation.
--- OUTSIDE RECORDS SUMMARY | 2017-04-01 03:08 | XMS REPORT ---
Author Author GENERATED, SYSTEM Organization Unknown Address Unknown Phone Unavailable Care Team Providers Care Hat And Cap Drying Room Attendant Name Role Phone MD INGA, [facility] [phone] Reason For Visit Reason for Visit from 10/03/2015 4:53 PM:* Pt Stated Reason for Adm : Rocephin Chief Complaint J01.90 Social History Functional Status Functional Status from 10/09/2015 10:41 AM:* LOC : Alert * Oriented To : Person,Place,Time,Event Functional Status from 10/08/2015 1:15 PM:* LOC : Alert * Oriented To : Person,Place,Time Functional Status from 10/07/2015 10:00 AM:* LOC : Alert * Oriented To : Person,Place,Time Functional Status from 10/06/2015 10:12 AM:* LOC : Alert * Oriented To : Person,Place,Time,Event Functional Status from 10/05/2015 8:19 AM:* LOC : Alert * Oriented To : Person,Place,Time Functional Status from 10/04/2015 10:00 AM:* LOC : Alert * Oriented To : Person,Place,Time Functional Status from 10/03/2015 4:53 PM:* LOC : Alert * Oriented To : Person,Place,Time Vital Signs Hospital Vital Signs from 10/09/2015 10:40 AM:* Height : 5/3.5 ft,in * Temperature : 97.9 F * Pulse : 61 * Respirations : 18 * BP : 104/60 Hospital Vital Signs from 10/08/2015 1:15 PM:* Height : 5/3.5 ft,in * Temperature : 98.1 F * Pulse : 59 * Respirations : 18 * BP : 103/67 Hospital Vital Signs from 10/07/2015 10:00 AM:* Height : 5/3.5 ft,in * Temperature : 98.3 F * Pulse : 79 * Respirations : 18 * BP : 108/66 Hospital Vital Signs from 10/05/2015 8:28 AM:* Height : 5/3.5 ft,in * Temperature : 97.9 F * Pulse : 74 * Respirations : 16 * BP : 99/65 Hospital Vital Signs from 10/04/2015 10:08 AM:* Height : 5/3.5 ft,in * Temperature : 98.9 F * Pulse : 62 * Respirations : 18 * BP : 96/55 Hospital Vital Signs from 10/03/2015 4:51 PM:* Height : 5/3.5 ft,in * Temperature : 98.9 F * Pulse : 90 * Respirations : 18 * BP : 122/71 Results Problems Encounter Diagnosis No relevant problems [...] 2014 10:40 AM * Completed Procedure Code: 45617 Procedure Name: not valued, on 12/10/2014 12: 00 AM * Completed Procedure Code: 71781 Procedure Name: not valued, on 12/10/2014 12: 00 AM * Completed Laparoscopic Cholecystectomy, by MD BREANNE OCONNOR, on 08/20/2014 10:45 AM * Completed Procedure Code: 91493 Procedure Name: not valued, on 08/20/2014 12: [...]
--- OUTSIDE RECORDS SUMMARY | 2017-04-01 03:08 | XMS REPORT ---
Author Author GENERATED, SYSTEM Organization Unknown Address Unknown Phone Unavailable Care Team Providers Care Phys Therapist Name Role Phone MD INGA, MANI [phone] Reason For Visit Chief Complaint CF Social History Functional Status Vital Signs Results [...] 2014 10:40 AM * Completed Procedure Code: 54593 Procedure Name: not valued, on 12/10/2014 12: 00 AM * Completed Procedure Code: 61041 Procedure Name: not valued, on 12/10/2014 12: 00 AM * Completed Laparoscopic Cholecystectomy, by MD BREANNE OCONNOR, on 08/20/2014 10:45 AM * Completed Procedure Code: 07921 Procedure Name: not valued, on 08/20/2014 12: [...]
--- OUTSIDE RECORDS SUMMARY | 2017-04-01 03:08 | XMS REPORT ---
Author Author GENERATED, SYSTEM Organization Unknown Address Unknown Phone Unavailable Care Team Providers Care Sergeant Missile Crewman Name Role Phone MD INGA, MANI [phone] Reason For Visit Chief Complaint E84.9 J32.4,INVANZ GM DLY CHEST XRAY PA/LAT,CBC MANAUAL DIFF CMP Social History Functional Status Vital Signs Results [...] 2014 10:40 AM * Completed Procedure Code: 41673 Procedure Name: not valued, on 12/10/2014 12: 00 AM * Completed Procedure Code: 62252 Procedure Name: not valued, on 12/10/2014 12: 00 AM * Completed Laparoscopic Cholecystectomy, by MD BREANNE OCONNOR, on 08/20/2014 10:45 AM * Completed Procedure Code: 58642 Procedure Name: not valued, on 08/20/2014 12: [...]
--- OUTSIDE RECORDS SUMMARY | 2017-04-01 03:08 | XMS REPORT | Continuity of Care Document ---
Author Author CASE Abbasi RD, Donna Organization Ambulatory Address Unknown Phone Unavailable Care Team Providers Care Caster Investment Casting Name Role Phone Sabas Simon PP Unavailable Sabas Simon RP Unavailable Payers Payer name Insurance type Covered republican ID Authorization(s) Unknown Problems Condition Effective Dates (start - stop) Clinical Status Unspecified sinusitis (chronic) - *Chronic Unspecified osteomyelitis, [...] - *Chronic Unspecified sinusitis (chronic) - *Chronic Family History Family Member Diagnosis Age At Onset Status Unknown Social History Social History Element Description Quantity Unknown Allergies, Adverse Reactions, Alerts Substance Reaction Severity Status CYPROHEPTADINE Hives Unknown POTASSIUM CLAVULANATE Unknown ERYTHROMYCIN BASE Unknown SALMETEROL XINAFOATE Unknown AMOXICILLIN TRIHYDRATE Unknown ASPIRIN Unknown FLUTICASONE PROPIONATE Unknown CIPROFLOXACIN Unknown PENICILLINS Unknown AZITHROMYCIN Unknown PSEUDOEPHEDRINE HCL Unknown LEVOFLOXACIN Unknown CLINDAMYCIN Hives/Skin Rash moderate to severe DIVALPROEX SODIUM Unknown Medications Medication Instructions Dosage Effective Dates (start - stop) Status Creon 24,000-76,000-120,000 unit capsule,delayed release take 6 capsules with meals and 4 capsules with snacks - Active FEMARA (unknown strength) take 1 tablet by oral route every day 2013 - Active VIIBRYD (unknown strength) - Active TIROSINT (unknown strength) take 1 capsule by oral route every day - Active OVIDREL (unknown strength) inject 0.5 milliliter by subcutaneous route every day for 1 day - Active FOLIC ACID (unknown strength) - Active albuterol sulfate HFA 90 mcg/actuation aerosol inhaler inhale 1 - 2 puff by inhalation route every 4 hours as needed 0 - No Longer Active Medrol (Kirill) 4 mg tablets in a dose pack take by Oral route as directed in pack. 0 - Active doxycycline hyclate 100 mg capsule take 1 capsule (100MG) by oral route 2 times every day 100 MG - Active albuterol sulfate 2.5 mg/3 mL (0.083 %) solution for nebulization inhale 1 vial by [facility] four times daily - Active 1 capsule by mouth twice daily - Active Nasonex 50 mcg/actuation [place] spray 2 spray by intranasal route every [...] 4 puffs each nostril bid. - Active Flovent HFA 110 mcg/actuation aerosol [...] Height Weight Pulse Rate Blood Pressure Temperature /16:17:00 63.00 in 124.60 lbs 98.1 F Procedures Procedure Date Unknown Encounters Encounter Location Date Patient Visit [facility] ENT Patient Visit [facility]mon[facility] Patient Visit [facility] Patient Visit [facility] Patient Visit [facility] Patient Visit [facility] ENT Patient Visit Conversion Patient Visit [facility] ENT Advance Directives Directive Effective Date Unknown
--- OUTSIDE RECORDS SUMMARY | 2017-04-01 03:08 | XMS REPORT | Referral Summary ---
Author Author [facility] Organization [facility] Address Unknown Phone Unavailable Care Team Providers Care Manager Equipment Name Role Phone Alem Simon Primary Care Physician [phone] Encounter [facility] Date(s): 09/10/16 - 09/10/16 [facility] [address] [place] [address] [phone] Discharge Diagnosis: Chronic pansinusitis Discharge Disposition: 01-Home or Self Care Attending Physician: Nate Grady MD Admitting Physician: Nate Grady MD Vital Signs Most recent to 1 oldest [Reference Range]: Temperature Skin 36.0 degC [36-37 degC] (09/10/16 11:22 AM) Temperature Temporal 36.2 degC Artery [36.3-37.8 *LOW* degC] (09/10/16 1:11 PM) Peripheral Pulse 79 bpm Rate [60-100 bpm] (09/10/16 8:17 AM) Heart Rate Monitored 62 bpm [60-100 bpm] (09/10/16 1:41 PM) Respiratory Rate 12 br/min [14-20 br/min] *LOW* (09/10/16 1:41 PM) Blood Pressure 93/60 mmHg [90-140/60-90 mmHg] (09/10/16 1:41 PM) Mean Arterial 71 mmHg Pressure, Cuff (09/10/16 12:45 PM) SpO2 96 % (09/10/16 1:41 PM) Problem List Condition Effective Dates Status [...] Urticaria (hives) Active pseudoephedrine Anaphylaxis Active Medications Cranberry 1 tabs, Oral, Daily Start Date: 04/02/15 Status: Ordered Creon 24,000 units oral delayed release capsule See Instructions, 6 caps Oral TID with each meal and 2 caps oral with each snack x 3 snacks., # 2,160 caps, 3 Refill(s), Pharmacy: [facility] Start Date: 05/19/16 Status: Ordered famotidine 20 mg, Oral, BID Start Date: 05/05/15 Status: Ordered Flovent HFA 220 mcg/inh inhalation aerosol 2 puffs, Inhalation, BID, 0 Refill(s) Start Date: 02/24/15 Status: Ordered Geodon 20 mg oral capsule 20 mg 1 caps, Oral, Daily, # 60 caps, 0 Refill(s) Start Date: 05/19/16 Status: Ordered NexIUM 20 mg oral delayed release capsule 1 caps, Oral, BID, # 60 caps, 0 Refill(s), Pharmacy: [facility] , 1 caps Oral BID Start Date: 06/07/14 Status: Ordered NexIUM 20 mg oral delayed release capsule 20 mg 1 caps, Oral, BID, # 180 caps, 4 Refill(s), other reason (Rx) Start Date: 05/12/16 Status: Ordered [place] 10 mg-325 mg oral tablet 1 tabs, Oral, q6hr, as needed for pain, # 40 tabs, 0 Refill(s), other reason (Rx ) Start Date: 09/10/16 Status: Ordered [place] 10 mg-325 mg oral tablet 1 tabs, Oral, q6hr, 0 Refill(s) Start Date: 02/20/16 Status: Ordered ProAir HFA 90 mcg/inh inhalation aerosol 2 puffs, Inhalation, q4hr, as needed for wheezing, # 8.5 g, 0 Refill(s) Start Date: 05/08/14 Status: Ordered Pulmozyme 2.5 mg/2.5 mL inhalation solution See Instructions, INHALE ONE AMPULE BY INHALATION ROUTE EVERY DAY VIA NEBULIZER , # 75 mL, 11 Refill(s), eRx: [facility], INHALE ONE AMPULE BY INHALATION ROUTE EVERY DAY VIA NEBULIZER Start Date: 08/21/15 Status: Ordered SEROquel 400 mg oral tablet 400 mg 1 tabs, Oral, BID, 0 Refill(s) Start Date: 09/10/16 Status: Ordered Sleep med (Ciprohetadine) Sleep med (Ciprohetadine), 4 mg, Oral, Bedtime (once a day) Start Date: 04/02/15 Status: Ordered Yoni 300 mg, NEB, Every other day, Odd moths only Start Date: 05/05/15 Status: Ordered Tums 500 mg oral tablet, chewable 500 mg 1 tabs, Oral, PRN, 0 Refill(s) Start Date: 02/24/15 Status: Ordered vitamin A 1 tabs, Oral, Daily, 0 Refill(s) Start Date: 02/20/16 Status: Ordered Vitamin D with Minerals oral tablet 1 tabs, Oral, Daily, 0 Refill(s) Start Date: 02/20/16 Status: Ordered Vitamin D3 1 tabs, Oral, Daily, 0 Refill(s) Start Date: 02/20/16 Status: Ordered vitamin E 1 tabs, Oral, Daily, 0 Refill(s) Start Date: 02/20/16 Status: Ordered Xanax 0.5 mg oral tablet 0.5 mg 1 tabs, Oral, TID, ANXIETY, PTSD, 0 Refill(s) Start Date: 09/10/16 Status: Ordered Results Chemistry Most recent to 1 oldest [Reference Range]: Screen, Negative Urine NPT (09/10/16 8:21 AM) Blood Glucose, 88 mg/dL Capillary [70-100 (09/10/16 8:14 AM) mg/dL] Immunizations Vaccine Date Refusal Reason tetanus/diphth/pertuss (Tdap) adult/adol 11/26/15 tetanus/diphth/pertuss (Tdap) adult/adol 10/02/14 pneumococcal 23-polyvalent vaccine 11/26/15 Procedures Procedure Date Related Diagnosis Body Site Endoscopy Sinus1 09/10/16 Nasal/sinus endoscopy, surgical with frontal 02/26/16 sinus [...] complete, any method.. Insertion Implantable Venous Access Port2 02/24/15 sinus surgery 2013 Port-A-Cath Removed 2012 Bronchoscopy3 01/05/08 Cholecystectomy Tonsillectomy 1auto-populated from documented surgical case 2auto-populated from documented surgical case 3For retained secretions and L UL atelectasis Social History Social History Type Response Smoking Status Never smoker Assessment and Plan No data available for this section
--- OUTSIDE RECORDS SUMMARY | 2017-04-01 03:08 | XMS REPORT | Summary of Care ---
Author Author Sabas Simon M.D. Organization Unknown Address [address], [place] [address] Phone Unavailable Care Team Providers Care Eeg Technician Name Role Phone Alfred Tran, Alem Unavailable Unavailable Tyree Tran, CARTER,, Dae Unavailable Unavailable Alejandra Tran, Jose Unavailable Unavailable Zadi Tran, Alem Unavailable Unavailable Sabas Simon PP [...] Refills: 11 Sabas Simon M.D.* Started 28-Jun-2011 [id number] GM Inhaler Creon 86110 UNIT Oral Capsule Delayed Release Particles TAKE [...] Joslyn Mar M.D.* Started 17-Jul-2012 ActiveVitamin A 55429 UNIT Oral Capsule * Refills: 0 * [...] m2 Status: Results Date Description Value Details 11-Dec-2015 11:22 CBC w/ Auto Diff 7150 [...] 12:03 X CHEST PA & LAT (Better) 08-Jan-2016 13:34 BETA HCG 3500 BETA HCG <2 mIU/mL (Better) Range: 0-5 Comments: Gestational age: 0.02-1 Weeks=5-50 mIU/mL1-2 Weeks=50-500 mIU/mL2-3 Ufkjm=712-2535 mIU/mL3-4 Rqoti=590-84,000 mIU/mL4-5 Weeks=1,000-50,000 mIU/mL5- 6 Weeks=10,000-100,000 mIU/mL6-8 Weeks=15,000-200,000 [...] not documented On 09-Dec-2014 10:00 Appointment; Flor Ficsher Encounter Diagnosis: Problem not documented On 06-Dec-2014 [...]
--- OUTSIDE RECORDS SUMMARY | 2017-04-01 03:09 | XMS REPORT | Summary of Care ---
Author Author Sabas Simon M.D. Unknown Address Unknown Phone Unavailable Care Team Providers Care Senior Telecommunications Consultant Name Role Phone Alfred Tran, Alem Unavailable [...] Active Chronic pain (338.29, G89.29) Status: Active Medications Name Dates Details Pulmozyme [...] Start 28-Jun-2011 Active 12 GM Inhaler Creon 98822 UNIT Oral Capsule Delayed Release Particles TAKE 6 CAP BY MOUTH WITH MEALS, AND 4 CAPS WITH SNACKS * Quantity: 300 Refills: 99 Sabas Simon M.D. * Start 22-Dec-2011 Active Albuterol Sulfate (2.5 MG/3ML) 0.083% Inhalation Nebulization Solution USE 1 UNIT DOSE IN NEBULIZER EVERY 4 TO 6 HOURS NEEDED. (Dx: J44.9, E84.9) * Quantity: 1080 Refills: 3 Sabas Simon M.D. Start Active Epiduo 0.1-2.5 % External Gel apply to acne areas daily * Quantity: 45 Refills: 0 Sabas Simon M.D. Start 17-Jul-2012 Active Hydrocodone-Acetaminophen 10-325 MG Oral Tablet TAKE 1 TABLET EVERY 4 TO 6 HOURS NEEDED FOR PAIN. * Quantity: 60 Refills: 0 Sabas Simon M.D. Start 24-Oct-2012 Active Vitamin A 59939 UNIT Oral Capsule * Refills: 0 * Start 17-Jan-2013 Active Famotidine 20 MG Oral Tablet TAKE 1 TABLET TWICE DAILY. * Refills: 0 * Start 15-Aug-2014 Active Cranberry-Vitamin C 84-20 MG Oral Capsule * Refills: 0 Tyree rTan, CARTER, , , Dae * Start 15-Aug-2014 [...] Refills: 6 Sabas Simon M.D. Start Active ALPRAZolam 0.5 MG Oral Tablet TAKE ONE TABLET BY MOUTH EVERY 4 TO 6 HOURS NEEDED * Quantity: 40 Refills: 0 Sabas Simon M.D. Start 04-Aug-2016 Active QUEtiapine Fumarate 400 MG Oral Tablet TAKE 1 TABLET AT BEDTIME. * Quantity: 30 Refills: 11 Sabas Simon M.D. Start Active Gabapentin 300 MG Oral Capsule Take 1 twice daily * Quantity: 60 Refills: 0 Sabas Simon M.D. Start 17-Aug-2016 Active Allergies and Adverse Reactions Name Dates [...] to report Results Date Description Value Details 30-Aug-2016 14:26 ULTRASOUND FOLLICULAR STUDY SONO Comments: Exam Date: 08/2016 13:54Dictation Date: 08/30/2016 14:26 XS FOLLICULAR STUDY SONO Plan of Care Name Dates Details Planned Observations Planned Goals not documented Planned Encounters Appointment; Provider: Deya Zaragoza A.P.R.N. On 07-Sep-2016 13:00 Appointment; Provider: Schedule Radiology On 30-Aug-2016 14:00 Interventions Provided Medication Changes* Hydrocodone-Acetaminophen 10-325 MG Oral Tablet - Renew Instructions Name Dates Details Instructions not documented Encounters Appointment; Deya Zaragoza A.P.R.N. Encounter Diagnosis: Problem [...] documented On 06-Mar-2015 13:45 Appointment; Pranav Sahu M.D.|Dwight|[place],BLAYNE,FACS, Encounter Diagnosis: Problem not documented On 09-Dec-2014 10:00 Appointment; Flor Fischer D.O. Encounter Diagnosis: Problem not documented On 06-Dec-2014 11:05 Appointment; Sabas Simon M.D. Encounter Diagnosis: Problem not documented On 04-Nov-2014 16:00 Appointment; Liu Dennis D.O. Encounter Diagnosis: Problem not documented On 28-Oct-2014 10:00 Appointment; Sabas Simon M.D. Encounter Diagnosis: Problem not documented On 23-Sep-2014 13:00 Appointment; Pranav Sahu M.D.|F.A.C.S.|[place],CARTER|[place],FACS, Encounter Diagnosis: Problem not documented On 23-Sep-2014 10:30 Appointment; Pranav Sahu M.D.|F.A.C.S.|[place],CARTER|[place],FACS, Encounter Diagnosis: Problem not documented On 16-Sep-2014 10:15 Appointment; Pranav Sahu M.D.|F.A.C.S.|[place],CARTER|[place],FACS, Encounter Diagnosis: Problem not documented On 04-Sep-2014 09:00"
--- OUTSIDE RECORDS SUMMARY | 2017-04-01 03:09 | XMS REPORT | Summary of Care ---
Author Author Cory Roberts M.D. Organization Unknown Address [address], [place] [address] Phone Unavailable Care Team Providers Care Cutting Machine Tender Decorative Name Role Phone Alfred Tran, Alem Unavailable Unavailable Tyree Tran FACS,Dae Unavailable Unavailable Jose Roberts M.D. Unavailable Unavailable Alem Mar M.D. Unavailable Unavailable [...] Status: Active Amenorrhea (626.0, N91.2) Status: Active Encounter for routine gynecological examination with Papanicolaou smear of cervix (V72.31, Z01.419) Status: Active Medications Name Dates Details Pulmozyme [...] Refills: 12 Sabas Simon M.D.* Started 28-Jun-2011 [id number] GM Inhaler Creon 02679 UNIT Oral Capsule Delayed Release Particles TAKE [...] Sabas Simon M.D.* Started 24-Oct-2012 ActiveVitamin A 85805 UNIT Oral Capsule * Refills: 0 * [...] Refills: 8 Cory Roberts M.D.* Started 01-Jul-2015 Active Allergies and Adverse [...] smoker Vital Signs Date Test Result Details 01-Jul-2015 08:47 BP Systolic 94 mm[Hg] Status: BP Diastolic 58 mm[Hg] Status: Weight 131 lb Status: Body Mass Index Calculated 23.21 kg/m2 Status: Body Surface Area Calculated 1.62 m2 Status: 16:22 BP Systolic 99 mm[Hg] Status: BP Diastolic 58 mm[Hg] Status: Temperature 98.6 f Status: Heart Rate 72 /min Status: Weight 131.8 lb Status: O2 SAT 97 % Status: Body Mass Index Calculated 23.35 kg/m2 Status: Body Surface Area Calculated 1.62 m2 Status: Results Date Description Value Details 01-Jul-2015 09:41 SERUM TEST 8020 SERUM TEST Negative (Better) Range: Negative Comments: Internal Control: Acceptable----- Plan of Care Planned Observations* Name Dates Details Planned Goals not documented Goal Planned Encounters* Appointment; Provider: Cory Roberts On 01-Jul-2016 08:15 * Appointment; Provider: Pranav Sahu On [...] Instructions * Instructions not documented Encounters Appointment; Cory Roberts Encounter Diagnosis: Problem not [...] not documented On 20-Sep-2013 10:30 Appointment; Sahra oBwden Encounter Diagnosis: Problem not documented On 30-Jul-2013 09:00 Appointment; Chuck Amezcua Encounter Diagnosis: Problem not documented On 16-Jul-2013 08:45
--- OUTSIDE RECORDS SUMMARY | 2017-04-01 03:09 | XMS REPORT ---
Author Author GENERATED, SYSTEM Organization Unknown Address Unknown Phone Unavailable Care Team Providers Care Financial Professional Name Role Phone MD INGA, MANI PP [phone] Reason For Visit Chief Complaint VOMIT DEHYDRATE Social History Functional Status Vital Signs Results Chemistry from 06/22/2015 8:30 PMSODIUM 139 MMOL/L (136-145 MMOL/L) POTASSIUM 3.8 MMOL/L (3.5-5.1 MMOL/L) CHLORIDE 100 MMOL/L (98-107 MMOL/L) TCO2 31.0 MMOL/L (21.0-32.0 MMOL/L) ANION GAP 8.0 MMOL/L (8.0-16.0 MMOL/L) BUN 11 MG/DL (7-18 MG/DL) CREATININE 0.94 MG/DL (0.55-1.02 MG/DL) BUN/CREATININE RATIO 11.7 (9.1-17.0 ) GLUCOSE 106 MG/DL H (65-99 MG/DL) GFR EST NON AFR ICELANDIC 80 ML/MIN GFRA EST AFR AMER >90 ML/MIN CALCIUM 9.9 MG/DL (8.5-10.1 MG/DL) BILIRUBIN TOTAL 1.56 MG/DL H (0.20-1.00 MG/DL) TOTAL PROTEIN 8.1 GM/DL (6.4-8.2 GM/DL) ALBUMIN 4.3 GM/DL (3.4-5.0 GM/DL) GLOBULIN 3.8 GM/DL H (2.3-3.5 GM/DL) A/G RATIO 1.1 MG/DL L (1.5-2.2 MG/DL) ALK PHOS 157 U/L H (46-116 U/L) ALT (SGPT) 47 U/L (16-63 U/L) AST (SGOT) 37 U/L (15-37 U/L) LIPASE 32 U/L L (73-393 U/L) TEST NEGATIVE (NEGATIVE ) Hematology from 06/22/2015 8:30 PMWBC 12.4 X10e3/UL H (3.6-11.2 X10e3/UL) RBC 4.85 X10e6/UL (3.63-4.92 X10e6/UL) HEMOGLOBIN 13.9 G/DL (11.0-14.3 G/DL) HEMATOCRIT 41.1 % (31.2-41.9 %) MCV 84.8 FL (79.0-98.0 FL) MCH 28.7 PG (27.0-33.0 PG) MCHC 33.9 G/DL (32.0-36.0 G/DL) RDW 13.3 % (12.3-17.0 %) RDWSD 38.9 (37.1-47.8 ) PLATELET 303 X10e3/UL (159-386 X10e3/UL) MPV 8.5 FL (7.4-10.4 FL) AUTOMATED DIFF PERFORMED SEGS 65.9 % LYMPHOCYTES 25.8 % MONOCYTES 5.6 % EOSINOPHILS 2.0 % BASOPHILS 0.7 % ABSOLUTE NEUTROPHILS 8.20 X10e3/UL H (1.80-7.80 X10e3/UL) ABSOLUTE LYMPHOCYTES 3.20 X10e3/UL H (1.00-3.00 X10e3/UL) ABSOLUTE MONOCYTES 0.70 X10e3/UL (0.30-1.00 X10e3/UL) ABSOLUTE EOSINOPHILS 0.20 X10e3/UL (0.00-0.50 X10e3/UL) ABSOLUTE BASOPHILS 0.10 X10e3/UL (0.00-0.20 X10e3/UL) Urinalysis from 06/22/2015 9:10 PM* Status: Final Result URINALYSIS Specimen Number: [id number] Sample Collection Date/Time: 06/22/2015 9:10 PM Specimen Source: URINE COLOR STRAW (STRAW/YELL/DK YELL ) URINE APPEARANCE SL CLOUDY A (CLEAR ) URINE PH 8.0 (5.0-8.0 ) URINE SPECIFIC GRAVITY 1.010 (<=1.005->=1.030 ) URINE GLUCOSE NEGATIVE MG/DL (NEGATIVE MG/DL) URINE BILIRUBIN NEGATIVE (NEGATIVE ) URINE KETONES TRACE MG/DL A (NEGATIVE MG/DL) URINE BLOOD NEGATIVE (NEGATIVE ) URINE PROTEIN NEGATIVE MG/DL (NEGATIVE MG/DL) URINE UROBILINOGEN 0.2 EU/DL (0.2-1.0 EU/DL) URINE NITRITES NEGATIVE (NEGATIVE ) *URINE LEUKOCYTES NEGATIVE (NEGATIVE ) Microbiology from 06/22/2015 9:55 PM* CULTURE GROUP A STREP (Preliminary Result) Specimen Number: [id number] Sample Collection Date/Time: 06/22/2015 9:55 PM Specimen Source: Throat GROUP A STREP, RAPID AG: NEGATIVE FOR GROUP A STREP CULTURE GROUP A STREP: Testing in Progress * *INFLUENZA A ANTIGEN Specimen Number: [id number] Sample Collection Date/Time: 06/22/2015 9:55 PM Specimen Source: Nares *INFLUENZA A ANTIGEN: NEGATIVE Note: This test can not distinguish influenza A virus subtypes. For example, this test cannot distinguish influenza infections caused by novel influenza A viruses versus seasonal influenza A viruses. The sensitivity of this assay has been shown to range between 71-98% for seasonal influenza A viruses. There is no data available for sensitivity related specifically to H1N1 virus for this test. A negative result does not exclude influenza virus infection. If influenza is circulating in your community , a diagnosis of influenza should be considered based on a patient's clinical presentation and empiric antiviral treatment should be considered, if indicated. If more conclusive testing is desired, follow-up confirmatory testing with either viral culture or (PCR) is warranted. *INFLUENZA B ANTIGEN: NEGATIVE * *INFLUENZA B ANTIGEN Specimen Number: [id number] Sample Collection Date/Time: 06/22/2015 9:55 PM Specimen Source: Nares *INFLUENZA B ANTIGEN: NEGATIVE *INFLUENZA A ANTIGEN: NEGATIVE Note: This test can not distinguish influenza A virus subtypes. For example, this test cannot distinguish influenza infections caused by novel influenza A viruses versus seasonal influenza A viruses. The sensitivity of this assay has been shown to range between 71-98% for seasonal influenza A viruses. There is no data available for sensitivity related specifically to H1N1 virus for this test. A negative result does not exclude influenza virus infection. If influenza is circulating in your community , a diagnosis of influenza should be considered based on a patient's clinical presentation and empiric antiviral treatment should be considered, if indicated. If more conclusive testing is desired, follow-up confirmatory testing with either viral culture or (PCR) is warranted. * GROUP A STREP, RAPID AG Specimen Number: [id number] Sample Collection Date/Time: 06/22/2015 9:55 PM Specimen Source: Throat CULTURE GROUP A STREP: Testing in Progress GROUP A STREP, RAPID AG: NEGATIVE FOR GROUP A STREP CT Scan from 06/22/2015 9:25 PMCT ABD/PELVIS W/CONTRAST History: Abdominal Pain . Nausea and vomiting x1 week Technique: Post contrast images were performed after the administration of 95 milliliters of Isovue intravenous contrast. Priors: CT abdomen and pelvis dated 08/20/2014 Findings: Abdomen Lung bases: Clear Liver: There is mild focal fatty infiltration involving the left lobe of the liver No definable mass. Spleen: Normal. Pancreas: There is marked fatty replacement of the pancreas with minimal residual definable pancreatic parenchyma noted. Gallbladder and biliary tract: The gallbladder is surgically absent. Adrenal glands: Normal. Kidneys: Normal enhancement. No masses. There is unchanged moderate left hydronephrosis and hydroureter with transition to normal caliber ureter just proximal to the left UVJ. This is similar to the prior study. No discrete calculus is identified. Urinary Bladder: Normal. Aorta: Normal in caliber. No periaortic lymphadenopathy. Bowel and Mesentery: There is moderate diffuse mural thickening of the colon. Mild pericolonic inflammatory changes are noted. The appendix appears slightly thickened however this may reflect secondary reactive changes. The appendiceal lumen is not significantly dilated. Ascites: None. There is a small sliding-type hiatal hernia again noted. Pelvis Lymphadenopathy: None. Reproductive: There are cystic changes within both ovaries, likely physiologic. Osseous Structures: No suspicious findings. Impression: Moderate mural thickening of the colon suggestive of colitis. The appendix is also slightly thickened likely reflecting secondary reactive changes. Unchanged moderate left hydronephrosis and hydroureter with transition to normal caliber at the level the distal ureter, unchanged since 08/20/2014. The etiology of this is indeterminate on this study. This could reflect a stricture, however other etiologies are not excluded. Urology consultation is suggested for further evaluation. Marked fatty infiltration of the pancreas. Electronically signed by: Stephanie Reid MD Dictated: 06/23/2015 08:51 Problems Encounter Diagnosis No relevant problems exist. [...] 2014 10:40 AM * Completed Procedure Code: 29122 Procedure Name: not valued, on 12/10/2014 12: 00 AM * Completed Procedure Code: 44859 Procedure Name: not valued, on 12/10/2014 12: 00 AM * Completed Laparoscopic Cholecystectomy, by MD BREANNE OCONNOR, on 08/20/2014 10:45 AM * Completed Procedure Code: 69133 Procedure Name: not valued, on 08/20/2014 12: [...]
--- OUTSIDE RECORDS SUMMARY | 2017-04-01 03:09 | XMS REPORT | Referral Summary ---
Author Author [facility] Organization [facility] Address Unknown Phone Unavailable Care Team Providers Care Burrito Maker Name Role Phone Alem Simon Primary Care Physician [phone] Encounter [facility] [id number] Date(s): 05/05/15 - 05/05/15 [facility] [address] [place], [place] [address] Discharge Diagnosis: Headache Discharge Diagnosis: Cystic fibrosis Discharge Diagnosis: Cough Discharge Diagnosis: Other chronic sinusitis Discharge Disposition: 01-Home or Self Care Attending [...] Daily, # 30 tabs, 6 Refill(s), Pharmacy: [facility] Start Date: 05/05/15 Status: Ordered BuSpar 15 mg, Oral, TID, 0 Refill(s) Start Date: 02/24/15 Status: Ordered Cranberry Daily Start Date: 04/02/15 Status: Ordered Creon 24,000 units oral delayed release capsule See Instructions, Take 6 caps oral with meals and 4 caps oral with snacks., # 780 caps, 3 Refill(s), Pharmacy: [facility] Start Date: 11/05/15 Status: Ordered famotidine [...] BID, # 60 caps, 0 Refill(s), Pharmacy: [facility] , 1 caps Oral BID Start [...] , # 75 mL, 11 Refill(s), eRx: [facility], INHALE ONE AMPULE BY INHALATION ROUTE [...] Body Site Nasal/sinus endoscopy, surgical; with biopsy, 05/05/15 polypectomy or debridement (separate procedure) Nasal/sinus endoscopy, surgical; with biopsy, 05/05/15 polypectomy or debridement (separate procedure) Nasal/sinus endoscopy, surgical; with biopsy, 05/05/15 polypectomy or debridement (separate procedure) Insertion Implantable Venous Access Port1 02/24/15 sinus surgery 2013 Port-A-Cath Removed 2012 Bronchoscopy2 01/05/08 Cholecystectomy Tonsillectomy 1auto-populated from documented surgical case 2For retained secretions and L UL atelectasis Social History Social History Type Response Smoking Status Never smoker Assessment and Plan Extracted from: Title: Office Visit Note Author: Nate Grady MD Date: 05/05/15 Assessment/Plan 1.Cystic fibrosis 2.Other chronic sinusitis I refilled the Bactrim. I counseled the patient to continue her sinus irrigation treatment. Return to clinic in 6 months. 3.Headache 4.Cough
--- OUTSIDE RECORDS SUMMARY | 2017-04-01 03:09 | XMS REPORT | Summary of Care ---
Author Author Sabas Simon M.D. Organization Unknown Address [address] [place], [place] [address] Phone Unavailable Care Team Providers Care Topstitcher Lockstitch Name Role Phone Alfred Tran, Alem Unavailable [...] Refills: 12 Sabas Simon M.D.* Started 28-Jun-2011 [id number] GM Inhaler Epiduo 0.1-2.5 % External Gel apply to acne areas daily * Quantity: 45 Refills: 3 Joslyn Mar M.D.* Started 17-Jul-2012 ActiveVitamin A 39765 UNIT Oral Capsule * Refills: 0 * Started 17-Jan-2013 ActiveCreon 45291 UNIT Oral Capsule Delayed Release Particles TAKE [...] TWICE DAILY. * Quantity: 14 Refills: 1 Flro Fischer D.O.* Started 06-Dec-2014 ActiveHydrocodone-Acetaminophen 10-325 MG [...] History of Cholecystectomy Laparoscopic VANCOMYCIN 3016 Ordered:03-Mar-2015 Immunization Name Dates Details Pneumo (Pneumovax) [...] to report Results Date Description Value Details 03-Mar-2015 15:24 [...] ml/min (Better) Range: >60 EST GFR, NON-AFR [place] >60 ml/min (Better) Range: >60 Comments: EST GFR is reported in ml/min per 1.73 m2 of body surface area. For -Malagasy, please multiple result by 1.2.----- BUN:CREATININE RATIO 9 (Better) GLUCOSE 95 mg/dL (Better) Range: 70-100 ALBUMIN 3.7 g/dL (Better) Range: 3.4-5.0 PHOSPHORUS 3.1 mg/dL (Better) Range: 2.5-4.9 CALCIUM 8.7 mg/dL (Better) Range: 8.5-10.1 Plan of Care Planned Observations* Name Dates [...]
--- OUTSIDE RECORDS SUMMARY | 2017-04-01 03:10 | XMS REPORT | Referral Summary ---
Author Author [facility] Organization [facility] Address Unknown Phone Unavailable Care Team Providers Care Health And Nutrition Specialist Name Role Phone Alem Simon Primary Care Physician [phone] Encounter [facility] [id number] Date(s): 08/16/16 - 08/16/16 [facility] [address] [place], [place] [address] Discharge Disposition: 01-Home or Self [...] (hives) Active pseudoephedrine Anaphylaxis Active Medications Cranberry Daily Start Date: 04/02/15 Status: Ordered Creon 24,000 units oral delayed release capsule See Instructions, Take 6 caps oral with meals and 4 caps oral with snacks., # 780 caps, 3 Refill(s), Pharmacy: [facility] Start Date: 11/05/15 Status: Ordered Creon 24,000 units oral delayed release capsule See Instructions, 6 caps Oral TID with each meal and 2 caps oral with each snack x 3 snacks., # 2,160 caps, 3 Refill(s), Pharmacy: [facility] Start Date: 05/19/16 Status: Ordered famotidine 20 mg Start Date: [...] Refill(s), Supply Start Date: 05/19/16 Status: Ordered Nasonex 50 mcg/inh nasal spray sprays, Nasal, Daily, 0 Refill(s) Start Date: 02/20/16 Status: Ordered NexIUM 20 mg oral delayed release capsule 1 caps, Oral, BID, # 60 caps, 0 Refill(s), Pharmacy: [facility] , 1 caps Oral BID Start Date: 06/07/14 Status: Ordered NexIUM 20 mg oral delayed release capsule 20 mg 1 caps, Oral, BID, # 180 caps, 4 Refill(s), other reason (Rx) Start Date: 05/12/16 Status: Ordered Carlotta 10 mg-325 mg oral tablet tabs, Oral, [...] Refill(s), eRx: [facility], INHALE ONE AMPULE BY INHALATION ROUTE EVERY DAY VIA NEBULIZER Start Date: 08/21/15 Status: Ordered Sleep med (Ciprohetadine) Sleep med [...]
--- OUTSIDE RECORDS SUMMARY | 2017-04-01 03:10 | XMS REPORT | Summary of Care ---
Author Author Sabas Simon M.D. Organization Unknown Address [address], [place] [address] Phone Unavailable Care Team Providers Care Warehouse General Laborer Name Role Phone Alfred Tran, Alem Unavailable [...] Refills: 11 Sabas Simon M.D.* Started 28-Jun-2011 [id number] GM Inhaler Creon 58512 UNIT Oral Capsule Delayed Release Particles TAKE [...] Sabas Simon M.D.* Started 24-Oct-2012 ActiveVitamin A 93502 UNIT Oral Capsule * Refills: 0 * [...] Refills: 11 Sabas Simon M.D.* Started 21-Aug-2015 [id number] GM Bottle Ovidrel 250 MCG/0.5ML Subcutaneous Injectable [...] History of Cholecystectomy Laparoscopic BETA HCG 3500 Ordered:08-Dec-2015 TAYLOR INJECTION Ordered:08-Dec-2015 Immunization Name Dates Details Pneumo (Pneumovax) Administered [...] (Abnormal) Range: 0-10 02-Dec-2015 11:10 URINE CULTURE [id number] Comments: [facility] performed at: [facility], [address] [place], [address], Mud Mixer: Augustus Bergeron D.O., MPHQuest Collection Date/Time: [id number] Results Received Date/Time: [id number] Reported Date/Time: [id number] performed at: [facility], [address] [place], [address], Mud Mixer: Augustus Bergeron D.O., MPHQuest Collection Date/Time: [id number] Results Received Date/Time: [id number] Reported Date/Time: [id number] CULTURE, URINE, ROUTINE SEE NOTE (Better) Comments: CULTURE, URINE, ROUTINE MICRO NUMBER: [id number] TEST STATUS: FINAL SPECIMEN SOURCE : URINE [...] (Better) 03-Dec-2015 17:20 Vitamin A and E [id number] Comments: ORDER IN BOOK UNDER NOVEMBERTesting performed at: [] [address], [address], , Mud Mixer: Augustus Pelletier MD VITAMIN A, SERUM 26 [...]
--- OUTSIDE RECORDS SUMMARY | 2017-04-01 03:10 | XMS REPORT | Summary of Care ---
Author Author Courtney Giles APRN Unknown Address [address], [place] [id number] Phone Unavailable Care Team Providers Care Instrumentation Technician Name Role Phone Alfred Tran, Alem [...] Refills: 12 Sabas Simon M.D.* Started 28-Jun-2011 [id number] GM Inhaler Creon 11933 UNIT Oral Capsule Delayed Release Particles TAKE [...] Sabas Simon M.D.* Started 24-Oct-2012 ActiveVitamin A 96385 UNIT Oral Capsule * Refills: 0 * [...]
--- OUTSIDE RECORDS SUMMARY | 2017-04-01 03:10 | XMS REPORT | Summary of Care ---
Author Author Sabas Simon M.D. Organization Unknown Address [address], [place] [id number] Phone Unavailable Care Team Providers Care Echo Vasc Tech Name Role Phone Alfred Tran, Alem Unavailable [...] Refills: 11 Sabas Simon M.D.* Started 28-Jun-2011 [id number] GM Inhaler Creon 73011 UNIT Oral Capsule Delayed Release Particles TAKE [...] Joslyn Mar M.D.* Started 17-Jul-2012 ActiveVitamin A 62585 UNIT Oral Capsule * Refills: 0 * [...] Simon M.D.* Started 08-Jan-2016 ActiveWellbutrin 75 MG TABS TAKE 1 TABLET TWICE DAILY. * Refills: [...] History of Cholecystectomy Laparoscopic SERUM TEST 8020 Ordered:16-Feb-2016 Immunization Name Dates Details Pneumo (Pneumovax) Administered [...] to report Results Date Description Value Details 27-Jan-2016 08:35 BETA HCG 3500 BETA HCG <2 mIU/mL (Better) Range: 0-5 Comments: Gestational age: 0.02-1 Weeks=5-50 mIU/mL1-2 Weeks=50-500 mIU/mL2-3 Nntgz=022-7455 mIU/mL3-4 Srgzp=813-22,000 mIU/mL4-5 Weeks=1,000-50,000 mIU/mL5- 6 Weeks=10,000-100,000 mIU/mL6-8 Weeks=15,000-200,000 mIU/mL2-3 months=10,000- 100,000 mIU/mL----- 05-Feb-2016 12:15 ULTRASOUND FOLLICULAR STUDY SONO Comments: Exam Date: 02/05/2016 09:55Dictation Date: 02/05/2016 12:15 XS FOLLICULAR STUDY SONO (Better) Plan of Care Planned Observations* Name Dates Details Planned Goals not documented Goal Planned Encounters* Appointment; Provider: Cory Roberts On 01-Jul-2016 08:15 * Appointment; Provider: Schedule Radiology On 05-Feb-2016 [...] not documented On 02-Oct-2015 13:45 Appointment; Cory Robetrs Encounter Diagnosis: Problem not documented On 01-Jul-2015 [...] Problem not documented On 23-Sep-2014 10:30 Appointment; rPanav Sahu Encounter Diagnosis: Problem not documented On [...]
--- OUTSIDE RECORDS SUMMARY | 2017-04-01 03:10 | XMS REPORT | Referral Summary ---
Author Author [facility] Organization [facility] Address Unknown Phone Unavailable Care Team Providers Care Hat Ironer Name Role Phone Alem Simon Primary Care Physician [phone] Encounter [facility] [id number] Date(s): 11/26/15 - 11/26/15 [facility] [address] [place] [address] AC [phone] Discharge Disposition: 01-Home or Self Care Attending Physician: Matilde Thurston MD Vital Signs No data available for [...] snacks., # 780 caps, 3 Refill(s), Pharmacy: [facility] Start Date: 11/05/15 Status: Ordered famotidine [...] BID, # 60 caps, 0 Refill(s), Pharmacy: [facility] , 1 caps Oral BID Start [...] , # 75 mL, 11 Refill(s), eRx: [facility], INHALE ONE AMPULE BY INHALATION ROUTE [...]
--- OUTSIDE RECORDS SUMMARY | 2017-04-01 03:11 | XMS REPORT | Summary of Care ---
Author Author Luis Alberto Tran, CARTER, ,Pranav Organization Unknown Address [address] [place], [place] [address] Phone Unavailable Care Team Providers Care Printed Forms Proofreader Name Role Phone Alfred Tran, Alem Unavailable Unavailable Tyree Tran FACS, Scott Unavailable Unavailable Flor Fischer D.O. Unavailable Unavailable [...] Refills: 12 Sabas Simon M.D.* Started 28-Jun-2011 [id number] GM Inhaler Creon 61951 UNIT Oral Capsule Delayed Release Particles TAKE 6 CAP BY MOUTH WITH MEALS, AND 4 CAPS WITH SNACKS * Quantity: 300 Refills: 99 Sabas Simon M.D.* Started 22-Dec-2011 ActiveEpiduo 0.1-2.5 % External Gel apply to acne areas daily * Quantity: 45 Refills: 3 Joslyn Mar M.D.* Started 17-Jul-2012 ActiveVitamin A 51601 UNIT Oral Capsule * Refills: 0 * [...] Clements M.D., FACS, * Started 15-Aug-2014 ActiveHydrocodone-Acetaminophen 7.5-325 MG Oral Tablet TAKE ONE TABLET BY MOUTH EVERY 4-6 HOURS NEEDED FOR PAIN * Quantity: 40 Refills: 0 Sabas Simon M.D.* Started 24-Oct-2012 ActiveMinocycline HCl - 100 MG Oral Capsule [...] History of Tonsillectomy History of Cholecystectomy Laparoscopic ECG/ EKG Preop Pendin09-Dec-2014 SERUM TEST 8020 Ordered:09-Dec-2014 Comprehensive Metabolic Panel 1212 Ordered:09-Dec-2014 XRay CHEST-PA & LAT Ordered:09-Dec-2014 Immunization Name Dates Details Pneumo (Pneumovax) Administered [...] 0.0-0.7 BASO 0.1 K/uL (Better) Range: 0.0-0.2 Plan of Care Planned Observations* Name Dates Details Planned Goals not documented Goal Planned Encounters* Appointment; Provider: Pranav Sahu On 10-Dec-2014 13:00 * Appointment; Provider: Pranav Sahu On 20-Aug-2014 11:00 * Appointment; Provider: Lebron More On 21-Sep-2013 10:30 * Appointment; Provider: Dae Clements On 10:00 * Appointment; Provider: Chuck Amezcua On 16-Dec-2011 09:15 * Appointment; Provider: Chuck Amezcua On 06-Aug-2011 11:00 * Appointment; Provider: Chuck Amezcua On 19-Jul-2011 12:30 * Appointment; Provider: Dae Clements On 15-Mar-2011 13:00 * Appointment; Provider: Sabas Smion On 05-Nov-2010 14:30 * Appointment; Provider: Dae Clements On 26-Aug-2009 13:30 * Appointment; Provider: Dae Clements On 12-Aug-2009 07:00 * Appointment; Provider: Chukc Amezcua On 09-Jul-2009 09:15 * Appointment; Provider: Chcuk Amezcua On 26-Aug-2008 14:15 Instructions * Instructions [...]
--- OUTSIDE RECORDS SUMMARY | 2017-04-01 03:11 | XMS REPORT | Summary of Care ---
Author Author Cory Roberts M.D. Organization Unknown Address [address] [place], [place] [address] Phone Unavailable Care Team Providers Care Hand Alterations Seamstress Name Role Phone Alfred Tran, Alem Unavailable [...] Refills: 12 Sabas Simon M.D.* Started 28-Jun-2011 [id number] GM Inhaler Creon 22731 UNIT Oral Capsule Delayed Release Particles TAKE [...] Sabas Simon M.D.* Started 24-Oct-2012 ActiveVitamin A 40190 UNIT Oral Capsule * Refills: 0 * [...] History of Cholecystectomy Laparoscopic SERUM TEST 8020 Ordered:01-Jul-2015 Immunization Name Dates Details Pneumo (Pneumovax) Administered [...]
--- OUTSIDE RECORDS SUMMARY | 2017-04-01 03:11 | XMS REPORT ---
Author Author GENERATED, SYSTEM Organization Unknown Address Unknown Phone Unavailable Care Team Providers Care Agent Based Modeler Name Role Phone MD INGA, MANI PP [phone] Reason For Visit Reason for Visit from 08/20/2014 9:00 AM:* Pt Stated Reason for Adm : "to take out my gallbladder" Chief Complaint CHOLELITHIASIS,LAP CHOLECYSTECTOMY Social History Social History from 08/20/2014 12:12 PM:* Tobacco Use? : Never Smoker Social History from 08/20/2014 9:00 AM:* Tobacco Use? : Never Smoker Functional Status Functional Status from 08/20/2014 1:34 PM:* LOC : Drowsy Functional Status from 08/20/2014 12:48 PM:* LOC : Alert Functional Status from 08/20/2014 11:56 AM:* LOC : Alert Functional Status from 08/20/2014 9:00 AM:* LOC : Alert * Oriented To : Person,Place,Time,Event * Weight Bearing Status : Full * Assist Level : Independent * # Assists : Independent Vital Signs Hospital Vital Signs from 08/20/2014 4:00 PM:* Height : 5/3.5 ft,in * Temperature : 98.0 F * Pulse : 71 * Respirations : 16 * BP : 114/78 Hospital Vital Signs from 08/20/2014 3:30 PM:* Height : 5/3.5 ft,in * Pulse : 61 * Respirations : 16 * BP : 113/73 Hospital Vital Signs from 08/20/2014 3:00 PM:* Height : 5/3.5 ft,in * Pulse : 62 * Respirations : 16 * BP : 119/70 Hospital Vital Signs from 08/20/2014 2:30 PM:* Height : 5/3.5 ft,in * Pulse : 59 * Respirations : 16 * BP : 114/72 Hospital Vital Signs from 08/20/2014 2:15 PM:* Height : 5/3.5 ft,in * Pulse : 68 * Respirations : 16 * BP : 110/74 Hospital Vital Signs from 08/20/2014 2:00 PM:* Height : 5/3.5 ft,in * Pulse : 67 * Respirations : 16 * BP : 108/77 Hospital Vital Signs from 08/20/2014 1:45 PM:* Height : 5/3.5 ft,in * Pulse : 76 * Respirations : 16 * BP : 119/78 Hospital Vital Signs from 08/20/2014 1:30 PM:* Height : 5/3.5 ft,in * Pulse : 66 * Respirations : 16 * BP : 113/78 Hospital Vital Signs from 08/20/2014 1:28 PM:* Height : 5/3.5 ft,in * Temperature : 98.2 F * Pulse : 68 * Respirations : 16 * BP : 112/79 Hospital Vital Signs from 08/20/2014 1:20 PM:* Heart Rate : 76 * Resp Rate : 16 * Systolic BP (mmHg) : 118 * Diastolic BP (mmHg) : 78 * Mean BP (mmHg) : 92 * O2 Saturation (%) : 96 Hospital Vital Signs from 08/20/2014 1:10 PM:* Heart Rate : 76 * Resp Rate : 14 * Systolic BP (mmHg) : 119 * Diastolic BP (mmHg) : 85 * Mean BP (mmHg) : 95 * O2 Saturation (%) : 95 Hospital Vital Signs from 08/20/2014 1:00 PM:* Heart Rate : 78 * Resp Rate : 14 * Systolic BP (mmHg) : 117 * Diastolic BP (mmHg) : 75 * Mean BP (mmHg) : 89 * O2 Saturation (%) : 99 Hospital Vital Signs from 08/20/2014 12:55 PM:* Temp : 97.8 * Heart Rate : 73 * Resp Rate : 14 * Systolic BP (mmHg) : 121 * Diastolic BP (mmHg) : 85 * Mean BP (mmHg) : 95 * O2 Saturation (%) : 100 Hospital Vital Signs from 08/20/2014 12:50 PM:* Heart Rate : 84 * Resp Rate : 12 * Systolic BP (mmHg) : 115 * Diastolic BP (mmHg) : 74 * Mean BP (mmHg) : 97 * O2 Saturation (%) : 100 Hospital Vital Signs from 08/20/2014 12:45 PM:* Heart Rate : 86 * Resp Rate : 13 * Systolic BP (mmHg) : 120 * Diastolic BP (mmHg) : 82 * Mean BP (mmHg) : 94 * O2 Saturation (%) : 92 Hospital Vital Signs from 08/20/2014 12:40 PM:* Temp : 98.6 * Heart Rate : 86 * Resp Rate : 14 * Systolic BP (mmHg) : 124 * Diastolic BP (mmHg) : 87 * Mean BP (mmHg) : 99 * O2 Saturation (%) : 92 Hospital Vital Signs from 08/20/2014 12:35 PM:* Heart Rate : 82 * Resp Rate : 14 * Systolic BP (mmHg) : 127 * Diastolic BP (mmHg) : 91 * Mean BP (mmHg) : 99 * O2 Saturation (%) : 96 Hospital Vital Signs from 08/20/2014 12:30 PM:* Heart Rate : 84 * Resp Rate : 15 * Systolic BP (mmHg) : 126 * Diastolic BP (mmHg) : 89 * Mean BP (mmHg) : 97 * O2 Saturation (%) : 97 Hospital Vital Signs from 08/20/2014 12:25 PM:* Temp : 98 * Heart Rate : 88 * Resp Rate : 14 * Systolic BP (mmHg) : 128 * Diastolic BP (mmHg) : 86 * Mean BP (mmHg) : 96 * O2 Saturation (%) : 97 Hospital Vital Signs from 08/20/2014 12:20 PM:* Heart Rate : 93 * Resp Rate : 17 * Systolic BP (mmHg) : 134 * Diastolic BP (mmHg) : 89 * Mean BP (mmHg) : 100 * O2 Saturation (%) : 97 Hospital Vital Signs from 08/20/2014 12:15 PM:* Heart Rate : 94 * Resp Rate : 14 * Systolic BP (mmHg) : 124 * Diastolic BP (mmHg) : 84 * Mean BP (mmHg) : 96 * O2 Saturation (%) : 100 Hospital Vital Signs from 08/20/2014 12:10 PM:* Temp : 98 * Heart Rate : 101 * Resp Rate : 21 * Systolic BP (mmHg) : 125 * Diastolic BP (mmHg) : 88 * Mean BP (mmHg) : 104 * O2 Saturation (%) : 100 Hospital Vital Signs from 08/20/2014 12:05 PM:* Heart Rate : 101 * Resp Rate : 19 * Systolic BP (mmHg) : 126 * Diastolic BP (mmHg) : 88 * Mean BP (mmHg) : 105 * O2 Saturation (%) : 100 Hospital Vital Signs from 08/20/2014 12:00 PM:* Heart Rate : 97 * Resp Rate : 16 * Systolic BP (mmHg) : 122 * Diastolic BP (mmHg) : 78 * Mean BP (mmHg) : 98 * O2 Saturation (%) : 100 Hospital Vital Signs from 08/20/2014 11:56 AM:* Temp : 97.7 * Heart Rate : 99 * Resp Rate : 18 * Systolic BP (mmHg) : 121 * Diastolic BP (mmHg) : 80 * Mean BP (mmHg) : 95 * O2 Saturation (%) : 100 Hospital Vital Signs from 08/20/2014 9:10 AM:* Weight : 57/ kg * Height : 5/3.5 ft,in * Temperature : 97.4 F * Pulse : 65 * Respirations : 16 * BP : 103/71 Hospital Vital Signs from 08/20/2014 9:00 AM:* Weight : 53.63/ kg * Height : 5/3 ft,in Results Chemistry from 08/20/2014 9:45 AMPREGNANCY TEST NEGATIVE (NEGATIVE ) Problems Encounter Diagnosis No relevant problems exist. Additional Problems * Cystic Fibrosis Status:Active. * Drug Overdose - Suicide Status:Active. Encounters Encounter Diagnosis No relevant problems exist. Plan of Care Follow-up Appointments from 08/20/2014 12:12 PM:* #1 Office appointment: : Dr. Oconnor * #1 Date/Time : 09/04/2014 9:00 AM * Address # 1 : [facility]: [facility] [address] [place]- or Procedures * Completed Laparoscopic Cholecystectomy, by MD [...] to care for yourself at home from 08/20/2014 12:12 PM:* Discharge Activity : Activity as tolerated,Do not engage in sports, heavy work or heavy lifting until your physician gives permission * Do not drive or operate machinery for: : 24 hours or while taking narcotic pain medication * Discharge Diet : As before hospitalization,Diet as tolerated * Discharge Diet: : Avoid heavy/greasy/spicy foods for today * Discharge Wound Care : Notify your physician if the following develops: redness, swelling, drainage or color of drainage changes, odor or increased pain. * Call your doctor if: : Fever over 101 F or severe chills,You have persistent or worsening symptoms,Other * Specific Discharge Teaching Instructions provided: : Yes * Specific Discharge Teaching Instructions Reviewed: : Other * Discharge on Warfarin : No Allergies, [...]
--- OUTSIDE RECORDS SUMMARY | 2017-04-01 03:11 | XMS REPORT ---
Author Author GENERATED, SYSTEM Organization Unknown Address Unknown Phone Unavailable Care Team Providers Care Wound Treatment Rn Name Role Phone MD INGA, MANI [phone] Reason For Visit Reason for Visit from [...] MG/DL (65-99 MG/DL) GFR EST NON AFR CANADIAN >90 ML/MIN GFRA EST AFR AMER >90 [...] 9:00 AM * Address # 1 : [facility]: [facility] [place]- [phone] or Treatment Plan from 08/21/2014 8:51 AM:* Care Management Note : Patient is admitted as outpatient d/t post op pain. S/p lap alisha. POC is to consult PCP, start REHABILITATION CASE COORDINATOR for pain control, increase ambulation, and encourage [...] the responsibility of the patient or patient member service representative to confirm the list of medications [...] puff by inhalation twice a day * ojfaxq-pnbouigi-enupigs (Creon) 24,000 unit-76,000 unit-120,000 unit capsule, delayed release(DR/EC), Ordered By: LEIGH SANFORD APRN Directions: 6 capsules oral three times a day during meal * gmgvjf-bogtmyfk-sbvuidr (Creon) 24,000 unit-76,000 unit-120,000 unit capsule, delayed [...]
--- OUTSIDE RECORDS SUMMARY | 2017-04-01 03:11 | XMS REPORT | Summary of Care ---
Author Author Sabas Simon M.D. Organization Unknown Address [address], [place] [id number] Phone Unavailable Care Team Providers Care Coal Hauler Operator Name Role Phone Alfred Tran, Alem [...] Positive blood test (V72.42, Z32.01) Status: Active Medications Name Dates Details Pulmozyme [...] 99 Sabas Simon M.D.* Started 28-Jun-2011 ActiveCreon 88301 UNIT Oral Capsule Delayed Release Particles TAKE [...] Sabas Simon M.D.* Started 24-Oct-2012 ActiveVitamin A 00245 UNIT Oral Capsule * Refills: 0 * [...] Refills: 11 Sabas Simon M.D.* Started 21-Aug-2015 [id number] GM Bottle Ovidrel 250 MCG/0.5ML Subcutaneous Injectable [...] Gestational age: 0.02-1 Weeks=5-50 mIU/mL1-2 Weeks=50-500 mIU/mL2-3 Wfrtu=763-7116 mIU/mL3-4 Aprqf=595-10,000 mIU/mL4-5 Weeks=1,000-50,000 mIU/mL5- 6 Weeks=10,000-100,000 mIU/mL6-8 Weeks=15,000-200,000 mIU/mL2-3 months=10,000- 100,000 mIU/mL----- 23-Sep-2015 12:29 ULTRASOUND FOLLICULAR STUDY SONO Comments: Exam Date: 09/23/2015 11:03Dictation Date: 09/23/2015 12:29 XS FOLLICULAR STUDY SONO (Better) 03-Oct-2015 11:44 BETA HCG 3500 BETA HCG 7 mIU/mL (Above high threshold) Range: 0-5 Comments: Gestational age: 0.02-1 Weeks=5-50 mIU/mL1-2 Weeks=50-500 mIU/mL2-3 Nrbgf=011-1693 mIU/mL3-4 Cbtko=280-14,000 mIU/mL4-5 Weeks=1,000-50,000 mIU/mL5- 6 Weeks=10,000-100,000 mIU/mL6-8 Weeks=15,000-200,000 [...]
--- OUTSIDE RECORDS SUMMARY | 2017-04-01 03:11 | XMS REPORT | Referral Summary ---
Author Author [facility] Organization [facility] Address Unknown Phone Unavailable Care Team Providers Care Credit Collections Manager Name Role Phone Alem Simon Primary Care Physician [phone] Encounter Date(s): 09/28/16 - 09/28/16 [facility] [address] [place], [place] [address] Discharge Disposition: 01-Home or Self Care Attending Physician: Nate Gardy MD Admitting Physician: Nate Grady MD Vital [...] snacks., # 2,160 caps, 3 Refill(s), Pharmacy: [facility] Start Date: 05/19/16 Status: Ordered [...] BID, # 60 caps, 0 Refill(s), Pharmacy: [facility] , 1 caps Oral BID Start Date: 06/07/14 Status: Ordered NexIUM 20 mg oral delayed release capsule 20 mg 1 caps, Oral, BID, # 180 caps, 4 Refill(s), other reason (Rx) Start Date: 05/12/16 Status: Ordered Moorland 10 mg-325 mg oral tablet 1 tabs, Oral, q6hr, as needed for pain, # 40 tabs, 0 Refill(s), other reason (Rx ) Start Date: 09/10/16 Status: Ordered Moorland 10 mg-325 mg oral tablet 1 tabs, [...] , # 75 mL, 11 Refill(s), eRx: [facility], INHALE ONE AMPULE BY [...] Refill(s) Start Date: 09/10/16 Status: Ordered Results No data available for this section Immunizations Vaccine Date Refusal Reason tetanus/diphth/pertuss (Tdap) adult/adol 11/26/15 tetanus/diphth/pertuss (Tdap) adult/adol 10/02/14 pneumococcal 23-polyvalent vaccine 11/26/15 Procedures Procedure Date Related Diagnosis Body Site Endoscopy Sinus1 09/10/16 Nasal/sinus endoscopy, surgical, with 09/10/16 maxillary antrostomy; with removal of tissue from maxillary sinus.. Nasal/sinus endoscopy, surgical, with 09/10/16 sphenoidotomy; with removal of tissue from the sphenoid sinus Nasal/sinus endoscopy, surgical; with 09/10/16 ethmoidectomy, total (anterior and posterior) Nasal/sinus endoscopy, surgical with frontal 02/26/16 sinus [...]
--- OUTSIDE RECORDS SUMMARY | 2017-04-01 03:12 | XMS REPORT | Continuity of Care Document ---
Author Author Luther [facility]AS, [facility] Address [address] [facility] [place] [address] Phone Care Team Providers Care Enrollment Services Vice President Name Role Phone Sabas Simon PP Unavailable Sabas Simon RP Unavailable Payers Payer name Insurance type Covered alliance party ID Authorization(s) Unknown Problems Condition Effective Dates (start - stop) Clinical Status Abdominal pain, generalized - *Chronic Other specified [...] Chronic Unspecified sinusitis (chronic) - Chronic Unspecified sinusitis (chronic) - *Chronic Unspecified osteomyelitis, site unspecified - *Chronic 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 Asthma - Acute Exacerbation Unspecified osteomyelitis, site unspecified - *Chronic Unspecified [...] Rash moderate to severe CYPROHEPTADINE Hives Unknown DIVALPROEX SODIUM Unknown Medications Medication Instructions Dosage Effective Dates (start - stop) Status Flovent HFA 110 mcg/actuation aerosol inhaler inhale 2 puff (220MCG) by inhalation route 2 times every day 220 MCG - Active ProAir HFA 90 mcg/actuation aerosol inhaler inhale 1 - 2 puff by inhalation route every 4 hours as needed 0 - Active Pulmozyme 1 mg/mL solution for inhalation inhale (2.5MG) by inhalation route every day via nebulizer 2.5 MG - Active albuterol sulfate 2.5 mg/3 mL (0.083 %) solution for nebulization inhale 1 vial by NEB four times daily - Active 1 capsule by mouth twice daily - Active Nasonex 50 mcg/actuation [place] spray 2 spray by intranasal route every [...] as directed in pack. 0 - Active Immunizations Vaccine Date Status Comments Unknown Results Test Name Date and Time Measure Units Reference Range Abnormal Flag Comments Unknown NOTE: This patient has pending results not included in this document Vital Signs Date / Time: Height Weight Pulse Rate Blood Pressure Temperature /13:23:00 64.69 in 125.44 lbs 77 /min 102/70 mm[Hg] 97.8 F Procedures Procedure Date Unknown Encounters Encounter Location Date Patient Visit Spec Clinic CF Patient Visit [facility] Pulmonology Patient Visit [facility] ENT Patient Visit [facility] ENT Patient Visit [facility] ASC Patient Visit [facility] ENT Patient Visit [facility] ENT Patient Visit Conversion Patient Visit [facility] ENT Advance Directives Directive Effective Date Unknown
--- OUTSIDE RECORDS SUMMARY | 2017-04-01 03:12 | XMS REPORT | Summary of Care ---
Author Author Courtney Giles APRN Unknown Address [address] [place], [place] [address] Phone Unavailable Care Team Providers Care Bus Repair Supervisor Name Role Phone Alfred Tran, Alem [...] Refills: 12 Sabas Simon M.D.* Started 28-Jun-2011 [id number] GM Inhaler Creon 62711 UNIT Oral Capsule Delayed Release Particles TAKE [...] Sabas Simon M.D.* Started 24-Oct-2012 ActiveVitamin A 30846 UNIT Oral Capsule * Refills: 0 * [...] not documented On 30-Jul-2013 09:00 Appointment; Chuck Aemzcua Encounter Diagnosis: Problem not documented On 16-Jul-2013 08:45
--- OUTSIDE RECORDS SUMMARY | 2017-04-01 03:12 | XMS REPORT | Summary of Care ---
Author Author Sabas Simon M.D. Organization Unknown Address [address], [place] [address] Phone Unavailable Care Team Providers Care Elementary School Principal Name Role Phone Alfred Tran, Alem Unavailable [...] Status: Active Dysuria (788.1, R30.0) Status: Active Medications Name Dates Details Pulmozyme [...] Refills: 11 Sabas Simon M.D.* Started 28-Jun-2011 [id number] GM Inhaler Creon 50632 UNIT Oral Capsule Delayed Release Particles TAKE [...] Sabas Simon M.D.* Started 24-Oct-2012 ActiveVitamin A 42731 UNIT Oral Capsule * Refills: 0 * [...] Refills: 11 Sabas Simon M.D.* Started 21-Aug-2015 [id number] GM Bottle Ovidrel 250 MCG/0.5ML Subcutaneous Injectable [...] History of Tonsillectomy History of Cholecystectomy Laparoscopic Urinalysis, Reflex to Microscopic or Culture PRN [id number] Ordered:01-Dec-2015 Immunization Name Dates Details Pneumo (Pneumovax) Administered [...] m2 Status: Results Date Description Value Details 05-Nov-2015 17:12 CBC w/ Auto Diff 7150 [...] Gestational age: 0.02-1 Weeks=5-50 mIU/mL1-2 Weeks=50-500 mIU/mL2-3 Yesfh=931-1716 mIU/mL3-4 Fbmti=739-89,000 mIU/mL4-5 Weeks=1,000-50,000 mIU/mL5- 6 Weeks=10,000-100,000 mIU/mL6-8 Weeks=15,000-200,000 [...] 11/19/2015 13:35 XS FOLLICULAR STUDY SONO (Better) Plan of Care Planned Observations* Name Dates Details Planned Goals not documented Goal Planned Encounters* Appointment; Provider: Cory Roberts On 01-Jul-2016 08:15 * Appointment; Provider: Sabas Simon On 08-Jan-2016 11:45 * Appointment; Provider: Sabas Simon On 02-Dec-2015 13:45 * Appointment; Provider: Schedule Radiology On 19-Nov-2015 [...] not documented On 28-Oct-2014 10:00 Appointment; Sabas Simno Encounter Diagnosis: Problem not documented On 23-Sep-2014 [...]
--- OUTSIDE RECORDS SUMMARY | 2017-04-01 03:12 | XMS REPORT | Summary of Care ---
Author Author Avery Hernandez M.D. Unknown Address Unknown Phone Unavailable Care Team Providers Care Glass Fitter Name Role Phone Alfred Tran, Alem Unavailable [...] (urinary tract infection) (599.0, N39.0) Status: Active Medications Name Dates Details Pulmozyme [...] HOURS NEEDED * Quantity: 3 Refills: 3 Alfred Tran, Sabas Ferrara * Start 14-Apr-2010 Active 8.5 GM Inhaler Vitamin D3 TABS * Refills: 0 Active Vitamin E 100 UNIT Oral Capsule * Refills: 0 Active Flovent HFA 220 MCG/ACT Inhalation Aerosol INHALE ONE PUFF BY MOUTH TWO TIMES A DAY. * Quantity: 3 Refills: 3 Sabas Simon M.D. * Start 28-Jun-2011 Active 12 GM Inhaler Creon 81012 UNIT Oral Capsule Delayed Release Particles TAKE 6 CAP BY MOUTH WITH MEALS, AND 4 CAPS WITH SNACKS * Quantity: 300 Refills: 99 Alfred Tran, Sabas Ferrara * Start 22-Dec-2011 Active Albuterol Sulfate (2.5 MG/3ML) 0.083% Inhalation Nebulization Solution USE 1 UNIT DOSE IN NEBULIZER EVERY 4 TO 6 HOURS NEEDED. (Dx: J44.9, E84.9) * Quantity: 1080 Refills: 3 Sabas Simon M.D. * Start Active Epiduo 0.1-2.5 % External Gel apply to acne areas daily * Quantity: 45 Refills: 0 Sabas Simon M.D. * Start 17-Jul-2012 Active Vitamin A 84969 UNIT Oral Capsule * Refills: 0 * [...] Vital Signs Date Test Result Details 27-Jul-2016 14:14 BP Systolic 108 mm[Hg] Status: Comments: Location: ; Position: BP Diastolic 62 mm[Hg] Status: Comments: Location: ; Position: 27-Jul-2016 13:18 Temperature 99.5 f Status: Comments: Method: 27-Jul-2016 11:30 BP Systolic 90 mm[Hg] Status: Comments: Location: ; Position: BP Diastolic 52 mm[Hg] Status: Comments: Location: ; Position: Temperature 98.8 f Status: Heart Rate 77 /min Status: Physical Findings 96 Status: Comments: O2 Saturation 27-Jul-2016 08:19 BP Systolic 90 mm[Hg] Status: BP Diastolic 60 mm[Hg] Status: Temperature 101.3 f Status: Comments: Method: Heart Rate 124 /min Status: Physical Findings 97 Status: Comments: O2 Saturation Results Date Description Value Details 02-Jul-2016 12:07 ULTRASOUND FOLLICULAR STUDY SONO Comments: Exam Date: 10/2016 11:23Dictation Date: 07/02/2016 12:07 XS FOLLICULAR STUDY SONO 05-Jul-2016 15:07 ULTRASOUND FOLLICULAR STUDY SONO Comments: Exam Date: 13:29Dictation Date: 07/05/2016 15:07 XS FOLLICULAR STUDY SONO 06-Jul-2016 07:50 Estradiol [id number] Comments: ORDER FILED UNDER JUNE IN THE BOOKTesting performed at: [DA] [address] [address], [place], [address], , Certified Tumor Registrar: FAM Gray MD Estradiol 417.2 pg/mL Comments: Adult Female: Follicular phase 12.5 - 166.0 Ovulation phase 85.8 - 498.0 Luteal phase 43.8 - 211.0 Postmenopausal <6.0 - 54.7 1st trimester 215.0 - > 4300.0 Girls (1-10 years) 6.0 - 27.0Roche ECLIA methodology----- 21-Jul-2016 15:15 BETA HCG 3500 BETA HCG <2 mIU/mL Range: 0-5 Comments: Gestational age: 0.02-1 Weeks=5-50 mIU/mL1-2 Weeks=50-500 mIU/mL2-3 Tpmvr=333-4047 mIU/mL3-4 Gorog=205-39,000 mIU/mL4-5 Weeks=1,000-50,000 mIU/mL5- 6 Weeks=10,000-100,000 mIU/mL6-8 Weeks=15,000-200,000 [...] Range: 150-400 MPV 7.4 fL Range: 6.0-11.0 09:36 Comprehensive Metabolic Panel 1212 SODIUM 137 mmol/L Range: 133-144 POTASSIUM 3.5 mmol/L Range: 3.5-5.1 CHLORIDE 99 mmol/L Range: 98-110 CARBON DIOXIDE 25.8 mmol/L Range: 23.0-33.0 ANION GAP 12 mmol/L Range: 6-16 BUN 11 mg/dL Range: 7-18 CREATININE, SERUM 1.23 mg/dL (Above high threshold) Range: 0.55-1.02 Comments: Please note new reference ranges effective 2015.----- BUN:CREATININE RATIO 9 EST GFR, >60 ml/min Range: >60 EST GFR, NON-AFR MOZAMBICAN 50 ml/min (Below low threshold) Range: >60 Comments: EST GFR is reported in ml/min per 1.73 m2 of body surface area. ----- GLUCOSE 145 mg/dL (Above high threshold) Range: 70-100 ALK PHOSPHATASE 118 U/L (Above high threshold) Range: 46-116 TOTAL BILIRUBIN 2.20 mg/dL (Above high threshold) Range: 0.20-1.00 AST 18 U/L Range: 8-35 ALT 26 U/L Range: 14-59 Comments: Please note new reference ranges. Effective 01/30/2015.----- ALBUMIN 3.7 g/dL Range: 3.4-5.0 TOTAL PROTEIN 7.7 g/dL Range: 6.4-8.2 A/G RATIO 0.9 units (Below low threshold) Range: 1.0-1.8 CALCIUM 8.9 mg/dL Range: 8.5-10.1 09:36 AMYLASE 1250 AMYLASE 16 U/L (Below low threshold) Range: 25-115 09:36 Lipase 1275 LIPASE 30 U/L (Below low threshold) Range: 73-393 10:01 Manual Differential 7400 SEGS 80 % Range: 37-80 BANDS 2 % Range: 0-7 LYMPH 9 % (Below low threshold) Range: 13-50 MONO 8 % Range: 0-12 EOSIN 1 % Range: 0-7 BASO 0 % Range: 0-3 JADE LYMPH 0 % Range: 0-0 META 0 % Range: 0-0 MYELO 0 % Range: 0-0 PRO 0 % Range: 0-0 BLAST 0 % Range: 0-0 NUC RBC 0 /100 WBC Range: 0-0 SMUDGE 0 /100 WBC PLATELET Adequate Range: Adequate Plan of Care Name Dates Details Planned Observations Planned Goals not documented Interventions Provided Labs/Procedures/Imaging* AMYLASE 1250; Done: Jul 27 2016 9:03AM * CBC w/ Auto Diff 7150; Done: Jul 27 2016 9:03AM * Comprehensive Metabolic Panel 1212; Done: Jul 27 2016 9:03AM * Lipase 1275; Done: Jul 27 2016 9:03AM * Urinalysis, [...] documented On 06-Mar-2015 13:45 Appointment; Pranav Sahu M.D.|F.A.C.S.|M.D.,CARTER|MPrieto,FACS, Encounter Diagnosis: Problem not documented On 09-Dec-2014 10:00 Appointment; Flor Fischer D.O. Encounter Diagnosis: Problem not documented On 06-Dec-2014 11:05 Appointment; Sabas Simon M.D. Encounter Diagnosis: Problem not documented On 04-Nov-2014 16:00 Appointment; Liu Dennis D.O. Encounter Diagnosis: Problem not documented On 28-Oct-2014 10:00 Appointment; Sabas Simon M.D. Encounter Diagnosis: Problem not documented On 23-Sep-2014 13:00 Appointment; Pranav Sahu M.D.|F.A.C.S.|M.D.,FACS|M.DAlex,FACS, Encounter Diagnosis: Problem not documented On 23-Sep-2014 10:30 Appointment; Pranav Sahu M.D.|F.A.C.S.|M.D.,FACS|M.DAlex,FACS, Encounter Diagnosis: Problem not documented On 16-Sep-2014 10:15 Appointment; Pranav Sahu M.D.|F.A.C.S.|M.D.,FACS|M.DAlex,FACS, Encounter Diagnosis: Problem not documented On 04-Sep-2014 09:00 Appointment; Sabas Simon M.D. Encounter Diagnosis: Problem not documented On 19-Aug-2014 11:00 Appointment; Pranav Sahu M.D.|F.A.C.S.|M.D.,FACS|M.DAlex,FACS, Encounter Diagnosis: Problem not documented On 15-Aug-2014 14:15 Appointment; Liu Dennis D.O. Encounter Diagnosis: Problem not documented On 13-Aug-2014 09:45 Appointment; Winsome Pollack A.P.R.N. Encounter Diagnosis: Problem not documented On 07-Aug-2014 15:00 Appointment; Sabas Simon M.D. Encounter Diagnosis: Problem not documented On 05-Aug-2014 16:00"
--- OUTSIDE RECORDS SUMMARY | 2017-04-01 03:13 | XMS REPORT | Summary of Care ---
Author Author Sabas Simon M.D. Organization Unknown Address [address] [place], [place] [address] Phone Unavailable Care Team Providers Care Revolving Inventory Clerk Name Role Phone Alfred Tran, Alem [...] Refills: 11 Sabas Simon M.D.* Started 28-Jun-2011 [id number] GM Inhaler Creon 80102 UNIT Oral Capsule Delayed Release Particles TAKE [...] Sabas Simon M.D.* Started 24-Oct-2012 ActiveVitamin A 03581 UNIT Oral Capsule * Refills: 0 * [...] Dae Clements M.D., FACS, * Started 15-Aug-2014 ActiveProgesterone Micronized 200 MG Oral Capsule Take two tablets at bedtime for 5 nitesif no period to induce period every 35- 40 days * Quantity: 10 Refills: 8 Sabas Simon M.D.* Started 01-Jul-2015 ActiveCrinone 8 % Vaginal [...] Refills: 3 Sabas Simon M.D.* Started 08-Jan-2016 ActiveVitamin K TABS * Refills: 0 ActiveVitamin [...] Gestational age: 0.02-1 Weeks=5-50 mIU/mL1-2 Weeks=50-500 mIU/mL2-3 Aemcw=917-7397 mIU/mL3-4 Mebya=530-90,000 mIU/mL4-5 Weeks=1,000-50,000 mIU/mL5- 6 Weeks=10,000-100,000 mIU/mL6-8 Weeks=15,000-200,000 [...]
--- OUTSIDE RECORDS SUMMARY | 2017-04-01 03:13 | XMS REPORT ---
Author Author GENERATED, SYSTEM Organization Unknown Address Unknown Phone Unavailable Care Team Providers Care Lithographing Machine Operator Name Role Phone MD INGA, MANI [phone] Reason For Visit Reason for Visit from 01/08/2016 4:10 PM:* Pt Stated Reason for Adm : [place] infusion Chief Complaint CF Social History Functional Status Functional Status from 01/17/2016 10:57 AM:* LOC : Alert * Oriented To : Person,Place,Time Functional Status from 01/16/2016 11:39 AM:* LOC : Alert * Oriented To : Person,Place,Time Functional Status from 01/14/2016 12:20 PM:* LOC : Alert * Oriented To : Person,Place,Time,Event Functional Status from 01/13/2016 1:28 PM:* LOC : Alert * Oriented To : Person,Place,Time,Event Functional Status from 01/12/2016 7:47 AM:* LOC : Alert * Oriented To : Person,Place,Time,Event Functional Status from 01/11/2016 9:36 AM:* LOC : Alert * Oriented To : Person,Place,Time Functional Status from 01/10/2016 10:07 AM:* LOC : Alert * Oriented To : Person,Place,Time Functional Status from 01/09/2016 11:19 AM:* LOC : Alert * Oriented To : Person,Place,Time,Event Functional Status from 01/08/2016 4:10 PM:* LOC : Alert * Oriented To : Person,Place,Time Vital Signs Hospital Vital Signs from 01/17/2016 10:57 AM:* Height : 5/3 ft,in * Temperature : 98.3 F * Pulse : 60 * Respirations : 18 * BP : 105/63 Hospital Vital Signs from 01/16/2016 11:39 AM:* Height : 5/3 ft,in * Temperature : 98.1 F * Pulse : 79 * Respirations : 18 * BP : 106/66 Hospital Vital Signs from 01/15/2016 1:12 PM:* Height : 5/3 ft,in * Temperature : 99.2 F * Pulse : 77 * Respirations : 18 * BP : 108/75 Hospital Vital Signs from 01/14/2016 12:30 PM:* Height : 5/3 ft,in * Temperature : 98.3 F * Pulse : 69 * Respirations : 18 * BP : 100/66 Hospital Vital Signs from 01/13/2016 1:29 PM:* Height : 5/3 ft,in * Temperature : 97.8 F * Pulse : 72 * Respirations : 18 * BP : 114/62 Hospital Vital Signs from 01/12/2016 7:48 AM:* Height : 5/3 ft,in * Temperature : 97.8 F * Pulse : 65 * Respirations : 18 * BP : 101/65 Hospital Vital Signs from 01/11/2016 9:45 AM:* Height : 5/3 ft,in * Temperature : 98.2 F * Pulse : 72 * Respirations : 16 * BP : 106/72 Hospital Vital Signs from 01/10/2016 10:13 AM:* Height : 5/3 ft,in * Temperature : 97.6 F * Pulse : 67 * Respirations : 18 * BP : 91/64 Hospital Vital Signs from 01/09/2016 11:22 AM:* Height : 5/3 ft,in * Temperature : 97.8 F * Pulse : 74 * Respirations : 18 * BP : 95/63 Hospital Vital Signs from 01/08/2016 4:18 PM:* Height : 5/3 ft,in * Temperature : 98.5 F * Pulse : 74 * Respirations : 18 * BP : 101/70 Hospital Vital Signs from 01/08/2016 4:10 PM:* Weight : 127/0 lbs,oz * Height : 5/3 ft,in Results Problems Encounter Diagnosis No relevant problems [...] of the umbilical area, by MD BREANNE OCONNOR on 2014 10:40 AM * Completed Procedure Code: 78398 Procedure Name: not valued, on 12/10/2014 12: 00 AM * Completed Procedure Code: 98048 Procedure Name: not valued, on 12/10/2014 12: 00 AM * Completed Laparoscopic Cholecystectomy, by MD BREANNE OCONNOR, on 08/20/2014 10:45 AM * Completed Procedure Code: 06183 Procedure Name: not valued, on 08/20/2014 12: [...]
--- OUTSIDE RECORDS SUMMARY | 2017-04-01 03:13 | XMS REPORT | Continuity of Care Document ---
Author Author Sneha PRIETO, [facility] Address Unknown Phone Unavailable Care Team Providers Care Detail Assembler Name Role Phone Sabas Simon PP Unavailable Sabas Simon RP Unavailable Payers Payer name Insurance type Covered libertarian ID Authorization(s) Unknown Problems Condition Effective Dates (start - stop) Clinical Status Unspecified osteomyelitis, site unspecified - *Chronic Unspecified [...] - Chronic Unspecified sinusitis (chronic) - Chronic Other postsurgical status - Chronic Cystic fibrosis [...] Dosage Effective Dates (start - stop) Status gentamicin 40 mg/mL injection solution Mix 40mg in approx. 45ml nasal saline spray. Use 4 puffs each nostril bid. - No Longer Active Percocet 5 mg-325 mg tablet take 1 Tablet by oral route every 4 - 6 hours as needed 0 - No Longer Active albuterol sulfate 2.5 mg/3 mL (0.083 %) solution for nebulization inhale 1 vial by NEB four times daily - Active 1 capsule by mouth twice daily - Active Nasonex 50 mcg/actuation [place] spray 2 spray by intranasal route every [...] Panel Description: Wound Culture/Sensitivity-[facility] Aerobic Wound Culture 11:10:00 Source: Wound, Superficial Collected: 12/13/13 11:10 Site: [facility] LEFT Received : 12/13/13 19:32 Order#: [id number] is the Site? : MAXLAerobic Wound Culture PRELIM 12/14/13 11:45 Staphylococcus aureus Moderate amountKEY FOR RESULTS: * - NEW RESULT - RESULT WAS MODIFIED AFTER FINAL [facility]US SETPerform at [facility] [address] [facility] [address] Sales Floor Team Member Stephen Chris MD Panel Description: Wound Culture/Sensitivity-AMS Aerobic Wound Culture 11:10:00 Source: Wound, Superficial Collected: 12/13/13 11:10 Site: [facility] LEFT Received : 12/13/13 19:32 Order#: [id number] is the Site? : MAXLAerobic Wound Culture INTERIM 12/15/13 18:04 Staphylococcus aureus Moderate amount S. aureus Antibiotic ZEE INT Clindamycin <=0.25 S Erythromycin <=0.25 S Oxacillin 0.5 S Tetracycline <=1 S Trimethoprim/Sulfa <=10 S Vancomycin <=0.5 S S=SUSCEPTIBLE I=INTERMEDIATE R= RESISTANT S-DD=SUSCEPTIBLE, DOSE DEPENDENT KEY FOR RESULTS: * - NEW RESULT - RESULT WAS MODIFIED AFTER FINAL STATUS SETPerform at [facility] Reference Lab [address] [facility] [address] [facility] [address] Sales Floor Team Member Stephen Chris MD Panel Description: Wound Culture/Sensitivity-AMS Aerobic Wound Culture 11:10:00 Source: Wound, Superficial Collected: 12/13/13 11:10 Site: [facility] LEFT Received : 12/13/13 19:32 Order#: [id number] is the Site? : MAXLAerobic Wound Culture FINAL 12/16/13 12:57 Staphylococcus aureus Moderate amount S. aureus Antibiotic ZEE INT Clindamycin <= 0.25 S Erythromycin <=0.25 S Oxacillin 0.5 S Tetracycline <=1 S Trimethoprim/Sulfa <=10 S Vancomycin < =0.5 S S=SUSCEPTIBLE I=INTERMEDIATE R=RESISTANT S-DD= SUSCEPTIBLE, DOSE DEPENDENT KEY FOR RESULTS: * - NEW RESULT - RESULT WAS MODIFIED AFTER FINAL STATUS SETPerform at [facility] Reference [facility] [address] [facility] [address] Sales Floor Team Member Stephen Chris MD Vital Signs Date / Time: Height Weight Pulse Rate Blood Pressure Temperature /09:27:00 63.00 in 123.46 lbs 104/78 mm[Hg] Procedures Procedure Date Unknown Encounters Encounter Location Date Patient Visit [facility] Patient Visit [facility] Pulmonology Patient Visit [facility] ENT Patient Visit [facility] ENT Patient [facility] Patient Visit [facility] Patient Visit [facility] ENT Patient Visit Conversion Patient Visit [facility] ENT Advance Directives Directive Effective Date Unknown
--- OUTSIDE RECORDS SUMMARY | 2017-04-01 03:13 | XMS REPORT | Summary of Care ---
Author Author Sabas Simon M.D. Organization Unknown Address [address], [place] [id number] Phone Unavailable Care Team Providers Care Stockroom Clerk Name Role Phone Alfred Tran, Alem [...] Refills: 12 Sabas Simon M.D.* Started 28-Jun-2011 Eiholk70 GM Inhaler Creon 75705 UNIT Oral Capsule Delayed Release Particles TAKE [...] 3 Joslyn Mar M.D.* Started 17-Jul-2012 ActiveHydrocodone-Acetaminophen 7.5-325 MG Oral Tablet TAKE ONE TABLET BY MOUTH EVERY 4-6 HOURS NEEDED FOR PAIN * Quantity: 40 Refills: 0 Sabas Simon M.D.* Started 24-Oct-2012 ActiveVitamin A 35024 UNIT Oral Capsule * Refills: 0 * [...] ml/min (Better) Range: >60 EST GFR, NON-AFR EGYPTIAN >60 ml/min (Better) Range: >60 Comments: EST GFR is reported in ml/min per 1.73 m2 of body surface area. For -Omani, please multiple result by 1.2.----- GLUCOSE 85 [...]
--- NOTE | 2017-04-01 03:27 | NUR ---
LAB LAB IN ROOM WITH PT FOR BLOOD DRAW AND UDS.
--- NOTE | 2017-04-01 03:39 | NUR ---
PROVIDER DR. PERLA IN ROOM WITH PT.
--- NOTE | 2017-04-01 03:47 | ERPDOC ---
Departure Disposition Decision Date: April 01, 2017 Disposition Decision Time: 04:10 Disposition: 65 TO PSYCH HOSP/UNIT Impression Impression Impression: Primary Impression: Suicidal ideation Additional Impressions: Major depression Major depression recurrence: recurrent Active/Remission status: currently active Major depression episode severity: moderate Qualified Codes: F33.1 - Major depressive disorder, recurrent, moderate UTI (urinary tract infection) Urinary tract infection type: acute cystitis Hematuria presence: without hematuria Qualified Codes: N30.00 - Acute cystitis without hematuria Severity: Moderate Condition: Improved Seen By: Physician only Problems/Meds/Labs Reviewed?: Yes Medications reviewed and manag: Yes Additional Instructions: Go directly to [facility] after discharge from the ED. Do not go anywhere else. Follow up care ordered?: Yes Mental Status: Alert, Oriented Scripts Sulfamethoxazole/Trimethoprim (Bactrim Ds Tablet) 1 Each Tablet 1 TAB PO BID for 7 Days, #14 TAB 0 Refills Prov: DAMEON PERLA DO 04/01/17 HPI - General Medical General Chief Complaint: Suicide Ideation/Attempt Stated Complaint: EVALUATION Time Seen by Provider: 02:57 Source: patient Exam Limitations: no limitations HPI - General Medical Initial Comments 31-year-old female presents the emergency department with the chief complaint of suicidal ideation with plan. Patient states that she is currently suffering through a rough patch in her relationship and this is making her feel suicidal. Patient states that her plan is to cut her wrist. Patient states that she wrote a will earlier today due to her plan to commit suicide. Patient annie on the veins of her wrist and wrote cut here at the site where she plan to perform an incision of her wrist. She does have a history of a prior suicide attempt by cutting. Patient denies any homicidal ideation or plan. She denies any self injury or self-harm. No pain or discomfort. No other complaints or associated symptoms. Patient presents to the emergency department with her mother for further evaluation and treatment. Patient states that she has contacted [facility] and is here for clearance evaluation in the emergency department. She does not note any exacerbating or remitting factors for her symptoms. Occurred At: home Onset: Gradual Allergies: Coded Allergies: aspirin (Verified Allergy, Severe, ANAPHYLAXSIS, 04/01/17) levofloxacin (Verified Allergy, Severe, HIVES, 04/01/17) peanut (Verified Allergy, Severe, ANAPHYLAXSIS, 04/01/17) pseudoephedrine (Verified Allergy, Severe, ANAPHYLAXSIS, 04/01/17) Penicillins (Verified Allergy, Intermediate, HIVES, 04/01/17) amoxicillin (Verified Allergy, Intermediate, HIVES, 04/01/17) azithromycin (Verified Allergy, Intermediate, HIVES, 04/01/17) ciprofloxacin (Verified Allergy, Intermediate, HIVES, 04/01/17) clavulanic acid (Verified Allergy, Intermediate, HIVES, 04/01/17) divalproex sodium (Verified Allergy, Intermediate, HIVES, 04/01/17) erythromycin base (Verified Allergy, Intermediate, HIVES, 04/01/17) Past History Patient Medical History Problem List Updates: Cystic fibrosis, PTSD, Depression, Asthma Patient Surgical History Power Port Placement, exploratory laparotomy, tonsillectomy, adenoidectomy, Family History Family History: Negative Social History Smoking Status: Never smoker Substance Use Type: does not use Alcohol Intake: occasionally Review of Systems Constitutional Constitutional: DENIES: chills, fever Eyes General: DENIES: erythema, exudate Lids/Accessories: DENIES: erythema, swelling Vision: DENIES: acuity, blurring ENMT Ears: DENIES: drainage, erythema Hearing: DENIES: hearing loss Balance: DENIES: ataxia, falling to one side Sinuses: DENIES: congestion, pain Nose: DENIES: nosebleeds, pain Mouth/Throat: DENIES: painful swallowing, sore throat Teeth: DENIES: pain Jaw: DENIES: pain Cardiovascular Cardiac: DENIES: chest pain, dyspnea on exertion Rhythm/Rate: DENIES: irregular beat, palpitations Vascular: DENIES: pedal edema, unilateral swelling Pulmonary Respiratory: DENIES: cough, dyspnea, pleuritic chest pain, sputum GI Upper Abdomen: DENIES: nausea, pain, vomiting Lower Abdomen: DENIES: diarrhea, pain General: DENIES: dysuria, frequency, urgency Musculoskeletal General: DENIES: joint pain, tenderness Integumentary Skin: DENIES: itching, rash Neurological General: DENIES: change in strength, headache, numbness, weakness Psychiatric Psychiatric: depression, suicidal ideation/attempt Endocrine Endocrine: DENIES: polydipsia, polyphagia Hematologic/Lymphatic Hematologic/Lymphatic: DENIES: frequent nosebleeds, lymphadenopathy Allergic/Immunological Allergic/Immunoligical: DENIES: allergic reactions, hives Physical Exam General General Nourishment: well nourished, well developed, appears stated age, no acute distress, adult General Body Habitus: well groomed Vitals and Pain First Documented Vital Signs Date Time Temp Pulse Resp B/P Pulse Ox O2 Delivery O2 Flow Rate FiO2 04/01/17 02:55 97.8 68 14 116/80 100 Room Air Weight: Kilograms: 53.300 Height (feet): 5 Height (inches): 3.00 Triage Pain Scale: RN VS reviewed by Provider: Yes Normal Exams: Head: Normocephalic w/o trauma Eyes: Pupils are PERRLA w/ EOMI, No scleral icterus, irritation, or foreign bodies noted ENMT: No facial trauma, nasal exudates, pharyngeal erythema, or exudates are noted Dental: No fractured, loose, or missing teeth noted Neck: Full range of motion, without adenopathy, JVD, bruits or thyromegaly Chest/Resp: Clear all leal, with good airflow, and symmetry bilaterally CV: Regular rate and rhythm, without murmur or gallop, Pulses 2+ all extremities, capillary refill, <2 seconds all ext., no pedal edema noted Abdomen: Bowel sounds positive, soft, non-tender, non-distended, no hepatosplenomegaly, masses or bruits noted Lymphatic: No lymphadenopathy, or lymphedema noted Musculoskeletal: No tenderness, or deformity noted, good range of motion, all extremities Integumentary: No rashes, hives, or bruising noted, hair and nails, without abnormality Neurologic: Patient is alert, and oriented, cranial nerves, motor/sensory/ cerebellar, exams w/o gross deficits, to observation Abdomen (brief) Comments NO CVAT. Integumentary (brief) Comments Cut here is written over the veins in the patient's left wrist. Multiple old well-healed scars from prior cutting cover the left forearm. Psychiatric (brief) Comments Flat Affect. Differential Diagnoses Considering: Depression, Medication Effect, Metabolic, Other (suicidal ideation ) Progress Results/Orders Orders Procedure Category Date Status Time Cbc W/Auto LAB 04/01/17 Complete Diff-Reflex Manual Cmp - Comprehensive LAB 04/01/17 Complete Metabolic Drug Screen LAB 04/01/17 Complete Urine-Test At [facility] [place] 03:05 Ethanol LAB 04/01/17 Complete Salicylate LAB 04/01/17 Complete Acetaminophen LAB 04/01/17 Complete LAB 04/01/17 Complete Qualitative, Urine 03:05 UA, LAB 04/01/17 Complete Dip&Micro(Complete) & 03:36 Urine Culture ZEE 04/01/17 In Process 03:59 Sulfamethoxazole/Trimethoprim PHA 04/01/17 In Process (Bactrim D 04:15 Lab Results Laboratory Tests Test 04/01/17 03:32 04/01/17 03:36 White Blood Count 10.3T/MM3 Red Blood Count 4.22M/MM3 Hemoglobin 12.1GM/DL Hematocrit 36.2% Mean Corpuscular Volume 85.8UM3 Mean Corpuscular Hemoglobin 28.7UUG Mean Corpuscular Hemoglobin Concent 33.4GM/DL RDW Standard Deviation 41.9FL Platelet Count 271T/MM3 Mean Platelet Volume 10.5UM3 Immature Granulocyte % (Auto) 0.1% Neutrophils (%) (Auto) 54.7% Lymphocytes (%) (Auto) 34.9% Monocytes (%) (Auto) 6.7% Eosinophils (%) (Auto) 3.0% Basophils (%) (Auto) 0.6% Absolute Immature Granulocyte (auto 0.01T/MM3 Absolute Neutrophils (auto) 5.6T/MM3 Absolute Lymphocytes (auto) 3.6T/MM3 Absolute Monocytes (auto) 0.7T/MM3 Absolute Eosinophils (auto) 0.3T/MM3 Absolute Basophils (auto) 0.1T/MM3 Turbidity < 20 Sodium Level 142MEQ/L Potassium Level 4.0MEQ/L Chloride Level 104MEQ/L Carbon Dioxide Level 27MEQ/L Anion Gap 11MEQ/L Blood Urea Nitrogen 7.0MG/DL Creatinine 0.9MG/DL Glomerular Filtration Rate Calc 72 BUN/Creatinine Ratio 8RATIO Glucose Level 135MG/DL Calculated Osmolality 273MOSM/KG Calcium Level 9.2MG/DL Total Bilirubin 0.70MG/DL Icterus Index < 2 Aspartate Amino Transf (AST/SGOT) 27U/L Alanine Aminotransferase (ALT/SGPT) 52U/L Alkaline Phosphatase 110U/L Total Protein 6.6G/DL Albumin 4.1G/DL Globulin 2.5G/DL Albumin/Globulin Ratio 1.6RATIO Chemistry Specimen Hemolysis < 15 Salicylates Level < 1.0MG/DL Acetaminophen Level < 10UG/ML Alcohol, Quantitative <10MG/DL Urine Collection Type Cleancatch-midstream Urine Color Yellow Urine Turbidity Sl cloudy Urine pH 5.0 Urine Specific [place] >=1.030 Urine Protein Negative Urine Glucose (UA) Negative Urine Ketones Negative Urine Blood Negative Urine Nitrite Positive Urine Bilirubin Negative Urine Urobilinogen 0.2EU/DL Urine Leukocyte Esterase Trace Urine RBC None seen/HPF Urine WBC 20-30/HPF Urine Bacteria 2+ Urine Culture Indicated Cult reflexed &setup Urine Test Negative Urine Opiates Screen PositiveNG/ML Urine Oxycodone Screen NegativeNG/ML Urine Methadone Screen NegativeNG/ML Urine Propoxyphene Screen NegativeNG/ML Urine Barbiturates Screen NegativeNG/ML Urine Tricyclic Antidepressants NegativeNG/ML Urine Phencyclidine Screen NegativeNG/ML Urine Amphetamines Screen NegativeNG/ML Urine Methamphetamines Screen NegativeNG/ML Urine Benzodiazepines Screen PositiveNG/ML Urine Cocaine Screen NegativeNG/ML Urine Cannabinoids Screen NegativeNG/ML Urine Drug Screen Confirmation Sent out Urine Drug Screen Information Pending Medications Current ED Medications Trimethoprim/ Sulfamethoxazole (Bactrim Ds) 1 tab AQUARIUM SPECIALIST PO ; Start 04/01/17 at 04:15 Progress Progress Labs are discussed in detail with the patient and questions are answered. Patient is given Bactrim DS one tab by mouth 1 in the emergency Department. Patient is given a prescription for Bactrim DS 7 days. Patient is in agreement with the current plan of management. Patient refuses EMS transport to [place]. Patient's mother is here at bedside and will transport the patient. Patient is instructed not to go anywhere else other than [place] after dismissal from the emergency department. She is to go directly to [facility]. Patient verbalizes agreement and understanding. She is transferred to [place] in improved condition. She is to follow up as instructed. She is to return to the emergency Department if her condition worsens or changes in any manner. Patient and family are in agreement with the current plan of management. Patient is medically clear in the emergency department for psychiatric evaluation and treatment. DAMEON PERLA DO April 01, 2017 03:47
[2017-04-01 03:48] LABS: BLOOD, URINE NEGATIVE (NEGATIVE); COLOR,URINE YELLOW (YELLOW); LEUKOCYTE ESTERASE ,URINE TRACE (NEGATIVE); NITRITE,URINE POSITIVE (NEGATIVE); UROBILINOGEN,URINE 0.2 EU/DL (NORMAL)
[2017-04-01] MEDS ORDERED: PARO20TA43 PO (03:50)
[2017-04-01] MEDS ORDERED: ZIPR60CA2 PO (03:50)
[2017-04-01] MEDS ORDERED: ALPR0.5T PO (03:51)
[2017-04-01] MEDS ORDERED: AMYL1CAP63 PO (03:52)
[2017-04-01] MEDS ORDERED: [UNRECOGNIZED DRUG - OTHER] PO (03:53)
[2017-04-01] MEDS ORDERED: ESOM40CA PO (03:53)
[2017-04-01 03:54] LABS: BASOPHILS # (AUTO) 0.1 T/MM3 (0-0.2); BASOPHILS % (AUTO) 0.6 % (0-2); EOSINOPHILS # (AUTO) 0.3 T/MM3 (0-0.5); HCT - HEMATOCRIT 36.2 % (36-46); HGB - HEMOGLOBIN 12.1 GM/DL (12-16); IMMATURE GRANULOCYTE # (AUTO) 0.01 T/MM3 (0.00-0.03); IMMATURE GRANULOCYTE % (AUTO) 0.1 % (0.0-0.5); LYMPHOCYTES # (AUTO) 3.6 T/MM3 (1-4.8); LYMPHOCYTES % (AUTO) 34.9 % (23-45); MEAN CORPUSCULAR HGB 28.7 UUG (26-34); MEAN CORPUSCULAR HGB CONC(MCHC 33.4 GM/DL (31-37); MEAN CORPUSCULAR VOLUME 85.8 UM3 (80-100); MEAN PLATELET VOLUME 10.5 UM3 (9.4-12.4); MONOCYTES # (AUTO) 0.7 T/MM3 (0-0.8); MONOCYTES % (AUTO) 6.7 % (0-9.0); NEUTROPHILS #(AUTO)-ABSOLUTE 5.6 T/MM3 (1.8-7.7); NEUTROPHILS % (AUTO) 54.7 % (33-66); RED BLOOD COUNT 4.22 M/MM3 (4.00-5.20); WBC - WHITE BLOOD COUNT 10.3 T/MM3 (4.5-11.0)
[2017-04-01] MEDS ORDERED: FAMO20TA8 PO (03:54)
[2017-04-01] MEDS ORDERED: CALC750T4 PO (03:55)
[2017-04-01] MEDS ORDERED: CRANBERRY TAB PO (03:56)
[2017-04-01] MEDS ORDERED: POLY17PO6 PO (03:56)
[2017-04-01 03:57] LABS: AMPHETAMINE SCREEN,URINE NEGATIVE; BARBITURATE SCREEN,URINE NEGATIVE; BENZODIAZEPINES SCREEN,URINE POSITIVE; CANNABINOID SCREEN,URINE NEGATIVE; COCAINE SCREEN,URINE NEGATIVE; METHADONE SCREEN, URINE NEGATIVE; METHAMPHETAMINE SCREEN, URINE NEGATIVE; OPIATE SCREEN,URINE POSITIVE; PHENCYCLIDINE SCREEN,URINE NEGATIVE; TRICYCLIC ANTIDEPRESSANT,URINE NEGATIVE
[2017-04-01] MEDS ORDERED: ALBU8.5H INH (03:57)
[2017-04-01 03:58] LABS: BACTERIA,URINE 2+ (NEGATIVE); RBC,URINE NONE SEEN /HPF (0-3); WBC,URINE 20-30 /HPF (0-5)
[2017-04-01] MEDS ORDERED: ALBU0.63 AEROSOL (03:58)
[2017-04-01] MEDS ORDERED: DORN1SOL AEROSOL (03:58)
[2017-04-01 04:00] LABS: ACETAMINOPHEN < 10 UG/ML (10-30); ALBUMIN 4.1 G/DL (3.5-5.0); ALBUMIN/GLOBULIN RATIO 1.6 RATIO (1.1-2.2); ALKALINE PHOSPHATASE 110 U/L (38-126); ALT (SGPT) 52 U/L (9-52); ANION GAP 11 MEQ/L (5-15); AST (SGOT) 27 U/L (14-36); BUN/CREATININE RATIO 8 RATIO (6-26); CALCIUM 9.2 MG/DL (8.4-10.2); CHLORIDE 104 MEQ/L (98-107); CO2 - CARBON DIOXIDE 27 MEQ/L (22-30); CREATININE 0.9 MG/DL (0.7-1.2); ETHANOL <10 MG/DL (<10); GLOMERULAR FILTRATION RATE 72; GLUCOSE 135 MG/DL (65-110); SALICYLATE < 1.0 MG/DL (2-20); SODIUM 142 MEQ/L (134-144); TOTAL PROTEIN 6.6 G/DL (6.3-8.2)
[2017-04-01] MEDS ORDERED: [UNRECOGNIZED DRUG - CODE] INH (04:00)
[2017-04-01] MEDS ORDERED: FLOVENT IH (04:01)
[2017-04-01] MEDS ORDERED: TRIA10.82 EA NOSTRIL (04:03)
--- OUTSIDE RECORDS SUMMARY | 2017-04-01 04:09 | XMS REPORT ---
Author Author GENERATED, SYSTEM Organization Unknown Address Unknown Phone Unavailable Care Team Providers Care Pipe Coremaker Name Role Phone MD INGA, MANI [phone] Reason For Visit Reason for Visit from [...] MG/DL (65-99 MG/DL) GFR EST NON AFR [place] >90 ML/MIN GFRA EST AFR AMER >90 [...] 9:00 AM * Address # 1 : [facility]: [facility] [place]- or Treatment Plan from 08/21/2014 8:51 AM:* Care Management Note : Patient is admitted as outpatient d/t post op pain. S/p lap alisha. POC is to consult PCP, start HYDRAULIC SPINNER for pain control, increase ambulation, and encourage [...] the responsibility of the patient or patient field representatives director to confirm the list of medications with [...] puff by inhalation twice a day * feaqcx-tgwffdbu-xxxsxsm (Creon) 24,000 unit-76,000 unit-120,000 unit capsule, delayed release(DR/EC), Ordered By: LEIGH SANFORD APRN Directions: 6 capsules oral three times a day during meal * fmofow-klnfgcja-bstuust (Creon) 24,000 unit-76,000 unit-120,000 unit capsule, delayed [...]
--- OUTSIDE RECORDS SUMMARY | 2017-04-01 04:09 | XMS REPORT | Continuity of care Document ---
[...] 05/12/2014 9:45 PM* CULTURE URINE Specimen Number: [id number] Specimen Source: Sample Collection Date/Time: 05/12/2014 9:45 [...]
--- OUTSIDE RECORDS SUMMARY | 2017-04-01 04:09 | XMS REPORT ---
Author Author GENERATED, SYSTEM Organization Unknown Address Unknown Phone Unavailable Care Team Providers Care Ceramic Painter Name Role Phone MD INGA, MANI PP [phone] Reason For Visit Chief Complaint ABD PAIN, [...] H (65-99 MG/DL) *GFR EST NON AFR BOLIVIAN 75 ML/MIN *GFRA EST AFR AMER 87 [...] 2014 10:40 AM * Completed Procedure Code: 74359 Procedure Name: not valued, on 12/10/2014 12: 00 AM * Completed Procedure Code: 61989 Procedure Name: not valued, on 12/10/2014 12: 00 AM * Completed Laparoscopic Cholecystectomy, by MD BREANNE OCONNOR, on 08/20/2014 10:45 AM * Completed Procedure Code: 63278 Procedure Name: not valued, on 08/20/2014 12: [...]
--- OUTSIDE RECORDS SUMMARY | 2017-04-01 04:10 | XMS REPORT ---
Author Author GENERATED, SYSTEM Organization Unknown Address Unknown Phone Unavailable Care Team Providers Care Dry Mill Operator Name Role Phone MD INGA, [facility] [phone] Reason For Visit Reason for Visit from [...]
--- OUTSIDE RECORDS SUMMARY | 2017-04-01 04:10 | XMS REPORT ---
Author Author GENERATED, SYSTEM Organization Unknown Address Unknown Phone Unavailable Care Team Providers Care Cinder Pit Worker Name Role Phone MD INGA, MANI [phone] Reason For Visit Reason for Visit from [...] H (65-99 MG/DL) *GFR EST NON AFR LAO 84 ML/MIN *GFRA EST AFR AMER >90 [...] 2014 10:40 AM * Completed Procedure Code: 08044 Procedure Name: not valued, on 12/10/2014 12: 00 AM * Completed Procedure Code: 75675 Procedure Name: not valued, on 12/10/2014 12: 00 AM * Completed Laparoscopic Cholecystectomy, by MD BREANNE OCONNOR, on 08/20/2014 10:45 AM * Completed Procedure Code: 33112 Procedure Name: not valued, on 08/20/2014 12: [...]
--- OUTSIDE RECORDS SUMMARY | 2017-04-01 04:11 | XMS REPORT ---
Author Author GENERATED, SYSTEM Organization Unknown Address Unknown Phone Unavailable Care Team Providers Care Embedded Case Manager Name Role Phone MD INGA, [facility] [phone] Reason For Visit Chief Complaint CHEST PAIN [...] H (65-99 MG/DL) *GFR EST NON AFR BAHRAINI 75 ML/MIN *GFRA EST AFR AMER 87 [...] 2014 10:40 AM * Completed Procedure Code: 08236 Procedure Name: not valued, on 12/10/2014 12: 00 AM * Completed Procedure Code: 97513 Procedure Name: not valued, on 12/10/2014 12: 00 AM * Completed Laparoscopic Cholecystectomy, by MD BREANNE OCONNOR, on 08/20/2014 10:45 AM * Completed Procedure Code: 60903 Procedure Name: not valued, on 08/20/2014 12: [...]
--- OUTSIDE RECORDS SUMMARY | 2017-04-01 04:11 | XMS REPORT ---
Author Author GENERATED, SYSTEM Organization Unknown Address Unknown Phone Unavailable Care Team Providers Care Pooling Operator Name Role Phone MD INGA, MANI [phone] Reason For Visit Reason for Visit from [...] MG/DL (65-99 MG/DL) *GFR EST NON AFR SINGAPOREAN 88 ML/MIN *GFRA EST AFR AMER >90 [...] H (65-99 MG/DL) *GFR EST NON AFR SINGAPOREAN 74 ML/MIN *GFRA EST AFR AMER 86 [...] H (65-99 MG/DL) *GFR EST NON AFR SINGAPOREAN 83 ML/MIN *GFRA EST AFR AMER >90 [...] MG/DL (65-99 MG/DL) *GFR EST NON AFR SINGAPOREAN >90 ML/MIN *GFRA EST AFR AMER >90 [...] 2014 10:40 AM * Completed Procedure Code: 66548 Procedure Name: not valued, on 12/10/2014 12: 00 AM * Completed Procedure Code: 24580 Procedure Name: not valued, on 12/10/2014 12: 00 AM * Completed Laparoscopic Cholecystectomy, by MD BREANNE OCONNOR, on 08/20/2014 10:45 AM * Completed Procedure Code: 35255 Procedure Name: not valued, on 08/20/2014 12: [...]
--- OUTSIDE RECORDS SUMMARY | 2017-04-01 04:11 | XMS REPORT ---
Author Author GENERATED, SYSTEM Organization Unknown Address Unknown Phone Unavailable Care Team Providers Care Board Runner Name Role Phone MD INGA, MANI [phone] Reason For Visit Reason for Visit from [...] H (65-99 MG/DL) *GFR EST NON AFR STATELESS 78 ML/MIN *GFR EST AFR AMER >90 [...] H (65-99 MG/DL) *GFR EST NON AFR STATELESS 83 ML/MIN *GFR EST AFR AMER >90 [...] Detected ) [facility]16[facility]2016 4:45 [facility] History: Pneumonia Priors: 11/15/16 Findings: [...] 3:45 PM * Address # 1 : [facility]: [address], [place]- or Treatment Plan from 11/15/2016 9:36 AM:* [...] 2014 10:40 AM * Completed Procedure Code: 35486 Procedure Name: not valued, on 12/10/2014 12: 00 AM * Completed Procedure Code: 90834 Procedure Name: not valued, on 12/10/2014 12: 00 AM * Completed Laparoscopic Cholecystectomy, by MD BREANNE OCONNOR, on 08/20/2014 10:45 AM * Completed Procedure Code: 60711 Procedure Name: not valued, on 08/20/2014 12: [...] the responsibility of the patient or patient pest control service representative to confirm the list of [...] oral every four hours PRN pain * anruyb-gpjtrvcp-usstrok (Creon) 24,000 unit-76,000 unit-120,000 unit capsule, delayed [...]
--- OUTSIDE RECORDS SUMMARY | 2017-04-01 04:11 | XMS REPORT ---
Author Author GENERATED, SYSTEM Organization Unknown Address Unknown Phone Unavailable Care Team Providers Care Paper Folding Machine Operator Name Role Phone MD INGA, MANI PP [phone] Reason For Visit Chief Complaint COUGH,LUNG PAIN [...] 2014 10:40 AM * Completed Procedure Code: 43211 Procedure Name: not valued, on 12/10/2014 12: 00 AM * Completed Procedure Code: 57537 Procedure Name: not valued, on 12/10/2014 12: 00 AM * Completed Laparoscopic Cholecystectomy, by MD BREANNE OCONNOR, on 08/20/2014 10:45 AM * Completed Procedure Code: 56362 Procedure Name: not valued, on 08/20/2014 12: [...]
--- OUTSIDE RECORDS SUMMARY | 2017-04-01 04:11 | XMS REPORT ---
Author Author GENERATED, SYSTEM Organization Unknown Address Unknown Phone Unavailable Care Team Providers Care Dyed Raw Stock Blower Feeder Name Role Phone MD INGA, MANI [phone] Reason For Visit Reason for Visit from [...] 08/20/2014 10:45 AM * Completed Procedure Code: 86230 Procedure Name: not valued, on 08/20/2014 12: 00 AM * Completed Procedure Code: 59236 Procedure Name: not valued, on 08/20/2014 12: [...]
[2017-04-01] MEDS ORDERED: SULF1TAB42 PO (04:12)
--- OUTSIDE RECORDS SUMMARY | 2017-04-01 04:12 | XMS REPORT ---
Author Author GENERATED, SYSTEM Organization Unknown Address Unknown Phone Unavailable Care Team Providers Care Advisory Intern Name Role Phone MD INGA, MANI PP [phone] Reason For Visit Chief Complaint SIDE PAIN,CHEST [...] MG/DL (65-99 MG/DL) GFR EST NON AFR MAURITANIAN >90 ML/MIN GFRA EST AFR AMER >90 [...] PM* CULTURE URINE (Preliminary Result) Specimen Number: [id number] Sample Collection Date/Time: 08/14/2014 8:50 PM Specimen [...]
--- OUTSIDE RECORDS SUMMARY | 2017-04-01 04:12 | XMS REPORT ---
Author Author GENERATED, SYSTEM Organization Unknown Address Unknown Phone Unavailable Care Team Providers Care Biological Chemist Name Role Phone MD INGA, MANI [phone] Reason For Visit Reason for Visit from [...] MG/DL (65-99 MG/DL) *GFR EST NON AFR KYRGYZ 77 ML/MIN *GFR EST AFR AMER 89 [...] 2:30 PM * Address # 1 : [facility]: [address], [place]- or Treatment Plan from 07/28/2016 11:20 AM:* [...] 2014 10:40 AM * Completed Procedure Code: 61594 Procedure Name: not valued, on 12/10/2014 12: 00 AM * Completed Procedure Code: 73768 Procedure Name: not valued, on 12/10/2014 12: 00 AM * Completed Laparoscopic Cholecystectomy, by MD BREANNE OCONNOR, on 08/20/2014 10:45 AM * Completed Procedure Code: 36461 Procedure Name: not valued, on 08/20/2014 12: [...] responsibility of the patient or patient customer counter representative to confirm the list of medications [...] oral every four hours PRN pain * spzjhv-tlldvxwh-omcsvkv (Creon) 24,000 unit-76,000 unit-120,000 unit capsule, delayed [...]
[2017-04-01] MEDS ORDERED: SULFAMETHOXAZOLE/TMP 800mg/160mg TABLET PO SCH (04:15)
--- OUTSIDE RECORDS SUMMARY | 2017-04-01 04:15 | XMS REPORT ---
Author Author GENERATED, SYSTEM Organization Unknown Address Unknown Phone Unavailable Care Team Providers Care Ending Machine Operator Name Role Phone MD INGA, MANI PP [phone] Reason For Visit Chief Complaint RIGHT HEMORHAGGIC [...] MG/DL (65-99 MG/DL) *GFR EST NON AFR BURKINAN 83 ML/MIN *GFR EST AFR AMER >90 [...] 2:25 PM* *RIKKI- FUNGAL SMEAR Specimen Number: [id number] Sample Collection Date/Time: 10/21/2016 2:25 PM Specimen Source: Genital Vaginal Cervix *WET PREP: No Trichomonas seen *RIKKI- FUNGAL SMEAR: No yeast or fungal elements seen * *WET PREP Specimen Number: [id number] Sample Collection Date/Time: 10/21/2016 2:25 PM Specimen [...] 2014 10:40 AM * Completed Procedure Code: 57465 Procedure Name: not valued, on 12/10/2014 12: 00 AM * Completed Procedure Code: 05263 Procedure Name: not valued, on 12/10/2014 12: 00 AM * Completed Laparoscopic Cholecystectomy, by MD BREANNE OCONNOR, on 08/20/2014 10:45 AM * Completed Procedure Code: 79882 Procedure Name: not valued, on 08/20/2014 12: [...]
--- OUTSIDE RECORDS SUMMARY | 2017-04-01 04:15 | XMS REPORT ---
Author Author GENERATED, SYSTEM Organization Unknown Address Unknown Phone Unavailable Care Team Providers Care Customer Care Agent Name Role Phone MD INGA, MANI PP [phone] Reason For Visit Reason for Visit from [...] H (65-99 MG/DL) *GFR EST NON AFR FAROESE 75 ML/MIN *GFRA EST AFR AMER 87 [...] H (65-99 MG/DL) *GFR EST NON AFR FAROESE 65 ML/MIN *GFRA EST AFR AMER 76 [...] 05/13/2016 6:35 AM* CULTURE URINE Specimen Number: [id number] Sample Collection Date/Time: 05/13/2016 6:35 AM Specimen [...] 2014 10:40 AM * Completed Procedure Code: 57676 Procedure Name: not valued, on 12/10/2014 12: 00 AM * Completed Procedure Code: 21090 Procedure Name: not valued, on 12/10/2014 12: 00 AM * Completed Laparoscopic Cholecystectomy, by MD BREANNE OCONNOR, on 08/20/2014 10:45 AM * Completed Procedure Code: 51783 Procedure Name: not valued, on 08/20/2014 12: [...]
--- OUTSIDE RECORDS SUMMARY | 2017-04-01 04:16 | XMS REPORT ---
Author Author GENERATED, SYSTEM Organization Unknown Address Unknown Phone Unavailable Care Team Providers Care Manager Books Name Role Phone MD INGA, [facility] [phone] Reason For Visit Chief Complaint ABDOMINAL PAIN [...] H (65-99 MG/DL) *GFR EST NON AFR [place] LUCIAN 63 ML/MIN *GFR EST AFR AMER 73 [...] 2014 10:40 AM * Completed Procedure Code: 74427 Procedure Name: not valued, on 12/10/2014 12: 00 AM * Completed Procedure Code: 76675 Procedure Name: not valued, on 12/10/2014 12: 00 AM * Completed Laparoscopic Cholecystectomy, by MD BREANNE OCONNOR, on 08/20/2014 10:45 AM * Completed Procedure Code: 88993 Procedure Name: not valued, on 08/20/2014 12: [...]
--- OUTSIDE RECORDS SUMMARY | 2017-04-01 04:17 | XMS REPORT ---
Author Author GENERATED, SYSTEM Organization Unknown Address Unknown Phone Unavailable Care Team Providers Care Mechanical Handyman Name Role Phone MD INGA, [facility] [phone] Reason For Visit Reason for Visit from [...] 2014 10:40 AM * Completed Procedure Code: 02527 Procedure Name: not valued, on 12/10/2014 12: 00 AM * Completed Procedure Code: 39000 Procedure Name: not valued, on 12/10/2014 12: 00 AM * Completed Laparoscopic Cholecystectomy, by MD BREANNE OCONNOR, on 08/20/2014 10:45 AM * Completed Procedure Code: 96852 Procedure Name: not valued, on 08/20/2014 12: [...]
--- OUTSIDE RECORDS SUMMARY | 2017-04-01 04:17 | XMS REPORT | Continuity of Care Document ---
Author Author [facility] Organization [facility] Address Unknown Phone Unavailable Allergies Medications Problems Date Dx Coded Attending Type Code Diagnosis Diagnosed By 06/17/2015 UNASSIGNED DOCTORDOCTOR Bishop 7862 COUGH 06/30/2015 MALLORY VALADEZ 5589 NONINF GASTROENTERIT NEC 06/30/2015 MALLORY VALADEZ 7291 FIBROMYALGIA 06/30/2015 MALLORY VALADEZ 34829 NAUSEA WITH VOMITING 12/11/2015 TERE CARRANZA E849 Cystic fibrosis, unspecified 12/11/2015 TERE CARRANZA R05 Cough 12/11/2015 TERE CARRANZA R0781 Pleurodynia 12/11/2015 TERE CARRANZA R079 Chest pain, unspecified 05/17/2016 AMBER RAMOS E849 Cystic fibrosis, unspecified 05/17/2016 AMBER RAMOS K529 Noninfective gastroenteritis and colitis, unspecified 05/17/2016 AMBER RAMOS K5660 Unspecified intestinal obstruction 05/17/2016 AMBER RAMOS R1011 Right upper quadrant pain 05/17/2016 AMBER RAMOS Z792 alf (current) use of antibiotics 05/30/2016 DEANDRE HORNER [...] w oth resp manifest 11/23/2016 MANI XIONG S16030 Unspecified asthma, uncomplicated 11/23/2016 MANI XIONG Z801 [...] to analgesic agent status 11/23/2016 MANI XIONG U52374 Allergy to peanuts 11/23/2016 MANI XIONG 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 Latex allergy status 11/24/2016 MANI XIONG E119 [...] w oth resp manifest 11/24/2016 MANI XIONG L45264 Unspecified asthma, uncomplicated 11/24/2016 MANI XIONG Z801 [...] to analgesic agent status 11/24/2016 MANI XIONG L45111 Allergy to peanuts 11/24/2016 MANI XIONG R71354 Latex allergy status Procedures Code [place] [address] 06/22/2015 81018 06/22/2015 73652 06/22/2015 53232 06/22/2015 74091 06/22/2015 18421 06/22/2015 31536 06/22/2015 28617 06/22/2015 71161 06/22/2015 58647 06/22/2015 71197 06/22/2015 89199 06/22/2015 38559 06/22/2015 A9270 06/22/2015 54960 12/02/2015 53191 12/02/2015 83549 12/02/2015 89447 12/02/2015 55672 12/02/2015 57050 12/02/2015 81223 12/02/2015 43479 12/02/2015 90826 12/02/2015 98268 12/02/2015 A9270 12/02/2015 55922 05/12/2016 61801 05/12/2016 43994 05/12/2016 81517 05/12/2016 06079 05/12/2016 43651 05/12/2016 J1335 05/12/2016 35882 05/13/2016 77386 05/13/2016 54610 05/13/2016 42213 05/13/2016 77632 05/13/2016 27111 05/13/2016 81626 05/13/2016 10676 05/13/2016 J2270 05/13/2016 J2405 05/13/2016 Q9967 05/13/2016 [...] - 10/17/16 03:40 *GFR EST NON AFR ZAMBIAN 63 mL/min NRG *GRFA EST AFR AMER [...] - 10/21/16 13:15 *GFR EST NON AFR ZAMBIAN 83 mL/min NRG *GRFA EST AFR AMER [...] - 11/14/16 07:39 *GFR EST NON AFR ZAMBIAN 80 mL/min NRG *GRFA EST AFR AMER [...] - 11/15/16 06:49 *GFR EST NON AFR ZAMBIAN 83 mL/min NRG *GRFA EST AFR AMER [...] - 11/16/16 05:50 *GFR EST NON AFR ZAMBIAN 78 mL/min NRG *GRFA EST AFR AMER >90 mL/min NRG Encounters ACCT No. Visit Date/Time Discharge Status Pt. Type Provider Facility Loc./Unit Complaint [id number] 01/23/2014 12:25:00 01/23/2014 23 :59:59 [facility] Outpatient [id number] 01/16/2014 13:02:00 01/16/2014 23 :59:59 [facility] [id number] 12/21/2013 16:17:00 12/21/2013 23 :59:59 [facility] [id number] 12/13/2013 09:26:00 12/13/2013 23 :59:59 [facility] [id number] 11/30/2013 13:42:00 11/30/2013 23 :59:59 [facility]
--- OUTSIDE RECORDS SUMMARY | 2017-04-01 04:17 | XMS REPORT ---
Author Author GENERATED, SYSTEM Organization Unknown Address Unknown Phone Unavailable Care Team Providers Care Artist'S Manager Name Role Phone MD INGA, MANI [phone] Reason For Visit Chief Complaint CF Social [...] 2014 10:40 AM * Completed Procedure Code: 74966 Procedure Name: not valued, on 12/10/2014 12: 00 AM * Completed Procedure Code: 94151 Procedure Name: not valued, on 12/10/2014 12: 00 AM * Completed Laparoscopic Cholecystectomy, by MD BREANNE OCONNOR, on 08/20/2014 10:45 AM * Completed Procedure Code: 11996 Procedure Name: not valued, on 08/20/2014 12: [...]
--- OUTSIDE RECORDS SUMMARY | 2017-04-01 04:18 | XMS REPORT ---
Author Author GENERATED, SYSTEM Organization Unknown Address Unknown Phone Unavailable Care Team Providers Care Sales Special Agent Name Role Phone MD INGA, MANI [phone] Reason For Visit Chief Complaint E84.9 J32.4,INVANZ [...] 2014 10:40 AM * Completed Procedure Code: 93094 Procedure Name: not valued, on 12/10/2014 12: 00 AM * Completed Procedure Code: 36928 Procedure Name: not valued, on 12/10/2014 12: 00 AM * Completed Laparoscopic Cholecystectomy, by MD BREANNE OCONNOR, on 08/20/2014 10:45 AM * Completed Procedure Code: 17113 Procedure Name: not valued, on 08/20/2014 12: [...]
--- OUTSIDE RECORDS SUMMARY | 2017-04-01 04:19 | XMS REPORT ---
Author Author GENERATED, SYSTEM Organization Unknown Address Unknown Phone Unavailable Care Team Providers Care Lead Generation Specialist Name Role Phone MD INGA, MANI PP [phone] Reason For Visit Chief Complaint VOMIT DEHYDRATE [...] H (65-99 MG/DL) GFR EST NON AFR KUWAITI 80 ML/MIN GFRA EST AFR AMER >90 [...] PM* Status: Final Result URINALYSIS Specimen Number: [id number] Sample Collection Date/Time: 06/22/2015 9:10 PM Specimen [...] GROUP A STREP (Preliminary Result) Specimen Number: [id number] Sample Collection Date/Time: 06/22/2015 9:55 PM Specimen Source: Throat GROUP A STREP, RAPID AG: NEGATIVE FOR GROUP A STREP CULTURE GROUP A STREP: Testing in Progress * *INFLUENZA A ANTIGEN Specimen Number: [id number] Sample Collection Date/Time: 06/22/2015 9:55 PM Specimen [...] NEGATIVE * *INFLUENZA B ANTIGEN Specimen Number: [id number] Sample Collection Date/Time: 06/22/2015 9:55 PM Specimen [...] GROUP A STREP, RAPID AG Specimen Number: [id number] Sample Collection Date/Time: 06/22/2015 9:55 PM Specimen [...] 2014 10:40 AM * Completed Procedure Code: 23979 Procedure Name: not valued, on 12/10/2014 12: 00 AM * Completed Procedure Code: 12258 Procedure Name: not valued, on 12/10/2014 12: 00 AM * Completed Laparoscopic Cholecystectomy, by MD BREANNE OCONNOR, on 08/20/2014 10:45 AM * Completed Procedure Code: 67856 Procedure Name: not valued, on 08/20/2014 12: [...]
--- OUTSIDE RECORDS SUMMARY | 2017-04-01 04:20 | XMS REPORT ---
Author Author GENERATED, SYSTEM Organization Unknown Address Unknown Phone Unavailable Care Team Providers Care Bean Sprout Laborer Name Role Phone MD INGA, MANI PP [phone] Reason For Visit Reason for Visit from [...] 9:00 AM * Address # 1 : [facility]: [facility] [address] [place]- [phone] or Procedures * Completed Laparoscopic Cholecystectomy, by [...]
--- OUTSIDE RECORDS SUMMARY | 2017-04-01 04:20 | XMS REPORT ---
Author Author GENERATED, SYSTEM Organization Unknown Address Unknown Phone Unavailable Care Team Providers Care Neuro Intensivist Physician Name Role Phone MD INGA, MANI [phone] Reason For Visit Reason for Visit from [...] MG/DL (65-99 MG/DL) GFR EST NON AFR SAUDI ARABIAN >90 ML/MIN GFRA EST AFR AMER >90 [...] 9:00 AM * Address # 1 : [facility]: [facility] [place]- or Treatment Plan from 08/21/2014 8:51 AM:* Care Management Note : Patient is admitted as outpatient d/t post op pain. S/p lap alisha. POC is to consult PCP, start FIELD ENGINEER for pain control, increase ambulation, and encourage [...] the responsibility of the patient or patient account development representative to confirm the list of [...] puff by inhalation twice a day * waaghd-meudraoi-xctvskg (Creon) 24,000 unit-76,000 unit-120,000 unit capsule, delayed release(DR/EC), Ordered By: LEIGH SANFORD APRN Directions: 6 capsules oral three times a day during meal * grecdp-gyzxqehh-fjhtwhb (Creon) 24,000 unit-76,000 unit-120,000 unit capsule, delayed [...]
--- OUTSIDE RECORDS SUMMARY | 2017-04-01 04:21 | XMS REPORT ---
Author Author GENERATED, SYSTEM Organization Unknown Address Unknown Phone Unavailable Care Team Providers Care Coupon And Bond Collection Clerk Name Role Phone MD INGA, MANI [phone] Reason For Visit Reason for Visit from [...] 2014 10:40 AM * Completed Procedure Code: 36052 Procedure Name: not valued, on 12/10/2014 12: 00 AM * Completed Procedure Code: 64609 Procedure Name: not valued, on 12/10/2014 12: 00 AM * Completed Laparoscopic Cholecystectomy, by MD BREANNE OCONNOR, on 08/20/2014 10:45 AM * Completed Procedure Code: 86055 Procedure Name: not valued, on 08/20/2014 12: [...]
--- NOTE | 2017-04-01 04:23 | NUR ---
REPORT SARAH CALLED TO [facility]. REPORTS THEY ARE COMFORTABLE WITH PT TRANSPORTING WITH HER PARENTS.
[2017-04-01 04:28] VITALS: BP 112/64; PULSE 66; RESP 15; O2SAT 96
--- NOTE | 2017-04-01 04:28 | NUR ---
DEPART ED PT LEFT WITH ACUTE CARE TRANSFER FORM, COPY OF PROVIDER AND NURSES NOTES. PT'S PARENTS HERE TO DRIVE PT TO [facility]. PT IS AMBULATORY OUT OF THE ED WITHOUT DIFFICULTIES.
== END 2017-04-01 04:28 ==
LOC: ED 02:54
DX: R45.851 Suicidal ideations (principal); F33.1 Major depressive disorder, recurrent, moderate; N30.00 Acute cystitis without hematuria; Z79.899 Other long term (current) drug therapy
CPT/HCPCS: 36415; 80053; 80306; 80307; 81001; 81025; 85025; 87077; 87086; 87186; 99285; A9270